=== PATIENT | male | born 1970 | race Caucasian/White ===

== ENCOUNTER → 2018-05-16 | Outpatient (CLI) | payer OTHER ==
[2018-05-16 10:11] LABS: ESTIMATED AVERAGE GLUCOSE 143 MG/DL (60-110); HEMOGLOBIN A1c 6.6 %
== END ==
LOC: M LAB 08:20
DX: E11.9 Type 2 diabetes mellitus without complications (principal)
CPT/HCPCS: 83036

== ENCOUNTER 2018-05-26 12:03 | Emergency (ER) | payer OTHER ==
[2018-05-26] MEDS: ASPIRIN 81 MG CHEW TABLET PO (13:58)
[2018-05-26] MEDS: NITROGLYCERIN 0.4 MG SUBL TABLET SL (13:58)
[2018-05-26 16:00] LABS: BASO % 0.3 % (0.0-1.0); EOS % 0.1 % (0.0-3.0); HEMATOCRIT 43.3 % (42.0-52.0); HEMOGLOBIN 14.5 g/dl (13.5-17.5); IMMATURE GRANULOCYTE % 0.3 % (0-3.0); LYMPH # 0.7 10^3/uL (1.5-4.5); LYMPH % 5.9 % (24.0-44.0); MEAN CORPUSCULAR HEMOGLOBIN 30.3 pg (27.0-33.0); MEAN CORPUSCULAR HGB CONC 33.5 g/dl (32.0-36.5); MEAN CORPUSCULAR VOLUME 90.4 fl (80.0-96.0); MONO # 0.5 10^3/uL (0.0-0.8); MONO % 4.2 % (0.0-5.0); NEUTROPHILS # 10.4 10^3/uL (1.8-7.7); NEUTROPHILS % 89.2 % (36.0-66.0); PLATELET COUNT, AUTOMATED 171 10^3/uL (150-450); RED BLOOD COUNT 4.79 10^6/uL (4.30-6.10); RED CELL DISTRIBUTION WIDTH 15.9 % (11.5-14.5); WHITE BLOOD COUNT 11.6 10^3/uL (4.0-10.0)
[2018-05-26 16:10] LABS: INR 1.09; PROTHROMBIN TIME 14.2 SECONDS (12.1-14.4)
[2018-05-26 16:11] LABS: PARTIAL THROMBOPLASTIN TIME 29.6 SECONDS (25.4-37.6)
[2018-05-26 16:17] LABS: D-DIMER QUANT < 270.0 ng/ml (<500)
[2018-05-26 16:31] LABS: ALBUMIN 3.7 GM/DL (3.2-5.2); ALBUMIN/GLOBULIN RATIO 1.06 (1.00-1.93); ALKALINE PHOSPHATASE 76 U/L (45-117); ALT/SGPT 25 U/L (12-78); ANION GAP 10 MEQ/L (8-16); AST/SGOT 9 U/L (7-37); BILIRUBIN,DIRECT 0.2 MG/DL (0.0-0.2); BILIRUBIN,TOTAL 0.4 MG/DL (0.2-1.0); BLOOD UREA NITROGEN 15 MG/DL (7-18); CALCIUM LEVEL 8.8 MG/DL (8.5-10.1); CARBON DIOXIDE LEVEL 22 MEQ/L (21-32); CHLORIDE LEVEL 107 MEQ/L (98-107); CPK CREATINE PHOSPHOKINASE 36 U/L (39-308); CREATININE FOR GFR 0.96 MG/DL (0.70-1.30); GLOMERULAR FILTRATION RATE > 60.0 (>60); GLUCOSE, FASTING 121 MG/DL (70-100); LIPASE 99 U/L (73-393); POTASSIUM SERUM 4.3 MEQ/L (3.5-5.1); SODIUM LEVEL 139 MEQ/L (136-145); TOTAL PROTEIN 7.2 GM/DL (6.4-8.2); TROPONIN I < 0.02 NG/ML (< 0.10)
[2018-05-26 16:32] LABS: CK-MB VALUE MASS < 1.0 NG/ML (<3.6); MB/CK RELATIVE INDEX 2.77 (< OR =4); NT-PRO BNP 1950 PG/ML (<125)
[2018-05-26 18:49] LABS: CK-MB VALUE MASS < 1.0 NG/ML (<3.6); CPK CREATINE PHOSPHOKINASE 31 U/L (39-308); MB/CK RELATIVE INDEX 3.22 (< OR =4); TROPONIN I < 0.02 NG/ML (< 0.10)
== END 2018-05-26 19:30 | disposition home or self-care (01) ==
LOC: M ED 12:03
DX: R07.9 Chest pain, unspecified (principal); R11.2 Nausea with vomiting, unspecified; R06.02 Shortness of breath; R42 Dizziness and giddiness; R05 Cough; I45.10 Unspecified right bundle-branch block; E11.9 Type 2 diabetes mellitus without complications; I11.0 Hypertensive heart disease with heart failure; I50.9 Heart failure, unspecified; J44.9 Chronic obstructive pulmonary disease, unspecified; I48.91 Unspecified atrial fibrillation; E78.5 Hyperlipidemia, unspecified; Z95.0 Presence of cardiac pacemaker; Z86.73 Personal history of transient ischemic attack (TIA), and cerebral infarction without residual deficits; Z79.899 Other long term (current) drug therapy; Z79.4 Long term (current) use of insulin; Z79.82 Long term (current) use of aspirin; Z88.0 Allergy status to penicillin; Z88.2 Allergy status to sulfonamides; Z91.018 Allergy to other foods; F17.210 Nicotine dependence, cigarettes, uncomplicated
CPT/HCPCS: 71046

== ENCOUNTER 2018-10-29 09:09 | Emergency (ER) | payer OTHER ==
[2018-10-29] MEDS: NORCO, ANEXSIA 5/325MG TABLET (HYDROcodone/ACETAMINOPHEN) PO (10:15)
== END 2018-10-29 10:54 | disposition home or self-care (01) ==
LOC: M ED 09:09
DX: R07.89 Other chest pain (principal); I51.7 Cardiomegaly; Z72.0 Tobacco use; Z95.0 Presence of cardiac pacemaker; Z79.82 Long term (current) use of aspirin; Z79.4 Long term (current) use of insulin; Z79.899 Other long term (current) drug therapy; Z88.0 Allergy status to penicillin; Z88.2 Allergy status to sulfonamides; Z91.018 Allergy to other foods
CPT/HCPCS: 71101

== ENCOUNTER 2019-01-22 09:10 | Emergency (ER) | payer OTHER ==
[~2019-01-22] VITALS: Ht 165.1 cm; Wt 97.3 kg
[~2019-01-22 09:10] MED LIST: /INSUREG IJ; /PHEN9TA OR; ADV250INH INH; ADVAIR; ADVAIR INH; ALBU17IN INH; ALBU83IN INH; ALLE25CA OR; AMIO20TA PO; AMLO10TA PO; AMLO10TA5 PO; AMLO5TAB OR; ASPI1TAB PO; ASPI81TA24 PO; ASPI81TA83 OR; ASPI81TA83 PO; ATEN50TA2; ATOR1TAB19 PO; Acetaminophen/Hydrocodone PO; CLAR10CA3 PO; CLAR5CHW OR; CLARITIN OR; CLOP75TA2 PO; CRES5TAB OR; CYCL10TA PO; DRONEDARONE OR; ERYTOIN8 OS; FURO20TA2 PO; FURO40TA2 PO; GABA600T4 PO; GABA800T4 PO; GLUC500T OR; HUMUINJ SC; HYDR-3713 PO; IBUP1TAB7 PO; IBUP400T OR; IBUP600T; IBUP80TA PO; INSUHUMDS SC; INSULIN ISOPHANE SC; INSUNSD SC; INSURSD SC; IPRAINH INH; KEPP1TAB PO; KEPPRA OR; LASI20TA OR; LASI20TA3 PO; LASI40TA9 PO; LEVE750T5 PO; LIPI20TA; LISI-538 PO; LISI20TA5 OR; LOPR100T OR; LOPR50TA OR; LORA-243 PO; MAALSUS OR; MAGN500T2 OR; MAGN64TASA PO; METF10004 PO; METO100T5 PO; NITR0.2D TD; NITR0.3D TD; NITR0.4S SL; NITR4TASL SL; NOVOINJ3 SC; OMEP20TA7 OR; OXCA150T OR; PHEN32.44 PO; PLAV1TAB2 PO; PLAV75TA2 OR; RANI15TA PO; REFR0.5D8 OU; REFRESH EYE DROPS OU; SERT50TA2 OR; TRAZ-163 PO; TRAZ150T OR; TRILEPTAL OR; VENTAER IN; VENTAER INH; in; multaq PO
[2019-01-22] MEDS: IPRATROPIUM 0.5MG/ALBUTEROL 2.5MG INH SOL UD 3ML (DUONEB)(J7620) NEB SCH ×3 (10:17→11:30)
--- NOTE | 2019-01-22 10:33 | REP ---
Clinical: Productive cough. Technique: PA and lateral. Comparison: 05/26/2018. Findings: Stable diffuse cardiomegaly unchanged. Lung kennedy are clear. No acute consolidation, effusion, or pneumothorax. Skeletal structures are intact. Impression: Stable cardiomegaly. No acute process. Electronically Signed by Jose Alberto Lowe MD 01/22/2019 10:25 A
[2019-01-22] MEDS ORDERED: DOXY100C37 PO (11:59)
[2019-01-22] MEDS ORDERED: PRED20TA PO (11:59)
[2019-01-22 12:09] VITALS: BP 108/68
--- NOTE | 2019-01-25 06:34 | ECGEPIP ---
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
== END 2019-01-22 12:10 | disposition home or self-care (01) ==
LOC: M ED 09:10
DX: J44.1 Chronic obstructive pulmonary disease with (acute) exacerbation (principal); I45.10 Unspecified right bundle-branch block; E11.9 Type 2 diabetes mellitus without complications; I10 Essential (primary) hypertension; I48.91 Unspecified atrial fibrillation; I25.10 Atherosclerotic heart disease of native coronary artery without angina pectoris; Z79.899 Other long term (current) drug therapy; Z79.4 Long term (current) use of insulin; Z79.82 Long term (current) use of aspirin; Z88.0 Allergy status to penicillin; Z88.2 Allergy status to sulfonamides; Z91.018 Allergy to other foods; F17.210 Nicotine dependence, cigarettes, uncomplicated

== ENCOUNTER → 2019-02-04 | Outpatient (CLI) | payer OTHER ==
[~2019-02-04] MED LIST changes: +DOXY100C37 PO; +PRED20TA PO
[2019-02-04 10:47] LABS: ALBUMIN 3.4 GM/DL (3.2-5.2); ALT/SGPT 22 U/L (12-78); BILIRUBIN,DIRECT 0.1 MG/DL (0.0-0.2); BILIRUBIN,TOTAL 0.3 MG/DL (0.2-1.0); BLOOD UREA NITROGEN 18 MG/DL (7-18); CARBON DIOXIDE LEVEL 28 MEQ/L (21-32); CHLORIDE LEVEL 108 MEQ/L (98-107); CREATININE FOR GFR 0.89 MG/DL (0.70-1.30); GLOMERULAR FILTRATION RATE > 60.0 (>56); GLUCOSE, FASTING 103 MG/DL (70-100); POTASSIUM SERUM 4.3 MEQ/L (3.5-5.1); SODIUM LEVEL 140 MEQ/L (136-145); THYROID STIMULATING HORMONE 0.733 uIU/ML (0.358-3.740); TOTAL PROTEIN 6.8 GM/DL (6.4-8.2)
== END ==
LOC: M LAB 09:34
PROVIDERS: ATTEND Nurse Practitioner Family
DX: I47.2 Ventricular tachycardia (principal)

== ENCOUNTER → 2019-02-04 | Outpatient (CLI) | payer OTHER | LOC: M LAB 09:28 | PROVIDERS: ATTEND Nurse Practitioner | DX: I47.2 Ventricular tachycardia (principal) ==

== ENCOUNTER 2019-04-28 01:15 | Emergency (ER) | payer OTHER ==
[~2019-04-28] VITALS: Ht 165.1 cm; Wt 98.2 kg
[~2019-04-28 01:15] MED LIST changes: -/INSUREG IJ; -/PHEN9TA OR; +AMIO200T10 PO; +AMIO200T22 PO; -AMIO20TA PO; -ASPI1TAB PO; +ASPI81TA26 PO; +NOVO1INJ2 IJ; +PHEN1TAB26 OR
[2019-04-28 01:50] LABS: BASO # 0.1 10^3/uL (0.0-0.2); BASO % 0.7 % (0.0-1.0); EOS # 0.5 10^3/uL (0.0-0.50); EOS % 5.6 % (0.0-3.0); HEMATOCRIT 38.7 % (42.0-52.0); HEMOGLOBIN 12.4 g/dl (13.5-17.5); LYMPH # 1.4 10^3/uL (1.5-4.5); MEAN CORPUSCULAR VOLUME 99.7 fl (80.0-96.0); MONO # 0.8 10^3/uL (0.0-0.8); MONO % 9.1 % (0.0-5.0); NEUTROPHILS # 5.8 10^3/uL (1.8-7.7); NEUTROPHILS % 68.2 % (36.0-66.0); PLATELET COUNT, AUTOMATED 147 10^3/uL (150-450); RED BLOOD COUNT 3.88 10^6/uL (4.30-6.10); WHITE BLOOD COUNT 8.5 10^3/uL (4.0-10.0)
[2019-04-28 02:15] LABS: BLOOD UREA NITROGEN 15 MG/DL (7-18); CALCIUM LEVEL 8.2 MG/DL (8.5-10.1); CARBON DIOXIDE LEVEL 21 MEQ/L (21-32); CHLORIDE LEVEL 114 MEQ/L (98-107); CPK CREATINE PHOSPHOKINASE 39 U/L (39-308); CREATININE FOR GFR 0.84 MG/DL (0.70-1.30); GLOMERULAR FILTRATION RATE > 60.0 (>56); GLUCOSE, FASTING 115 MG/DL (70-100); MB/CK RELATIVE INDEX 2.82 (< OR =4); POTASSIUM SERUM 4.4 MEQ/L (3.5-5.1); SODIUM LEVEL 144 MEQ/L (136-145); TROPONIN I < 0.02 NG/ML (< 0.10)
--- NOTE | 2019-04-28 02:29 | REP ---
Clinical: Chest pain. Comparison: 01/22/2019. Findings: Cardiomegaly. No focal consolidation or effusion. No pneumothorax. Skeletal structures intact. Impression: Cardiomegaly. Cannot exclude pulmonary vascular congestion. No focal consolidation or effusion. Electronically Signed by Jose Alberto Lowe MD 04/28/2019 02:19 A
[2019-04-28] MEDS ORDERED: FOLI1TAB11 PO (02:34)
[2019-04-28] MEDS ORDERED: IBUP-1022 PO (02:34)
[2019-04-28] MEDS ORDERED: SERT-141 PO (02:34)
[2019-04-28] MEDS ORDERED: B-1100TA2 PO (02:34)
[2019-04-28] MEDS ORDERED: TRAZ-189 PO (02:34)
[2019-04-28] MEDS ORDERED: K-TA10TA2 PO (02:34)
[2019-04-28] MEDS ORDERED: MAGN400T2 PO (02:34)
[2019-04-28] MEDS ORDERED: XARE20TA PO (02:34)
[2019-04-28] MEDS ORDERED: ISOVUE-370 76% 100ML VIAL (Q9967) As Ordered ONE ×2 (03:07→04:04)
--- NOTE | 2019-04-28 04:38 | REPVR ---
EXAM: CT Cervical Spine Without Contrast EXAM DATE/TIME: 04/28/2019 3:55 AM CLINICAL HISTORY: 48 years old, male; Signs and symptoms; Numbness; Additional info: HX of spinal FX, SOB, parethesia TECHNIQUE: Imaging protocol: Axial computed tomography images of the cervical spine without contrast. Coronal and sagittal reformatted images were created and reviewed. Radiation optimization: All CT scans at this facility use at least one of these dose optimization techniques: automated exposure control; mA and/or kV adjustment per patient size (includes targeted exams where dose is matched to clinical indication); or iterative reconstruction. COMPARISON: CT Spine,cervical w/o contrast 06/26/2015 2:30 AM FINDINGS: Vertebrae: Decreased height of C5 and to a lesser degree C6 with increased AP dimension which may be developmental but certainly chronic and is unchanged from the prior study. Congenital low normal size of the spinal canal on a short pedicle basis. C2-C3: No significant spinal or foraminal stenosis. C3-C4: The disc is adequately well maintained with no significant degenerative change in the spinal or foraminal stenosis. C4-C5: Minimal diffuse bulge with mild anterior spurring and bilateral degenerative changes. There is slight anterior listhesis. There is mild secondary spinal stenosis with moderate right and mild left neural foraminal stenosis. C5-C6: Moderate interspace narrowing with minimal posterior osteophytes and bilateral degenerative changes, there is mild to moderate secondary spinal stenosis, greatest in the left lateral recess and mild right and moderate left neural foraminal stenosis. C6-C7: Moderate interspace narrowing with minimal posterior osteophytes and bilateral degenerative change with mild right and moderate left neural foraminal stenosis. C7-T1: Slight interspace narrowing early degenerative changes of apophyseal joints. There is moderate left neural foraminal stenosis. Soft tissues: Unremarkable. Mastoid air cells: Poor pneumatization of the mastoid air cells with opacification of the few that remain. Lungs: Lung apices are normal. IMPRESSION: 1. There has been essentially no change from 06/26/2015. No acute interval fracture or subluxation. 2. Congenital low normal size of the spinal canal on a short pedicle basis. 3. Multilevel degenerative changes with varying degrees of spinal and neural foraminal stenosis. 4. Poor pneumatization of mastoid air cells with opacification of the few which remain. Electronically signed by: Grover Cardenas On 04/28/2019 04:37:29 AM
--- NOTE | 2019-04-28 04:46 | REPVR ---
EXAM: CT Angiography Chest With Contrast EXAM DATE/TIME: 04/28/2019 3:55 AM CLINICAL HISTORY: 48 years old, male; Signs and symptoms; Shortness of breath; Additional info: HX of spinal FX, SOB, parethesia TECHNIQUE: Imaging protocol: Axial computed tomographic angiography images of the chest with intravenous contrast using CT angiography protocol. Coronal and sagittal reformatted images were created and reviewed. 3D rendering: MIP reconstructed images were created and reviewed. Radiation optimization: All CT scans at this facility use at least one of these dose optimization techniques: automated exposure control; mA and/or kV adjustment per patient size (includes targeted exams where dose is matched to clinical indication); or iterative reconstruction. Contrast material: ISOVUE 370; Contrast volume: 75 ml; Contrast route: IV; COMPARISON: CT Chest without contrast 04/08/2015 8:09 AM FINDINGS: Tubes, catheters and devices: Pacemaker in position from the left. Pulmonary arteries: The main pulmonary artery measures 36 mm. No pulmonary embolism is identified. Aorta: The ascending thoracic aorta measures 36 mm. Lungs: Course interstitial markings with minimal patchy ground glass infiltrates, greatest in the bases. Pleural space: Normal. No pneumothorax. No pleural effusion. Heart: Normal. No cardiomegaly. No pericardial effusion. Mediastinum: Calcified nodule in the anterior mediastinum with a circumferential metallic ring of uncertain etiology but is unchanged from the prior study. Adrenals: Fullness or nodule of the left adrenal measuring 21 mm. Intraperitoneal space: Minimal peritoneal ascites. Lymph nodes: Numerous mediastinal nodes which are borderline overall the number. Bones/joints: Mild degenerative changes of the thoracic spine. Interval fractures of the left 8th and 9th ribs laterally which are old or healing. Soft tissues: Unremarkable. Other findings: Induration in the left axilla. IMPRESSION: 1. Coarse interstitium with patchy groundglass infiltrates which are new since 04/08/2015 and may reflect interstitial or pulmonary edema. 2. Borderline mediastinal nodes which are similar to the prior study. There is nonspecific induration about left axillary nodes as well which is new. 3. Minimal peritoneal ascites which is new. 4. Old or healing fractures of the left 8th and 9th ribs laterally. 5. Otherwise negative CTA chest. No pulmonary embolism is identified. Electronically signed by: Grover Cardenas On 04/28/2019 04:46:34 AM
[2019-04-28 05:36] VITALS: BP 170/85
--- NOTE | 2019-04-28 15:15 | ECGEPIP ---
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
== END 2019-04-28 05:44 | disposition home or self-care (01) ==
LOC: M ED 01:15
DX: I50.9 Heart failure, unspecified (principal); R00.1 Bradycardia, unspecified; I45.10 Unspecified right bundle-branch block; R18.8 Other ascites; R91.8 Other nonspecific abnormal finding of lung field; I51.7 Cardiomegaly; I25.10 Atherosclerotic heart disease of native coronary artery without angina pectoris; I25.2 Old myocardial infarction; G43.909 Migraine, unspecified, not intractable, without status migrainosus; Z95.0 Presence of cardiac pacemaker; Z95.810 Presence of automatic (implantable) cardiac defibrillator; Z72.0 Tobacco use; F12.10 Cannabis abuse, uncomplicated; Z79.82 Long term (current) use of aspirin; Z79.4 Long term (current) use of insulin; Z79.899 Other long term (current) drug therapy; Z88.0 Allergy status to penicillin; Z88.2 Allergy status to sulfonamides; Z91.018 Allergy to other foods
CPT/HCPCS: 36415; 71045; 71275; 72125; 80048; 82550; 82553; 85025; 93005; 93041; 94760; 99285; Q9967

== ENCOUNTER → 2019-05-13 | Outpatient (CLI) | payer OTHER ==
[~2019-05-13] MED LIST changes: +B-1100TA2 PO; +FOLI1TAB11 PO; +IBUP-1022 PO; +K-TA10TA2 PO; +MAGN400T2 PO; +SERT-141 PO; +TRAZ-189 PO; +XARE20TA PO
[2019-05-13 09:44] LABS: BASO # 0.1 10^3/uL (0.0-0.2); BASO % 0.9 % (0.0-1.0); EOS # 0.6 10^3/uL (0.0-0.50); EOS % 7.3 % (0.0-3.0); HEMATOCRIT 42.7 % (42.0-52.0); HEMOGLOBIN 13.6 g/dl (13.5-17.5); LYMPH # 1.6 10^3/uL (1.5-4.5); MEAN CORPUSCULAR HEMOGLOBIN 30.2 pg (27.0-33.0); MEAN CORPUSCULAR HGB CONC 31.9 g/dl (32.0-36.5); MEAN CORPUSCULAR VOLUME 94.7 fl (80.0-96.0); MONO # 0.7 10^3/uL (0.0-0.8); MONO % 8.9 % (0.0-5.0); NEUTROPHILS % 62.3 % (36.0-66.0); PLATELET COUNT, AUTOMATED 167 10^3/uL (150-450); RED BLOOD COUNT 4.51 10^6/uL (4.30-6.10); WHITE BLOOD COUNT 8.1 10^3/uL (4.0-10.0)
[2019-05-13 10:09] LABS: HEMOGLOBIN A1c 6.5 %
[2019-05-13 10:17] LABS: ALBUMIN 3.7 GM/DL (3.2-5.2); ALT/SGPT 20 U/L (12-78); BILIRUBIN,TOTAL 0.2 MG/DL (0.2-1.0); BLOOD UREA NITROGEN 10 MG/DL (7-18); CALCIUM LEVEL 9.2 MG/DL (8.5-10.1); CARBON DIOXIDE LEVEL 29 MEQ/L (21-32); CHLORIDE LEVEL 105 MEQ/L (98-107); CHOLESTEROL LEVEL 128 MG/DL (<200); CHOLESTEROL RISK RATIO 2.666 (<5); CREATININE FOR GFR 1.07 MG/DL (0.70-1.30); GLOMERULAR FILTRATION RATE > 60.0 (>56); GLUCOSE, FASTING 107 MG/DL (70-100); HDL CHOLESTEROL 48 MG/DL (>40); LDL CHOLESTEROL 61 MG/DL (<100); NON-HDL-C 80 MG/DL; POTASSIUM SERUM 3.6 MEQ/L (3.5-5.1); SODIUM LEVEL 141 MEQ/L (136-145); THYROID STIMULATING HORMONE 0.502 uIU/ML (0.358-3.740); TOTAL PROTEIN 7.5 GM/DL (6.4-8.2); TRIGLYCERIDES LEVEL 95 MG/DL (<150)
--- NOTE | 2019-05-13 10:49 | REP ---
CHEST X-RAY: Two views. HISTORY: COPD. COMPARISON STUDY: April 28, 2019. FINDINGS: There is moderate to marked cardiomegaly again observed with pacemaker in place. Cardiothoracic ratio is 64.8% on the frontal view. There are mediastinal clips. Pleural angles are sharp. No infiltrate is seen. Pulmonary vasculature is not increased. IMPRESSION: Moderate to marked cardiomegaly unchanged from comparison study. No evidence of pleural effusion or pulmonary edema. No acute infiltrate. Electronically Signed by Chapito Mack MD 05/13/2019 12:24 P
== END ==
LOC: M LAB 08:46
PROVIDERS: ATTEND Nurse Practitioner Family
DX: J44.1 Chronic obstructive pulmonary disease with (acute) exacerbation (principal); I25.10 Atherosclerotic heart disease of native coronary artery without angina pectoris; E11.9 Type 2 diabetes mellitus without complications; Z13.9 Encounter for screening, unspecified; I11.9 Hypertensive heart disease without heart failure

== ENCOUNTER 2019-07-28 13:49 | Emergency (ER) | payer OTHER ==
[~2019-07-28] VITALS: Ht 165.1 cm; Wt 94.1 kg
[2019-07-28] MEDS ORDERED: LIDOCAINE W/EPINEPHRINE 1% 20ML VIAL SC ONE (14:00)
[2019-07-28] MEDS ORDERED: ANOR1AER INH (14:26)
[2019-07-28] MEDS ORDERED: MULTCAP PO (14:30)
--- NOTE | 2019-07-28 14:50 | REP ---
Clinical: Trauma. Fall. Comparison: 06/26/2015 . Findings: The ventricles, sulci, and cisterns are normal in position and appearance. Lynch-white differentiation is maintained. No acute intracranial hemorrhage, mass/mass effect, pathology or trauma/injury. No evidence for acute infarction. No extra-axial fluid collection. Calvarium is intact. Paranasal sinuses and mastoid air cells are clear. Right periorbital soft tissue swelling noted. Impression: Normal noncontrast head CT. No evidence for acute intracranial pathology or trauma/injury. Electronically Signed by Jose Alberto Lowe MD 07/28/2019 02:41 P
[2019-07-28 14:52] LABS: VENOUS BASE EXCESS 0.5 (-2.0-2.0); VENOUS HCO3 25.6 MEQ/L (23.0-27.0); VENOUS O2 SATURATION 96.9 % (60.0-80.0); VENOUS PARTIAL PRESSURE CO2 42.8 mmHg (38.0-50.0); VENOUS PARTIAL PRESSURE O2 88.4 mmHg (30.0-50.0); VENOUS PH 7.394 UNITS (7.330-7.430); VENOUS STANDARD HCO3 24.9 MEQ/L; VENOUS TOTAL CO2 26.9 MEQ/L (24.0-28.0)
--- NOTE | 2019-07-28 14:54 | REP ---
Clinical: Trauma. Fall. Technique: Axial noncontrast images from the skull base to the thoracic inlet with coronal and sagittal re-formations. Comparison: 04/28/2019. Findings: Early advanced multilevel degenerative disc osteophyte complexes are appreciated primarily involving C4-5 through C7-T1. Findings include endplate sclerosis, osteophytosis, and disc space narrowing along with facet arthropathy. Associated mild chronic canal stenosis at C5-C6 and C6-C7 suggested and stable compared to prior. Alignment is maintained. There is no evidence for acute fracture / compression injury or subluxation. Impression: 1. Stable advanced multilevel degenerative spondylosis as described above. 2. No evidence for acute cervical spine trauma/injury. Electronically Signed by Jose Alberto Lowe MD 07/28/2019 02:46 P
[2019-07-28 14:59] LABS: BASO % 0.3 % (0.0-1.0); EOS # 0.1 10^3/uL (0.0-0.5); EOS % 1.3 % (0.0-3.0); HEMATOCRIT 40.5 % (42.0-52.0); HEMOGLOBIN 13.7 g/dl (13.5-17.5); LYMPH # 1.5 10^3/uL (1.5-5.0); LYMPH % 16.2 % (24.0-44.0); MEAN CORPUSCULAR HGB CONC 33.8 g/dl (32.0-36.5); MEAN CORPUSCULAR VOLUME 91.6 fl (80.0-96.0); MONO # 0.7 10^3/uL (0.0-0.8); MONO % 7.4 % (0.0-5.0); NEUTROPHILS # 7.1 10^3/uL (1.5-8.5); NEUTROPHILS % 74.4 % (36.0-66.0); PLATELET COUNT, AUTOMATED 140 10^3/uL (150-450); RED BLOOD COUNT 4.42 10^6/uL (4.30-6.10); WHITE BLOOD COUNT 9.5 10^3/uL (4.0-10.0)
--- NOTE | 2019-07-28 15:05 | REP ---
Clinical: Trauma. Technique: Axial noncontrast images through the facial bones to include the mandible with coronal and sagittal re-formations. Findings: Mild right periorbital soft tissue swelling is appreciated. The osseous structures are intact and there is no evidence for fracture or dislocation. Specifically, the bilateral zygomatic arches, nasal bones, and mandible including bilateral temporomandibular joints appear normal and symmetric. The sinuses and mastoid air cells are all well aerated and without fluid level to suggest occult trauma. The bilateral orbits including the globes and intraconal contents appear symmetric and normal. Impression: Mild right periorbital soft tissue swelling consistent with trauma. No obvious acute fracture or further trauma/injury appreciated. Electronically Signed by Jose Alberto Lowe MD 07/28/2019 02:57 P
--- NOTE | 2019-07-28 15:09 | REP ---
Clinical: Syncope/near-syncopal episode. Comparison: 05/13/2019. Findings: Stable generalized cardiomegaly is appreciated. Single lead pacemaker in stable position. Lung kennedy are clear. No focal consolidation, effusion, or pneumothorax. Skeletal structures intact. Impression: Stable chronic cardiomegaly. No acute cardiopulmonary process appreciated. Electronically Signed by Jose Alberto Lowe MD 07/28/2019 03:02 P
[2019-07-28 15:12] LABS: INR 1.11; PARTIAL THROMBOPLASTIN TIME 30.9 SECONDS (25.0-38.4)
[2019-07-28 15:32] LABS: BLOOD UREA NITROGEN 13 MG/DL (7-18); CALCIUM LEVEL 9.2 MG/DL (8.5-10.1); CARBON DIOXIDE LEVEL 28 MEQ/L (21-32); CHLORIDE LEVEL 104 MEQ/L (98-107); CPK CREATINE PHOSPHOKINASE 58 U/L (39-308); CREATININE FOR GFR 0.85 MG/DL (0.70-1.30); ETHYL ALCOHOL (ETHANOL) < 0.003 % (0.000-0.010); FREE T4 2.09 NG/DL (0.76-1.46); GLOMERULAR FILTRATION RATE > 60.0 (>56); GLUCOSE, FASTING 125 MG/DL (70-100); MAGNESIUM LEVEL 1.8 MG/DL (1.8-2.4); MB/CK RELATIVE INDEX 1.72 (< OR =4); POTASSIUM SERUM 3.7 MEQ/L (3.5-5.1); SODIUM LEVEL 139 MEQ/L (136-145); THYROID STIMULATING HORMONE 0.005 uIU/ML (0.358-3.740); TROPONIN I < 0.02 NG/ML (< 0.10)
[2019-07-28] MEDS ORDERED: DERMABOND TOPICAL SKIN ADHESIVE TOP STA (15:37)
[2019-07-28 16:37] VITALS: BP 129/69
[2019-07-28] MEDS ORDERED: levETIRAcetam INJection 1,000 MG in D5W 100 ML IV ONE (17:00)
--- NOTE | 2019-07-29 00:45 | ECGEPIP ---
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
== END 2019-07-28 17:57 | disposition home or self-care (01) ==
LOC: M ED 13:49
DX: S01.81XA Laceration without foreign body of other part of head, initial encounter (principal); W18.2XXA Fall in (into) shower or empty bathtub, initial encounter; Y92.012 Bathroom of single-family (private) house as the place of occurrence of the external cause; G40.909 Epilepsy, unspecified, not intractable, without status epilepticus; E05.90 Thyrotoxicosis, unspecified without thyrotoxic crisis or storm; I50.9 Heart failure, unspecified; I25.2 Old myocardial infarction; Z79.899 Other long term (current) drug therapy; Z79.82 Long term (current) use of aspirin; Z79.84 Long term (current) use of oral hypoglycemic drugs; Z79.01 Long term (current) use of anticoagulants; Z88.0 Allergy status to penicillin; Z88.1 Allergy status to other antibiotic agents; Z88.2 Allergy status to sulfonamides; Z91.018 Allergy to other foods; F17.210 Nicotine dependence, cigarettes, uncomplicated
CPT/HCPCS: 36415; 70450; 70486; 71045; 72125; 80048; 82550; 82553; 82803; 83605; 83735; 84439; 84443; 85025; 85610; 85730; 93005; 93041; 99284; G0480

== ENCOUNTER → 2019-08-02 | Outpatient (CLI) | payer OTHER ==
[~2019-08-02] MED LIST changes: +ANOR1AER INH; +MULTCAP PO
== END ==
LOC: M LAB 11:24
PROVIDERS: ATTEND Family Medicine
DX: R56.9 Unspecified convulsions (principal)

== ENCOUNTER → 2019-08-19 | Outpatient (CLI) | payer OTHER ==
[2019-08-19 15:54] LABS: APPEARANCE, URINE CLEAR (CLEAR); BACTERIA, URINE AUTO NEGATIVE (NEGATIVE); BILIRUBIN, URINE AUTO NEGATIVE (NEGATIVE); BLOOD, URINE BLOOD NEGATIVE (NEGATIVE); COLOR, URINE YELLOW (YELLOW); GLUCOSE, URINE (UA) AUTO NEGATIVE (NEGATIVE); KETONE, URINE AUTO TRACE mg/dL (NEGATIVE); LEUKOCYTE ESTERASE, URINE AUTO TRACE (NEGATIVE); NITRITE, URINE AUTO NEGATIVE (NEGATIVE); PROTEIN, URINE AUTO NEGATIVE (NEGATIVE); RBC, URINE AUTO 2 /HPF (0-3); SPECIFIC GRAVITY URINE AUTO 1.018 (1.002-1.035); SQUAMOUS EPITHELIAL CELL UR AU 0 /HPF (0-6); UROBILINOGEN, URINE AUTO 0.2 mg/dL (0.0-2.0); WBC, URINE AUTO 3 /HPF (0-3)
[2019-08-19 15:56] LABS: BASO % 0.5 % (0.0-1.0); EOS # 0.2 10^3/uL (0.0-0.5); EOS % 2.7 % (0.0-3.0); HEMATOCRIT 41.2 % (42.0-52.0); HEMOGLOBIN 13.7 g/dl (13.5-17.5); LYMPH # 1.7 10^3/uL (1.5-5.0); LYMPH % 19.8 % (24.0-44.0); MEAN CORPUSCULAR HEMOGLOBIN 31.9 pg (27.0-33.0); MEAN CORPUSCULAR HGB CONC 33.3 g/dl (32.0-36.5); MEAN CORPUSCULAR VOLUME 95.8 fl (80.0-96.0); MONO # 0.7 10^3/uL (0.0-0.8); MONO % 8.2 % (0.0-5.0); NEUTROPHILS # 5.9 10^3/uL (1.5-8.5); NEUTROPHILS % 68.3 % (36.0-66.0); PLATELET COUNT, AUTOMATED 116 10^3/uL (150-450); WHITE BLOOD COUNT 8.6 10^3/uL (4.0-10.0)
[2019-08-19 16:08] LABS: HEMOGLOBIN A1c 5.6 %
[2019-08-19 16:09] LABS: ALBUMIN 3.9 GM/DL (3.2-5.2); ALT/SGPT 18 U/L (12-78); BILIRUBIN,TOTAL 0.5 MG/DL (0.2-1.0); BLOOD UREA NITROGEN 15 MG/DL (7-18); CALCIUM LEVEL 9.7 MG/DL (8.5-10.1); CARBON DIOXIDE LEVEL 26 MEQ/L (21-32); CHLORIDE LEVEL 106 MEQ/L (98-107); CHOLESTEROL LEVEL 110 MG/DL (<200); CREATININE FOR GFR 0.89 MG/DL (0.70-1.30); FREE T4 2.15 NG/DL (0.76-1.46); GLOMERULAR FILTRATION RATE > 60.0 (>56); GLUCOSE, FASTING 85 MG/DL (70-100); HDL CHOLESTEROL 44 MG/DL (>40); LDL CHOLESTEROL 49 MG/DL (<100); NON-HDL-C 66 MG/DL; POTASSIUM SERUM 3.8 MEQ/L (3.5-5.1); SODIUM LEVEL 141 MEQ/L (136-145); THYROID STIMULATING HORMONE < 0.005 uIU/ML (0.358-3.740); TOTAL PROTEIN 7.4 GM/DL (6.4-8.2); TRIGLYCERIDES LEVEL 84 MG/DL (<150)
[2019-08-19 16:11] LABS: TOTAL 25(OH) VITAMIN D 28.4 NG/ML (30.0-100.0)
[2019-08-22 00:08] LABS: Lyme Disease IgG/IgM Antibodie <0.91 ISR (0.00-0.90); Lyme Disease IgM Ab Quantitati <0.80 index (0.00-0.79)
== END ==
LOC: M LAB 14:50
PROVIDERS: ATTEND Family Medicine
DX: M25.50 Pain in unspecified joint (principal); Z13.228 Encounter for screening for other metabolic disorders

== ENCOUNTER → 2020-01-15 | Outpatient (REF) | payer OTHER, MEDICAID ==
[~2020-01-15] MED LIST changes: -TRAZ-163 PO; +TRAZ-257 PO
[2020-01-15 13:48] LABS: BASO % 0.4 % (0.0-1.0); EOS # 0.3 10^3/uL (0.0-0.5); EOS % 2.9 % (0.0-3.0); HEMATOCRIT 40.4 % (42.0-52.0); HEMOGLOBIN 13.6 g/dl (13.5-17.5); LYMPH # 1.8 10^3/uL (1.5-5.0); LYMPH % 16.7 % (24.0-44.0); MEAN CORPUSCULAR HGB CONC 33.7 g/dl (32.0-36.5); MEAN CORPUSCULAR VOLUME 98.1 fl (80.0-96.0); MONO # 0.8 10^3/uL (0.0-0.8); MONO % 7.3 % (0.0-5.0); NEUTROPHILS # 7.6 10^3/uL (1.5-8.5); PLATELET COUNT, AUTOMATED 144 10^3/uL (150-450); RED BLOOD COUNT 4.12 10^6/uL (4.30-6.10); WHITE BLOOD COUNT 10.6 10^3/uL (4.0-10.0)
[2020-01-15 14:15] LABS: HEMOGLOBIN A1c 5.9 %
[2020-01-15 14:20] LABS: ALBUMIN 3.9 GM/DL (3.2-5.2); ALT/SGPT 26 U/L (12-78); BILIRUBIN,TOTAL 0.2 MG/DL (0.2-1.0); BLOOD UREA NITROGEN 16 MG/DL (7-18); CALCIUM LEVEL 9.5 MG/DL (8.5-10.1); CARBON DIOXIDE LEVEL 27 MEQ/L (21-32); CHLORIDE LEVEL 107 MEQ/L (98-107); CREATININE FOR GFR 1.01 MG/DL (0.70-1.30); GLOMERULAR FILTRATION RATE > 60.0 (>56); GLUCOSE, FASTING 84 MG/DL (70-100); POTASSIUM SERUM 4.5 MEQ/L (3.5-5.1); SODIUM LEVEL 140 MEQ/L (136-145); THYROID STIMULATING HORMONE 0.039 uIU/ML (0.358-3.740); TOTAL PROTEIN 7.4 GM/DL (6.4-8.2)
== END ==
LOC: M LAB REF 12:45
PROVIDERS: ATTEND Family Medicine
DX: Z13.9 Encounter for screening, unspecified (principal); G40.909 Epilepsy, unspecified, not intractable, without status epilepticus

== ENCOUNTER → 2020-05-02 | Outpatient (CLI) | payer OTHER ==
[~2020-05-02] MED LIST changes: +CYCL-707 PO; -CYCL10TA PO
== END ==
LOC: M LABSMTC 10:30
PROVIDERS: ATTEND Family Medicine
DX: Z03.818 Encounter for observation for suspected exposure to other biological agents ruled out (principal); Z11.59 Encounter for screening for other viral diseases
CPT/HCPCS: C9803; U0003

== ENCOUNTER → 2020-05-19 | Outpatient (CLI) | payer OTHER ==
[~2020-05-19] MED LIST changes: -AMLO10TA5 PO; +AMLO1TAB25 PO; -LISI-538 PO; +LISI20TA33 PO
--- NOTE | 2020-05-19 16:23 | REP ---
CT brain: This 05/19/2020. Indication: Neuropathy. Technique: Unenhanced axial CT images of the brain were obtained from skull base to vertex. Coronal reconstructions were additionally provided. Comparison: 07/28/2019. Findings: There is no acute intracranial hemorrhage, acute cortical infarction, mass effect, hydrocephalus or significant fluid within the visualized paranasal sinuses/mastoid air cells. Impression: No acute intracranial process. Electronically Signed by Quentin Jama DO 05/19/2020 04:15 P
== END ==
LOC: M RAD 15:23
PROVIDERS: ATTEND Family Medicine
DX: F60.9 Personality disorder, unspecified (principal)

== ENCOUNTER → 2020-07-24 | Outpatient (CLI) | payer OTHER ==
[~2020-07-24] MED LIST changes: +LISI-538 PO; -LISI20TA33 PO
[2020-07-24 12:29] LABS: THYROID STIMULATING HORMONE 0.006 uIU/ML (0.358-3.740); THYROXINE (T4) 12.9 UG/DL (4.5-12.0)
[2020-07-24 12:43] LABS: MONO SCRN NEGATIVE (NEGATIVE)
[2020-07-26 10:42] LABS: THYROID PEROXIDASE ANTIBODY 48.8 U/ML (<60.0)
[2020-07-26 10:44] LABS: THYROGLOBULIN ANTIBODY 15.3 U/ML (<60.0); TOTAL T3 72.9 NG/DL (60.0-181.0); VITAMIN B12 LEVEL > 2000 PG/ML (247-911)
[2020-07-27 16:08] LABS: EBV VIRAL CAPSID AG IgM <36.0 U/mL (0.0-35.9)
== END ==
LOC: M LAB 11:01
PROVIDERS: ATTEND Family Medicine
DX: R53.81 Other malaise (principal)

== ENCOUNTER → 2020-07-24 | Outpatient (CLI) | payer OTHER ==
[2020-07-24 12:39] LABS: ALBUMIN 3.8 GM/DL (3.2-5.2); ALT/SGPT 24 U/L (12-78); BILIRUBIN,TOTAL 0.3 MG/DL (0.2-1.0); BLOOD UREA NITROGEN 14 MG/DL (7-18); CALCIUM LEVEL 9.3 MG/DL (8.5-10.1); CARBON DIOXIDE LEVEL 25 MEQ/L (21-32); CHLORIDE LEVEL 109 MEQ/L (98-107); CREATININE FOR GFR 1.09 MG/DL (0.70-1.30); GLOMERULAR FILTRATION RATE > 60.0 (>56); GLUCOSE, FASTING 88 MG/DL (70-100); POTASSIUM SERUM 3.5 MEQ/L (3.5-5.1); SODIUM LEVEL 142 MEQ/L (136-145); THYROID STIMULATING HORMONE 0.007 uIU/ML (0.358-3.740); TOTAL PROTEIN 7.6 GM/DL (6.4-8.2)
== END ==
LOC: M LAB 10:56
PROVIDERS: ATTEND Internal Medicine Cardiovascular Disease
DX: I47.2 Ventricular tachycardia (principal)

== ENCOUNTER 2020-12-09 19:14 | Emergency (ER) | payer OTHER ==
[~2020-12-09] VITALS: Ht 165.1 cm; Wt 89.3 kg
[~2020-12-09 19:14] MED LIST changes: -LISI-538 PO; +LISI20TA33 PO
[2020-12-09] MEDS: COMBIVENT RESPIMAT 100-20MCG INHALER 4GM INH SCH ×2 (19:45→21:01)
[2020-12-09] MEDS ORDERED: dexameTHASONE 20MG/5ML VIAL (J1100 PER 1MG) IV ONE (19:45)
--- OUTSIDE RECORDS SUMMARY | 2020-12-09 19:52 | CCD | Continuity of Care Document ---
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 Jayro Mclaughlin DPM Onset: 08/13/2020 Onychomycosis Jayro Mclaughlin DPM Onset: 08/13/2020 Social History Type Date Description Comments Sex Unknown ETOH Use Occasionally consumes alcohol an occasion Tobacco Use Start: Unknown End: Unknown Patient is a former smoker 2 packs daily Allergies, Adverse Reactions, Alerts Active Allergies Reaction Severity Comments Date Mushrooms hives 08/13/2020 Penicillin V 08/13/2020 Medications Active Medications SIG Qnty Indications Ordering Provide r Date Ammonium Lactate 12% Cream apply to feet daily 140gm Jayro Mclaughlin DPM 08/13/2020 Ipratropium [place]/Albuterol Sulfate 0.5-2.5(3)mg/3ML Solution Inhale One Vial Via Nebulizer Every 6 Ho urs as Needed For Shortness Of Breath Unknown 00 Mupirocin 2% Ointment Apply Small Amount To Affected Area Two Times A Day Unknown Neomycin/Polymyxin/Dexamethasone 3.5-58419-3.1 Ointment Apply 1/4 Inch Strip To Outer Right Eyel id Three Times A Day as Directed Unknown Pregabalin 150mg Capsules Take One Capsule By Mouth Twice A Day Hold Gabapentin While On This Maximum Daily Dose 2 Unknown SM Aspirin Adult Low Strength 81mg Tablets DR Take One Tablet By Mouth Every Day Unknow n Fluticasone Propionate 50mcg/Act Suspension [place] 1 [place] In Each Nostril Two Times A Day as Needed For 7 Days Unknown Freestyle Lancets Misc 1 Four Times A Day Unknown Freestyle Lancets Misc MD Bautista Warren Tizanidine HCL 2mg Tablets Take 1 2 Tablets By Mouth Four Times A Day as Needed Unkn own Azithromycin 500mg Tablets MD Bautista Warren Cefdinir 300mg Capsules Take Two Capsules By Mouth Every Day For 15 Days Unknown 0 Guaiatussin ac 100-10mg/5ML Syrup MD Bautista Warren Flovent HFA 220mcg/Act Aerosol Inhale One puff By Mouth Twice A Day Unknown Unifine Pentips 31G X 6 mm Misc Elizabeth Law,Cole Unifindayday Pentips 31G X 6 mm Misc Use as Directed Two Times A Day Unknown 000 Humulin R 100Unit/ML Solution Inject 30Units Per Sliidng Scale Two Times A Day Unknow n Admelog Solostar 100 Unit/ML Solution Pen-Inject Injetc 2 Units For FSBS 10 150 Then Await Instructi ons On Sliding Scale Unknown Ranitidine HCL 150mg Tablets MD Bautista Warren Ketorolac Tromethamine 0.5% Soluti on Instill 1 Drop Three Times A Day In The Right Eye as Directed For 7 Days Unknown Potassium Chloride ER 10Meq Tablets ER Elizabeth Law,Cole Topiramate 100mg Tablets Take One Tablet By Mouth Twice A Day Unknown SM Alcohol Prep 70% Pads Dinesh Davis M.D. Ranitidine HCL 150mg Capsules Take One Capsule By Mouth Twice A Day Unknown Nitroglycerin 0.4mg Tablets Sub Elizabeth Law,Cole Anoro Ellipta 62.5-25mcg/Inh Aerosol Dinesh Davis M.D. Daily-Addie Tablets Dinesh Davis M.D. Admelog 100Unit/ML Solution Inject 5 Units Two Times A Day Unknown Ibuprofen 600mg Tablets Take One Tablet By Mouth Three Times A Day as Needed Unknown Blood Pressure Monitor/Manual Inflati on Device Use as Directed Unknown Blood Pressure Monitor/Manual Inflati on Device Dinesh Davis M.D. 0 Prednisone 10mg Tablets Dinesh Davis M.D. Benzonatate 100mg Capsules MD Hany Renteria Metoprolol Tartrate 100mg Tablets Cole Johnson M.D. Trulicity 1.5mg/0.5ML Solution Pen -Inject MD Bautista Warren Amlodipine Besylate 10mg Tablets MD Hany Renteria Cyanocobalamin 1000mcg/ML Solution MD Hany Renteria Klor-Con M10 10Meq Tablets ER MD Hany Renteria Atorvastatin Calcium 10mg Tablets Take One Tablet By Mouth Every Day Unknown Folic Acid 1mg Tablets Take One Tablet By Mouth Every Day Unknown Lisinopril 20mg Tablets Take One Tablet By Mouth Twice A Day Unknown Furosemide 40mg Tablets Take One Tablet By Mouth Twice A Day Unknown Clopidogrel Bisulfate 75mg Tablets MD Hany Renteria Levetiracetam 750mg Tablets MD Hany Renteria Metformin HCL 1000mg Tablets MD Hany Renteria Atrovent HFA 17mcg/Act Aerosol Inhale Two Puffs By Mouth Four Times A Day as Needed Unknow n Amiodarone HCL 200mg Tablets Take One Tablet By Mouth Once Daily Unknown Albuterol Sulfate HFA 108(90Base) mcg/Act Aerosol Use 2 Puffs By Mouth Every 4 Hours as Needed Unknown Xarelto 20mg Tablets Take One Tablet By Mouth Every Day Unknown Phenobarbital 32.4mg Tablets Take Two Tablets By Mouth Twice A Day Maximum Daily Dose 4 Unknown Loratadine 10mg Tablets Take One Tablet By Mouth Every Day Unknown Latanoprost 0.005% Solution Instill 1 Drop Once Every Night In Both Eyes Unknown Gabapentin 800mg Tablets Take One Tablet By Mouth Four Times A Day Unknown 1ML Tuberculin Syringe Detachable Needle Slip Tip 25GX5/8" 25G X 5/8" 1 ML Misc MD Hany Harding 1ML Tuberculin Syringe Detachable Needle Slip Tip 25GX5/8" 25G X 5/8" 1 ML Misc Uad For B12 Injection Unknown Sertraline HCL 100mg Tablets MD Hany Renteria Dok 100mg Capsules Take One Capsule By Mouth Three Times A Day as Needed Constipation U nknown Trazodone HCL 100mg Tablets Take 1 Tablet By Mouth 1 Hour Prior To Sleep Unknown 0 Sertraline HCL 50mg Tablets Take One Tablet By Mouth Every Day Unknown Cyclobenzaprine HCL 10mg Tablets MD Hany Renteria Lubricating Eye Drops 0.4-0.3% Solution Unknown Freestyle Lite Test Strips MD Bautista Warren Freestyle Lite Test Strips Test Four Times Daily Before Breakfast Lunch Dinner And Bed Unknown Immunizations Description No Information Available Vital Signs Date Vital Result Comment 08/13/2020 1:28pm Height 65 inches 5'5" Weight 199.00 lb BP Systolic 130 mmHg BP Diastolic 88 mmHg Heart Rate 58 /min BMI (Body Mass Index) 33.1 kg/m2 Results Description No Information Available Procedures Description No Information Available Medical Devices Description No Information Available Encounters Type Date Location Provider Dx Diagnosis Office Visit 08/13/2020 1:00p [place] [facility] Jayro Mclaughlin DPM E10.42 Type 1 diabetes mellitus with diabetic polyneuropathy B35.1 Tinea unguium Assessments Date Code Description Provider 09/22/2020 E10.42 Type 1 diabetes mellitus with di abetic polyneuropathy Jayro Mclaughlin DPM 08/13/2020 E10.42 Type 1 diabetes mellitus with di abetic polyneuropathy Jayro Mclaughlin DPM 08/13/2020 B35.1 Tinea unguium Jayro Mclaughlin DPM Plan of Treatment Future Appointment(s):* 10/29/2020 1:00 pm - Jayro Mclaughlin DPM at [facility] Functional Status Description No Information Available Mental Status Description No Information Available Referrals Refer to Reason for Referral Status Appt Date Jayro Mclaughlin DPM Created [address] [address] [phone] Jayro Mclaughlin DPM Created [address] [address] [phone]
--- OUTSIDE RECORDS SUMMARY | 2020-12-09 19:52 | CCD | Continuity of Care Document ---
Author Author Pablo MCLAUGHLIN DPM Organization Unknown Address [address] [facility], [address] [place] [address] Phone [phone] Care Team Providers Care Infrastructure Administrator Name Role Phone MD Hany Renteria [phone] Problems Active Problems Provider Date Peripheral neuropathy [...] daily 140gm Jayro Mclaughlin DPM 08/13/2020 Ipratropium [place]/Albuterol Sulfate 0.5-2.5(3)mg/3ML Solution Inhale One Vial Via Nebulizer Every 6 Ho urs as Needed For Shortness Of Breath Unknown 00 Mupirocin 2% Ointment Apply Small Amount To Affected Area Two Times A Day Unknown Neomycin/Polymyxin/Dexamethasone 3.5-39977-7.1 Ointment Apply 1/4 Inch Strip To Outer Right Eyel id Three Times A Day as Directed Unknown Pregabalin 150mg Capsules Take One Capsule By Mouth Twice A Day Hold Gabapentin While On This Maximum Daily Dose 2 Unknown SM Aspirin Adult Low Strength 81mg Tablets DR Take One Tablet By Mouth Every Day Unknow n Fluticasone Propionate 50mcg/Act Suspension [place] 1 [place] In Each Nostril Two Times A Day [...] Provider Dx Diagnosis Office Visit 08/13/2020 1:00p [place] [facility] Jayro Mclaughlin DPM E10.42 Type 1 diabetes mellitus with diabetic polyneuropathy B35.1 Tinea unguium Assessments Date Code Description Provider 08/13/2020 E10.42 Type 1 diabetes mellitus with di abetic polyneuropathy Jayro Mclaughlin DPM 08/13/2020 B35.1 Tinea unguium Jayro Mclaughlin DPM Plan of Treatment Future Appointment(s):* 10/29/2020 1:00 pm - Jayro Mclaughlin DPM at [place] [facility] Functional Status Description No Information Available Mental Status Description No Information Available Referrals Refer to Dr Reason for Referral Status Appt Date Jayro Mclaughlin DPM Created [address] [address] [phone] Jayro Mclaughlin DPM Created [address] [address] [phone]
--- OUTSIDE RECORDS SUMMARY | 2020-12-09 19:52 | CCD ---
Author Author Eliot Pablo Kathryn Organization Unknown Address [address] [place] [address] Phone Care Team Providers Care Emergency Medicine Physician Name Role Phone Kathryn Mccabe PCP Allergies, Adverse Reactions, Alerts Concept Allergy Name Reaction Severity Onset Date Status Documentation Date Phone Number Npid Taxonomy Code Taxonomy Desc Author Last Name Author Parker rst Name Concept Type 476 Penicillins Hives Active 10/04/2020 [id number] Pipo [id number] Psychiatric/Mental Health Naya Cueva [facility] Problem List Concept Problem Description Status Start Date Created Date Resolv ed Date Snomed Code F32.9 Unspecified depressive Disorder Active 03/10/2020 020 F10.10 Alcohol Use Disorder, Mild Active 03/10/2020 03/10/2020 F43.10 Posttraumatic Stress Disorde r (includes Posttraumatic Stress Disorder for Children 6 Years and Younger) Active 10/04/2020 Medications Rx Norm Medication Route Route Concept Start Date Stop Date Dosage Lucas quency Duration Formula Strength Dosage Form Dosage Form Code Dosage Description Medication Id Account Npid Author First Name Author Last Name Taxonomy Code Taxonomy Desc Phone Number [id number] Vraylar by mouth [id number] 10/04/2020 once a day 1.5 mg caps ule [id number] Anay Person [id number] Psychiatric/Mental Health [id number] Social History Social History Element Description Concept Effective Date Smoking Status Unknown if ever smoked [id number] Immunizations No Data in Section Vital Signs No Data in Section Procedures Date Concept Id Description Targeted Site Concept Targeted Site Concept Type 10/04/2020 [id number]"Psychotherapy CPT Patient has no history of implantable de vices Encounters Encounter Start Date End Date Encounter Type Description Diagnosis Di agnosis Desc Location Author First Name Author Last Name Npid Taxonomy Cod e Taxonomy Desc Phone Number Location Addr1 Location Addr2 Location City Location Sta te Location Zip [id number] 10/04/2020 10/04/2020 [id number]"Psychothera py F32.9 Major depressive disorder, single episode, unspecified [facility] Eliot Kathryn [id number] Massage Coordinator [phone] [address] [place] [phone] Plan of Treatment No Data in Section Lab Results No Data in Section Instructions No Data in Section Insurance Providers Insurance Id Policy Effective Date Policy Thru Date Company N erin [id number] 2020 [employer]-- Alex NAIR
--- OUTSIDE RECORDS SUMMARY | 2020-12-09 19:52 | CCD ---
Author Author Pablo Person Organization Unknown Address [address] [place] [address] Phone Care Team Providers Care Canine Service Teacher Name Role Phone Anay Person PCP Allergies, Adverse Reactions, Alerts Concept Allergy Name Reaction Severity Onset Date Status Documentation Date Phone Number Npid Taxonomy Code Taxonomy Desc Author Last Name Author Fi rst Name Concept Type 476 Penicillins Hives Active 10/04/2020 [id number] Psychiatric/Mental Health Naya Cueva FDDC Problem List Concept Problem Description Status Start [...] Name Taxonomy Code Taxonomy Desc Phone Number [phone] Vraylar by mouth [id number] 10/04/2020 once a day 1.5 mg caps ule [phone] [phone] [id number] Anay Person [id number] Psychiatric/Mental Health [id number] Social History Social History Element Description Concept Effective Date Smoking Status Unknown if ever smoked [id number] Immunizations No Data in Section Vital Signs Encounter Date Height Ins Weight Lbs Bmi Bp Systolic Bp Diastoli c Oxygen Saturation Respiration Rate Pulse Rate Body Temp Head Circumference Heigh t Lying 10/04/2020 0.00 0.00 0.00 0 0 0.00 0 0 0.00 0.0 0.0 0 Procedures Date Concept Id Description Targeted Site Concept Targeted Site Concept Type 10/04/2020 36892 Psychiatric Diagnostic Evaluation with Medical Services CPT Patient has no history of implantable de vices Encounters Encounter Start Date End Date Encounter Type Description Diagnosis Di agnosis Desc Location Author First Name Author Last Name Npid Taxonomy Cod e Taxonomy Desc Phone Number Location Addr1 Location Addr2 Location [facility] Location [facility] Location Zip [id number] 10/04/2020 10/04/2020 67077 Psychiatric Y[place]iko gnostic Evaluation with Medical Services F32.9 Major depressive disorder, single episod e, unspecified [facility] [id number] Psychiatric/Mental Health [id number] [address] [address] Plan of Treatment No Data in Section Lab Results No Data in Section Instructions No Data in Section Functional Cognitive Status No Data in Section Insurance Providers Insurance Id Policy Effective Date Policy Thru Date [employer] Celine khan [id number] 2020 [employer]-- Alex NAIR
--- OUTSIDE RECORDS SUMMARY | 2020-12-09 19:52 | CCD | Continuity of Care Document ---
Author Author Pablo MCLAUGHLIN DPM Organization Unknown Address [address] [facility], [address] [place] [address] Phone [phone] Care Team Providers Care Maintenance Welder Name Role Phone MD Hany Renteria [phone] Problems Active Problems Provider Date Peripheral neuropathy [...] daily 140gm Jayro Mclaughlin DPM 08/13/2020 Ipratropium [place]/Albuterol Sulfate 0.5-2.5(3)mg/3ML Solution Inhale One Vial Via Nebulizer Every 6 Ho urs as Needed For Shortness Of Breath Unknown 00 Mupirocin 2% Ointment Apply Small Amount To Affected Area Two Times A Day Unknown Neomycin/Polymyxin/Dexamethasone 3.5-80734-4.1 Ointment Apply 1/4 Inch Strip To Outer Right Eyel id Three Times A Day as Directed Unknown Pregabalin 150mg Capsules Take One Capsule By Mouth Twice A Day Hold Gabapentin While On This Maximum Daily Dose 2 Unknown SM Aspirin Adult Low Strength 81mg Tablets DR Take One Tablet By Mouth Every Day Unknow n Fluticasone Propionate 50mcg/Act Suspension [place] 1 Clio In Each Nostril Two Times A Day [...] Davis M.D. 0 Prednisone 10mg Tablets Dinesh aDvis M.D. 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 B35.1 Tinea unguium Assessments Date Code Description Provider 09/22/2020 E10.42 Type 1 diabetes mellitus with di abetic polyneuropathy Jayro Mclaughlin DPM 08/13/2020 E10.42 Type 1 diabetes mellitus with di abetic polyneuropathy Jayro Mclaughlin DPM 08/13/2020 B35.1 Tinea unguium Jayro Mclaughlin DPM Plan of Treatment Future Appointment(s):* 11/22/2021 3:15 pm - Jayro Mclaughlin DPM at [facility] Functional Status Description No Information Available Mental Status Description No Information Available Referrals Refer to Reason for Referral Status Appt Date Jayro Mclaughlin DPM Created [address] [address] [phone] Jayro Mclaughlin DPM Created [address] [address] [phone]
--- OUTSIDE RECORDS SUMMARY | 2020-12-09 19:52 | CCD ---
Author Author Pablo Mccabe Organization Unknown Address [address] [address] Phone Care Team Providers Care Carbide Tool Maker Name Role Phone Kathryn Mccabe PCP Allergies, Adverse Reactions, Alerts Concept Allergy Name Reaction Severity Onset Date Status Documentation Date Phone Number Npid Taxonomy Code Taxonomy Desc Author Last Name Author Fi rst Name Concept Type 476 Penicillins Hives Active 10/04/2020 [id number] Psychiatric/Mental Health Naya Cueva DC Problem List Concept Problem Description Status Start Date Created Date Resolv ed Date Snomed Code F43.10 Posttraumatic Stress Disorde r (includes Posttraumatic Stress Disorder for Children 6 Years and Younger) Active 11/12/2020 F32.9 Unspecified depressive Disorder Active 03/10/2020 020 F60.2 Antisocial Personality Disorder Active 11/12/20 20 F10.10 Alcohol Use Disorder, Mild Active 03/10/2020 03/10/2020 Medications No Data in Section Social History Social History Element Description Concept Effective Date Smoking Status Unknown if ever smoked [id number] Immunizations No Data in Section Vital Signs No Data in Section Procedures Date Concept Id Description Targeted Site Concept Targeted Site Concept Type 11/12/2020 57268 Extended Individual Psychotherapy - 45 min CPT Patient has no history of implantable de vices Encounters Encounter Start Date End Date Encounter Type Description Diagnosis Di agnosis Desc Location Author First Name Author Last Name Npid Taxonomy Cod e Taxonomy Desc Phone Number Location Addr1 Location Addr2 Location [facility] Location [facility] Location [facility] 075224 11/12/2020 11/12/2020 94061 Extended Individual Psych otherapy - 45 min F43.10 Post-traumatic stress disorder, unspecified [facility] Eliot Peralta [id number] Baggage And Mail Agent [id number] [address] [address] Plan of Treatment No Data in Section Lab Results No Data in Section Instructions No Data in Section Insurance Providers Insurance Id Policy Effective Date Policy Thru Date Company N erin [id number] 2020 [employer]-- Alex NAIR
--- OUTSIDE RECORDS SUMMARY | 2020-12-09 19:52 | CCD ---
Author Author Pablo Mccabe Organization Unknown Address [address] [address] Phone Care Team Providers Care Semiconductor Lab Technician Name Role Phone Kathryn Mccabe PCP Allergies, Adverse Reactions, Alerts Concept Allergy Name Reaction Severity Onset Date Status Documentation Date Phone Number Npid Taxonomy Code Taxonomy Desc Author Last Name Author Fi rst Name Concept Type 476 Penicillins Hives Active 10/04/2020 [id number] Psychiatric/Mental Health Naya Cueva DC Problem List Concept Problem Description Status Start Date Created Date Resolv ed Date Snomed Code F32.9 Unspecified depressive Disorder Active 03/10/2020 020 F10.10 Alcohol Use Disorder, Mild Active 03/10/2020 03/10/2020 F43.10 Posttraumatic Stress Disorde r (includes Posttraumatic Stress Disorder for Children 6 Years and Younger) Active 11/01/2020 Medications No Data in Section Social History Social History Element Description Concept Effective Date Smoking Status Unknown if ever smoked [id number] Immunizations No Data in Section Vital Signs No Data in Section Procedures Date Concept Id Description Targeted Site Concept Targeted Site Concept Type 10/28/2020 22161-38 [id number]"Psychotherapy CPT Patient has no history of implantable de vices Encounters Encounter Start Date End Date Encounter Type Description Diagnosis Di agnosis Desc Location Author First Name Author Last Name Npid Taxonomy Cod e Taxonomy Desc Phone Number Location Addr1 Location Addr2 Location City Location [place] Location Zip [address] 10/28/2020 10/28/2020 64566-03 [id number]"Psychothera py F32.9 Major depressive disorder, single episode, unspecified [facility] Eliot Peralta [id number] Health Education Aide [id number] [address] [address] Plan of Treatment No Data in Section Lab Results No Data in Section Instructions No Data in Section Insurance Providers Insurance Id Policy Effective Date Policy Thru Date Company N erin [id number] 2020 [employer]-- Alex NAIR
--- OUTSIDE RECORDS SUMMARY | 2020-12-09 19:52 | CCD ---
Author Author Pablo Mccabe Organization Unknown Address [address] [place] [address] Phone Care Team Providers Care Lead Ruby On Rails Developer Name Role Phone EliotKathryn jordan PCP Allergies, Adverse Reactions, Alerts No Data in Section Problem List Concept Problem Description Status Start Date Created Date Resolv ed Date Snomed Code F32.9 Unspecified depressive Disorder Active 03/10/2020 020 F10.10 Alcohol Use Disorder, Mild Active 03/10/2020 03/10/2020 F43.10 Posttraumatic Stress Disorde r (includes Posttraumatic Stress Disorder for Children 6 Years and Younger) Active 09/27/2020 Medications No Data in Section Social History Social History Element Description Concept Effective Date Smoking Status Unknown if ever smoked [id number] Immunizations No Data in Section Vital Signs No Data in Section Procedures Date Concept Id Description Targeted Site Concept Targeted Site Concept Type 09/24/2020 22231-02 [id number]"Psychotherapy CPT Patient has no history of implantable de vices Encounters Encounter Start Date End Date Encounter Type Description Diagnosis Di agnosis Desc Location Author First Name Author Last Name Npid Taxonomy Cod e Taxonomy Desc Phone Number Location Addr1 Location Addr2 Location [facility] Location [facility] Location [facility] [id number] 09/24/2020 09/24/2020 62632-87 [id number]"Psychothera py F32.9 Major depressive disorder, single episode, unspecified [facility] Eliot Peralta [phone] [id number] Tissue Inserter [id number] [address] [facility] [address] [facility] [address] Plan of Treatment No Data in Section Lab Results No Data in Section Instructions No Data in Section Insurance Providers Insurance Id Policy Effective Date Policy Thru Date Company N erin [id number] 2020 MARIA E - MEDICA ID MANAGED
--- OUTSIDE RECORDS SUMMARY | 2020-12-09 19:52 | CCD | Continuity of Care Document ---
Author Author Pablo MCLAUGHLIN DPM Organization Unknown Address [address] [facility], [address] [place] [address] Phone [phone] Care Team Providers Care Website Designer Name Role Phone MD Hany Renteria [phone] DR. Dionna EDWARDS [phone] Problems Active Problems Provider Date Peripheral neuropathy [...] daily 140gm Jayro Mclaughlin DPM 08/13/2020 Ipratropium [place]/Albuterol Sulfate 0.5-2.5(3)mg/3ML Solution Inhale One Vial Via Nebulizer Every 6 Ho urs as Needed For Shortness Of Breath Unknown 00 Mupirocin 2% Ointment Apply Small Amount To Affected Area Two Times A Day Unknown Neomycin/Polymyxin/Dexamethasone 3.5-40716-6.1 Ointment Apply 1/4 Inch Strip To Outer Right Eyel id Three Times A Day as Directed Unknown Pregabalin 150mg Capsules Take One Capsule By Mouth Twice A Day Hold Gabapentin While On This Maximum Daily Dose 2 Unknown SM Aspirin Adult Low Strength 81mg Tablets DR Take One Tablet By Mouth Every Day Unknow n Fluticasone Propionate 50mcg/Act Suspension [place] 1 [place] In Each Nostril Two Times A Day [...] 31G X 6 mm Misc Elizabeth Law,Cole Unifine Pentips 31G X 6 mm Misc Use [...] Tip 25GX5/8" 25G X 5/8" [address] 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 B35.1 Tinea unguium Assessments Date Code Description Provider 11/23/2020 E10.42 Type 1 diabetes mellitus with di abetic polyneuropathy Jayro Mclaughlin DPM 11/23/2020 B35.1 Tinea unguium Jayro Mclaughlin, DEEPAK 09/22/2020 E10.42 Type 1 diabetes mellitus with di abetic polyneuropathy Jayro Mclaughlin DPM 08/13/2020 E10.42 Type 1 diabetes mellitus with di abetic polyneuropathy Jayro Mclaughlin DPM 08/13/2020 B35.1 Tinea unguium Jayro Mclaughlin DPM Plan of Treatment Future Appointment(s):* 11/22/2021 3:15 pm - Jayro Mclaughlin DPM at [place] [facility] Functional Status Description No Information Available Mental Status Description No Information Available Referrals Refer to Dr Reason for Referral Status Appt Date Jayro Mclaughlin DPM Created [address] [address] [phone] Jayro Mclaughlin DPM Created [address] [address] [phone]
--- OUTSIDE RECORDS SUMMARY | 2020-12-09 19:52 | CCD ---
Author Author Pablo Mccabe Organization Unknown Address [address] [place] [address] Phone Care Team Providers Care Dosimetrist Name Role Phone EliotKathryn jordan PCP Allergies, [...] Date Smoking Status Unknown if ever smoked [id number] Immunizations No Data in Section Vital Signs No Data in Section Procedures Date Concept Id Description Targeted Site Concept Targeted Site Concept Type 09/24/2020 40652-18 [id number]"Psychotherapy CPT Patient has no history of implantable de vices Encounters Encounter Start Date End Date Encounter Type Description Diagnosis Di agnosis Desc Location Author First Name Author Last Name Npid Taxonomy Cod e Taxonomy Desc Phone Number Location Addr1 Location Addr2 Location [facility] Location [facility] Location [facility] 800158 09/24/2020 09/24/2020 79979-55 [id number]"Psychothera py F32.9 Major depressive disorder, single episode, unspecified [facility] Eliot Peralta [phone] [id number] Cloth Bleaching Supervisor [phone] [address] [facility] [address] [facility] [address] Plan of Treatment No Data in Section Lab Results No Data in Section Instructions No Data in Section Insurance Providers Insurance Id Policy Effective Date Policy Thru Date Company N erin [id number] 2020 MARIA E - MEDICA ID MANAGED
--- OUTSIDE RECORDS SUMMARY | 2020-12-09 19:54 | CCD ---
Author Author [facility] Address Unknown Phone Unavailable Support Name Relationship Address Phone Hany Renteria MD Next Of Kin [address] [place] [address] Wendy Katz Next Of Kin Unknown Unavailable Stefanie Vazquez Next Of Kin [address] [place] [address] Chago Bautista DO Next Of Kin [address] [place] [address] Berenice Yeung Next Of Kin [address] [place], [place] [id number] Liset Davis MD Next Of Kin [address] [place] [phone] Oneida Koehler DO Next Of Kin [address] [place] [id number] Rebekah Moscoso Next Of Kin [address] [phone] WENDY KATZ Next Of Kin [address] [facility] [address] [place] [address] UE Next Of Kin Unknown Unavailable DOMENICO [place] [address] ESTHER BILL Next Of Kin [address] [place] [address] CHARLES RAMOS Next Of Kin [address] [place] [address] NA, NA Next Of Kin Unknown Unavailable RIN BANDA Next Of Kin [address] [place] [address] ESTHER TRAN Next Of Kin [address] [place] [address] AMINATA BOSS Next Of Kin [address] [place] [address] DISABLED Next Of Kin Unknown Unavailable ROHINI, (HCP) DOMENICO Next Of Kin [facility] [address] [place] [address] ALANNAH, (HCP) ESTHER Next Of Kin [address] [place] [address] Care Team Providers Care Business Architect Name Role Phone TEST, PROVIDER Unavailable Unavailable Brendan Pratt MD Unavailable Unavailable Brendan Pratt MD Unavailable Unavailable Brendan Pratt MD Unavailable Unavailable Brendan Pratt MD Unavailable Unavailable Brendan Pratt MD Unavailable Unavailable Brendan Pratt MD Unavailable Unavailable Brendan Pratt MD Unavailable Unavailable Brendan Pratt MD Unavailable Unavailable Brendan Pratt MD Unavailable Unavailable Brendan Pratt MD Unavailable Unavailable Brendan Pratt MD Unavailable Unavailable Brendan Pratt MD Unavailable Unavailable Brendan Pratt MD Unavailable Unavailable Brendan Pratt MD Unavailable Unavailable Brendan Pratt MD Unavailable Unavailable Brendan Pratt MD Unavailable Unavailable Brendan Pratt MD Unavailable Unavailable Brendan Pratt MD Unavailable Unavailable Brendan Pratt MD Unavailable Unavailable Brendan Pratt MD Unavailable Unavailable Brendan Pratt MD Unavailable Unavailable Brendan Pratt MD Unavailable Unavailable Brendan Pratt MD Unavailable Unavailable Brendan Pratt MD Unavailable Unavailable Brendan Pratt MD Unavailable Unavailable Brendan Pratt MD Unavailable Unavailable Brendan Pratt MD Unavailable Unavailable Brendan Pratt MD Unavailable Unavailable Brendan Pratt MD Unavailable Unavailable Brendan Pratt MD Unavailable Unavailable Brendan Pratt MD Unavailable Unavailable Brendan Pratt MD Unavailable Unavailable Brendan Pratt MD Unavailable Unavailable Brendan Pratt MD Unavailable Unavailable MCELHERAN, FATUMA PA Unavailable Unavailable MCELHERAN, FATUMA PA Unavailable Unavailable MCELHERAN, FATUMA PA Unavailable Unavailable MCELHERAN, FATUMA PA Unavailable Unavailable MCELHERAN, FATUMA PA Unavailable Unavailable MCELHERAN, FATUMA PA Unavailable Unavailable MCELHERAN, FATUMA PA Unavailable Unavailable MCELHERAN, FATUMA PA Unavailable Unavailable MCELHERAN, FATUMA PA Unavailable Unavailable MCELHERAN, FATUMA PA Unavailable Unavailable MCELHERAN, FATUMA PA Unavailable Unavailable MCELHERAN, FATUMA PA Unavailable Unavailable MCELHERAN, FATUMA PA Unavailable Unavailable MCELHERAN, FATUMA PA Unavailable Unavailable MCELHERAN, FATUMA PA Unavailable Unavailable MCELHERAN, FATUMA PA Unavailable Unavailable MCELHERAN, FATUMA PA Unavailable Unavailable MCELHERAN, FATUMA PA Unavailable Unavailable MCELHERAN, FATUMA PA Unavailable Unavailable MCELHERAN, FATUMA PA Unavailable Unavailable MCELHERAN, FATUMA PA Unavailable Unavailable MCELHERAN, FATUMA PA Unavailable Unavailable MCELHERAN, FATUMA PA Unavailable Unavailable MCELHERAN, FATUMA PA Unavailable Unavailable MCELHERAN, FATUMA PA Unavailable Unavailable MCELHERAN, FATUMA PA Unavailable Unavailable MCELHERAN, FATUMA PA Unavailable Unavailable MCELHERAN, FATUMA PA Unavailable Unavailable Moisés DAVIS MD Unavailable Unavailable Moisés DAVIS MD Unavailable Unavailable Moisés DAVIS MD Unavailable Unavailable Moisés DAVIS MD Unavailable Unavailable Moisés DAVIS MD Unavailable Unavailable Moisés DAVIS MD Unavailable Unavailable Moisés DAVIS MD Unavailable Unavailable Moisés DAVIS MD Unavailable Unavailable Moisés DAVIS MD Unavailable Unavailable Moisés DAVIS MD Unavailable Unavailable Moisés DAVIS MD Unavailable Unavailable Moisés DAVIS MD Unavailable Unavailable Moisés DAVIS MD Unavailable Unavailable Moisés DAVIS MD Unavailable Unavailable Moisés DAVIS MD Unavailable Unavailable Moisés DAVIS MD Unavailable Unavailable Moisés DAVIS MD Unavailable Unavailable Moisés DAVIS MD Unavailable Unavailable Moisés DAVIS MD Unavailable Unavailable Moisés DAVIS MD Unavailable Unavailable Moisés DAVIS MD Unavailable Unavailable Moisés DAVIS MD Unavailable Unavailable Moisés DAVIS MD Unavailable Unavailable Moisés DAVIS MD Unavailable Unavailable Moisés DAVIS MD Unavailable Unavailable Moisés DAVIS MD Unavailable Unavailable Moisés DAVIS MD Unavailable Unavailable Moisés DAVIS MD Unavailable Unavailable Moisés DAVIS MD Unavailable Unavailable Moisés DAVIS MD Unavailable Unavailable Moisés DAVIS MD Unavailable Unavailable Moisés DAVIS MD Unavailable Unavailable Moisés DAVIS MD Unavailable Unavailable Moisés DAVIS MD Unavailable Unavailable Moisés DAVIS MD Unavailable Unavailable Moisés DAVIS MD Unavailable Unavailable Moisés DAVIS MD Unavailable Unavailable Moisés DAVIS MD Unavailable Unavailable Moisés DAVIS MD Unavailable Unavailable Moisés DAVIS MD Unavailable Unavailable Moisés DAVIS MD Unavailable Unavailable Moisés DAVIS MD Unavailable Unavailable Moisés DAVIS MD Unavailable Unavailable Moisés DAVIS MD Unavailable Unavailable Moisés DAVIS MD Unavailable Unavailable Moisés DAVIS MD Unavailable Unavailable Moisés DAVIS MD Unavailable Unavailable Moisés DAVIS MD Unavailable Unavailable Moisés DAVIS MD Unavailable Unavailable Moisés DAVIS MD Unavailable Unavailable Moisés DAVIS MD Unavailable Unavailable Moisés DAVIS MD Unavailable Unavailable Moisés DAVIS MD Unavailable Unavailable Moisés DAVIS MD Unavailable Unavailable Moisés DAVIS MD Unavailable Unavailable Moisés DAVIS MD Unavailable Unavailable Moisés DAVIS MD Unavailable Unavailable Moisés DAVIS MD Unavailable Unavailable Moisés DAVIS MD Unavailable Unavailable Moisés DAVIS MD Unavailable Unavailable Moisés DAVIS MD Unavailable Unavailable Moisés DAVIS MD Unavailable Unavailable Moisés DAVIS MD Unavailable Unavailable Moisés DAVIS MD Unavailable Unavailable Moisés DAVIS MD Unavailable Unavailable Moisés DAVIS MD Unavailable Unavailable Moisés DAVIS MD Unavailable Unavailable Moisés DAVIS MD Unavailable Unavailable Moisés DAVIS MD Unavailable Unavailable Moisés DAVIS MD Unavailable Unavailable Moisés DAVIS MD Unavailable Unavailable Moisés DAVIS MD Unavailable Unavailable Moisés DAVIS MD Unavailable Unavailable Moisés DAVIS MD Unavailable Unavailable Moisés DAVIS MD Unavailable Unavailable Moisés DAVIS MD Unavailable Unavailable Moisés DAVIS MD Unavailable Unavailable Moisés DAVIS MD Unavailable Unavailable Moisés DAVIS MD Unavailable Unavailable Moisés DAVIS MD Unavailable Unavailable Moisés DAVIS MD Unavailable Unavailable Moisés DAVIS MD Unavailable Unavailable Moisés DAVIS MD Unavailable Unavailable Stefanie Burger SHAKE BACKBOARD NOTCHER SHAKE BACKBOARD NOTCHER Unavailable Unavailable Marilyn Purvis MD Unavailable Unavailable Marilyn Purvis MD Unavailable Unavailable Marilyn Purvis MD Unavailable Unavailable Marilyn Purvis MD Unavailable Unavailable Marilyn Purvis MD Unavailable Unavailable Marilyn Purvis MD Unavailable Unavailable Marilyn Purvis MD Unavailable Unavailable Bolla, Marilyn FerrellRico MD Unavailable Unavailable Bolla, Marilyn Gómez MD Unavailable Unavailable Bolla, Marilyn FerrellRico MD Unavailable Unavailable Bolla, Marilyn FerrellRico MD Unavailable Unavailable Bolla, Marilyn FerrellRico MD Unavailable Unavailable Bolla, Marilyn FerrellRico MD Unavailable Unavailable Bolla, Marilyn FerrellRico MD Unavailable Unavailable Bolla, Marilyn FerrellRico MD Unavailable Unavailable Bolla, S Rico MD Unavailable Unavailable Bolla, Marilyn Gómez MD Unavailable Unavailable Bolla, Marilyn Gómez MD Unavailable Unavailable Bolla, Marilyn FerrellRico MD Unavailable Unavailable Bolla, S Rico MD Unavailable Unavailable Bolla, S Rico MD Unavailable Unavailable Bolla, S Rico MD Unavailable Unavailable Bolla, S Rico MUÑOZ Unavailable Unavailable Bolla, S Rico MUÑOZ Unavailable Unavailable Bolla, Marilyn Gómez MD Unavailable Unavailable Bolla, Marilyn Gómez MD Unavailable Unavailable Bolla, Marilyn Gómez MD Unavailable Unavailable Bolla, Marilyn Gómez MD Unavailable Unavailable Bolvasquez, Marilyn Gómez MD Unavailable Unavailable Bolla, Marilyn Gómez MD Unavailable Unavailable Bolla, Marilyn Gómez MD Unavailable Unavailable Bolla, Marilyn Gómez MD Unavailable Unavailable Bolla, Marilyn Gómez MD Unavailable Unavailable Bolla, Marilyn Gómez MD Unavailable Unavailable Bolla, Marilyn Gómez MD Unavailable Unavailable Bolla, Marilyn Gómez MD Unavailable Unavailable Bolla, Marilyn Gómez MD Unavailable Unavailable Bolvasquez, Marilyn Gómez MD Unavailable Unavailable Bolla, Marilyn Gómez MD Unavailable Unavailable Bolla, Marilyn Gómez MD Unavailable Unavailable Bolla, Marilyn Gómez MD Unavailable Unavailable Bolvasquez, Marilyn Gómez MD Unavailable Unavailable Bolla, Marilyn Gómez MD Unavailable Unavailable Bolla, Marilyn Gómez MD Unavailable Unavailable Bolla, Marilyn FerrellRico MD Unavailable Unavailable Bolla, Marilyn FerrellRico MD Unavailable Unavailable Bolla, S Rico MD Unavailable Unavailable Bolla, S Rico MD Unavailable Unavailable MCELHERAN, FATUMA PA Unavailable Unavailable MCELHERAN, FATUMA PA Unavailable Unavailable MCELHERAN, FATUMA PA Unavailable Unavailable MCELHERAN, FATUMA PA Unavailable Unavailable MCELHERAN, FATUMA PA Unavailable Unavailable MCELHERAN, FATUMA PA Unavailable Unavailable MCELHERAN, FATUMA PA Unavailable Unavailable MCELHERAN, FATUMA PA Unavailable Unavailable MCELHERAN, FATUMA PA Unavailable Unavailable MCELHERAN, FATUMA PA Unavailable Unavailable MCELHERAN, FATUMA PA Unavailable Unavailable MCELHERAN, FATUMA PA Unavailable Unavailable MCELHERAN, FATUMA PA Unavailable Unavailable MCELHERAN, FATUMA PA Unavailable Unavailable MCELHERAN, FATUMA PA Unavailable Unavailable MCELHERAN, FATUMA PA Unavailable Unavailable MCELHERAN, FATUMA PA Unavailable Unavailable MCELHERAN, FATUMA PA Unavailable Unavailable MCELHERAN, FATUMA PA Unavailable Unavailable MCELHERAN, FATUMA PA Unavailable Unavailable MCELHERAN, FATUMA PA Unavailable Unavailable MCELHERAN, FATUMA PA Unavailable Unavailable MCELHERAN, FATUMA PA Unavailable Unavailable MCELHERAN, FATUMA PA Unavailable Unavailable MCELHERAN, FATUMA PA Unavailable Unavailable MCELHERAN, FATUMA PA Unavailable Unavailable MCELHERAN, FATUMA PA Unavailable Unavailable MCELHERAN, FATUMA PA Unavailable Unavailable Burger, F Stefanie SHAKE BACKBOARD NOTCHER-BC Unavailable Unavailable Burger, F Stefanie SHAKE BACKBOARD NOTCHER-BC Unavailable Unavailable Burger, F Stefanie SHAKE BACKBOARD NOTCHER-BC Unavailable Unavailable Burger, F Stefanie SHAKE BACKBOARD NOTCHER-BC Unavailable Unavailable Burger, F Stefanie SHAKE BACKBOARD NOTCHER-BC Unavailable Unavailable Burger, F Stefanie SHAKE BACKBOARD NOTCHER-BC Unavailable Unavailable Burger, F Stefanie SHAKE BACKBOARD NOTCHER-BC Unavailable Unavailable Burger, F Stefanie SHAKE BACKBOARD NOTCHER-BC Unavailable Unavailable Burger, F Stefanie SHAKE BACKBOARD NOTCHER-BC Unavailable Unavailable Burger, F Stefanie SHAKE BACKBOARD NOTCHER-BC Unavailable Unavailable Burger, F Stefanie SHAKE BACKBOARD NOTCHER-BC Unavailable Unavailable Burger, F Stefanie SHAKE BACKBOARD NOTCHER-BC Unavailable Unavailable Burger, F Stefanie SHAKE BACKBOARD NOTCHER-BC Unavailable Unavailable Burger, F Stefanie SHAKE BACKBOARD NOTCHER-BC Unavailable Unavailable Burger, F Stefanie SHAKE BACKBOARD NOTCHER-BC Unavailable Unavailable Burger, F Stefanie SHAKE BACKBOARD NOTCHER-BC Unavailable Unavailable Burger, F Stefanie SHAKE BACKBOARD NOTCHER-BC Unavailable Unavailable Burger, F Tsefanie SHAKE BACKBOARD NOTCHER-BC Unavailable Unavailable Burger, F Stefanie SHAKE BACKBOARD NOTCHER-BC Unavailable Unavailable Burger, F Stefanie SHAKE BACKBOARD NOTCHER-BC Unavailable Unavailable Burger, F Stefanie SHAKE BACKBOARD NOTCHER-BC Unavailable Unavailable Michele Chago DO Unavailable Unavailable Kathryn Forman Unavailable Lucy MCLAUGHLIN DPM Unavailable Unavailable Lucy MCLAUGHLIN DPM Unavailable Unavailable Lucy MCLAUGHLIN DPM Unavailable Unavailable Lucy MCLAUGHLIN DPM Unavailable Unavailable Lucy MCLAUGHLIN DPM Unavailable Unavailable Lucy MCLAUGHLIN DPM Unavailable Unavailable Lucy MCLAUGHLIN DPM Unavailable Unavailable Lucy MCLAUGHLIN DPM Unavailable Unavailable MAJAK, R KOBY DPM Unavailable Unavailable MAJAK, R KOBY DPM Unavailable Unavailable MAJAK, R KOBY DPM Unavailable Unavailable MAJAK, R KOBY DPM Unavailable Unavailable MAJAK, R KOBY DPM Unavailable Unavailable MAJAK, R KOBY DPM Unavailable Unavailable MAJAK, R KOBY DPM Unavailable Unavailable MAJAK, R KOBY DPM Unavailable Unavailable MAJAK, R KOBY DPM Unavailable Unavailable MAJAK, R KOBY DPM Unavailable Unavailable MAJAK, R KOBY DPM Unavailable Unavailable MAJAK, R KOBY DPM Unavailable Unavailable MAJAK, R KOBY DPM Unavailable Unavailable MAJAK, R KOBY DPM Unavailable Unavailable MAJAK, R KOBY DPM Unavailable Unavailable MAJAK, R KOBY DPM Unavailable Unavailable MAJAK, R KOBY DPM Unavailable Unavailable MAJAK, R KOBY DPM Unavailable Unavailable MAJAK, R KOBY DPM Unavailable Unavailable MAJAK, R KOBY DPM Unavailable Unavailable MAJAK, R KOBY DPM Unavailable Unavailable MAJAK, R KOBY DPM Unavailable Unavailable Yamileth Renteria MD Unavailable Unavailable Yamileth Renteria MD Unavailable Unavailable Yamileth Renteria MD Unavailable Unavailable Yamileth Renteria MD Unavailable Unavailable Yamileth Renteria MD Unavailable Unavailable Yamileth Renteria MD Unavailable Unavailable Yamileth Renteria MD Unavailable Unavailable Yamileth Renteria MD Unavailable Unavailable Yamileth Renteria MD Unavailable Unavailable Yamileth Renteria MD Unavailable Unavailable Yamileth Renteria MD Unavailable Unavailable Yamileth Renteria MD Unavailable Unavailable Yamileth Renteria MD Unavailable Unavailable Yamileth Renteria MD Unavailable Unavailable Yamileth Renteria MD Unavailable Unavailable Yamileth Renteria MD Unavailable Unavailable Yamileth Renteria MD Unavailable Unavailable Yamileth Renteria MD Unavailable Unavailable Yamileth Renteria MD Unavailable Unavailable Yamileth Renteria MD Unavailable Unavailable Yamileth Renteria MD Unavailable Unavailable Yamileth Renteria MD Unavailable Unavailable Yamileth Renteria MD Unavailable Unavailable Yamileth Renteria MD Unavailable Unavailable Yamileth Renteria MD Unavailable Unavailable Yamileth Renteria MD Unavailable Unavailable Yamileth Renteria MD Unavailable Unavailable Yamileth Renteria MD Unavailable Unavailable Yamileth Renteria MD Unavailable Unavailable Yamileth Renteria MD Unavailable Unavailable Yamileth Renteria MD Unavailable Unavailable Yamileth Renteria MD Unavailable Unavailable Yamileth Renteria MD Unavailable Unavailable Yamileth Renteria MD Unavailable Unavailable Yamileth Renteria MD Unavailable Unavailable Yamileth Renteria MD Unavailable Unavailable Yamileth Renteria MD Unavailable Unavailable Yamileth Renteria MD Unavailable Unavailable Yamileth Renteria MD Unavailable Unavailable Yamileth Renteria MD Unavailable Unavailable Yamileth Renteria MD Unavailable Unavailable Yamileth Renteria MD Unavailable Unavailable Yamileth Renteria MD Unavailable Unavailable Yamileth Renteria MD Unavailable Unavailable Yamileth Renteria MD Unavailable Unavailable Yamileth Renteria MD Unavailable Unavailable Yamileth Renteria MD Unavailable Unavailable Yamileth Renteria MD Unavailable Unavailable Yamileth Renteria MD Unavailable Unavailable Yamileth Renteria MD Unavailable Unavailable Yamileth Renteria MD Unavailable Unavailable Yamileth Renteria MD Unavailable Unavailable Yamileth Renteria MD Unavailable Unavailable Yamileth Renteria MD Unavailable Unavailable Yamileth Renteria MD Unavailable Unavailable Yamileth Renteria MD Unavailable Unavailable Yamileth Renteria MD Unavailable Unavailable Yamileth Renteria MD Unavailable Unavailable Yamileth Renteria MD Unavailable Unavailable Yamileth Renteria MD Unavailable Unavailable Yamileth Renteria MD Unavailable Unavailable Yamileth Renteria MD Unavailable Unavailable Yamileth Renteria MD Unavailable Unavailable Yamileth Renteria MD Unavailable Unavailable Yamileth Renteria MD Unavailable Unavailable Yamileth Renteria MD Unavailable Unavailable Yamileth Renteria MD Unavailable Unavailable Yamileth Renteria MD Unavailable Unavailable Yamileth Renteria MD Unavailable Unavailable Yamileth Renteria MD Unavailable Unavailable Yamileth Renteria MD Unavailable Unavailable Yamileth Renteria MD Unavailable Unavailable Yamileth Renteria MD Unavailable Unavailable Yamileth Renteria MD Unavailable Unavailable Yamileth Renteria MD Unavailable Unavailable Yamileth Renteria MD Unavailable Unavailable Yamileth Renteria MD Unavailable Unavailable Yamileth Renteria MD Unavailable Unavailable Yamileth Renteria MD Unavailable Unavailable Yamileth Renteria MD Unavailable Unavailable Yamileth Renteria MD Unavailable Unavailable Yamileth Renteria MD Unavailable Unavailable Yamileth Renteria MD Unavailable Unavailable Yamileth Renteria MD Unavailable Unavailable Yamileth Renteria MD Unavailable Unavailable Yamileth Renteria MD Unavailable Unavailable Yamileth Renteria MD Unavailable Unavailable Yamileth Renteria MD Unavailable Unavailable Yamileth Renteria MD Unavailable Unavailable Mayra Person PMH-NEWS LIBRARIAN Unavailable Unavailable Mayra Person PMH-NEWS LIBRARIAN Unavailable Unavailable Mayra Person PMH-NEWS LIBRARIAN Unavailable Unavailable Mayra Person PMH-NEWS LIBRARIAN Unavailable Unavailable Naya, Mayra Anay PMH-NEWS LIBRARIAN Unavailable Unavailable Mayra Person PMH-NEWS LIBRARIAN Unavailable Unavailable Moisés DAVIS MD Unavailable Unavailable Moisés DAVIS MD Unavailable Unavailable Moisés DAVIS MD Unavailable Unavailable Moisés DAVIS MD Unavailable Unavailable Moisés DAVIS MD Unavailable Unavailable Moisés DAVIS MD Unavailable Unavailable Moisés DAVIS MD Unavailable Unavailable Moisés DAVIS MD Unavailable Unavailable Moisés DAVIS MD Unavailable Unavailable Moisés DAVIS MD Unavailable Unavailable Moisés DAVIS MD Unavailable Unavailable Moisés DAVIS MD Unavailable Unavailable Moisés DAVIS MD Unavailable Unavailable Moisés DAVIS MD Unavailable Unavailable Moisés DAVIS MD Unavailable Unavailable Moisés DAVIS MD Unavailable Unavailable Moisés DAVIS MD Unavailable Unavailable Moisés DAVIS MD Unavailable Unavailable Moisés DAVIS MD Unavailable Unavailable Moisés DAVIS MD Unavailable Unavailable Moisés DAVIS MD Unavailable Unavailable Moisés DAVIS MD Unavailable Unavailable MARCELINOMoisés GRIMALDO MD Unavailable Unavailable MARCELINOMoisés Renteria MD Unavailable Unavailable Moisés DAVIS MD Unavailable Unavailable Moisés DAVIS MD Unavailable Unavailable Moisés DAVIS MD Unavailable Unavailable Moisés DAVIS MD Unavailable Unavailable Moisés DAVIS MD Unavailable Unavailable Moisés DAVIS MD Unavailable Unavailable Moisés DAVIS MD Unavailable Unavailable Moisés DAVIS MD Unavailable Unavailable Moisés DAVIS MD Unavailable Unavailable Moisés DAVIS MD Unavailable Unavailable Moisés DAVIS MD Unavailable Unavailable Moisés DAVIS MD Unavailable Unavailable Moisés DAVIS MD Unavailable Unavailable Moisés DAVIS MD Unavailable Unavailable Moisés DAVIS MD Unavailable Unavailable Moisés DAVIS MD Unavailable Unavailable Moisés DAVIS MD Unavailable Unavailable Moisés DAVIS MD Unavailable Unavailable Moisés DAVIS MD Unavailable Unavailable Moisés DAVIS MD Unavailable Unavailable Moisés DAVIS MD Unavailable Unavailable Moisés DAVIS MD Unavailable Unavailable Moisés DAVIS MD Unavailable Unavailable Moisés DAVIS MD Unavailable Unavailable Moisés DAVIS MD Unavailable Unavailable Moisés DAVIS MD Unavailable Unavailable Moisés ADVIS MD Unavailable Unavailable Moisés DAVIS MD Unavailable Unavailable Moisés DAVIS MD Unavailable Unavailable Moisés DAVIS MD Unavailable Unavailable Moisés DAVIS MD Unavailable Unavailable Moisés DAVIS MD Unavailable Unavailable Moisés DAVIS MD Unavailable Unavailable Moisés DAVIS MD Unavailable Unavailable Moisés DAVIS MD Unavailable Unavailable Moisés DAVIS MD Unavailable Unavailable Moisés DAVIS MD Unavailable Unavailable Moisés DAVIS MD Unavailable Unavailable Moisés DAVIS MD Unavailable Unavailable Moisés DAVIS MD Unavailable Unavailable Moisés DAVIS MD Unavailable Unavailable MARCELINO, T LISET MUÑOZ Unavailable Unavailable MARCELINO, T LISET MUÑOZ Unavailable Unavailable MARCELINO, T LISET MUÑOZ Unavailable Unavailable MARCELINO, T LISET MD Unavailable Unavailable MARCELINO, T LISET MD Unavailable Unavailable MARCELINO, T LISET MD Unavailable Unavailable MARCELINO, T LISET MD Unavailable Unavailable MARCELINO, T LISET MD Unavailable Unavailable MARCELINO, T LISET MD Unavailable Unavailable MARCELINO, T LISET MD Unavailable Unavailable MARCELINO, T LISET MD Unavailable Unavailable MARCELINO, T LISET MD Unavailable Unavailable MARCELINO, T LISET MD Unavailable Unavailable MARCELINO, T LISET MD Unavailable Unavailable MARCELINO, T LISET MD Unavailable Unavailable MARCELINO, T LISET MD Unavailable Unavailable MARCELINO, T LISET MD Unavailable Unavailable MARCELINO, T LISET MD Unavailable Unavailable [facility] Unavailable [phone] [facility] Unavailable [phone] Re-disclosure Warning The records that you are about to access may contain information from federally-assisted alcohol or drug abuse programs. If such information is present, then the following federally mandated warning applies: This information has been disclosed to you from records protected by federal confidentiality rules (42 CFR part 2). The federal rules prohibit you from making any further disclosure of this information unless further disclosure is expressly permitted by the written consent of the person to whom it pertains or as otherwise permitted by 42 CFR part 2. A general authorization for the release of medical or other information is NOT sufficient for this purpose. The Federal rules restrict any use of the information to criminally investigate or prosecute any alcohol or drug abuse patient.The records that you are about to access may contain highly sensitive health information, the redisclosure of which is protected by Article 27-F of the [facility] Public Health law. If you continue you may have access to information: Regarding HIV / AIDS; Provided by facilities licensed or operated by the [facility] Office of Mental Health; or Provided by the [facility] Office for People With Developmental Disabilities. If such information is present, then the following [facility] mandated warning applies: This information has been disclosed to you from confidential records which are protected by state law. State law prohibits you from making any further disclosure of this information without the specific written consent of the person to whom it pertains, or as otherwise permitted by law. Any unauthorized further disclosure in violation of state law may result in a fine or long-term sentence or both. A general authorization for the release of medical or other information is NOT sufficient authorization for further disc losure. Allergies and Adverse Reactions Type Description Substance Reaction Status Data Source(s ) Propensity to adverse reactions to substance Penicillins Penicilli ns Hives Active [facility]) Drug allergy penicillin Penicillin Weal (disorder) Active [facility] [employer] ADHESIVE TAPE ADHESIVE TAPE [facility] Family History Family Member Name Family Member Gender Family Member Status Date o f Status Description Data Source(s) Unknown Female Problem [facility] ([facility]) Unknown Female Problem [facility] ([facility]) Encounters Encounter Providers Location Date Indications Data Source(s ) Outpatient Attender: KOBY MCLAUGHLIN [facility] Office 10/27 02:15:00 PM EST [facility] ([facility] Extended Individual Psychotherapy - 45 min Attender: Anastasia ling [facility] 11/12/2020 10:00:00 AM EST - 11/12/2020 10:00:00 AM EST [facility] ([facility]) Attender: Kathryn Forman 11/12/2020 12:00:00 A M EST [facility] ([facility]) Attender: Kathryn Forman 11/01/2020 12:00:00 A M EST [facility] ([facility]) [id number]"Psychotherapy Attender: Kathryn Forman [facility] 10/28/2020 12:00:00 PM EST - 10/28/2020 12:00:00 PM EST [facility] ([facility]) Outpatient Attender: LISET DAVIS MDAdmitter: LISET LEWIS-I 10/16/2020 05:18:00 PM EST - 10/16/2020 06:18:00 PM EST Daniels Gladys - [facility] Patient discharged. P Attender: LISET Romanoitter: LISET LEWIS-[facility] 10/16/2020 04:18:00 PM EST Daniels Gladys - [facility], [facility] [id number]"Psychotherapy Attender: Kathryn Díaz [facility] 10/04/2020 08:00:00 AM EST - 10/04/2020 08:00:00 AM EST [facility] ([facility]) Psychiatric Diagnostic Evaluation with Medical Service s Attender: Anay Person [facility] 10/04/2020 02:00:00 AM EST - 10/04/2020 02:00:00 AM EST [facility] ([facility]) Attender: Anay Person [facility] 10/04/2020 12: 00:00 AM EST [facility] ([facility]) Attender: Kathryn Forman 10/04/2020 12:00:00 A M EST [facility] ([facility]) [id number]"Psychotherapy Attender: Kathryn Díaz [facility] 09/24/2020 02:15:00 AM EDT - 09/24/2020 02:15:00 AM EDT [facility] ([facility]) Attender: Kathryn Forman 09/24/2020 12:00:00 A M EDT [facility] ([facility]) Outpatient Attender: LISET DAVIS MDAdmitter: [facility] 09/19/2020 03:00:00 PM EDT - 09/19/2020 04:00:00 PM EDT Daniels Gladys - [facility] Patient discharged. P Attender: LISET DAVIS MDAttender: PROVI LIBIA TESTAdmitter: L[facility]ET [facility] 09/19/2020 02:00:00 PM EDT Daniels Folwer sanchez - [facility] Outpatient Attender: Hany SCHMIDT 09/02/2020 05:04:01 PM EDT [facility] Outpatient Attender: Hany SCHMIDT 09/02/2020 09:52:00 AM EDT [facility] Outpatient Attender: Hany Renteria MD FP 09/02/2020 08:58:01 AM EDT [facility] Outpatient Attender: Hany Renteria MD FP 08/30/2020 10:08:00 AM EDT [facility] Outpatient Attender: Hany Renteria MD FP 08/27/2020 04:55:01 PM EDT [facility] Outpatient Attender: Hany Renteria MD FP 08/27/2020 11:39:00 AM EDT [facility] [id number]"Psychotherapy [facility]: [facility] 01:00:00 AM EDT - 08/27/2020 01:00:00 AM EDT [facility] ([facility]) Attender: Kathryn Forman 08/27/2020 12:00:00 A M EDT [facility] ([facility]) Outpatient Attender: Hany Renteria MD 08/26/2020 11:26:01 AM EDT [facility] Outpatient Attender: Hany Renteria MD 08/26/2020 11:23:01 AM EDT [facility] Outpatient Attender: Hany Renteria MD 08/20/2020 03:12:01 PM EDT [facility] Outpatient Attender: Hany Renteria MD 08/18/2020 10:31:00 AM EDT [facility] Outpatient Attender: KOBY MCLAUGHLIN [facility] 07/27 01:00:00 PM EDT [facility] ([facility] Outpatient Attender: Hany Renteria MD FP 08/12/2020 05:28:00 PM EDT [facility] Outpatient Attender: Hany Renteria MD 08/05/2020 08:34:00 AM EDT [facility] TEMPMHCTelemed 30" Psychotherapy Attender: Kathryn Forman [facility] 07/30/2020 01:00:00 AM EDT - 07/30/2020 01:00:00 AM EDT [facility] ([facility]) Attender: Kathryn Forman 07/30/2020 12:00:00 A M EDT [facility] ([facility]) Outpatient Attender: Hany Renteria MD FP 07/29/2020 09:41:05 AM EDT [facility] Outpatient Attender: Hany Renteria MD FP 07/28/2020 01:08:02 PM EDT [facility] Outpatient Attender: Hany Renteria MD FP 07/27/2020 10:17:01 AM EDT [facility] Outpatient Attender: Hany Renteria MD FP 07/27/2020 10:17:00 AM EDT [facility] Outpatient Attender: Hany Renteria MD FP 07/26/2020 01:10:01 PM EDT [facility] Outpatient Attender: Hany Renteria MD FP 07/26/2020 08:30:01 AM EDT [facility] Outpatient Attender: Hany Renteria MD FP 07/22/2020 08:31:03 AM EDT [facility] Outpatient Attender: Hany Renteria MD FP 07/20/2020 01:35:02 PM EDT [facility] Outpatient Attender: Hany Renteria MD FP 07/06/2020 01:00:01 PM EDT [facility] Outpatient Attender: Hany Renteria MD FP 07/02/2020 04:03:01 PM EDT [facility] Outpatient Attender: Sherman Pratt MDReferrer: FATUMA PINO [id number] 07/02/2020 12:00:00 AM EDT - 07/02/2020 04:01:08 PM EDT Spinal stenosis, lumbar region without neurogenic claudication [facility] Spinal stenosis, lumbar region without n eurogenic claudication Outpatient Attender: Hany Renteria MD FP 07/01/2020 08:35:02 AM EDT [facility] Outpatient Attender: Hany Renteria MD FP 06/25/2020 11:44:02 AM EDT [facility] Outpatient Attender: Hany Renteria MD FP 06/24/2020 04:52:01 PM EDT [facility] Outpatient Attender: Hany Renteria MD FP 06/24/2020 04:50:59 PM EDT [facility] Outpatient Attender: Hany Renteria MD FP 06/24/2020 10:22:00 AM EDT [facility] Outpatient Attender: Hany Renteria MD FP 06/19/2020 03:43:01 PM EDT [facility] Outpatient Attender: Hany Renteria MD FP 06/18/2020 01:05:01 PM EDT [facility] Outpatient Attender: Sherman Pratt MD 06/15/2020 12:00:00 A M [facility] Outpatient Attender: Hany SCHMIDT 06/14/2020 10:43:03 AM EDT [facility] Outpatient Attender: Hany SCHMIDT 06/14/2020 10:39:01 AM EDT [facility] Outpatient Attender: Hany SCHMIDT 06/11/2020 02:20:00 PM EDT [facility] Outpatient Attender: Hany SCHMIDT 06/04/2020 09:44:02 AM EDT [facility] Outpatient Attender: Hany Renteria MD FP 05/25/2020 09:38:00 AM EDT [facility] Outpatient Attender: Hany SCHMIDT 05/25/2020 08:46:03 AM EDT [facility] Outpatient Attender: Hany SCHMIDT 05/25/2020 08:33:00 AM EDT [facility] TEMPMHCTelemed 30" Psychotherapy Attender: Kathryn Gilliam [facility] 05/25/2020 02:30:00 AM EDT - 05/25/2020 02:30:00 AM EDT [facility] ([facility]) Attender: Kathryn Forman 05/25/2020 12:00:00 A M EDT [facility] ([facility]) Outpatient Attender: Hany Renteria MD 05/24/2020 09:47:00 AM EDT [facility] Outpatient Attender: Hany Renteria MD 05/21/2020 05:43:00 PM EDT [facility] [id number]"Psychotherapy Attender: Kathryn Díaz [facility] 05/19/2020 01:00:00 AM EDT - 05/19/2020 01:00:00 AM EDT [facility] ([facility]) Attender: Kathryn Forman 05/19/2020 12:00:00 A M EDT [facility] ([facility]) [id number]"Psychotherapy Attender: Kathryn Díaz [facility] 05/14/2020 08:00:00 AM EDT - 05/14/2020 08:00:00 AM EDT [facility] ([facility]) Outpatient Attender: Hany SCHMIDT 05/14/2020 07:34:00 AM EDT [facility] Attender: Kathryn Dickson 05/14/2020 12:00:00 A M EDT [facility] ([facility]) [id number]"Psychotherapy [facility]: [facility] 05/[facility] 02:15:00 AM EDT - 05/05/2020 02:15:00 AM EDT [facility] ([facility]) Attender: Kathryn Forman 05/05/2020 12:00:00 A M EDT [facility] ([facility]) Outpatient Attender: Hany SCHMIDT 04/30/2020 08:57:02 AM EDT [facility] Outpatient Attender: Hany SCHMIDT 04/29/2020 05:55:00 PM EDT [facility] Outpatient Attender: Hany SCHMIDT 04/29/2020 05:34:02 PM EDT [facility] Outpatient Attender: Hany SCHMIDT 04/29/2020 05:34:01 PM EDT [facility] Outpatient Attender: Hany SCHMIDT 04/29/2020 05:25:00 PM EDT [facility] Outpatient Attender: Hany SCHMIDT 04/29/2020 04:41:01 PM EDT [facility] Outpatient Attender: Hany SCHMIDT 04/27/2020 01:52:00 PM EDT [facility] Outpatient Attender: BIPIN SCHMIDT 04/27/2020 09:26:01 AM EDT [facility] Outpatient Attender: BIPIN SCHMIDT 04/21/2020 03:12:00 PM EDT [facility] Outpatient Attender: BIPIN SCHMIDT 04/21/2020 03:09:01 PM EDT [facility] Outpatient Attender: BIPIN SCHMIDT 04/21/2020 11:20:00 AM EDT [facility] Outpatient Attender: BIPIN SCHMIDT 04/21/2020 11:19:00 AM EDT [facility] Outpatient Attender: BIPIN SCHMIDT 04/21/2020 11:05:00 AM EDT [facility] Outpatient Attender: BIPIN VOSS 04/16/2020 11:12:04 AM EDT [facility] Outpatient Attender: Stefanie Burger SHAKE BACKBOARD NOTCHER-BC 04/16/2020 11: 12:01 AM EDT [facility] Outpatient Attender: [facility] 04/15/2020 11:38:00 AM EDT [facility] Outpatient Attender: SHAKE BACKBOARD NOTCHER Burger [facility] 04/14/2020 10:09:00 AM EDT [facility] Telemed Diag Eval no med [facility] 02:15:00 AM EDT - 04/14/2020 02:15:00 AM EDT [facility] ([facility]) Attender: Kathryn Fregosocesario 04/14/2020 12:00:00 A M EDT [facility] ([facility]) Outpatient Attender: DO Bautista 04/09/2020 01:45:01 PM EDT [facility] Outpatient Attender: LISET DAVIS MD 04/09/2020 01:40:03 P M EDT [facility] Outpatient Attender: LISET DAVIS MD 04/09/2020 12:42:02 P M EDT [facility] Outpatient Attender: LISET DAVIS MD 04/09/2020 12:42:00 P M EDT [facility] Outpatient Attender: LISET DAVIS MD 04/09/2020 11:32:00 A M EDT [facility] Outpatient Attender: LISET DAVIS MD 04/09/2020 11:31:01 A M EDT [facility] Outpatient Attender: LISET DAVIS MD 04/06/2020 04:40:01 P M EDT [facility] Outpatient Attender: FATUMA PINO Physical Therapy 04/05/2020 02:00:00 PM EDT [facility] ([facility]) Outpatient Attender: LISET DAVIS MD 04/01/2020 12:14:03 P M EDT [facility] Outpatient Attender: LISET DAVIS MD 04/01/2020 12:14:02 P M EDT [facility] Outpatient Attender: LISET DAVIS MD 04/01/2020 11:14:01 A M EDT [facility] TEMPMHCTelemed--Crisis Brief Attender: Kathryn Forman [facility] 03/29/2020 02:00:00 AM EDT - 03/29/2020 02:00:00 AM EDT [facility] Attender: Kathryn Forman 03/29/2020 12:00:00 A M EDT [facility] ([facility]) Outpatient Attender: LISET DAVIS MD 03/25/2020 02:58:00 P M EDT [facility] Outpatient Attender: LISET DAVIS MD 03/25/2020 12:43:01 P M EDT [facility] Outpatient Attender: LISET DAVIS MD 03/23/2020 04:27:00 P M EDT [facility] Outpatient Attender: LISET DAVIS MD 03/18/2020 11:28:02 A M EDT [facility] Outpatient Attender: LISET DAVIS MD 03/18/2020 11:28:00 A M EDT [facility] Outpatient Attender: LISET DAVIS MD 03/12/2020 01:38:01 P M EDT [facility] TEMP Forensic Telemed DC [place] 45" Est Pt Attender: [facility] 03/10/2020 09:00:00 AM EDT - 03/10/2020 09:00:00 AM EDT [facility] ([facility]: [facility] 12:00:00 AM EDT [facility] ([facility]) Outpatient Attender: LISET DAVIS MD 03/04/2020 12:17:01 P M EDT [facility] Outpatient Attender: LISET DAVIS MD 02/09/2020 12:16:00 P M EDT [facility] Outpatient Attender: LISET DAVIS MD 01/30/2020 04:32:02 P M EST [facility] Outpatient Attender: LISET DAVIS MD 01/30/2020 04:31:02 P [facility] Outpatient Attender: LISET DAVIS MD 01/30/2020 03:23:01 P [facility] Outpatient Attender: LISET DAVIS MD 01/22/2020 10:53:00 A [facility] Outpatient Attender: LISET DAVIS MD 01/22/2020 10:53:00 A [facility] Outpatient Attender: LISET DAVIS MD 01/22/2020 10:52:02 A [facility] Outpatient Attender: LISET DAVIS MD 01/22/2020 10:52:01 A [facility] Outpatient Referrer: FATUMA PINO 01/19/2020 03:14 :00 PM [facility] Outpatient Attender: LISET DAVIS MD 01/15/2020 10:27:03 A [facility] Outpatient Attender: LISET DAVIS MD 01/15/2020 09:41:18 A [facility] Outpatient Attender: LISET DAVIS MD 01/15/2020 09:41:01 A [facility] Outpatient Attender: LISET DAVIS MD 01/15/2020 09:40:34 A [facility] Outpatient Referrer: FATUMA PINO 01/15/2020 09:19 :00 AM EST [facility] Outpatient Referrer: FATUMA PINO 01/13/2020 02:47 :00 PM EST [facility] Outpatient Referrer: Rico Purvis MD 01/13/2020 02:45:0 0 PM EST [facility] Outpatient Referrer: Rico Purvis MD 01/13/2020 02:28:0 0 PM EST [facility] Outpatient Referrer: Rico Purvis MD 01/08/2020 11:24:0 0 AM EST [facility] Outpatient Attender: LISET DAVIS MD 01/07/2020 08:43:02 A [facility] Outpatient Attender: LISET DAVIS MD 01/06/2020 04:15:00 P [facility] OFFICE OUTPATIENT NEW 30 MINUTES Attender: FATUMA PINO Physical Therapy 01/05/2020 01:00:00 PM EST [facility] ([facility]) Outpatient Attender: LISET DAVIS MD 12/22/2019 04:08:02 P [facility] Outpatient Attender: LISET DAVIS MD 12/22/2019 04:06:00 P [facility] Outpatient Attender: LISET DAVIS MD 12/22/2019 04:00:01 P [facility] Outpatient Attender: LISET DAVIS MD 12/22/2019 03:59:00 P [facility] Outpatient Attender: LISET DAVIS MD 12/22/2019 02:28:00 P [facility] Outpatient Attender: LISET DAVIS MD 12/12/2019 01:26:01 P [facility] Outpatient Attender: LISET DAVIS MD 12/12/2019 01:24:00 P [facility] Outpatient Attender: LISET DAVIS MD 11/28/2019 09:32:00 A [facility] Outpatient Attender: LISET DAVIS MD 11/25/2019 09:38:00 A [facility] Outpatient Attender: LISET DAVIS MD 11/03/2019 11:38:00 A [facility] Outpatient Attender: LISET DAVIS MD 10/21/2019 04:56:01 P [facility] Functional Status Medications Medication Brand Name Start Date Product Form Dose Route Admi nistrative Instructions Pharmacy Instructions Status Indications Reaction Description Data Source(s) Metformin hydrochloride 1000 MG Oral Tablet 1,000 mg METFORM IN HCL 11/17/2020 12:00:00 AM EST tablet 60 TAKE ONE TABLET BY MOUTH TWICE A DAY TAKE ONE TABLET BY MOUTH TWICE A DAY SOLD: 11/17/2020 [facility] 40 mg 11/17/2020 12:00:00 AM EST tablet 30 TAKE ONE TABLET BY MOUTH EVERY DAY TAKE ONE TABLET BY MOUTH EVERY DAY SOLD: 11/17/2020 [facility] 10 mg 11/17/2020 12:00:00 AM EST tablet 30 TAKE ONE TABLET BY MOUTH EVERY DAY TAKE ONE TABLET BY MOUTH EVERY DAY SOLD: 11/17/2020 [facility] 100 mg 11/17/2020 12:00:00 AM EST tablet 30 TAKE ONE TABLET BY MOUTH EVERY DAY TAKE ONE TABLET BY MOUTH EVERY DAY SOLD: 11/17/2020 [facility] atorvastatin 10 MG Oral Tablet ATORVASTATIN CALCIUM 11/17/2020 1 2:00:00 AM EST tablet 30 TAKE ONE TABLET BY MOUTH EVERY D AY TAKE ONE TABLET BY MOUTH EVERY DAY SOLD: 11/17/2020 [facility] 32.4 mg 11/17/2020 12:00:00 AM EST tablet 120 TAKE TWO TABLETS BY MOUTH TWICE A DAY, MAXIMUM DAILY DOSE = 4 TAKE TWO TABLETS BY MOUTH TWICE A DAY, MAXIMUM DAILY DOSE = 4 SOLD: 11/17/2020 [facility] 20 mg 11/17/2020 12:00:00 AM EST tablet 30 TAKE ONE TABLET BY MOUTH EVERY EVENING TAKE ONE TABLET BY MOUTH EVERY EVENING SOLD: 11/17/2020 [facility] 100 mg 11/08/2020 12:00:00 AM EST tablet 60 TAKE ONE TABLET BY MOUTH TWICE A DAY TAKE ONE TABLET BY MOUTH TWICE A DAY SOLD: 11/08/2020 [facility] Potassium Chloride 10 MEQ Extended Release Oral Tablet POTAS SIUM CHLORIDE 11/08/2020 12:00:00 AM EST tablet extended release 60 TAKE ONE TABLET BY MOUTH TWICE A DAY TAKE ONE TABLET BY MOUTH TWICE A DAY SOLD: 11/08/2020 [facility] 20 mg 11/08/2020 12:00:00 AM EST tablet 60 TAKE ONE TABLET BY MOUTH TWICE A DAY TAKE ONE TABLET BY MOUTH TWICE A DAY SOLD: 12/06/2020 [facility] Trazodone Hydrochloride 100 MG Oral Tablet TRAZODONE HCL 11/08/2020 12:00:00 AM EST tablet 30 TAKE ONE TABLET BY MOUTH AT BEDTIME TAKE ONE TABLET BY MOUTH AT BEDTIME SOLD: 12/06/2020 [facility] Potassium Chloride 10 MEQ Extended Release Oral Tablet POTAS SIUM CHLORIDE 11/08/2020 12:00:00 AM EST tablet extended release 60 TAKE ONE TABLET BY MOUTH TWICE A DAY TAKE ONE TABLET BY MOUTH TWICE A DAY SOLD: 12/06/2020 [facility] 100 mg 11/08/2020 12:00:00 AM EST tablet 120 TAKE TWO TABLETS BY MOUTH TWICE A DAY TAKE TWO TABLETS BY MOUTH TWICE A DAY SOLD: 12/06/2020 [facility] 20 mg 11/08/2020 12:00:00 AM EST tablet 60 TAKE ONE TABLET BY MOUTH TWICE A DAY TAKE ONE TABLET BY MOUTH TWICE A DAY SOLD: 11/08/2020 [facility] 50 mcg/actuation 11/08/2020 12:00:00 AM EST spray,suspension 16 SPRAY 1 SPRAY IN EACH NOSTRIL DAILY SPRAY 1 SPRAY IN EACH NOSTRIL DAILY SOLD: 11/08/2020 [facility] 100 unit/mL 11/08/2020 12:00:00 AM EST solution 10 INJECT 2UNITS UNDER THE SKIN WITH BREAKFAST, LUNCH, AND THEN PER SLIDING SCALE, MAXIMUM DAILY DOSE = 20UNITS INJECT 2UNITS UNDER THE SKIN WITH BREAKF AST, LUNCH, AND THEN PER SLIDING SCALE, MAXIMUM DAILY DOSE = 20UNITS SOLD: 11/08/2020 [facility] Trazodone Hydrochloride 100 MG Oral Tablet TRAZODONE HCL 11/08/2020 12:00:00 AM EST tablet 30 TAKE ONE TABLET BY MOUTH AT BEDTIME TAKE ONE TABLET BY MOUTH AT BEDTIME SOLD: 11/08/2020 [facility] 100 mcg/actuation 11/08/2020 12:00:00 AM EST blister with de vice 30 INHALE ONE PUFF BY MOUTH EVERY DAY INHALE ONE PUFF BY MOUTH EVERY DAY SOLD: 11/08/2020 [facility] 100 mg 11/08/2020 12:00:00 AM EST tablet 60 TAKE ONE TABLET BY MOUTH TWICE A DAY TAKE ONE TABLET BY MOUTH TWICE A DAY SOLD: 12/06/2020 [facility] 100 unit/mL 11/08/2020 12:00:00 AM EST insulin pen 15 CHECK BG EVERY DAY BEFORE MEALS THEN GIVE 2 UNITS FOR BG 150-200, 4 DBJZT=[id number], 6 KGLFG=[phone], 8 LMRYO=[phone], 10 OFCMM=[phone]. IF BG GREATER THAN 401/10 UNITS CALL PCP. MAXIMUM DAILY DOSE = 30 UNITS CHECK BG EVERY DAY BEFORE MEALS THEN GIV E 2 UNITS FOR BG 150-200, 4 VXHFK=[id number], 6 COXLQ=[phone], 8 MBRLR=[phone], 10 LCQQC=[phone]. IF BG GREATER THAN 401/10 UNITS CALL PCP. MAXIMUM DAILY DOSE = 30 UNITS SOLD: 11/08/2020 [facility] 50 mcg/actuation 11/08/2020 12:00:00 AM EST spray,suspension 16 SPRAY 1 SPRAY IN EACH NOSTRIL DAILY SPRAY 1 SPRAY IN EACH NOSTRIL DAILY SOLD: 12/06/2020 [facility] 100 unit/mL 11/08/2020 12:00:00 AM EST solution 10 INJECT 2UNITS UNDER THE SKIN WITH BREAKFAST, LUNCH, AND THEN PER SLIDING SCALE, MAXIMUM DAILY DOSE = 20UNITS INJECT 2UNITS UNDER THE SKIN WITH BREAKF AST, LUNCH, AND THEN PER SLIDING SCALE, MAXIMUM DAILY DOSE = 20UNITS SOLD: 12/06/2020 [facility] 100 mcg/actuation 11/08/2020 12:00:00 AM EST blister with de vice 30 INHALE ONE PUFF BY MOUTH EVERY DAY INHALE ONE PUFF BY MOUTH EVERY DAY SOLD: 12/06/2020 [facility] tizanidine 2 MG Oral Tablet TIZANIDINE HCL 11/08/2020 12:00:[address] tablet 120 TAKE ONE TABLET BY MOUTH EVERY 6 HOURS A S NEEDED FOR SPASMS TAKE ONE TABLET BY MOUTH EVERY 6 HOURS NEEDED FOR SPASMS SOLD: 12/06/2020 [facility] 100 mg 11/08/2020 12:00:00 AM EST tablet 120 TAKE TWO TABLETS BY MOUTH TWICE A DAY TAKE TWO TABLETS BY MOUTH TWICE A DAY SOLD: 11/08/2020 [facility] tizanidine 2 MG Oral Tablet TIZANIDINE HCL 11/08/2020 12:00:[address] tablet 120 TAKE ONE TABLET BY MOUTH EVERY 6 HOURS A S NEEDED FOR SPASMS TAKE ONE TABLET BY MOUTH EVERY 6 HOURS NEEDED FOR SPASMS SOLD: 11/08/2020 [facility] 500 mcg 11/07/2020 12:00:00 AM EST tablet 30 TAKE ONE TABLET BY MOUTH EVERY DAY TAKE ONE TABLET BY MOUTH EVERY DAY SOLD: 11/08/2020 [facility] 17 mcg/actuation 11/06/2020 12:00:00 AM EST HFA aerosol inha ler 12 INHALE TWO PUFFS BY MOUTH FOUR TIMES A DAY INHALE TWO PUFFS BY MOUTH FOUR TIMES A DAY SOLD: 12/06/2020 [facility] 90 mcg/actuation 11/06/2020 12:00:00 AM EST HFA aerosol inha ler 8 INHALE 1 PUFF BY MOUTH EVERY 4 HOURS NEEDED FOR WHEEZING INHALE 1 PUFF BY MOUTH EVERY 4 HOURS NEEDED FOR WHEEZING SOLD: 11/08/2020 [facility] 250-50 mcg/dose 11/06/2020 12:00:00 AM EST blister with linwood ce 60 INHALE 1 PUFF BY MOUTH TWO TIMES A DAY INHALE 1 PUFF BY MOUTH TWO TIMES A DAY SOLD: 11/08/2020 [facility] 250-50 mcg/dose 11/06/2020 12:00:00 AM EST blister with linwood ce 60 INHALE 1 PUFF BY MOUTH TWO TIMES A DAY INHALE 1 PUFF BY MOUTH TWO TIMES A DAY SOLD: 12/06/2020 [facility] 2.5 mg /3 mL (0.083 %) 11/06/2020 12:00:00 AM EST solu tion for nebulization 300 USE 1 VIAL VIA NEBULIZER EVERY 6 HOURS A S NEEDED FOR WHEEEZING USE 1 VIAL VIA NEBULIZER EVERY 6 HOURS NEEDED FOR WHEEEZING SOLD: 11/08/2020 [facility] 2.5 mg /3 mL (0.083 %) 11/06/2020 12:00:00 AM EST solu tion for nebulization 300 USE 1 VIAL VIA NEBULIZER EVERY 6 HOURS A S NEEDED FOR WHEEEZING USE 1 VIAL VIA NEBULIZER EVERY 6 HOURS NEEDED FOR WHEEEZING SOLD: 12/06/2020 [facility] 0.4 mg 11/06/2020 12:00:00 AM EST tablet, sublingual 100 PLACE ONE TABLET UNDER THE TONGUE EVERY 5 MINUTES FOR UP TO 3 DOSES NEEDED FOR CHEST PAIN. IF CHEST PAIN STILL PERSISTS CONTACT [address] ONE TABLET UNDER THE TONGUE EVERY 5 MINUTES FOR UP TO 3 DOSES NEEDED FOR CHEST PAIN. IF CHEST PAIN STILL PERSISTS CONTACT 911 SOLD: 11/08/2020 [facility] 90 mcg/actuation 11/06/2020 12:00:00 AM EST HFA aerosol inha ler 8 INHALE 1 PUFF BY MOUTH EVERY 4 HOURS NEEDED FOR WHEEZING INHALE 1 PUFF BY MOUTH EVERY 4 HOURS NEEDED FOR WHEEZING SOLD: 12/06/2020 [facility] 17 mcg/actuation 11/06/2020 12:00:00 AM EST HFA aerosol inha ler 12 INHALE TWO PUFFS BY MOUTH FOUR TIMES A DAY INHALE TWO PUFFS BY MOUTH FOUR TIMES A DAY SOLD: 11/08/2020 [facility] 0.4 mg 11/06/2020 12:00:00 AM EST tablet, sublingual 100 PLACE ONE TABLET UNDER THE TONGUE EVERY 5 MINUTES FOR UP TO 3 DOSES NEEDED FOR CHEST PAIN. IF CHEST PAIN STILL PERSISTS CONTACT [address] ONE TABLET UNDER THE TONGUE EVERY 5 MINUTES FOR UP TO 3 DOSES NEEDED FOR CHEST PAIN. IF CHEST PAIN STILL PERSISTS CONTACT 911 SOLD: 12/06/2020 [facility] 20 mg 10/27/2020 12:00:00 AM EST tablet 30 TAKE ONE TABLET BY MOUTH TWICE A DAY TAKE ONE TABLET BY MOUTH TWICE A DAY SOLD: 10/27/2020 [facility] 1 mg 10/27/2020 12:00:00 AM EST tablet 30 TAKE ONE TABLET BY MOUTH EVERY DAY TAKE ONE TABLET BY MOUTH EVERY DAY SOLD: 10/27/2020 [facility] 100 mg 10/25/2020 12:00:00 AM EST capsule 90 TAKE ONE CAPSULE BY MOUTH THREE TIMES A DAY NEEDED FOR CONSTIPATION TAKE ONE CAPSULE BY MOUTH THREE TIMES A DAY NEEDED FOR CONSTIPATION SOLD: 10/25/2020 [facility] DIAPER,BRIEF,ADULT, DISPOSABLE 10/25/2020 12:00:00 AM EST mi sc 90 USE DIRECTED UP TO THREE TIMES A DAY USE DIRECTED UP TO THREE TIMES A DAY SOLD: 11/28/2020 [facility] DIAPER,BRIEF,ADULT, DISPOSABLE 10/25/2020 12:00:00 AM EST mi sc 90 USE DIRECTED UP TO THREE TIMES A DAY USE DIRECTED UP TO THREE TIMES A DAY SOLD: 10/25/2020 [facility] 200 mg 10/17/2020 12:00:00 AM EST tablet 30 TAKE ONE TABLET BY MOUTH EVERY DAY TAKE ONE TABLET BY MOUTH EVERY DAY SOLD: 11/15/2020 [facility] 200 mg 10/17/2020 12:00:00 AM EST tablet 30 TAKE ONE TABLET BY MOUTH EVERY DAY TAKE ONE TABLET BY MOUTH EVERY DAY SOLD: 10/17/2020 [facility] Ceftin 250 mg oral tablet [id number] 10/16/2020 05:59:00 PM EST 250.0 mg By Mouth active 250 mg = 1 tab(s), PO (oral), bid, X 10 day(s), # 20 tab(s), Acute, Pharmacy: [id number], 1 tab(s) PO (oral) bid,x10 day(s) [facility] predniSONE 10 mg oral tablet [id number] 10/16/2020 05:59:00 PM EST 30.0 mg By Mouth active 30 mg = 3 tab(s), PO (oral), qDay, # 15 tab(s), 0 Refill(s), Maintenance, Pharmacy: [id number], 3 tab(s) PO (oral) qDay,x5 day(s) [facility], [facility] Cefuroxime 250 MG Oral Tablet CEFUROXIME AXETIL 10/16/2020 12:00 :00 AM EST tablet 20 TAKE ONE TABLET BY MOUTH TWICE A DAY FOR 10 DAYS TAKE ONE TABLET BY MOUTH TWICE A DAY FOR 10 DAYS SOLD: 10/17/2020 [facility] 10 mg 10/16/2020 12:00:00 AM EST tablet 15 TAKE THREE TABLETS BY MOUTH EVERY DAY FOR 5 DAYS TAKE THREE TABLETS BY MOUTH EVERY DAY FOR 5 DAYS SOLD: 10/17/2020 [facility] 1 mL 25 gauge x 5/8" 10/12/2020 12:00:00 AM EST syringe 4 USE DIRECTED FOR B-12 INJECTION USE DIRECTED FOR B-12 INJECTION SOLD: 10/12/2020 [facility] 1.5 mg/0.5 mL 10/05/2020 12:00:00 AM EST pen injector 2 INJECT 1 SYRINGE UNDER THE SKIN ONCE WEEKLY INJECT 1 SYRINGE UNDER THE SKIN ONCE WEEKLY SOLD: 12/06/2020 [facility] 1.5 mg/0.5 mL 10/05/2020 12:00:00 AM EST pen injector 2 INJECT 1 SYRINGE UNDER THE SKIN ONCE WEEKLY INJECT 1 SYRINGE UNDER THE SKIN ONCE WEEKLY SOLD: 11/03/2020 [facility] 1.5 mg/0.5 mL 10/05/2020 12:00:00 AM EST pen injector 2 INJECT 1 SYRINGE UNDER THE SKIN ONCE WEEKLY INJECT 1 SYRINGE UNDER THE SKIN ONCE WEEKLY SOLD: 10/06/2020 [facility] 0.5 ML dulaglutide 3 MG/ML Auto-Injector Trulicity Pen 1.5 mg/0.5 mL subcutaneous solution Trulicity Pen 1.5 mg/0.5 mL subcutaneous solution 10/04/2020 08:27:00 PM EST 1.5 mg SubCUTANEOUS active 1.5 mg =, SubCUTANEOUS, qWeek, # 4 each, 11 Refill(s), Maintenance, Pharmacy: [id number], 1.5 mg SubCUTANEOUS qWeek,x30 day(s) [facility], [facility] Vraylar Vraylar 10/04/2020 12:00:00 AM EST 1.5 mg by mouth completed [id number] Vraylar by mouth [id number] 10/04/2020 once a day 1.5 mg capsule [id number] Anay Person [id number] [facility] 17 mcg/actuation 09/25/2020 12:00:00 AM EDT HFA aerosol inha ler 12 INHALE TWO PUFFS BY MOUTH FOUR TIMES A DAY NEEDED INHALE TWO PUFFS BY MOUTH FOUR TIMES A DAY NEEDED SOLD: 10/17/2020 [facility] 17 mcg/actuation 09/25/2020 12:00:00 AM EDT HFA aerosol inha ler 12 INHALE TWO PUFFS BY MOUTH FOUR TIMES A DAY NEEDED INHALE TWO PUFFS BY MOUTH FOUR TIMES A DAY NEEDED SOLD: 09/26/2020 [facility] 20 mg 09/20/2020 12:00:00 AM EDT tablet 30 TAKE ONE TABLET BY MOUTH EVERY DAY TAKE ONE TABLET BY MOUTH EVERY DAY SOLD: 10/17/2020 [facility] 20 mg 09/20/2020 12:00:00 AM EDT tablet 30 TAKE ONE TABLET BY MOUTH EVERY DAY TAKE ONE TABLET BY MOUTH EVERY DAY SOLD: 09/20/2020 [facility] TopAMAX 09/19/2020 01:41:00 PM EDT By Mouth completed PO (oral), bid, 0 Refill(s), Maintenance [facility], [facility] TopAMAX [id number] 09/19/2020 01:41:00 PM EDT By Mouth active PO (oral), bid, 0 Refill(s), Maintenance [facility], [facility] Xarelto [id number] 09/19/2020 01:41:00 PM EDT By Mouth active PO (oral), 0 Refill(s), Maintenance [facility], [facility] Xarelto 09/19/2020 01:41:00 PM EDT By Mouth completed PO (oral), 0 Refill(s), Maintenance [facility], [facility] traZODone 09/19/2020 01:31:00 PM EDT By Mouth completed PO (oral), bid, 0 Refill(s), Maintenance [facility] tizanidine 2 MG Oral Capsule tiZANidine 2 mg oral caps ule tiZANidine 2 mg oral capsule 09/19/2020 01:31:00 PM EDT By Mouth acti ve mg = cap(s), PO (oral), q8h, 0 Refill(s), Maintenance [facility] tiZANidine 2 mg oral capsule 09/19/2020 01:31:00 PM EDT By Mouth completed mg = cap(s), PO (oral), q8h, 0 R efill(s), Maintenance [facility] Trulicity Pen 09/19/2020 01:31:00 PM EDT SubCUTANEOUS completed SubCUTANEOUS, 0 Refill(s), Maintenance [facility] traZODone [id number] 09/19/2020 01:31:00 PM EDT By Mouth active PO (oral), bid, 0 Refill(s), Maintenance [facility], [facility] Trulicity Pen [id number] 09/19/2020 01:31:00 PM EDT SubCUTANEOUS active SubCUTANEOUS, 0 Refill(s), Maintenance [facility] Zoloft 100 mg oral tablet 09/19/2020 01:30:00 PM EDT By Mouth completed mg = tab(s), PO (oral), qDay, 0 Refill(s), Maintenance [facility] Sertraline 100 MG Oral Tablet Zoloft 100 mg oral table t Zoloft 100 mg oral tablet 09/19/2020 01:30:00 PM EDT By Mouth acti ve mg = tab(s), PO (oral), qDay, 0 Refill(s), Maintenance [facility] metFORMIN 1000 mg oral tablet [id number] 09/19/2020 01:29:00 PM EDT 1000.0 mg By Mouth active 1,000 mg = 1 tab(s), PO (oral), bid, # 60 tab(s), 0 Re fill(s), Maintenance [facility] metFORMIN 1000 mg oral tablet 09/19/2020 01:29:00 PM EDT 1000.0 By Mouth completed 1,000 mg = 1 tab (s), PO (oral), bid, # 60 tab(s), 0 Refill(s), Maintenance [facility] PHENobarbital 32.4 mg oral tablet 09/19/2020 01:29:00 PM EDT By Mouth completed mg = tab(s), PO (oral), bid, 0 R efill(s), Maintenance [facility] Phenobarbital 32.4 MG Oral Tablet PHENobarbital 32.4 m g oral tablet PHENobarbital 32.4 mg oral tablet 09/19/2020 01:29:00 PM EDT By Mouth active mg = tab(s), PO (oral), bid, 0 Refill(s), Maintenance [facility] Metoprolol Tartrate 100 mg oral tablet 09/19/2020 01:29:00 PM EDT By Mouth completed mg = tab(s), PO (ora l), bid, 0 Refill(s), Maintenance [facility] Metoprolol Tartrate 100 mg oral tablet [id number] 09/19/2020 01:29:00 PM EDT By Mouth active mg = tab(s), PO (oral), bid, 0 Refill(s), Maintenance [facility] HumaLOG [id number] 09/19/2020 01:28:00 PM EDT SubCUTANEOUS active unit(s) =, SubCUTANEOUS, 0 Refill(s), Maintenance [facility] Lisinopril 20 MG Oral Tablet lisinopril 20 mg oral tab let lisinopril 20 mg oral tablet 09/19/2020 01:28:00 PM EDT By Mouth acti ve mg = tab(s), PO (oral), qDay, 0 Refill(s), Maintenance [facility] HumaLOG 09/19/2020 01:28:00 PM EDT SubCUTANEOUS completed unit(s) =, SubCUTANEOUS, 0 Refill(s), Maintenance [facility] Levetiracetam 500 MG Oral Tablet Keppra 500 mg oral ta blet Keppra 500 mg oral tablet 09/19/2020 01:28:00 PM EDT 1000.0 mg By Mouth ac tive 1,000 mg = 2 tab(s), PO (oral), bid, # 360 tab(s), 0 R efill(s), Maintenance [facility] lisinopril 20 mg oral tablet 09/19/2020 01:28:00 PM EDT By Mouth completed mg = tab(s), PO (oral), qDay, 0 Refill(s), Maintenance [facility] Keppra 500 mg oral tablet 09/19/2020 01:28:00 PM EDT 100 0.0 By Mouth completed 1,000 mg = 2 tab(s), PO (oral), bid, # 360 tab(s), 0 Refill(s), Maintenance [facility] Lasix 20 mg oral tablet 09/19/2020 01:27:00 PM EDT B y Mouth completed mg = tab(s), PO (oral), qDay, 0 Refill(s ), Maintenance [facility] gabapentin 800 mg oral tablet 09/19/2020 01:27:00 PM EDT By Mouth completed mg = tab(s), PO (oral), tid, 0 R efill(s), Maintenance [facility] cyanocobalamin [id number] 09/19/2020 01:27:00 PM EDT active 0 Refill(s), Maintenance [facility] Furosemide 20 MG Oral Tablet Lasix 20 mg oral tablet Lasix 2 0 mg oral tablet 09/19/2020 01:27:00 PM EDT By Mouth active mg = tab(s), PO (oral), qDay, 0 Refill(s), Maintenance [facility] fluticasone [id number] 09/19/2020 01:27:00 PM EDT Inhaled active Inhalation, 0 Refill(s), Maintenance [facility], [facility] fluticasone 09/19/2020 01:27:00 PM EDT Inhaled completed Inhalation, 0 Refill(s), Maintenance [facility], [facility] gabapentin 800 mg oral tablet [id number] 09/19/2020 01:27:00 PM EDT By Mouth active mg = tab(s), PO (oral), tid, 0 Refill(s), Maintenance [facility] cyanocobalamin 09/19/2020 01:27:00 PM EDT completed 0 Refill(s), Maintenance [facility] Atrovent HFA 09/19/2020 01:26:00 PM EDT Inhaled completed Inhalation, qid, 0 Refill(s), Maintenance [facility] atorvastatin 10 mg oral tablet 09/19/2020 01:26:00 PM EDT By Mouth completed mg = tab(s), PO (oral), qDay, 0 Refill(s), Maintenance [facility] Atrovent HFA [id number] 09/19/2020 01:26:00 PM EDT Inhaled active Inhalation, qid, 0 Refill(s), Maintenance [facility] atorvastatin 10 MG Oral Tablet atorvastatin 10 mg oral tablet atorvastatin 10 mg oral tablet 09/19/2020 01:26:00 PM EDT By Mouth active mg = tab(s), PO (oral), qDay, 0 Refill(s), Maintenance [facility] amiodarone [id number] 09/19/2020 01:25:00 PM EDT active 0 Refill(s), Maintenance [facility] amLODIPine 10 mg oral tablet 09/19/2020 01:25:00 PM EDT By Mouth completed mg = tab(s), PO (oral), qDay, 0 Refill(s), Maintenance [facility] Amiodarone hydrochloride 200 MG Oral Tablet amiodarone 200 mg oral tablet amiodarone 200 mg oral tablet 09/19/2020 01:25:00 PM EDT By Mouth active mg = tab(s), PO (oral), qDay, 0 Refill(s), Maintenance [facility] Amlodipine 10 MG Oral Tablet amLODIPine 10 mg oral tab let amLODIPine 10 mg oral tablet 09/19/2020 01:25:00 PM EDT By Mouth acti ve mg = tab(s), PO (oral), qDay, 0 Refill(s), Maintenance [facility] amiodarone 200 mg oral tablet 09/19/2020 01:25:00 PM EDT By Mouth completed mg = tab(s), PO (oral), qDay, 0 Refill(s), Maintenance [facility] amiodarone 09/19/2020 01:25:00 PM EDT completed 0 Refill(s), Maintenance [facility] albuterol 2.5 mg/3 mL neb soln [id number] 09/19/2020 01:24:00 PM EDT 3.0 mL Nebulized inhalation active 3 mL, Nebulized, q6hr, PRN for wheezing, # 25 each, 0 Refill(s), Maintenance [facility] albuterol 2.5 mg/3 mL neb soln 09/19/2020 01:24:00 PM EDT 3.0 mL Nebulized inhalation completed 3 mL, Nebulize d, q6hr, PRN for wheezing, # 25 each, 0 Refill(s), Maintenance [facility] 10 mEq 09/18/2020 12:00:00 AM EDT tablet,ER particles/cry stals 60 TAKE ONE TABLET BY MOUTH TWICE A DAY TAKE ONE TABLET BY MOUTH TWICE A DAY SOLD: 09/19/2020 [facility] atorvastatin 10 MG Oral Tablet ATORVASTATIN CALCIUM 09/16/2020 1 2:00:00 AM EDT tablet 30 TAKE ONE TABLET BY MOUTH EVERY D AY TAKE ONE TABLET BY MOUTH EVERY DAY SOLD: 09/16/2020 [facility] BLOOD SUGAR DIAGNOSTIC 09/14/2020 12:00:00 AM EDT strip 100 TEST FOUR TIMES A DAY: 1 BEFORE BREAKFAST, LUNCH, DINNER AND BED TEST FOUR TIMES A DAY: 1 BEFORE BREAKFAST, LUNCH, DINNER AND BED SOLD: 10/17/2020 [facility] BLOOD SUGAR DIAGNOSTIC 09/14/2020 12:00:00 AM EDT strip 100 TEST FOUR TIMES A DAY: 1 BEFORE BREAKFAST, LUNCH, DINNER AND BED TEST FOUR TIMES A DAY: 1 BEFORE BREAKFAST, LUNCH, DINNER AND BED SOLD: 09/14/2020 [facility] gabapentin 800 MG Oral Tablet GABAPENTIN 09/14/2020 12:00:00 AM EDT t ablet 120 TAKE ONE TABLET BY MOUTH FOUR TIMES A DAY TAKE ONE TAB LET BY MOUTH FOUR TIMES A DAY SOLD: 11/15/2020 [facility] gabapentin 800 MG Oral Tablet GABAPENTIN 09/14/2020 12:00:00 AM EDT t ablet 120 TAKE ONE TABLET BY MOUTH FOUR TIMES A DAY TAKE ONE TAB LET BY MOUTH FOUR TIMES A DAY SOLD: 10/17/2020 [facility] gabapentin 800 MG Oral Tablet GABAPENTIN 09/14/2020 12:00:00 AM EDT t ablet 120 TAKE ONE TABLET BY MOUTH FOUR TIMES A DAY TAKE ONE TAB LET BY MOUTH FOUR TIMES A DAY SOLD: 09/14/2020 [facility] Trazodone Hydrochloride 100 MG Oral Tablet TRAZODONE HCL 09/03/2020 12:00:00 AM EDT tablet 30 TAKE ONE TABLET BY MOUTH 1 HOUR PRIOR TO SLEEP TAKE ONE TABLET BY MOUTH EVERY DAY 1 HOUR PRIOR TO SLEEP SOLD: 09/03/2020 [facility] 100 unit/mL 09/03/2020 12:00:00 AM EDT insulin pen 9 INJECT 2 UNITS FOR FSBS 100-150 THEN AWAIT MD INSTRUCTIONS ON SLIDING SCALE MAXIMUM DAILY DOSE = 30 UNITS INJECT 2 UNITS FOR FSBS 100-150 THEN BNEJI ASHKAN MUÑOZ INSTRUCTIONS ON SLIDING SCALE MAXIMUM DAILY DOSE = 30 UNITS SOLD: 09/03/2020 [facility] 1.5 mg/0.5 mL 09/03/2020 12:00:00 AM EDT pen injector 2 INJECT 1.5MG UNDER THE SKIN WEEKLY INJECT 1.5MG UNDER THE SKIN WEEKLY SOLD: 09/03/2020 [facility] 250 mg 09/01/2020 12:00:00 AM EDT tablet 40 TAKE ONE TABLET BY MOUTH TWICE A DAY FOR 20 DAYS TAKE ONE TABLET BY MOUTH TWICE A DAY FOR 20 DAYS SOLD: 09/03/2020 [facility] 10 mg 08/28/2020 12:00:00 AM EDT tablet 30 TAKE 1 TABLET BY MOUTH ONCE DAILY TAKE 1 TABLET BY MOUTH ONCE DAILY SOLD: 08/28/2020 [facility] 10 mg 08/28/2020 12:00:00 AM EDT tablet 30 TAKE 1 TABLET BY MOUTH ONCE DAILY TAKE 1 TABLET BY MOUTH ONCE DAILY SOLD: 09/24/2020 [facility] 0.5 mg-3 mg(2.5 mg base)/3 mL 08/27/2020 12:00:0 0 AM EDT solution for nebulization 90 INHALE 1 VIAL VIA NE BULIZER EVERY 6 HOURS NEEDED FOR SHORTNESS OF BREATH INHALE 1 VIAL VIA NEBULIZER EVERY 6 HOUR S NEEDED FOR SHORTNESS OF BREATH SOLD: 08/27/2020 [facility] Cyclobenzaprine hydrochloride 10 MG Oral Tablet CYCLOBENZAPR INE HCL 08/27/2020 12:00:00 AM EDT tablet 30 TAKE ONE TABLET BY MOUTH THREE TIMES A DAY NEEDED FOR MUSCLE SPASM TAKE ONE TABLET BY MOUTH THREE TIMES A D AY NEEDED FOR MUSCLE SPASM SOLD: 09/24/2020 [facility] Cyclobenzaprine hydrochloride 10 MG Oral Tablet CYCLOBENZAPR INE HCL 08/27/2020 12:00:00 AM EDT tablet 30 TAKE ONE TABLET BY MOUTH THREE TIMES A DAY NEEDED FOR MUSCLE SPASM TAKE ONE TABLET BY MOUTH THREE TIMES A D AY NEEDED FOR MUSCLE SPASM SOLD: 08/27/2020 [facility] 0.5 mg-3 mg(2.5 mg base)/3 mL 08/27/2020 12:00:0 0 AM EDT solution for nebulization 90 INHALE 1 VIAL VIA NE BULIZER EVERY 6 HOURS NEEDED FOR SHORTNESS OF BREATH INHALE 1 VIAL VIA NEBULIZER EVERY 6 HOUR S NEEDED FOR SHORTNESS OF BREATH SOLD: 09/24/2020 [facility] 2 mg 08/25/2020 12:00:00 AM EDT tablet 90 TAKE ONE TO TWO TABLETS BY MOUTH FOUR TIMES A DAY NEEDED TAKE ONE TO TWO TABLETS BY MOUTH FOUR TI MES A DAY NEEDED SOLD: 08/25/2020 [facility] 2 mg 08/25/2020 12:00:00 AM EDT tablet 90 TAKE ONE TO TWO TABLETS BY MOUTH FOUR TIMES A DAY NEEDED TAKE ONE TO TWO TABLETS BY MOUTH FOUR TI MES A DAY NEEDED SOLD: 10/25/2020 [facility] 2 mg 08/25/2020 12:00:00 AM EDT tablet 90 TAKE ONE TO TWO TABLETS BY MOUTH FOUR TIMES A DAY NEEDED TAKE ONE TO TWO TABLETS BY MOUTH FOUR TI MES A DAY NEEDED SOLD: 09/03/2020 [facility] 1 mL 25 gauge x 5/8" 08/23/2020 12:00:00 AM EDT syringe 4 USE DIRECTED FOR B-12 INJECTION USE DIRECTED FOR B-12 INJECTION SOLD: 08/23/2020 [facility] 1,000 mcg/mL 08/20/2020 12:00:00 AM EDT solution 4 INJECT 1ML INTRAMUSCULARLY EVERY 1-2 WEEKS INJECT 1ML INTRAMUSCULARLY EVERY 1-2 WEEKS SOLD: 09/14/2020 [facility] 1,000 mcg/mL 08/20/2020 12:00:00 AM EDT solution 4 INJECT 1ML INTRAMUSCULARLY EVERY 1-2 WEEKS INJECT 1ML INTRAMUSCULARLY EVERY 1-2 WEEKS SOLD: 10/10/2020 [facility] 1,000 mcg/mL 08/20/2020 12:00:00 AM EDT solution 4 INJECT 1ML INTRAMUSCULARLY EVERY 1-2 WEEKS INJECT 1ML INTRAMUSCULARLY EVERY 1-2 WEEKS SOLD: 11/03/2020 [facility] 1,000 mcg/mL 08/20/2020 12:00:00 AM EDT solution 4 INJECT 1ML INTRAMUSCULARLY EVERY 1-2 WEEKS INJECT 1ML INTRAMUSCULARLY EVERY 1-2 WEEKS SOLD: 08/20/2020 [facility] 12 % 08/14/2020 12:00:00 AM EDT cream 140 APPLY TO FEET ONCE DAILY APPLY TO FEET ONCE DAILY SOLD: 08/15/2020 [facility] ammonium lactate 120 MG/ML Topical Cream Ammonium Lactate 08/13/2020 12:00:00 AM EDT active [facility] ([facility] 10 mg 08/05/2020 12:00:00 AM EDT tablet 30 TAKE ONE TABLET BY MOUTH EVERY DAY TAKE ONE TABLET BY MOUTH EVERY DAY SOLD: 08/09/2020 [facility] 500 mcg 07/29/2020 12:00:00 AM EDT tablet 30 TAKE ONE TABLET BY MOUTH EVERY DAY DAILY FOR ENERGY TAKE ONE TABLET BY MOUTH EVERY DAY DAILY FOR ENERGY SO LD: 09/17/2020 [facility] 500 mcg 07/29/2020 12:00:00 AM EDT tablet 30 TAKE ONE TABLET BY MOUTH EVERY DAY DAILY FOR ENERGY TAKE ONE TABLET BY MOUTH EVERY DAY DAILY FOR ENERGY SO LD: 10/17/2020 [facility] 40 mg 07/29/2020 12:00:00 AM EDT tablet 60 TAKE ONE TABLET BY MOUTH TWICE A DAY TAKE ONE TABLET BY MOUTH TWICE A DAY SOLD: 08/25/2020 [facility] 40 mg 07/29/2020 12:00:00 AM EDT tablet 60 TAKE ONE TABLET BY MOUTH TWICE A DAY TAKE ONE TABLET BY MOUTH TWICE A DAY SOLD: 07/29/2020 [facility] 40 mg 07/29/2020 12:00:00 AM EDT tablet 60 TAKE ONE TABLET BY MOUTH TWICE A DAY TAKE ONE TABLET BY MOUTH TWICE A DAY SOLD: 09/24/2020 [facility] 40 mg 07/29/2020 12:00:00 AM EDT tablet 60 TAKE ONE TABLET BY MOUTH TWICE A DAY TAKE ONE TABLET BY MOUTH TWICE A DAY SOLD: 10/19/2020 [facility] 500 mcg 07/29/2020 12:00:00 AM EDT tablet 30 TAKE ONE TABLET BY MOUTH EVERY DAY DAILY FOR ENERGY TAKE ONE TABLET BY MOUTH EVERY DAY DAILY FOR ENERGY SO LD: 08/23/2020 [facility] 500 mcg 07/29/2020 12:00:00 AM EDT tablet 30 TAKE ONE TABLET BY MOUTH EVERY DAY DAILY FOR ENERGY TAKE ONE TABLET BY MOUTH EVERY DAY DAILY FOR ENERGY SO LD: 07/29/2020 [facility] Amiodarone hydrochloride 200 MG Oral Tablet AMIODARONE HCL 07/27/2020 12:00:00 AM EDT tablet 30 TAKE ONE TABLET BY MOUTH ONC E DAILY TAKE ONE TABLET BY MOUTH ONCE DAILY SOLD: 07/27/2020 [facility] Amiodarone hydrochloride 200 MG Oral Tablet AMIODARONE HCL 07/27/2020 12:00:00 AM EDT tablet 30 TAKE ONE TABLET BY MOUTH ONC E DAILY TAKE ONE TABLET BY MOUTH ONCE DAILY SOLD: 09/24/2020 [facility] 200 mg 07/27/2020 12:00:00 AM EDT tablet 30 TAKE ONE TABLET BY MOUTH ONCE DAILY TAKE ONE TABLET BY MOUTH ONCE DAILY SOLD: 08/25/2020 [facility] 1 mL 31 gauge x 5/16 07/23/2020 12:00:00 AM EDT syringe 12 0 USE FOUR TIMES A DAY NEEDED WITH INSULINS USE FOUR TIMES A DAY NEEDED WITH INSULINS SOLD: 07/23/2020 [facility] 1,000 mcg/mL 07/23/2020 12:00:00 AM EDT solution 1 INJECT 1ML INTRAMUSCULARLY EVERY 1-2 WEEKS INJECT 1ML INTRAMUSCULARLY EVERY 1-2 WEEKS SOLD: 07/23/2020 [facility] 100 mg 07/18/2020 12:00:00 AM EDT capsule 90 TAKE ONE CAPSULE BY MOUTH THREE TIMES A DAY NEEDED CONSTIPATION TAKE ONE CAPSULE BY MOUTH THREE TIMES A DAY NEEDED CONSTIPATION SOLD: 09/24/2020 [facility] 100 mg 07/18/2020 12:00:00 AM EDT capsule 90 TAKE ONE CAPSULE BY MOUTH THREE TIMES A DAY NEEDED CONSTIPATION TAKE ONE CAPSULE BY MOUTH THREE TIMES A DAY NEEDED CONSTIPATION SOLD: 07/18/2020 [facility] 100 mg 07/18/2020 12:00:00 AM EDT capsule 90 TAKE ONE CAPSULE BY MOUTH THREE TIMES A DAY NEEDED CONSTIPATION TAKE ONE CAPSULE BY MOUTH THREE TIMES A DAY NEEDED CONSTIPATION SOLD: 08/20/2020 [facility] 100 mg 07/12/2020 12:00:00 AM EDT tablet 120 TAKE TWO TABLETS BY MOUTH TWICE A DAY WITH FOOD TAKE TWO TABLETS BY MOUTH TWICE A DAY WITH FOOD SOLD: 07/12/2020 [facility] 100 mg 07/12/2020 12:00:00 AM EDT tablet 120 TAKE TWO TABLETS BY MOUTH TWICE A DAY WITH FOOD TAKE TWO TABLETS BY MOUTH TWICE A DAY WITH FOOD SOLD: 08/09/2020 [facility] 100 mg 07/12/2020 12:00:00 AM EDT tablet 120 TAKE TWO TABLETS BY MOUTH TWICE A DAY WITH FOOD TAKE TWO TABLETS BY MOUTH TWICE A DAY WITH FOOD SOLD: 09/13/2020 [facility] 100 mg 07/12/2020 12:00:00 AM EDT tablet 120 TAKE TWO TABLETS BY MOUTH TWICE A DAY WITH FOOD TAKE TWO TABLETS BY MOUTH TWICE A DAY WITH FOOD SOLD: 10/11/2020 [facility] 10 mg 06/30/2020 12:00:00 AM EDT tablet 30 TAKE ONE TABLET BY MOUTH EVERY DAY TAKE ONE TABLET BY MOUTH EVERY DAY SOLD: 07/27/2020 [facility] 10 mg 06/30/2020 12:00:00 AM EDT tablet 30 TAKE ONE TABLET BY MOUTH EVERY DAY TAKE ONE TABLET BY MOUTH EVERY DAY SOLD: 06/30/2020 [facility] 100 mg 06/26/2020 12:00:00 AM EDT tablet 30 TAKE ONE TABLET BY MOUTH EVERY DAY TAKE ONE TABLET BY MOUTH EVERY DAY SOLD: 06/26/2020 [facility] 100 mg 06/26/2020 12:00:00 AM EDT tablet 30 TAKE ONE TABLET BY MOUTH EVERY DAY TAKE ONE TABLET BY MOUTH EVERY DAY SOLD: 08/20/2020 [facility] 100 mg 06/26/2020 12:00:00 AM EDT tablet 30 TAKE ONE TABLET BY MOUTH EVERY DAY TAKE ONE TABLET BY MOUTH EVERY DAY SOLD: 10/19/2020 [facility] 100 mg 06/26/2020 12:00:00 AM EDT tablet 30 TAKE ONE TABLET BY MOUTH EVERY DAY TAKE ONE TABLET BY MOUTH EVERY DAY SOLD: 09/24/2020 [facility] 100 mg 06/26/2020 12:00:00 AM EDT tablet 30 TAKE ONE TABLET BY MOUTH EVERY DAY TAKE ONE TABLET BY MOUTH EVERY DAY SOLD: 07/20/2020 [facility] 0.005 % 06/19/2020 12:00:00 AM EDT drops 2 INSTILL 1 DROP ONCE EVERY NIGHT IN BOTH EYES INSTILL 1 DROP ONCE EVERY NIGHT IN BOTH EYES SOLD: 09/24/2020 [facility] 0.005 % 06/19/2020 12:00:00 AM EDT drops 2 INSTILL 1 DROP ONCE EVERY NIGHT IN BOTH EYES INSTILL 1 DROP ONCE EVERY NIGHT IN BOTH EYES SOLD: 08/27/2020 [facility] 0.005 % 06/19/2020 12:00:00 AM EDT drops 2 INSTILL 1 DROP ONCE EVERY NIGHT IN BOTH EYES INSTILL 1 DROP ONCE EVERY NIGHT IN BOTH EYES SOLD: 10/17/2020 [facility] 0.005 % 06/19/2020 12:00:00 AM EDT drops 2 INSTILL 1 DROP ONCE EVERY NIGHT IN BOTH EYES INSTILL 1 DROP ONCE EVERY NIGHT IN BOTH EYES SOLD: 07/27/2020 [facility] 0.005 % 06/19/2020 12:00:00 AM EDT drops 2 INSTILL 1 DROP ONCE EVERY NIGHT IN BOTH EYES INSTILL 1 DROP ONCE EVERY NIGHT IN BOTH EYES SOLD: 06/20/2020 [facility] gabapentin 800 MG Oral Tablet GABAPENTIN 06/18/2020 12:00:00 AM EDT t ablet 120 TAKE ONE TABLET BY MOUTH FOUR TIMES A DAY TAKE ONE TAB LET BY MOUTH FOUR TIMES A DAY SOLD: 06/18/2020 [facility] 32.4 mg 06/18/2020 12:00:00 AM EDT tablet 120 TAKE TWO TABLETS BY MOUTH TWICE A DAY MAXIMUM DAILY DOSE = 4 TAKE TWO TABLETS BY MOUTH TWICE A DAY MA XIMUM DAILY DOSE = 4 SOLD: 10/23/2020 [facility] gabap[facility] 800 MG Oral Tablet GABAPENTIN 06/18/2020 12:00:00 AM EDT t ablet 120 TAKE ONE TABLET BY MOUTH FOUR TIMES A DAY TAKE ONE TAB LET BY MOUTH FOUR TIMES A DAY SOLD: 07/27/2020 [facility] 1,000 mcg/mL 06/18/2020 12:00:00 AM EDT solution 1 INJECT 1ML INTRAMUSCULARLY EVERY 1-2 WEEKS INJECT 1ML INTRAMUSCULARLY EVERY 1-2 WEEKS SOLD: 07/12/2020 [facility] [facility] 32[facility]4 mg 06/18/2020 12:00:00 AM EDT tablet 120 TAKE TWO TABLETS BY MOUTH TWICE A DAY MAXIMUM DAILY DOSE = 4 TAKE TWO TABLETS BY MOUTH TWICE A DAY MA XIMUM DAILY DOSE = 4 SOLD: 09/03/2020 [facility] 1,000 mcg/mL 06/18/2020 12:00:00 AM EDT solution 1 INJECT 1ML INTRAMUSCULARLY EVERY 1-2 WEEKS INJECT 1ML INTRAMUSCULARLY EVERY 1-2 WEEKS SOLD: 07/18/2020 [facility] 1 mL 25 gauge x 5/8" 06/18/2020 12:00:00 AM EDT syringe 4 UAD FOR B12 INJECTION UAD FOR B12 INJECTION SOLD: 06/18/2020 [facility] 1,000 mcg/mL 06/18/2020 12:00:00 AM EDT solution 1 INJECT 1ML INTRAMUSCULARLY EVERY 1-2 WEEKS INJECT 1ML INTRAMUSCULARLY EVERY 1-2 WEEKS SOLD: 07/02/2020 [facility] 1 mL 25 gauge x 5/8" 06/18/2020 12:00:00 AM EDT syringe 4 UAD FOR B12 INJECTION UAD FOR B12 INJECTION SOLD: 07/25/2020 [facility] 1 mL 25 gauge x 5/8" 06/18/2020 12:00:00 AM EDT syringe 4 UAD FOR B12 INJECTION UAD FOR B12 INJECTION SOLD: 08/16/2020 [facility] 32.4 mg 06/18/2020 12:00:00 AM EDT tablet 120 TAKE TWO TABLETS BY MOUTH TWICE A DAY MAXIMUM DAILY DOSE = 4 TAKE TWO TABLETS BY MOUTH TWICE A DAY MA XIMUM DAILY DOSE = 4 SOLD: 06/18/2020 [facility] 32.4 mg 06/18/2020 12:00:00 AM EDT tablet 120 TAKE TWO TABLETS BY MOUTH TWICE A DAY MAXIMUM DAILY DOSE = 4 TAKE TWO TABLETS BY MOUTH TWICE A DAY MA XIMUM DAILY DOSE = 4 SOLD: 07/27/2020 [facility] 1,000 mcg/mL 06/18/2020 12:00:00 AM EDT solution 1 INJECT 1ML INTRAMUSCULARLY EVERY 1-2 WEEKS INJECT 1ML INTRAMUSCULARLY EVERY 1-2 WEEKS SOLD: 06/23/2020 [facility] 1,000 mcg/mL 06/18/2020 12:00:00 AM EDT solution 1 INJECT 1ML INTRAMUSCULARLY EVERY 1-2 WEEKS INJECT 1ML INTRAMUSCULARLY EVERY 1-2 WEEKS SOLD: 06/19/2020 [facility] 1,000 mcg/mL 06/18/2020 12:00:00 AM EDT solution 1 INJECT 1ML INTRAMUSCULARLY EVERY 1-2 WEEKS INJECT 1ML INTRAMUSCULARLY EVERY 1-2 WEEKS SOLD: 08/05/2020 [facility] 32.4 mg 06/18/2020 12:00:00 AM EDT tablet 120 TAKE TWO TABLETS BY MOUTH TWICE A DAY MAXIMUM DAILY DOSE = 4 TAKE TWO TABLETS BY MOUTH TWICE A DAY MA XIMUM DAILY DOSE = 4 SOLD: 09/24/2020 [facility] 0.4-0.3 % 06/17/2020 12:00:00 AM EDT drops 15 INSTILL 1 DROP NEEDED IN BOTH EYES INSTILL 1 DROP NEEDED IN BOTH EYES SOLD: 06/17/2020 [facility] 10 mEq 06/16/2020 12:00:00 AM EDT tablet,ER particles/cry stals 60 TAKE ONE TABLET BY MOUTH TWICE A DAY TAKE ONE TABLET BY MOUTH TWICE A DAY SOLD: 09/03/2020 [facility] 10 mEq 06/16/2020 12:00:00 AM EDT tablet,ER particles/cry stals 60 TAKE ONE TABLET BY MOUTH TWICE A DAY TAKE ONE TABLET BY MOUTH TWICE A DAY SOLD: 08/05/2020 [facility] Metformin hydrochloride 1000 MG Oral Tablet 1,000 mg METFORM IN HCL 06/16/2020 12:00:00 AM EDT tablet 60 TAKE ONE TABLET BY MOUTH TWICE A DAY TAKE ONE TABLET BY MOUTH TWICE A DAY SOLD: 10/19/2020 [facility] Metformin hydrochloride 1000 MG Oral Tablet 1,000 mg METFORM IN HCL 06/16/2020 12:00:00 AM EDT tablet 60 TAKE ONE TABLET BY MOUTH TWICE A DAY TAKE ONE TABLET BY MOUTH TWICE A DAY SOLD: 09/24/2020 [facility] 10 mEq 06/16/2020 12:00:00 AM EDT tablet,ER particles/cry stals 60 TAKE ONE TABLET BY MOUTH TWICE A DAY TAKE ONE TABLET BY MOUTH TWICE A DAY SOLD: 06/16/2020 [facility] 750 mg 06/16/2020 12:00:00 AM EDT tablet 120 TAKE TWO TABLETS BY MOUTH TWICE A DAY TAKE TWO TABLETS BY MOUTH TWICE A DAY SOLD: 10/19/2020 [facility] 75 mg 06/16/2020 12:00:00 AM EDT tablet 30 TAKE ONE TABLET BY MOUTH EVERY DAY TAKE ONE TABLET BY MOUTH EVERY DAY SOLD: 10/19/2020 [facility] 75 mg 06/16/2020 12:00:00 AM EDT tablet 30 TAKE ONE TABLET BY MOUTH EVERY DAY TAKE ONE TABLET BY MOUTH EVERY DAY SOLD: 09/24/2020 [facility] 1,000 mg 06/16/2020 12:00:00 AM EDT tablet 60 TAKE ONE TABLET BY MOUTH TWICE A DAY TAKE ONE TABLET BY MOUTH TWICE A DAY SOLD: 06/16/2020 [facility] 750 mg 06/16/2020 12:00:00 AM EDT tablet 120 TAKE TWO TABLETS BY MOUTH TWICE A DAY TAKE TWO TABLETS BY MOUTH TWICE A DAY SOLD: 06/16/2020 [facility] 750 mg 06/16/2020 12:00:00 AM EDT tablet 120 TAKE TWO TABLETS BY MOUTH TWICE A DAY TAKE TWO TABLETS BY MOUTH TWICE A DAY SOLD: 07/28/2020 [facility] 200 mg 06/16/2020 12:00:00 AM EDT tablet 60 TAKE ONE TABLET BY MOUTH TWICE A DAY TAKE ONE TABLET BY MOUTH TWICE A DAY SOLD: 06/16/2020 [facility] Metformin hydrochloride 1000 MG Oral Tablet 1,000 mg METFORM IN HCL 06/16/2020 12:00:00 AM EDT tablet 60 TAKE ONE TABLET BY MOUTH TWICE A DAY TAKE ONE TABLET BY MOUTH TWICE A DAY SOLD: 08/24/2020 [facility] 750 mg 06/16/2020 12:00:00 AM EDT tablet 120 TAKE TWO TABLETS BY MOUTH TWICE A DAY TAKE TWO TABLETS BY MOUTH TWICE A DAY SOLD: 09/03/2020 [facility] Metformin hydrochloride 1000 MG Oral Tablet 1,000 mg METFORM IN HCL 06/16/2020 12:00:00 AM EDT tablet 60 TAKE ONE TABLET BY MOUTH TWICE A DAY TAKE ONE TABLET BY MOUTH TWICE A DAY SOLD: 07/28/2020 [facility] 75 mg 06/16/2020 12:00:00 AM EDT tablet 30 TAKE ONE TABLET BY MOUTH EVERY DAY TAKE ONE TABLET BY MOUTH EVERY DAY SOLD: 07/28/2020 [facility] 750 mg 06/16/2020 12:00:00 AM EDT tablet 120 TAKE TWO TABLETS BY MOUTH TWICE A DAY TAKE TWO TABLETS BY MOUTH TWICE A DAY SOLD: 09/24/2020 [facility] 75 mg 06/16/2020 12:00:00 AM EDT tablet 30 TAKE ONE TABLET BY MOUTH EVERY DAY TAKE ONE TABLET BY MOUTH EVERY DAY SOLD: 08/25/2020 [facility] 75 mg 06/16/2020 12:00:00 AM EDT tablet 30 TAKE ONE TABLET BY MOUTH EVERY DAY TAKE ONE TABLET BY MOUTH EVERY DAY SOLD: 06/16/2020 [facility] benzonatate 100 MG Oral Capsule BENZONATATE 06/04/2020 12:00:00 AM EDT capsule 30 TAKE ONE CAPSULE BY MOUTH THREE TIMES A DAY NEEDED TAKE ONE CAPSULE BY MOUTH THREE TIMES A DAY NEEDED SOLD: 08/09/2020 [facility] benzonatate 100 MG Oral Capsule BENZONATATE 06/04/2020 12:00:00 AM EDT capsule 30 TAKE ONE CAPSULE BY MOUTH THREE TIMES A DAY NEEDED TAKE ONE CAPSULE BY MOUTH THREE TIMES A DAY NEEDED SOLD: 06/06/2020 [facility] Cyclobenzaprine hydrochloride 10 MG Oral Tablet CYCLOBENZAPR INE HCL 05/26/2020 12:00:00 AM EDT tablet 30 TAKE ONE TABLET BY MOUTH THREE TIMES A DAY NEEDED FOR MUSCLE SPASM TAKE ONE TABLET BY MOUTH THREE TIMES A D AY NEEDED FOR MUSCLE SPASM SOLD: 05/26/2020 [facility] 20 mg 05/26/2020 12:00:00 AM EDT tablet 30 TAKE ONE TABLET BY MOUTH EVERY DAY TAKE ONE TABLET BY MOUTH EVERY DAY SOLD: 07/27/2020 [facility] 20 mg 05/26/2020 12:00:00 AM EDT tablet 30 TAKE ONE TABLET BY MOUTH EVERY DAY TAKE ONE TABLET BY MOUTH EVERY DAY SOLD: 05/26/2020 [facility] 20 mg 05/26/2020 12:00:00 AM EDT tablet 30 TAKE ONE TABLET BY MOUTH EVERY DAY TAKE ONE TABLET BY MOUTH EVERY DAY SOLD: 06/29/2020 [facility] Cyclobenzaprine hydrochloride 10 MG Oral Tablet CYCLOBENZAPR INE HCL 05/26/2020 12:00:00 AM EDT tablet 30 TAKE ONE TABLET BY MOUTH THREE TIMES A DAY NEEDED FOR MUSCLE SPASM TAKE ONE TABLET BY MOUTH THREE TIMES A D AY NEEDED FOR MUSCLE SPASM SOLD: 07/04/2020 [facility] 20 mg 05/26/2020 12:00:00 AM EDT tablet 30 TAKE ONE TABLET BY MOUTH EVERY DAY TAKE ONE TABLET BY MOUTH EVERY DAY SOLD: 08/27/2020 [facility] 150 mg 05/25/2020 12:00:00 AM EDT capsule 60 TAKE ONE CAPSULE BY MOUTH TWICE A DAY, HOLD GABAPENTIN WHILE ON THIS, MAXIMUM DAILY DOSE = 2 TAKE ONE CAPSULE BY MOUTH TWICE A DAY, HOLD GABAPENTIN WHILE ON THIS, MAXIMUM DAILY DOSE = 2 SOLD: 05/26/2020 [facility] 10 mg 05/11/2020 12:00:00 AM EDT tablet 30 TAKE ONE TABLET BY MOUTH EVERY DAY TAKE ONE TABLET BY MOUTH EVERY DAY SOLD: 11/15/2020 [facility] 10 mg 05/11/2020 12:00:00 AM EDT tablet 30 TAKE ONE TABLET BY MOUTH EVERY DAY TAKE ONE TABLET BY MOUTH EVERY DAY SOLD: 05/11/2020 [facility] 10 mg 05/11/2020 12:00:00 AM EDT tablet 30 TAKE ONE TABLET BY MOUTH EVERY DAY TAKE ONE TABLET BY MOUTH EVERY DAY SOLD: 08/18/2020 [facility] 10 mg 05/11/2020 12:00:00 AM EDT tablet 30 TAKE ONE TABLET BY MOUTH EVERY DAY TAKE ONE TABLET BY MOUTH EVERY DAY SOLD: 10/19/2020 [facility] 10 mg 05/11/2020 12:00:00 AM EDT tablet 30 TAKE ONE TABLET BY MOUTH EVERY DAY TAKE ONE TABLET BY MOUTH EVERY DAY SOLD: 09/24/2020 [facility] 10 mg 05/11/2020 12:00:00 AM EDT tablet 30 TAKE ONE TABLET BY MOUTH EVERY DAY TAKE ONE TABLET BY MOUTH EVERY DAY SOLD: 06/08/2020 [facility] 10 mg 04/30/2020 12:00:00 AM EDT tablet 30 TAKE ONE TABLET BY MOUTH THREE TIMES A DAY NEEDED FOR MUSCLE SPASMS TAKE ONE TABLET BY MOUTH THREE TIMES A DAY NEEDED FOR MUSCLE SPASMS SOLD: 04/30/2020 [facility] Cyclobenzaprine hydrochloride 10 MG Oral Tablet CYCLOBENZAPR INE HCL 04/30/2020 12:00:00 AM EDT tablet 30 TAKE ONE TABLET BY MOUTH THREE TIMES A DAY NEEDED FOR MUSCLE SPASMS TAKE ONE TABLET BY MOUTH THREE TIMES A D AY NEEDED FOR MUSCLE SPASMS SOLD: 05/18/2020 [facility] 1 mg 04/29/2020 12:00:00 AM EDT tablet 30 TAKE ONE TABLET BY MOUTH EVERY DAY TAKE ONE TABLET BY MOUTH EVERY DAY SOLD: 2020 [facility] 20 mg 04/29/2020 12:00:00 AM EDT tablet 60 TAKE ONE TABLET BY MOUTH TWICE A DAY TAKE ONE TABLET BY MOUTH TWICE A DAY SOLD: 2020 [facility] 20 mg 04/29/2020 12:00:00 AM EDT tablet 60 TAKE ONE TABLET BY MOUTH TWICE A DAY TAKE ONE TABLET BY MOUTH TWICE A DAY SOLD: 08/25/2020 [facility] tizanidine 2 MG Oral Capsule Tizanidine HCL 04/29/2020 12:00:00 AM EDT ORAL active [facility] ([facility]) 20 mg 04/29/2020 12:00:00 AM EDT tablet 60 TAKE ONE TABLET BY MOUTH TWICE A DAY TAKE ONE TABLET BY MOUTH TWICE A DAY SOLD: 07/31/2020 [facility] 20 mg 04/29/2020 12:00:00 AM EDT tablet 60 TAKE ONE TABLET BY MOUTH TWICE A DAY TAKE ONE TABLET BY MOUTH TWICE A DAY SOLD: 09/24/2020 [facility] 1 mg 04/29/2020 12:00:00 AM EDT tablet 30 TAKE ONE TABLET BY MOUTH EVERY DAY TAKE ONE TABLET BY MOUTH EVERY DAY SOLD: 07/31/2020 [facility] 1,000 mcg/mL 04/29/2020 12:00:00 AM EDT solution 1 INJECT 1ML ONCE EVERY 1-2 WEEKS INJECT 1ML ONCE EVERY 1-2 WEEKS SOLD: 05/30/2020 [facility] 1,000 mcg/mL 04/29/2020 12:00:00 AM EDT solution 1 INJECT 1ML ONCE EVERY 1-2 WEEKS INJECT 1ML ONCE EVERY 1-2 WEEKS SOLD: 06/06/2020 [facility] 2 mg 04/29/2020 12:00:00 AM EDT tablet 90 TAKE 1-2 TABLETS BY MOUTH FOUR TIMES A DAY NEEDED TAKE 1-2 TABLETS BY MOUTH FOUR TIMES A DAY NEEDED S OLD: 05/18/2020 [facility] 2 mg 04/29/2020 12:00:00 AM EDT tablet 90 TAKE 1-2 TABLETS BY MOUTH FOUR TIMES A DAY NEEDED TAKE 1-2 TABLETS BY MOUTH FOUR TIMES A DAY NEEDED S OLD: 04/29/2020 [facility] 1,000 mcg/mL 04/29/2020 12:00:00 AM EDT solution 1 INJECT 1ML ONCE EVERY 1-2 WEEKS INJECT 1ML ONCE EVERY 1-2 WEEKS SOLD: 05/09/2020 [facility] 1 mg 04/29/2020 12:00:00 AM EDT tablet 30 TAKE ONE TABLET BY MOUTH EVERY DAY TAKE ONE TABLET BY MOUTH EVERY DAY SOLD: 08/25/2020 [facility] 1,000 mcg/mL 04/29/2020 12:00:00 AM EDT solution 1 INJECT 1ML ONCE EVERY 1-2 WEEKS INJECT 1ML ONCE EVERY 1-2 WEEKS SOLD: 05/16/2020 [facility] 1,000 mcg/mL 04/29/2020 12:00:00 AM EDT solution 1 INJECT 1ML ONCE EVERY 1-2 WEEKS INJECT 1ML ONCE EVERY 1-2 WEEKS SOLD: 05/23/2020 [facility] 500 mg 04/29/2020 12:00:00 AM EDT tablet 3 TAKE ONE TABLET BY MOUTH EVERY DAY FOR 3 DAYS TAKE ONE TABLET BY MOUTH EVERY DAY FOR 3 DAYS SOLD: 04/29/2020 [facility] 20 mg 04/29/2020 12:00:00 AM EDT tablet 60 TAKE ONE TABLET BY MOUTH TWICE A DAY TAKE ONE TABLET BY MOUTH TWICE A DAY SOLD: 05/24/2020 [facility] 1,000 mcg/mL 04/29/2020 12:00:00 AM EDT solution 1 INJECT 1ML ONCE EVERY 1-2 WEEKS INJECT 1ML ONCE EVERY 1-2 WEEKS SOLD: 04/29/2020 [facility] 20 mg 04/29/2020 12:00:00 AM EDT tablet 60 TAKE ONE TABLET BY MOUTH TWICE A DAY TAKE ONE TABLET BY MOUTH TWICE A DAY SOLD: 04/29/2020 [facility] 1 mg 04/29/2020 12:00:00 AM EDT tablet 30 TAKE ONE TABLET BY MOUTH EVERY DAY TAKE ONE TABLET BY MOUTH EVERY DAY SOLD: 05/26/2020 [facility] 1 mg 04/29/2020 12:00:00 AM EDT tablet 30 TAKE ONE TABLET BY MOUTH EVERY DAY TAKE ONE TABLET BY MOUTH EVERY DAY SOLD: 04/29/2020 [facility] 1 mg 04/29/2020 12:00:00 AM EDT tablet 30 TAKE ONE TABLET BY MOUTH EVERY DAY TAKE ONE TABLET BY MOUTH EVERY DAY SOLD: 09/24/2020 [facility] 5,000-100 mcg 04/16/2020 12:00:00 AM EDT tablet, sublingual 30 DISSOLVE ONE UNDER THE TONGUE EVERY DAY FOR ENERGY DISSOLVE ONE UNDER THE TONGUE EVERY DAY FOR ENERGY SOLD: 09/14/2020 [facility] 5,000-100 mcg 04/16/2020 12:00:00 AM EDT tablet, sublingual 30 DISSOLVE ONE UNDER THE TONGUE EVERY DAY FOR ENERGY DISSOLVE ONE UNDER THE TONGUE EVERY DAY FOR ENERGY SOLD: 04/16/2020 [facility] 300 mg 04/09/2020 12:00:00 AM EDT capsule 30 TAKE TWO CAPSULES BY MOUTH EVERY DAY FOR 15 DAYS TAKE TWO CAPSULES BY MOUTH EVERY DAY FOR 15 DAYS SOLD: 04/09/2020 [facility] 1.5 mg/0.5 mL 04/07/2020 12:00:00 AM EDT pen injector 2 INJECT 1.5MG UNDER THE SKIN WEEKLY INJECT 1.5MG UNDER THE SKIN WEEKLY SOLD: 04/09/2020 [facility] 1.5 mg/0.5 mL 04/07/2020 12:00:00 AM EDT pen injector 2 INJECT 1.5MG UNDER THE SKIN WEEKLY INJECT 1.5MG UNDER THE SKIN WEEKLY SOLD: 05/16/2020 [facility] 1.5 mg/0.5 mL 04/07/2020 12:00:00 AM EDT pen injector 2 INJECT 1.5MG UNDER THE SKIN WEEKLY INJECT 1.5MG UNDER THE SKIN WEEKLY SOLD: 07/13/2020 [facility] 1.5 mg/0.5 mL 04/07/2020 12:00:00 AM EDT pen injector 2 INJECT 1.5MG UNDER THE SKIN WEEKLY INJECT 1.5MG UNDER THE SKIN WEEKLY SOLD: 06/10/2020 [facility] 1.5 mg/0.5 mL 04/07/2020 12:00:00 AM EDT pen injector 2 INJECT 1.5MG UNDER THE SKIN WEEKLY INJECT 1.5MG UNDER THE SKIN WEEKLY SOLD: 08/09/2020 [facility] 50 mcg/actuation 04/01/2020 12:00:00 AM EDT spray,suspension 16 SPRAY 1 SPRAY IN EACH NOSTRIL TWO TIMES A DAY NEEDED FOR 7 DAYS SPRAY 1 SPRAY IN EACH NOSTRIL TWO TIMES A DAY NEEDED FOR 7 DAYS SOLD: 04/01/2020 [facility] 50 mcg/actuation 04/01/2020 12:00:00 AM EDT spray,suspension 16 SPRAY 1 SPRAY IN EACH NOSTRIL TWO TIMES A DAY NEEDED FOR 7 DAYS SPRAY 1 SPRAY IN EACH NOSTRIL TWO TIMES A DAY NEEDED FOR 7 DAYS SOLD: 04/27/2020 [facility] 50 mcg/actuation 04/01/2020 12:00:00 AM EDT spray,suspension 16 SPRAY 1 SPRAY IN EACH NOSTRIL TWO TIMES A DAY NEEDED FOR 7 DAYS SPRAY 1 SPRAY IN EACH NOSTRIL TWO TIMES A DAY NEEDED FOR 7 DAYS SOLD: 05/26/2020 [facility] 150 mg 04/01/2020 12:00:00 AM EDT capsule 60 TAKE ONE CAPSULE BY MOUTH TWICE A DAY, HOLD GABAPENTIN WHILE ON THIS, MAXIMUM DAILY DOSE = 2 TAKE ONE CAPSULE BY MOUTH TWICE A DAY, HOLD GABAPENTIN WHILE ON THIS, MAXIMUM DAILY DOSE = 2 SOLD: 04/01/2020 [facility] 10-100 mg/5 mL 03/25/2020 12:00:00 AM EDT liquid 240 TAKE 5-10ML BY MOUTH FOUR TIMES A DAY NEEDED SEVERE COUGH MAXIMUM DAILY DOSE = 40ML TAKE 5-10ML BY MOUTH FOUR TIMES A DAY NEEDED SEVERE COUGH MAXIMUM DAILY DOSE = 40ML SOLD: 03/28/2020 [facility] 2 % 03/23/2020 12:00:00 AM EDT ointment 22 APPLY SMALL AMOUNT TO AFFECTED AREA TWO TIMES A DAY APPLY SMALL AMOUNT TO AFFECTED AREA TWO TIMES A DAY SO LD: 03/31/2020 [facility] 2 % 03/23/2020 12:00:00 AM EDT ointment 22 APPLY SMALL AMOUNT TO AFFECTED AREA TWO TIMES A DAY APPLY SMALL AMOUNT TO AFFECTED AREA TWO TIMES A DAY SO LD: 03/23/2020 [facility] 2 % 03/23/2020 12:00:00 AM EDT ointment 22 APPLY SMALL AMOUNT TO AFFECTED AREA TWO TIMES A DAY APPLY SMALL AMOUNT TO AFFECTED AREA TWO TIMES A DAY SO LD: 04/27/2020 [facility] 2 % 03/23/2020 12:00:00 AM EDT ointment 22 APPLY SMALL AMOUNT TO AFFECTED AREA TWO TIMES A DAY APPLY SMALL AMOUNT TO AFFECTED AREA TWO TIMES A DAY SO LD: 05/26/2020 [facility] benzonatate 100 MG Oral Capsule BENZONATATE 03/18/2020 12:00:00 AM EDT capsule 30 TAKE 1 CAPSULE BY MOUTH THREE TIMES A DA Y NEEDED TAKE 1 CAPSULE BY MOUTH THREE TIMES A DAY NEEDED SOLD: 03/19/2020 [facility] 10-100 mg/5 mL 03/18/2020 12:00:00 AM EDT liquid 240 TAKE 5-10ML BY MOUTH AT BEDTIME NEEDED FOR SEVERE NIGHT COUGH MAXIMUM DAILY DOSE = 10ML TAKE 5-10ML BY MOUTH AT BEDTIME NEEDED FOR SEVERE NIGHT COUGH MAXIMUM DAILY DOSE = 10ML SOLD: 03/19/2020 [facility] 500 mg 03/13/2020 12:00:00 AM EDT tablet 3 TAKE ONE TABLET BY MOUTH EVERY DAY FOR 3 DAYS TAKE ONE TABLET BY MOUTH EVERY DAY FOR 3 DAYS SOLD: 03/15/2020 [facility] 0.5 mg-3 mg(2.5 mg base)/3 mL 03/04/2020 12:00:0 0 AM EDT solution for nebulization 90 INHALE ONE VIAL VIA NEBULIZER EVERY 6 HOURS NEEDED FOR SHORTNESS OF BREATH INHALE ONE VIAL VIA NEBULIZER EVERY 6 HO URS NEEDED FOR SHORTNESS OF BREATH SOLD: 03/04/2020 [facility] 0.5 mg-3 mg(2.5 mg base)/3 mL 03/04/2020 12:00:0 0 AM EDT solution for nebulization 90 INHALE ONE VIAL VIA NEBULIZER EVERY 6 HOURS NEEDED FOR SHORTNESS OF BREATH INHALE ONE VIAL VIA NEBULIZER EVERY 6 HO URS NEEDED FOR SHORTNESS OF BREATH SOLD: 04/05/2020 [facility] 0.5 mg-3 mg(2.5 mg base)/3 mL 03/04/2020 12:00:0 0 AM EDT solution for nebulization 90 INHALE ONE VIAL VIA NEBULIZER EVERY 6 HOURS NEEDED FOR SHORTNESS OF BREATH INHALE ONE VIAL VIA NEBULIZER EVERY 6 HO URS NEEDED FOR SHORTNESS OF BREATH SOLD: 04/27/2020 [facility] 0.5 mg-3 mg(2.5 mg base)/3 mL 03/04/2020 12:00:0 0 AM EDT solution for nebulization 90 INHALE ONE VIAL VIA NEBULIZER EVERY 6 HOURS NEEDED FOR SHORTNESS OF BREATH INHALE ONE VIAL VIA NEBULIZER EVERY 6 HO URS NEEDED FOR SHORTNESS OF BREATH SOLD: 05/26/2020 [facility] 17 mcg/actuation 03/02/2020 12:00:00 AM EDT HFA aerosol inha ler 12 INHALE TWO PUFFS BY MOUTH FOUR TIMES A DAY NEEDED INHALE TWO PUFFS BY MOUTH FOUR TIMES A DAY NEEDED SOLD: 07/27/2020 [facility] 17 mcg/actuation 03/02/2020 12:00:00 AM EDT HFA aerosol inha ler 12 INHALE TWO PUFFS BY MOUTH FOUR TIMES A DAY NEEDED INHALE TWO PUFFS BY MOUTH FOUR TIMES A DAY NEEDED SOLD: 03/02/2020 [facility] 17 mcg/actuation 03/02/2020 12:00:00 AM EDT HFA aerosol inha ler 12 INHALE TWO PUFFS BY MOUTH FOUR TIMES A DAY NEEDED INHALE TWO PUFFS BY MOUTH FOUR TIMES A DAY NEEDED SOLD: 2020 [facility] 90 mcg/actuation 03/02/2020 12:00:00 AM EDT HFA aerosol inha ler 6 USE 2 PUFFS BY MOUTH EVERY 4 HOURS NEEDED USE 2 PUFFS BY MOUTH EVERY 4 HOURS NEEDED SOLD: 03/02/2020 [facility] 17 mcg/actuation 03/02/2020 12:00:00 AM EDT HFA aerosol inha ler 12 INHALE TWO PUFFS BY MOUTH FOUR TIMES A DAY NEEDED INHALE TWO PUFFS BY MOUTH FOUR TIMES A DAY NEEDED SOLD: 03/29/2020 [facility] 90 mcg/actuation 03/02/2020 12:00:00 AM EDT HFA aerosol inha ler 8 USE 2 PUFFS BY MOUTH EVERY 4 HOURS NEEDED USE 2 PUFFS BY MOUTH EVERY 4 HOURS NEEDED SOLD: 07/27/2020 [facility] 17 mcg/actuation 03/02/2020 12:00:00 AM EDT HFA aerosol inha ler 12 INHALE TWO PUFFS BY MOUTH FOUR TIMES A DAY NEEDED INHALE TWO PUFFS BY MOUTH FOUR TIMES A DAY NEEDED SOLD: 05/26/2020 [facility] 17 mcg/actuation 03/02/2020 12:00:00 AM EDT HFA aerosol inha ler 12 INHALE TWO PUFFS BY MOUTH FOUR TIMES A DAY NEEDED INHALE TWO PUFFS BY MOUTH FOUR TIMES A DAY NEEDED SOLD: 04/27/2020 [facility] 90 mcg/actuation 03/02/2020 12:00:00 AM EDT HFA aerosol inha ler 8 USE 2 PUFFS BY MOUTH EVERY 4 HOURS NEEDED USE 2 PUFFS BY MOUTH EVERY 4 HOURS NEEDED SOLD: 04/27/2020 [facility] 90 mcg/actuation 03/02/2020 12:00:00 AM EDT HFA aerosol inha ler 8 USE 2 PUFFS BY MOUTH EVERY 4 HOURS NEEDED USE 2 PUFFS BY MOUTH EVERY 4 HOURS NEEDED SOLD: 2020 [facility] 90 mcg/actuation 03/02/2020 12:00:00 AM EDT HFA aerosol inha ler 8 USE 2 PUFFS BY MOUTH EVERY 4 HOURS NEEDED USE 2 PUFFS BY MOUTH EVERY 4 HOURS NEEDED SOLD: 03/28/2020 [facility] 90 mcg/actuation 03/02/2020 12:00:00 AM EDT HFA aerosol inha ler 8 USE 2 PUFFS BY MOUTH EVERY 4 HOURS NEEDED USE 2 PUFFS BY MOUTH EVERY 4 HOURS NEEDED SOLD: 05/26/2020 [facility] 220 mcg/actuation 03/02/2020 12:00:00 AM EDT HFA aerosol inh aler 12 INHALE ONE PUFF BY MOUTH TWICE A DAY INHALE ONE PUFF BY MOUTH TWICE A DAY SOLD: 03/02/2020 [facility] 1 mL 31 gauge x 5/16 02/26/2020 12:00:00 AM EDT syringe 15 0 DIRECTED UNDER THE SKIN FOUR TIMES A DAY AND NEEDED WITH INSULINS DIRECTED UNDER THE SKIN FOUR TIMES A DAY AND NEEDED WITH INSULINS SOLD: 02/26/2020 [facility] 31 gauge x 1/4" 02/23/2020 12:00:00 AM EDT needle 60 USE DIRECTED TWO TIMES A DAY USE DIRECTED TWO TIMES A DAY SOLD: 02/23/2020 [facility] 100 unit/mL 02/17/2020 12:00:00 AM EDT solution 20 INJECT 30UNITS PER SLIIDNG SCALE TWO TIMES A DAY INJECT 30UNITS PER SLIIDNG SCALE TWO TIMES A DAY SOLD: 02/17/2020 [facility] 20 mg 02/02/2020 12:00:00 AM EDT tablet 30 TAKE ONE TABLET BY MOUTH TWICE A DAY TAKE ONE TABLET BY MOUTH TWICE A DAY SOLD: 02/02/2020 [facility] 20 mg 02/02/2020 12:00:00 AM EDT tablet 30 TAKE ONE TABLET BY MOUTH TWICE A DAY TAKE ONE TABLET BY MOUTH TWICE A DAY SOLD: 03/28/2020 [facility] 20 mg 02/02/2020 12:00:00 AM EDT tablet 30 TAKE ONE TABLET BY MOUTH TWICE A DAY TAKE ONE TABLET BY MOUTH TWICE A DAY SOLD: 04/09/2020 [facility] 10 mg 02/02/2020 12:00:00 AM EDT tablet 30 TAKE ONE TABLET BY MOUTH EVERY DAY TAKE ONE TABLET BY MOUTH EVERY DAY SOLD: 04/27/2020 [facility] 75 mg 02/02/2020 12:00:00 AM EDT tablet 30 TAKE ONE TABLET BY MOUTH EVERY DAY TAKE ONE TABLET BY MOUTH EVERY DAY SOLD: 03/28/2020 [facility] 1,000 mg 02/02/2020 12:00:00 AM EDT tablet 60 TAKE ONE TABLET BY MOUTH TWICE A DAY TAKE ONE TABLET BY MOUTH TWICE A DAY SOLD: 03/28/2020 [facility] 10 mg 02/02/2020 12:00:00 AM EDT tablet 30 TAKE ONE TABLET BY MOUTH EVERY DAY TAKE ONE TABLET BY MOUTH EVERY DAY SOLD: 05/26/2020 [facility] 750 mg 02/02/2020 12:00:00 AM EDT tablet 120 TAKE TWO TABLETS BY MOUTH TWICE A DAY TAKE TWO TABLETS BY MOUTH TWICE A DAY SOLD: 04/27/2020 [facility] 28 gauge 02/02/2020 12:00:00 AM EDT misc 120 1 FO UR TIMES A DAY 1 FOUR TIMES A DAY SOLD: 05/26/2020 [facility] 750 mg 02/02/2020 12:00:00 AM EDT tablet 120 TAKE TWO TABLETS BY MOUTH TWICE A DAY TAKE TWO TABLETS BY MOUTH TWICE A DAY SOLD: 11/15/2020 [facility] 28 gauge 02/02/2020 12:00:00 AM EDT misc 120 1 FO UR TIMES A DAY 1 FOUR TIMES A DAY SOLD: 03/28/2020 [facility] 75 mg 02/02/2020 12:00:00 AM EDT tablet 30 TAKE ONE TABLET BY MOUTH EVERY DAY TAKE ONE TABLET BY MOUTH EVERY DAY SOLD: 03/02/2020 [facility] 28 gauge 02/02/2020 12:00:00 AM EDT misc 120 1 FO UR TIMES A DAY 1 FOUR TIMES A DAY SOLD: 04/27/2020 [facility] 200 mg 02/02/2020 12:00:00 AM EDT tablet 60 TAKE ONE TABLET BY MOUTH TWICE A DAY TAKE ONE TABLET BY MOUTH TWICE A DAY SOLD: 04/27/2020 [facility] Trazodone Hydrochloride 100 MG Oral Tablet TRAZODONE HCL 02/02/2020 12:00:00 AM EDT tablet 30 TAKE 1 TABLET BY MOUTH 1 YUE R PRIOR TO SLEEP TAKE 1 TABLET BY MOUTH 1 HOUR PRIOR TO SLEEP SOLD: 03/28/2020 [facility] 50 mcg/actuation 02/02/2020 12:00:00 AM EDT spray,suspension 16 SPRAY 1 SPRAY IN EACH NOSTRIL TWO TIMES A DAY NEEDED FOR 7 DAYS SPRAY 1 SPRAY IN EACH NOSTRIL TWO TIMES A DAY NEEDED FOR 7 DAYS SOLD: 03/02/2020 [facility] 40 mg 02/02/2020 12:00:00 AM EDT tablet 60 TAKE ONE TABLET BY MOUTH TWICE A DAY TAKE ONE TABLET BY MOUTH TWICE A DAY SOLD: 06/29/2020 [facility] Trazodone Hydrochloride 100 MG Oral Tablet TRAZODONE HCL 02/02/2020 12:00:00 AM EDT tablet 30 TAKE 1 TABLET BY MOUTH 1 YUE R PRIOR TO SLEEP TAKE 1 TABLET BY MOUTH 1 HOUR PRIOR TO SLEEP SOLD: 04/27/2020 [facility] BLOOD SUGAR DIAGNOSTIC 02/02/2020 12:00:00 AM EDT strip 100 TEST FOUR TIMES DAILY BEFORE BREAKFAST,LUNCH, DINNER AND BED TEST FOUR TIMES DAILY BEFORE BREAKFAST,LUNCH, DINNER AND BED SOLD: 02/02/2020 [facility] 1,000 mg 02/02/2020 12:00:00 AM EDT tablet 60 TAKE ONE TABLET BY MOUTH TWICE A DAY TAKE ONE TABLET BY MOUTH TWICE A DAY SOLD: 04/27/2020 [facility] 10 mg 02/02/2020 12:00:00 AM EDT tablet 30 TAKE ONE TABLET BY MOUTH EVERY DAY TAKE ONE TABLET BY MOUTH EVERY DAY SOLD: 06/29/2020 [facility] Trazodone Hydrochloride 100 MG Oral Tablet TRAZODONE HCL 02/02/2020 12:00:00 AM EDT tablet 30 TAKE 1 TABLET BY MOUTH 1 YUE R PRIOR TO SLEEP TAKE 1 TABLET BY MOUTH 1 HOUR PRIOR TO SLEEP SOLD: 05/26/2020 [facility] 100 unit/mL 02/02/2020 12:00:00 AM EDT insulin pen 3 INJETC 2 UNITS FOR FSBS 10-150 THEN AWAIT MD INSTRUCTIONS ON SLIDING SCALE INJETC 2 UNITS FOR FSBS 10- 150 THEN AWAIT MD INSTRUCTIONS ON SLIDING SCALE SOLD: 02/02/2020 [facility] 10 mg 02/02/2020 12:00:00 AM EDT tablet 30 TAKE ONE TABLET BY MOUTH EVERY DAY TAKE ONE TABLET BY MOUTH EVERY DAY SOLD: 03/28/2020 [facility] 10 mg 02/02/2020 12:00:00 AM EDT tablet 30 TAKE ONE TABLET BY MOUTH EVERY DAY TAKE ONE TABLET BY MOUTH EVERY DAY SOLD: 03/02/2020 [facility] 1,000 mg 02/02/2020 12:00:00 AM EDT tablet 60 TAKE ONE TABLET BY MOUTH TWICE A DAY TAKE ONE TABLET BY MOUTH TWICE A DAY SOLD: 05/26/2020 [facility] 75 mg 02/02/2020 12:00:00 AM EDT tablet 30 TAKE ONE TABLET BY MOUTH EVERY DAY TAKE ONE TABLET BY MOUTH EVERY DAY SOLD: 02/02/2020 [facility] 50 mcg/actuation 02/02/2020 12:00:00 AM EDT spray,suspension 16 SPRAY 1 SPRAY IN EACH NOSTRIL TWO TIMES A DAY NEEDED FOR 7 DAYS SPRAY 1 SPRAY IN EACH NOSTRIL TWO TIMES A DAY NEEDED FOR 7 DAYS SOLD: 02/02/2020 [facility] 10 mEq 02/02/2020 12:00:00 AM EDT tablet,ER particles/cry stals 60 TAKE ONE TABLET BY MOUTH TWICE A DAY TAKE ONE TABLET BY MOUTH TWICE A DAY SOLD: 07/09/2020 [facility] Trazodone Hydrochloride 100 MG Oral Tablet TRAZODONE HCL 02/02/2020 12:00:00 AM EDT tablet 30 TAKE 1 TABLET BY MOUTH 1 YUE R PRIOR TO SLEEP TAKE 1 TABLET BY MOUTH 1 HOUR PRIOR TO SLEEP SOLD: 2020 [facility] 40 mg 02/02/2020 12:00:00 AM EDT tablet 60 TAKE ONE TABLET BY MOUTH TWICE A DAY TAKE ONE TABLET BY MOUTH TWICE A DAY SOLD: 03/28/2020 [facility] 40 mg 02/02/2020 12:00:00 AM EDT tablet 60 TAKE ONE TABLET BY MOUTH TWICE A DAY TAKE ONE TABLET BY MOUTH TWICE A DAY SOLD: 04/27/2020 [facility] BLOOD SUGAR DIAGNOSTIC 02/02/2020 12:00:00 AM EDT strip 100 TEST FOUR TIMES DAILY BEFORE BREAKFAST,LUNCH, DINNER AND BED TEST FOUR TIMES DAILY BEFORE BREAKFAST,LUNCH, DINNER AND BED SOLD: 05/26/2020 [facility] 50 mg 02/02/2020 12:00:00 AM EDT tablet 30 TAKE ONE TABLET BY MOUTH EVERY DAY TAKE ONE TABLET BY MOUTH EVERY DAY SOLD: 04/27/2020 [facility] 1 mg 02/02/2020 12:00:00 AM EDT tablet 30 TAKE ONE TABLET BY MOUTH EVERY DAY TAKE ONE TABLET BY MOUTH EVERY DAY SOLD: 02/02/2020 [facility] 1 mg 02/02/2020 12:00:00 AM EDT tablet 30 TAKE ONE TABLET BY MOUTH EVERY DAY TAKE ONE TABLET BY MOUTH EVERY DAY SOLD: 03/02/2020 [facility] Trazodone Hydrochloride 100 MG Oral Tablet TRAZODONE HCL 02/02/2020 12:00:00 AM EDT tablet 30 TAKE 1 TABLET BY MOUTH 1 YUE R PRIOR TO SLEEP TAKE 1 TABLET BY MOUTH 1 HOUR PRIOR TO SLEEP SOLD: 03/02/2020 [facility] 50 mg 02/02/2020 12:00:00 AM EDT tablet 30 TAKE ONE TABLET BY MOUTH EVERY DAY TAKE ONE TABLET BY MOUTH EVERY DAY SOLD: 03/02/2020 [facility] 1 mg 02/02/2020 12:00:00 AM EDT tablet 30 TAKE ONE TABLET BY MOUTH EVERY DAY TAKE ONE TABLET BY MOUTH EVERY DAY SOLD: 03/28/2020 [facility] 50 mg 02/02/2020 12:00:00 AM EDT tablet 30 TAKE ONE TABLET BY MOUTH EVERY DAY TAKE ONE TABLET BY MOUTH EVERY DAY SOLD: 02/02/2020 [facility] Trazodone Hydrochloride 100 MG Oral Tablet TRAZODONE HCL 02/02/2020 12:00:00 AM EDT tablet 30 TAKE 1 TABLET BY MOUTH 1 YUE R PRIOR TO SLEEP TAKE 1 TABLET BY MOUTH 1 HOUR PRIOR TO SLEEP SOLD: 02/02/2020 [facility] 200 mg 02/02/2020 12:00:00 AM EDT tablet 60 TAKE ONE TABLET BY MOUTH TWICE A DAY TAKE ONE TABLET BY MOUTH TWICE A DAY SOLD: 02/02/2020 [facility] 10 mg 02/02/2020 12:00:00 AM EDT tablet 30 TAKE ONE TABLET BY MOUTH EVERY DAY TAKE ONE TABLET BY MOUTH EVERY DAY SOLD: 02/02/2020 [facility] 75 mg 02/02/2020 12:00:00 AM EDT tablet 30 TAKE ONE TABLET BY MOUTH EVERY DAY TAKE ONE TABLET BY MOUTH EVERY DAY SOLD: 05/26/2020 [facility] 50 mg 02/02/2020 12:00:00 AM EDT tablet 30 TAKE ONE TABLET BY MOUTH EVERY DAY TAKE ONE TABLET BY MOUTH EVERY DAY SOLD: 2020 [facility] 40 mg 02/02/2020 12:00:00 AM EDT tablet 60 TAKE ONE TABLET BY MOUTH TWICE A DAY TAKE ONE TABLET BY MOUTH TWICE A DAY SOLD: 05/26/2020 [facility] 10 mg 02/02/2020 12:00:00 AM EDT tablet 30 TAKE ONE TABLET BY MOUTH EVERY DAY TAKE ONE TABLET BY MOUTH EVERY DAY SOLD: 03/02/2020 [facility] benzonatate 100 MG Oral Capsule BENZONATATE 02/02/2020 12:00:00 AM EDT capsule 30 TAKE ONE CAPSULE BY MOUTH THREE TIMES A DAY NEEDED TAKE ONE CAPSULE BY MOUTH THREE TIMES A DAY NEEDED SOLD: 04/27/2020 [facility] benzonatate 100 MG Oral Capsule BENZONATATE 02/02/2020 12:00:00 AM EDT capsule 30 TAKE ONE CAPSULE BY MOUTH THREE TIMES A DAY NEEDED TAKE ONE CAPSULE BY MOUTH THREE TIMES A DAY NEEDED SOLD: 02/02/2020 [facility] benzonatate 100 MG Oral Capsule BENZONATATE 02/02/2020 12:00:00 AM EDT capsule 30 TAKE ONE CAPSULE BY MOUTH THREE TIMES A DAY NEEDED TAKE ONE CAPSULE BY MOUTH THREE TIMES A DAY NEEDED SOLD: 03/02/2020 [facility] benzonatate 100 MG Oral Capsule BENZONATATE 02/02/2020 12:00:00 AM EDT capsule 30 TAKE ONE CAPSULE BY MOUTH THREE TIMES A DAY NEEDED TAKE ONE CAPSULE BY MOUTH THREE TIMES A DAY NEEDED SOLD: 03/28/2020 [facility] BLOOD SUGAR DIAGNOSTIC 02/02/2020 12:00:00 AM EDT strip 100 TEST FOUR TIMES DAILY BEFORE BREAKFAST,LUNCH, DINNER AND BED TEST FOUR TIMES DAILY BEFORE BREAKFAST,LUNCH, DINNER AND BED SOLD: 03/02/2020 [facility] BLOOD SUGAR DIAGNOSTIC 02/02/2020 12:00:00 AM EDT strip 100 TEST FOUR TIMES DAILY BEFORE BREAKFAST,LUNCH, DINNER AND BED TEST FOUR TIMES DAILY BEFORE BREAKFAST,LUNCH, DINNER AND BED SOLD: 03/28/2020 [facility] 10 mEq 02/02/2020 12:00:00 AM EDT tablet,ER particles/cry stals 60 TAKE ONE TABLET BY MOUTH TWICE A DAY TAKE ONE TABLET BY MOUTH TWICE A DAY SOLD: 02/02/2020 [facility] 200 mg 02/02/2020 12:00:00 AM EDT tablet 60 TAKE ONE TABLET BY MOUTH TWICE A DAY TAKE ONE TABLET BY MOUTH TWICE A DAY SOLD: 03/02/2020 [facility] 40 mg 02/02/2020 12:00:00 AM EDT tablet 60 TAKE ONE TABLET BY MOUTH TWICE A DAY TAKE ONE TABLET BY MOUTH TWICE A DAY SOLD: 02/02/2020 [facility] 10 mg 02/02/2020 12:00:00 AM EDT tablet 30 TAKE ONE TABLET BY MOUTH EVERY DAY TAKE ONE TABLET BY MOUTH EVERY DAY SOLD: 02/02/2020 [facility] 40 mg 02/02/2020 12:00:00 AM EDT tablet 60 TAKE ONE TABLET BY MOUTH TWICE A DAY TAKE ONE TABLET BY MOUTH TWICE A DAY SOLD: 03/02/2020 [facility] 10 mg 02/02/2020 12:00:00 AM EDT tablet 30 TAKE ONE TABLET BY MOUTH EVERY DAY TAKE ONE TABLET BY MOUTH EVERY DAY SOLD: 03/28/2020 [facility] 10 mEq 02/02/2020 12:00:00 AM EDT tablet,ER particles/cry stals 60 TAKE ONE TABLET BY MOUTH TWICE A DAY TAKE ONE TABLET BY MOUTH TWICE A DAY SOLD: 04/27/2020 [facility] 50 mg 02/02/2020 12:00:00 AM EDT tablet 30 TAKE ONE TABLET BY MOUTH EVERY DAY TAKE ONE TABLET BY MOUTH EVERY DAY SOLD: 03/28/2020 [facility] 10 mg 02/02/2020 12:00:00 AM EDT tablet 30 TAKE ONE TABLET BY MOUTH EVERY DAY TAKE ONE TABLET BY MOUTH EVERY DAY SOLD: 05/26/2020 [facility] 28 gauge 02/02/2020 12:00:00 AM EDT misc 120 1 FO UR TIMES A DAY 1 FOUR TIMES A DAY SOLD: 03/02/2020 [facility] 10 mEq 02/02/2020 12:00:00 AM EDT tablet,ER particles/cry stals 60 TAKE ONE TABLET BY MOUTH TWICE A DAY TAKE ONE TABLET BY MOUTH TWICE A DAY SOLD: 05/26/2020 [facility] 200 mg 02/02/2020 12:00:00 AM EDT tablet 60 TAKE ONE TABLET BY MOUTH TWICE A DAY TAKE ONE TABLET BY MOUTH TWICE A DAY SOLD: 05/26/2020 [facility] 10 mg 02/02/2020 12:00:00 AM EDT tablet 30 TAKE ONE TABLET BY MOUTH EVERY DAY TAKE ONE TABLET BY MOUTH EVERY DAY SOLD: 04/27/2020 [facility] 200 mg 02/02/2020 12:00:00 AM EDT tablet 60 TAKE ONE TABLET BY MOUTH TWICE A DAY TAKE ONE TABLET BY MOUTH TWICE A DAY SOLD: 03/28/2020 [facility] 750 mg 02/02/2020 12:00:00 AM EDT tablet 120 TAKE TWO TABLETS BY MOUTH TWICE A DAY TAKE TWO TABLETS BY MOUTH TWICE A DAY SOLD: 05/26/2020 [facility] 1,000 mg 02/02/2020 12:00:00 AM EDT tablet 60 TAKE ONE TABLET BY MOUTH TWICE A DAY TAKE ONE TABLET BY MOUTH TWICE A DAY SOLD: 02/02/2020 [facility] 1,000 mg 02/02/2020 12:00:00 AM EDT tablet 60 TAKE ONE TABLET BY MOUTH TWICE A DAY TAKE ONE TABLET BY MOUTH TWICE A DAY SOLD: 03/02/2020 [facility] 28 gauge 02/02/2020 12:00:00 AM EDT misc 120 1 FO UR TIMES A DAY 1 FOUR TIMES A DAY SOLD: 02/02/2020 [facility] BLOOD SUGAR DIAGNOSTIC 02/02/2020 12:00:00 AM EDT strip 100 TEST FOUR TIMES DAILY BEFORE BREAKFAST,LUNCH, DINNER AND BED TEST FOUR TIMES DAILY BEFORE BREAKFAST,LUNCH, DINNER AND BED SOLD: 06/14/2020 [facility] 50 mg 02/02/2020 12:00:00 AM EDT tablet 30 TAKE ONE TABLET BY MOUTH EVERY DAY TAKE ONE TABLET BY MOUTH EVERY DAY SOLD: 05/26/2020 [facility] 75 mg 02/02/2020 12:00:00 AM EDT tablet 30 TAKE ONE TABLET BY MOUTH EVERY DAY TAKE ONE TABLET BY MOUTH EVERY DAY SOLD: 04/27/2020 [facility] BLOOD SUGAR DIAGNOSTIC 02/02/2020 12:00:00 AM EDT strip 100 TEST FOUR TIMES DAILY BEFORE BREAKFAST,LUNCH, DINNER AND BED TEST FOUR TIMES DAILY BEFORE BREAKFAST,LUNCH, DINNER AND BED SOLD: 04/27/2020 [facility] 750 mg 02/02/2020 12:00:00 AM EDT tablet 120 TAKE TWO TABLETS BY MOUTH TWICE A DAY TAKE TWO TABLETS BY MOUTH TWICE A DAY SOLD: 03/02/2020 [facility] 750 mg 02/02/2020 12:00:00 AM EDT tablet 120 TAKE TWO TABLETS BY MOUTH TWICE A DAY TAKE TWO TABLETS BY MOUTH TWICE A DAY SOLD: 02/02/2020 [facility] 750 mg 02/02/2020 12:00:00 AM EDT tablet 120 TAKE TWO TABLETS BY MOUTH TWICE A DAY TAKE TWO TABLETS BY MOUTH TWICE A DAY SOLD: 03/28/2020 [facility] 10 mEq 02/02/2020 12:00:00 AM EDT tablet,ER particles/cry stals 60 TAKE ONE TABLET BY MOUTH TWICE A DAY TAKE ONE TABLET BY MOUTH TWICE A DAY SOLD: 03/28/2020 [facility] 10 mEq 02/02/2020 12:00:00 AM EDT tablet,ER particles/cry stals 60 TAKE ONE TABLET BY MOUTH TWICE A DAY TAKE ONE TABLET BY MOUTH TWICE A DAY SOLD: 03/02/2020 [facility] 81 mg 01/31/2020 12:00:00 AM EST tablet,delayed release (DR/EC) 30 TAKE ONE TABLET BY MOUTH EVERY DAY TAKE ONE TABLET BY MOUTH EVERY DAY SOLD: 04/27/2020 [facility] 81 mg 01/31/2020 12:00:00 AM EST tablet,delayed release (DR/EC) 30 TAKE ONE TABLET BY MOUTH EVERY DAY TAKE ONE TABLET BY MOUTH EVERY DAY SOLD: 03/02/2020 [facility] 81 mg 01/31/2020 12:00:00 AM EST tablet,delayed release (DR/EC) 30 TAKE ONE TABLET BY MOUTH EVERY DAY TAKE ONE TABLET BY MOUTH EVERY DAY SOLD: 05/26/2020 [facility] 81 mg 01/31/2020 12:00:00 AM EST tablet,delayed release (DR/EC) 30 TAKE ONE TABLET BY MOUTH EVERY DAY TAKE ONE TABLET BY MOUTH EVERY DAY SOLD: 02/02/2020 [facility] 81 mg 01/31/2020 12:00:00 AM EST tablet,delayed release (DR/EC) 30 TAKE ONE TABLET BY MOUTH EVERY DAY TAKE ONE TABLET BY MOUTH EVERY DAY SOLD: 03/28/2020 [facility] 150 mg 01/31/2020 12:00:00 AM EST tablet 60 TAKE ONE TABLET BY MOUTH TWICE A DAY TAKE ONE TABLET BY MOUTH TWICE A DAY SOLD: 02/02/2020 [facility] gabapentin 800 MG Oral Tablet GABAPENTIN 01/24/2020 12:00:00 AM EST t ablet 120 TAKE ONE TABLET BY MOUTH FOUR TIMES A DAY TAKE ONE TAB LET BY MOUTH FOUR TIMES A DAY SOLD: 01/25/2020 [facility] gabapentin 800 MG Oral Tablet GABAPENTIN 01/24/2020 12:00:00 AM EST t ablet 120 TAKE ONE TABLET BY MOUTH FOUR TIMES A DAY TAKE ONE TAB LET BY MOUTH FOUR TIMES A DAY SOLD: 02/23/2020 [facility] gabapentin 800 MG Oral Tablet GABAPENTIN 01/24/2020 12:00:00 AM EST t ablet 120 TAKE ONE TABLET BY MOUTH FOUR TIMES A DAY TAKE ONE TAB LET BY MOUTH FOUR TIMES A DAY SOLD: 03/23/2020 [facility] gabapentin 800 MG Oral Tablet GABAPENTIN 01/24/2020 12:00:00 AM EST t ablet 120 TAKE ONE TABLET BY MOUTH FOUR TIMES A DAY TAKE ONE TAB LET BY MOUTH FOUR TIMES A DAY SOLD: 08/20/2020 [facility] gabapentin 800 MG Oral Tablet GABAPENTIN 01/24/2020 12:00:00 AM EST t ablet 120 TAKE ONE TABLET BY MOUTH FOUR TIMES A DAY TAKE ONE TAB LET BY MOUTH FOUR TIMES A DAY SOLD: 04/27/2020 [facility] gabapentin 800 MG Oral Tablet GABAPENTIN 01/24/2020 12:00:00 AM EST t ablet 120 TAKE ONE TABLET BY MOUTH FOUR TIMES A DAY TAKE ONE TAB LET BY MOUTH FOUR TIMES A DAY SOLD: 05/26/2020 [facility] 20 mg 01/22/2020 12:00:00 AM EST tablet 30 TAKE ONE TABLET BY MOUTH EVERY DAY TAKE ONE TABLET BY MOUTH EVERY DAY SOLD: 03/28/2020 [facility] 20 mg 01/22/2020 12:00:00 AM EST tablet 30 TAKE ONE TABLET BY MOUTH EVERY DAY TAKE ONE TABLET BY MOUTH EVERY DAY SOLD: 01/22/2020 [facility] 20 mg 01/22/2020 12:00:00 AM EST tablet 30 TAKE ONE TABLET BY MOUTH EVERY DAY TAKE ONE TABLET BY MOUTH EVERY DAY SOLD: 04/27/2020 [facility] 20 mg 01/22/2020 12:00:00 AM EST tablet 30 TAKE ONE TABLET BY MOUTH EVERY DAY TAKE ONE TABLET BY MOUTH EVERY DAY SOLD: 03/02/2020 [facility] 10 mg 01/14/2020 12:00:00 AM EST tablet 30 TAKE ONE TABLET BY MOUTH EVERY DAY TAKE ONE TABLET BY MOUTH EVERY DAY SOLD: 03/15/2020 [facility] 10 mg 01/14/2020 12:00:00 AM EST tablet 30 TAKE ONE TABLET BY MOUTH EVERY DAY TAKE ONE TABLET BY MOUTH EVERY DAY SOLD: 01/14/2020 [facility] 10 mg 01/14/2020 12:00:00 AM EST tablet 30 TAKE ONE TABLET BY MOUTH EVERY DAY TAKE ONE TABLET BY MOUTH EVERY DAY SOLD: 02/17/2020 [facility] 10 mg 01/14/2020 12:00:00 AM EST tablet 30 TAKE ONE TABLET BY MOUTH EVERY DAY TAKE ONE TABLET BY MOUTH EVERY DAY SOLD: 04/09/2020 [facility] 32.4 mg 01/13/2020 12:00:00 AM EST tablet 150 TAKE THREE TABLETS BY MOUTH EVERY DAY IN THE MORNING ON SUNDAY, SUNDAY AND SUNDAY AND 2 IN THE EVENING ; REST OF DAYS TAKE TWO TABLETS BY MOUTH TWICE A DAY MAXIMUM DAILY DOSE = 5 TAKE THREE TABLETS BY MOUTH EVERY DAY IN THE MORNING ON SUNDAY, SUNDAY AND SUNDAY AND 2 IN THE EVENING ; REST OF DAYS TAKE TWO TABLETS BY MOUTH TWICE A DAY MAXIMUM DAILY DOSE = 5 SOLD: 04/27/2020 [facility] 32.4 mg 01/13/2020 12:00:00 AM EST tablet 150 TAKE THREE TABLETS BY MOUTH EVERY DAY IN THE MORNING ON SUNDAY, SUNDAY AND SUNDAY AND 2 IN THE EVENING ; REST OF DAYS TAKE TWO TABLETS BY MOUTH TWICE A DAY MAXIMUM DAILY DOSE = 5 TAKE THREE TABLETS BY MOUTH EVERY DAY IN THE MORNING ON SUNDAY, SUNDAY AND SUNDAY AND 2 IN THE EVENING ; REST OF DAYS TAKE TWO TABLETS BY MOUTH TWICE A DAY MAXIMUM DAILY DOSE = 5 SOLD: 03/15/2020 [facility] 32.4 mg 01/13/2020 12:00:00 AM EST tablet 150 TAKE THREE TABLETS BY MOUTH EVERY DAY IN THE MORNING ON SUNDAY, SUNDAY AND SUNDAY AND 2 IN THE EVENING ; REST OF DAYS TAKE TWO TABLETS BY MOUTH TWICE A DAY MAXIMUM DAILY DOSE = 5 TAKE THREE TABLETS BY MOUTH EVERY DAY IN THE MORNING ON SUNDAY, SUNDAY AND SUNDAY AND 2 IN THE EVENING ; REST OF DAYS TAKE TWO TABLETS BY MOUTH TWICE A DAY MAXIMUM DAILY DOSE = 5 SOLD: 05/26/2020 [facility] 32.4 mg 01/13/2020 12:00:00 AM EST tablet 150 TAKE THREE TABLETS BY MOUTH EVERY DAY IN THE MORNING ON SUNDAY, SUNDAY AND SUNDAY AND 2 IN THE EVENING ; REST OF DAYS TAKE TWO TABLETS BY MOUTH TWICE A DAY MAXIMUM DAILY DOSE = 5 TAKE THREE TABLETS BY MOUTH EVERY DAY IN THE MORNING ON SUNDAY, SUNDAY AND SUNDAY AND 2 IN THE EVENING ; REST OF DAYS TAKE TWO TABLETS BY MOUTH TWICE A DAY MAXIMUM DAILY DOSE = 5 SOLD: 01/13/2020 [facility] 32.4 mg 01/13/2020 12:00:00 AM EST tablet 150 TAKE THREE TABLETS BY MOUTH EVERY DAY IN THE MORNING ON SUNDAY, SUNDAY AND SUNDAY AND 2 IN THE EVENING ; REST OF DAYS TAKE TWO TABLETS BY MOUTH TWICE A DAY MAXIMUM DAILY DOSE = 5 TAKE THREE TABLETS BY MOUTH EVERY DAY IN THE MORNING ON SUNDAY, SUNDAY AND SUNDAY AND 2 IN THE EVENING ; REST OF DAYS TAKE TWO TABLETS BY MOUTH TWICE A DAY MAXIMUM DAILY DOSE = 5 SOLD: 02/08/2020 [facility] 10 mEq 01/09/2020 12:00:00 AM EST tablet,ER particles/cry stals 60 TAKE ONE TABLET BY MOUTH TWICE A DAY TAKE ONE TABLET BY MOUTH TWICE A DAY SOLD: 01/12/2020 [facility] 200 mg 01/09/2020 12:00:00 AM EST tablet 60 TAKE ONE TABLET BY MOUTH TWICE A DAY TAKE ONE TABLET BY MOUTH TWICE A DAY SOLD: 01/12/2020 [facility] 40 mg 01/09/2020 12:00:00 AM EST tablet 60 TAKE ONE TABLET BY MOUTH TWICE A DAY TAKE ONE TABLET BY MOUTH TWICE A DAY SOLD: 01/12/2020 [facility] 1,000 mg 01/09/2020 12:00:00 AM EST tablet 60 TAKE ONE TABLET BY MOUTH TWICE A DAY TAKE ONE TABLET BY MOUTH TWICE A DAY SOLD: 01/12/2020 [facility] 750 mg 01/09/2020 12:00:00 AM EST tablet 73 TAKE 2 TABLETS BY MOUTH EVERY MORNING AND 1 IN THE EVENING MON., WED, AND FRI. THEN 1 TWO TIMES A DAY THE REST OF THE WEEK TAKE 2 TABLETS BY MOUTH EVERY MORNING AN D 1 IN THE EVENING MON., WED, AND FRI. THEN 1 TWO TIMES A DAY THE REST OF THE WEEK SOLD: 01/12/2020 [facility] 75 mg 01/09/2020 12:00:00 AM EST tablet 30 TAKE ONE TABLET BY MOUTH EVERY DAY TAKE ONE TABLET BY MOUTH EVERY DAY SOLD: 01/12/2020 [facility] 20 mg 01/09/2020 12:00:00 AM EST tablet 30 TAKE ONE TABLET BY MOUTH TWICE A DAY TAKE ONE TABLET BY MOUTH TWICE A DAY SOLD: 03/02/2020 [facility] 20 mg 01/09/2020 12:00:00 AM EST tablet 30 TAKE ONE TABLET BY MOUTH TWICE A DAY TAKE ONE TABLET BY MOUTH TWICE A DAY SOLD: 02/17/2020 [facility] 1 mg 01/09/2020 12:00:00 AM EST tablet 30 TAKE ONE TABLET BY MOUTH EVERY DAY TAKE ONE TABLET BY MOUTH EVERY DAY SOLD: 01/12/2020 [facility] 20 mg 01/09/2020 12:00:00 AM EST tablet 30 TAKE ONE TABLET BY MOUTH TWICE A DAY TAKE ONE TABLET BY MOUTH TWICE A DAY SOLD: 01/12/2020 [facility] atorvastatin 10 MG Oral Tablet ATORVASTATIN CALCIUM 01/07/2020 1 2:00:00 AM EST tablet 30 TAKE ONE TABLET BY MOUTH EVERY D AY TAKE ONE TABLET BY MOUTH EVERY DAY SOLD: 2020 [facility] atorvastatin 10 MG Oral Tablet ATORVASTATIN CALCIUM 01/07/2020 1 2:00:00 AM EST tablet 30 TAKE ONE TABLET BY MOUTH EVERY D AY TAKE ONE TABLET BY MOUTH EVERY DAY SOLD: 08/25/2020 [facility] atorvastatin 10 MG Oral Tablet ATORVASTATIN CALCIUM 01/07/2020 1 2:00:00 AM EST tablet 30 TAKE ONE TABLET BY MOUTH EVERY D AY TAKE ONE TABLET BY MOUTH EVERY DAY SOLD: 07/31/2020 [facility] 150 mg 01/07/2020 12:00:00 AM EST tablet 60 TAKE ONE TABLET BY MOUTH TWICE A DAY TAKE ONE TABLET BY MOUTH TWICE A DAY SOLD: 01/07/2020 [facility] 10 mg 01/07/2020 12:00:00 AM EST tablet 30 TAKE ONE TABLET BY MOUTH EVERY DAY TAKE ONE TABLET BY MOUTH EVERY DAY SOLD: 10/25/2020 [facility] 81 mg 01/07/2020 12:00:00 AM EST tablet,delayed release (DR/EC) 30 TAKE ONE TABLET BY MOUTH EVERY DAY TAKE ONE TABLET BY MOUTH EVERY DAY SOLD: 01/07/2020 [facility] atorvastatin 10 MG Oral Tablet ATORVASTATIN CALCIUM 01/07/2020 1 2:00:00 AM EST tablet 30 TAKE ONE TABLET BY MOUTH EVERY D AY TAKE ONE TABLET BY MOUTH EVERY DAY SOLD: 10/25/2020 [facility] 10 mg 01/07/2020 12:00:00 AM EST tablet 30 TAKE ONE TABLET BY MOUTH EVERY DAY TAKE ONE TABLET BY MOUTH EVERY DAY SOLD: 01/07/2020 [facility] 50 mg 01/07/2020 12:00:00 AM EST tablet 30 TAKE ONE TABLET BY MOUTH EVERY DAY TAKE ONE TABLET BY MOUTH EVERY DAY SOLD: 01/07/2020 [facility] 10 mg 01/07/2020 12:00:00 AM EST tablet 30 TAKE ONE TABLET BY MOUTH EVERY DAY TAKE ONE TABLET BY MOUTH EVERY DAY SOLD: 01/07/2020 [facility] benzonatate 100 MG Oral Capsule BENZONATATE 12/22/2019 12:00:00 AM EST capsule 30 TAKE 1 CAPSULE BY MOUTH THREE TIMES A DA Y NEEDED TAKE 1 CAPSULE BY MOUTH THREE TIMES A DAY NEEDED SOLD: 12/22/2019 [facility] 50 mcg/actuation 12/22/2019 12:00:00 AM EST spray,suspension 16 SPRAY 1 SPRAY IN EACH NOSTRIL TWO TIMES A DAY NEEDED FOR 7 DAYS SPRAY 1 SPRAY IN EACH NOSTRIL TWO TIMES A DAY NEEDED FOR 7 DAYS SOLD: 12/22/2019 [facility] 100 mg 12/18/2019 12:00:00 AM EST tablet 60 TAKE ONE TABLET BY MOUTH TWICE A DAY TAKE ONE TABLET BY MOUTH TWICE A DAY SOLD: 12/22/2019 [facility] 10 mg 12/15/2019 12:00:00 AM EST tablet 30 TAKE ONE TABLET BY MOUTH EVERY DAY TAKE ONE TABLET BY MOUTH EVERY DAY SOLD: 12/15/2019 [facility] 81 mg 12/05/2019 12:00:00 AM EST tablet,delayed release (DR/EC) 30 TAKE ONE TABLET BY MOUTH EVERY DAY TAKE ONE TABLET BY MOUTH EVERY DAY SOLD: 12/05/2019 [facility] 100 mg 11/13/2019 12:00:00 AM EST tablet 60 TAKE ONE TABLET BY MOUTH TWICE A DAY TAKE ONE TABLET BY MOUTH TWICE A DAY SOLD: 11/13/2019 [facility] 0.005 % 10/31/2019 12:00:00 AM EST drops 2 INSTILL 1 DROP IN EACH EYE AT BEDTIME DIRECTED INSTILL 1 DROP IN EACH EYE AT BEDTIME DIRECTED SOLD : 12/03/2019 [facility] 0.005 % 10/31/2019 12:00:00 AM EST drops 2 INSTILL 1 DROP IN EACH EYE AT BEDTIME DIRECTED INSTILL 1 DROP IN EACH EYE AT BEDTIME DIRECTED SOLD : 01/18/2020 [facility] 0.005 % 10/31/2019 12:00:00 AM EST drops 2 INSTILL 1 DROP IN EACH EYE AT BEDTIME DIRECTED INSTILL 1 DROP IN EACH EYE AT BEDTIME DIRECTED SOLD : 11/04/2019 [facility] 0.005 % 10/31/2019 12:00:00 AM EST drops 2 INSTILL 1 DROP IN EACH EYE AT BEDTIME DIRECTED INSTILL 1 DROP IN EACH EYE AT BEDTIME DIRECTED SOLD : 04/30/2020 [facility] 0.005 % 10/31/2019 12:00:00 AM EST drops 2 INSTILL 1 DROP IN EACH EYE AT BEDTIME DIRECTED INSTILL 1 DROP IN EACH EYE AT BEDTIME DIRECTED SOLD : 05/26/2020 [facility] 300 mg 10/27/2019 12:00:00 AM EST capsule 20 TAKE ONE CAPSULE BY MOUTH TWICE A DAY TAKE ONE CAPSULE BY MOUTH TWICE A DAY SOLD: 10/27/2019 [facility] 100 mg 10/26/2019 12:00:00 AM EST tablet 120 TAKE TWO TABLETS BY MOUTH TWICE A DAY WITH FOOD TAKE TWO TABLETS BY MOUTH TWICE A DAY WITH FOOD SOLD: 04/09/2020 [facility] 100 mg 10/26/2019 12:00:00 AM EST tablet 120 TAKE TWO TABLETS BY MOUTH TWICE A DAY WITH FOOD TAKE TWO TABLETS BY MOUTH TWICE A DAY WITH FOOD SOLD: 03/15/2020 [facility] 100 mg 10/26/2019 12:00:00 AM EST tablet 120 TAKE TWO TABLETS BY MOUTH TWICE A DAY WITH FOOD TAKE TWO TABLETS BY MOUTH TWICE A DAY WITH FOOD SOLD: 02/17/2020 [facility] 100 mg 10/26/2019 12:00:00 AM EST tablet 120 TAKE TWO TABLETS BY MOUTH TWICE A DAY WITH FOOD TAKE TWO TABLETS BY MOUTH TWICE A DAY WITH FOOD SOLD: 05/11/2020 [facility] 100 mg 10/26/2019 12:00:00 AM EST tablet 120 TAKE TWO TABLETS BY MOUTH TWICE A DAY WITH FOOD TAKE TWO TABLETS BY MOUTH TWICE A DAY WITH FOOD SOLD: 06/08/2020 [facility] 100 mg 10/26/2019 12:00:00 AM EST tablet 120 TAKE TWO TABLETS BY MOUTH TWICE A DAY WITH FOOD TAKE TWO TABLETS BY MOUTH TWICE A DAY WITH FOOD SOLD: 10/26/2019 [facility] 20 mg 10/25/2019 12:00:00 AM EST tablet 30 TAKE ONE TABLET BY MOUTH EVERY DAY TAKE ONE TABLET BY MOUTH EVERY DAY SOLD: 11/25/2019 [facility] 20 mg 10/25/2019 12:00:00 AM EST tablet 30 TAKE ONE TABLET BY MOUTH EVERY DAY TAKE ONE TABLET BY MOUTH EVERY DAY SOLD: 10/25/2019 [facility] 20 mg 10/25/2019 12:00:00 AM EST tablet 30 TAKE ONE TABLET BY MOUTH EVERY DAY TAKE ONE TABLET BY MOUTH EVERY DAY SOLD: 12/31/2019 [facility] 1.5 mg/0.5 mL 10/14/2019 12:00:00 AM EST pen injector 2 INJECT 1 SYRINCE UNDER THE SKIN WEEKLY INJECT 1 SYRINCE UNDER THE SKIN WEEKLY SOLD: 10/15/2019 [facility] 1.5 mg/0.5 mL 10/14/2019 12:00:00 AM EST pen injector 2 INJECT 1 SYRINCE UNDER THE SKIN WEEKLY INJECT 1 SYRINCE UNDER THE SKIN WEEKLY SOLD: 11/12/2019 [facility] 1.5 mg/0.5 mL 10/14/2019 12:00:00 AM EST pen injector 2 INJECT 1 SYRINCE UNDER THE SKIN WEEKLY INJECT 1 SYRINCE UNDER THE SKIN WEEKLY SOLD: 02/17/2020 [facility] 1.5 mg/0.5 mL 10/14/2019 12:00:00 AM EST pen injector 2 INJECT 1 SYRINCE UNDER THE SKIN WEEKLY INJECT 1 SYRINCE UNDER THE SKIN WEEKLY SOLD: 01/14/2020 [facility] 1.5 mg/0.5 mL 10/14/2019 12:00:00 AM EST pen injector 2 INJECT 1 SYRINCE UNDER THE SKIN WEEKLY INJECT 1 SYRINCE UNDER THE SKIN WEEKLY SOLD: 12/15/2019 [facility] 1.5 mg/0.5 mL 10/14/2019 12:00:00 AM EST pen injector 2 INJECT 1 SYRINCE UNDER THE SKIN WEEKLY INJECT 1 SYRINCE UNDER THE SKIN WEEKLY SOLD: 03/15/2020 [facility] 50 mg 09/09/2019 12:00:00 AM EDT tablet 30 TAKE ONE TABLET BY MOUTH EVERY DAY TAKE ONE TABLET BY MOUTH EVERY DAY SOLD: 11/12/2019 [facility] 50 mg 09/09/2019 12:00:00 AM EDT tablet 30 TAKE ONE TABLET BY MOUTH EVERY DAY TAKE ONE TABLET BY MOUTH EVERY DAY SOLD: 12/07/2019 [facility] 0.4 mg 09/04/2019 12:00:00 AM EDT tablet, sublingual 25 PLACE ONE TABLET UNDER THE TONGUE EVERY 5 MINUTES FOR UP TO 3 DOSES NEEDED FOR CHEST PAIN. IF CHEST PAIN STILL PERSISTS CONTACT [address] ONE TABLET UNDER THE TONGUE EVERY 5 MINUTES FOR UP TO 3 DOSES NEEDED FOR CHEST PAIN. IF CHEST PAIN STILL PERSISTS CONTACT 911 SOLD: 11/12/2019 [facility] 0.4 mg 09/04/2019 12:00:00 AM EDT tablet, sublingual 25 PLACE ONE TABLET UNDER THE TONGUE EVERY 5 MINUTES FOR UP TO 3 DOSES NEEDED FOR CHEST PAIN. IF CHEST PAIN STILL PERSISTS CONTACT [address] ONE TABLET UNDER THE TONGUE EVERY 5 MINUTES FOR UP TO 3 DOSES NEEDED FOR CHEST PAIN. IF CHEST PAIN STILL PERSISTS CONTACT 911 SOLD: 12/03/2019 [facility] 90 mcg/actuation 09/01/2019 12:00:00 AM EDT HFA aerosol inha ler 17 INHALE 2 PUFFS BY MOUTH EVERY 4 HOURS NEEDED INHALE 2 PUFFS BY MOUTH EVERY 4 HOURS NEEDED SOLD: 11/12/2019 [facility] 17 mcg/actuation 09/01/2019 12:00:00 AM EDT HFA aerosol inha ler 12 INHALE TWO PUFFS BY MOUTH FOUR TIMES A DAY NEEDED INHALE TWO PUFFS BY MOUTH FOUR TIMES A DAY NEEDED SOLD: 11/12/2019 [facility] 32.4 mg 08/26/2019 12:00:00 AM EDT tablet 150 TAKE 3 TABLETS BY MOUTH EVERY MORNING ON MON, WED, FRI , AND 2 TABLETS EVERY EVENING, REST OF DAYS 2 TABS. TWO TIMES A DAY MAXIMUM DAILY DOSE = 5 TAKE 3 TABLETS BY MOUTH EVERY MORNING ON MON, WED, FRI , AND 2 TABLETS EVERY EVENING, REST OF DAYS 2 TABS. TWO TIMES A DAY MAXIMUM DAILY DOSE = 5 SOLD: 11/13/2019 [facility] 32.4 mg 08/26/2019 12:00:00 AM EDT tablet 150 TAKE 3 TABLETS BY MOUTH EVERY MORNING ON MON, WED, FRI , AND 2 TABLETS EVERY EVENING, REST OF DAYS 2 TABS. TWO TIMES A DAY MAXIMUM DAILY DOSE = 5 TAKE 3 TABLETS BY MOUTH EVERY MORNING ON MON, WED, FRI , AND 2 TABLETS EVERY EVENING, REST OF DAYS 2 TABS. TWO TIMES A DAY MAXIMUM DAILY DOSE = 5 SOLD: 12/15/2019 [facility] 800 mg 08/07/2019 12:00:00 AM EDT tablet 120 TAKE ONE TABLET BY MOUTH FOUR TIMES A DAY TAKE ONE TABLET BY MOUTH FOUR TIMES A DAY SOLD: 12/07/2019 [facility] gabapentin 800 MG Oral Tablet GABAPENTIN 08/07/2019 12:00:00 AM EDT t ablet 120 TAKE ONE TABLET BY MOUTH FOUR TIMES A DAY TAKE ONE TAB LET BY MOUTH FOUR TIMES A DAY SOLD: 12/31/2019 [facility] 800 mg 08/07/2019 12:00:00 AM EDT tablet 120 TAKE ONE TABLET BY MOUTH FOUR TIMES A DAY TAKE ONE TABLET BY MOUTH FOUR TIMES A DAY SOLD: 11/04/2019 [facility] 0.5 % 07/31/2019 12:00:00 AM EDT drops 5 INSTILL 1 DROP THREE TIMES A DAY IN THE RIGHT EYE DIRECTED FOR 7 DAYS INSTILL 1 DROP THREE TIMES A DAY IN THE RIGHT EYE DIRECTED FOR 7 DAYS SOLD: 01/18/2020 [facility] 3.5 mg/g-10,000 unit/g-0.1 % 07/31/2019 12:00:00 AM EDT oint ment 3 APPLY 1/4 INCH STRIP TO OUTER RIGHT EYELID THREE TIMES A DAY DIRECTED APPLY 1/4 INCH STRIP TO OUTER RIGHT EYELID THREE TIMES A DAY DIRECTED SOLD: 04/30/2020 [facility] 3.5 mg/g-10,000 unit/g-0.1 % 07/31/2019 12:00:00 AM EDT oint ment 3 APPLY 1/4 INCH STRIP TO OUTER RIGHT EYELID THREE TIMES A DAY DIRECTED APPLY 1/4 INCH STRIP TO OUTER RIGHT EYELID THREE TIMES A DAY DIRECTED SOLD: 05/26/2020 [facility] 1,000 mg 07/30/2019 12:00:00 AM EDT tablet 60 TAKE ONE TABLET BY MOUTH TWICE A DAY WITH MEALS TAKE ONE TABLET BY MOUTH TWICE A DAY WITH MEALS SOLD: 11/12/2019 [facility] 1,000 mg 07/30/2019 12:00:00 AM EDT tablet 60 TAKE ONE TABLET BY MOUTH TWICE A DAY WITH MEALS TAKE ONE TABLET BY MOUTH TWICE A DAY WITH MEALS SOLD: 12/15/2019 [facility] 750 mg 07/30/2019 12:00:00 AM EDT tablet 120 TAKE TWO TABLETS BY MOUTH EVERY 12 HOURS TAKE TWO TABLETS BY MOUTH EVERY 12 HOURS SOLD: 11/04/2019 [facility] 20 mg 07/30/2019 12:00:00 AM EDT tablet 60 TAKE ONE TABLET BY MOUTH TWICE A DAY TAKE ONE TABLET BY MOUTH TWICE A DAY SOLD: 11/12/2019 [facility] 750 mg 07/30/2019 12:00:00 AM EDT tablet 120 TAKE TWO TABLETS BY MOUTH EVERY 12 HOURS TAKE TWO TABLETS BY MOUTH EVERY 12 HOURS SOLD: 12/03/2019 [facility] 20 mg 07/30/2019 12:00:00 AM EDT tablet 60 TAKE ONE TABLET BY MOUTH TWICE A DAY TAKE ONE TABLET BY MOUTH TWICE A DAY SOLD: 12/07/2019 [facility] 32.4 mg 07/29/2019 12:00:00 AM EDT tablet 120 TAKE TWO TABLETS BY MOUTH TWICE A DAY MAXIMUM DAILY DOSE = 4 TAKE TWO TABLETS BY MOUTH TWICE A DAY LONG PRICE DAILY DOSE = 4 SOLD: 10/26/[address] [facility] 100 mg 07/15/2019 12:00:00 AM EDT tablet 120 TAKE 2 TABLETS BY MOUTH WITH FOOD TWICE A DAY TAKE 2 TABLETS BY MOUTH WITH FOOD TWICE A DAY SOLD: 11/18/20 19 [facility] 100 mg 07/15/2019 12:00:00 AM EDT tablet 120 TAKE 2 TABLETS BY MOUTH WITH FOOD TWICE A DAY TAKE 2 TABLETS BY MOUTH WITH FOOD TWICE A DAY SOLD: 12/15/19 20 [facility] 100 mg 07/15/2019 12:00:00 AM EDT tablet 120 TAKE 2 TABLETS BY MOUTH WITH FOOD TWICE A DAY TAKE 2 TABLETS BY MOUTH WITH FOOD TWICE A DAY SOLD: 01/16/20 20 [facility] 10 mg 06/18/2019 12:00:00 AM EDT tablet 30 TAKE ONE TABLET BY MOUTH EVERY DAY TAKE ONE TABLET BY MOUTH EVERY DAY SOLD: 12/03/2019 [facility] 10 mg 06/18/2019 12:00:00 AM EDT tablet 30 TAKE ONE TABLET BY MOUTH EVERY DAY TAKE ONE TABLET BY MOUTH EVERY DAY SOLD: 11/04/2019 [facility] 10 mEq 06/16/2019 12:00:00 AM EDT tablet extended release 60 TAKE ONE TABLET BY MOUTH TWICE A DAY TAKE ONE TABLET BY MOUTH TWICE A DAY SOLD: 12/22/2019 [facility] Amiodarone hydrochloride 200 MG Oral Tablet AMIODARONE HCL 06/14/2019 12:00:00 AM EDT tablet 60 TAKE ONE TABLET BY MOUTH TWI CE A DAY TAKE ONE TABLET BY MOUTH TWICE A DAY SOLD: 11/13/2019 [facility] Amiodarone hydrochloride 200 MG Oral Tablet AMIODARONE HCL 06/14/2019 12:00:00 AM EDT tablet 60 TAKE ONE TABLET BY MOUTH TWI CE A DAY TAKE ONE TABLET BY MOUTH TWICE A DAY SOLD: 12/15/2019 [facility] 150 mg 06/14/2019 12:00:00 AM EDT capsule 60 TAKE ONE CAPSULE BY MOUTH TWICE A DAY TAKE ONE CAPSULE BY MOUTH TWICE A DAY SOLD: 10/26/2019 [facility] 150 mg 06/14/2019 12:00:00 AM EDT capsule 60 TAKE ONE CAPSULE BY MOUTH TWICE A DAY TAKE ONE CAPSULE BY MOUTH TWICE A DAY SOLD: 12/03/2019 [facility] ALCOHOL ANTISEPTIC PADS 06/09/2019 12:00:00 AM EDT pads, med icated 100 USE 1 PAD PRIOR TO FINGER STICK FOUR TIMES A DAY USE 1 PAD PRIOR TO FINGER STICK FOUR TIMES A DAY SOLD: 12/09/2019 [facility] 10 mg 06/07/2019 12:00:00 AM EDT tablet 30 TAKE ONE TABLET BY MOUTH EVERY DAY TAKE ONE TABLET BY MOUTH EVERY DAY SOLD: 10/25/2019 [facility] 10 mEq 06/06/2019 12:00:00 AM EDT tablet,ER particles/cry stals 60 TAKE ONE TABLET BY MOUTH TWICE A DAY TAKE ONE TABLET BY MOUTH TWICE A DAY SOLD: 11/12/2019 [facility] 150 mg 06/05/2019 12:00:00 AM EDT tablet 60 TAKE ONE TABLET BY MOUTH TWICE A DAY TAKE ONE TABLET BY MOUTH TWICE A DAY SOLD: 11/12/2019 [facility] 75 mg 06/05/2019 12:00:00 AM EDT tablet 30 TAKE ONE TABLET BY MOUTH EVERY DAY TAKE ONE TABLET BY MOUTH EVERY DAY SOLD: 11/12/2019 [facility] 10 mg 06/05/2019 12:00:00 AM EDT tablet 30 TAKE ONE TABLET BY MOUTH EVERY DAY TAKE ONE TABLET BY MOUTH EVERY DAY SOLD: 11/13/2019 [facility] 150 mg 06/05/2019 12:00:00 AM EDT tablet 60 TAKE ONE TABLET BY MOUTH TWICE A DAY TAKE ONE TABLET BY MOUTH TWICE A DAY SOLD: 12/07/2019 [facility] MULTIVITAMIN 06/05/2019 12:00:00 AM EDT tablet 30 TAKE ONE TABLET BY MOUTH EVERY DAY TAKE ONE TABLET BY MOUTH EVERY DAY SOLD: 11/04/2019 [facility] BLOOD SUGAR DIAGNOSTIC 06/04/2019 12:00:00 AM EDT strip 100 USE 1 STRIP TO TEST FOUR TIMES A DAY, BEFORE BREAKFAST, LUNCH, DINNER AND BEDTIME USE 1 STRIP TO TEST FOUR TIMES A DAY, BEFORE BREAKFAST, LUNCH, DINNER AND BEDTIME SOLD: 12/03/2019 [facility] 28 gauge 06/04/2019 12:00:00 AM EDT misc 120 USE 1 LANCET TO TEST BLOOD SUGAR FOUR TIMES A DAY USE 1 LANCET TO TEST BLOOD SUGAR FOUR TIMES A DAY SOLD : 12/07/2019 [facility] 28 gauge 06/04/2019 12:00:00 AM EDT misc 120 USE 1 LANCET TO TEST BLOOD SUGAR FOUR TIMES A DAY USE 1 LANCET TO TEST BLOOD SUGAR FOUR TIMES A DAY SOLD : 11/12/2019 [facility] BLOOD SUGAR DIAGNOSTIC 06/04/2019 12:00:00 AM EDT strip 100 USE 1 STRIP TO TEST FOUR TIMES A DAY, BEFORE BREAKFAST, LUNCH, DINNER AND BEDTIME USE 1 STRIP TO TEST FOUR TIMES A DAY, BEFORE BREAKFAST, LUNCH, DINNER AND BEDTIME SOLD: 11/12/2019 [facility] 62.5-25 mcg/actuation 06/02/2019 12:00:00 AM EDT blister wit h device 60 INHALE ONE PUFF BY MOUTH EVERY DAY INHALE ONE PUFF BY MOUTH EVERY DAY SOLD: 11/12/2019 [facility] 40 mg 06/02/2019 12:00:00 AM EDT tablet 60 TAKE ONE TABLET BY MOUTH TWICE A DAY TAKE ONE TABLET BY MOUTH TWICE A DAY SOLD: 12/15/2019 [facility] 40 mg 06/02/2019 12:00:00 AM EDT tablet 60 TAKE ONE TABLET BY MOUTH TWICE A DAY TAKE ONE TABLET BY MOUTH TWICE A DAY SOLD: 11/12/2019 [facility] 100 mg 06/02/2019 12:00:00 AM EDT tablet 30 TAKE ONE TABLET BY MOUTH 1 HOUR PRIOR TO SLEEP TAKE ONE TABLET BY MOUTH 1 HOUR PRIOR TO SLEEP SOLD: 019 [facility] 81 mg 05/16/2019 12:00:00 AM EDT tablet,delayed release (DR/EC) 30 TAKE ONE TABLET BY MOUTH EVERY DAY TAKE ONE TABLET BY MOUTH EVERY DAY SOLD: 11/12/2019 [facility] Folic Acid 1 MG Oral Tablet folic acid (FOLVITE) 1 MG tablet folic acid (FOLVITE) 1 MG tablet 04/18/2019 12:00:00 AM EDT 1 mg Oral active Take 1 tablet by mouth daily [facility] 10 mg 01/08/2019 12:00:00 AM EST tablet 30 TAKE ONE TABLET BY MOUTH EVERY DAY TAKE ONE TABLET BY MOUTH EVERY DAY SOLD: 12/22/2019 [facility] 220 mcg/actuation 11/21/2018 12:00:00 AM EST HFA aerosol inh aler 12 INHALE ONE PUFF BY MOUTH TWICE A DAY INHALE ONE PUFF BY MOUTH TWICE A DAY SOLD: 11/12/2019 [facility] Insurance Providers Payer name Policy type / Coverage type Policy ID Covered republican ID Covered republican's relationship to [place] Policy [place] Plan Information ALEX [id number] SP [id number] ALEX I [id number] Self [id number] ALEX CARE [facility] [id number] A 74 [id number] Medicaid S [id number] S [id number] Managed Care Alex P [id number] S [id number] ALEX CARE [facility] [id number] S [id number] ALEX I [id number] Self [id number] [place] [id number] SP [id number] MEDICAID [id number] SP [id number] Medicaid S [id number] S [id number] ALEX I [id number] Self [id number] ALEX I [id number] Medicaid S [id number] S [id number] ALEX CARE MEDICAID [id number] S [id number] ALEX CARE MEDICAID MCD HMO [id number] S [id number] ALEX I [id number] Self [id number] [place] Medigap Part B Self Alex Medicaid/CHP/FHP Commercial Self Alex Care Commercial Self A[place] CARE [place] O [id number] S [id number] MEDICAID M [id number] S [id number] ALEX [id number] SP [id number] [facility]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 0000 Problems, Conditions, and Diagnoses Code Display Name Description Problem Type Effective Dates Data Source(s) F10.10 Alcohol abuse, uncomplicated Alcohol Use Disorder, Mil d Condition 11/12/2020 12:00:00 AM EST [facility] ([facility]) F60.2 Antisocial personality disorder Antisocial Personality Disorder Condition 11/12/2020 12:00:00 AM EST [facility] ([facility]) F32.9 Major depressive disorder, single episod e, unspecified Unspecified depressive Disorder Condition 11/12/2020 12:00:00 AM EST [facility] ([facility]) F43.10 Post-traumatic stress disorder, unspecif ied Posttraumatic Stress Disorder (includes Posttraumatic Stress Disorder for Children 6 Years and Younger) Condition 11/12/2020 12:00:00 AM EST [facility] ([facility]) F43.10 Post-traumatic stress disorder, unspecif ied Posttraumatic Stress Disorder (includes Posttraumatic Stress Disorder for Children 6 Years and Younger) Condition 11/01/2020 12:00:00 AM EST [facility] ([facility]) F10.10 Alcohol abuse, uncomplicated Alcohol Use Disorder, Mil d Condition 11/01/2020 12:00:00 AM EST [facility] ([facility]) F32.9 Major depressive disorder, single episod e, unspecified Unspecified depressive Disorder Condition 11/01/2020 12:00:00 AM EST [facility] ([facility]) [id number] Onychomycosis Onychomycosis Problem 08/13/2020 12:00:00 AM EDT [facility] ([facility] [id number] 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 Peripheral neuropathy due to type 1 diabetes mellitus Problem 08/13/2020 12:00: 00 AM EDT [facility] ([facility] 491.21 Acute exacerbation of chronic obstructiv e airways disease Acute exacerbation of chronic obstructive airways disease 05:33:45 PM EDT [facility] 780.79 Malaise and fatigue Malaise and fatigue 020 11:11:12 AM EDT [facility] 034.0 Streptococcal sore throat Streptococcal sore throat 04/09/2020 12:41:29 PM EDT [facility] M48.02 Spinal stenosis, cervical region Spinal stenosis in ce rvical region 04/01/2020 12:13:23 PM EDT [facility] 356.9 Peripheral neuropathy Peripheral neuropathy 05/2020 12:13:23 PM EDT [facility] A63.0 Anogenital (venereal) warts Condyloma acuminatum of the anogenital region 03/18/2020 11:27:56 AM EDT [facility] 724.5 Chronic back pain Chronic back pain 01/30/2020 04:30:51 PM EST [facility] [id number] Epilepsy, unspecified, not intractable, without status epilepticus Epilepsy, unspecified, not intractable, without status epilepticus 01/15/2020 08:16:45 AM EST [facility] [id number] Pure hypercholesterolemia Pure hypercholesterolemia Pr oblem 01/07/2020 12:00:00 AM EST [facility] ([facility]) [id number] Essential hypertension Essential hypertension Problem 01/07/2020 12:00:00 AM EST [facility] ([facility]) 786.2 Cough Cough 12/22/2019 04:06:53 PM ES T [facility] 478.19 Congestion of nasal sinus Congestion of nasal sinus 12/22/2019 04:06:53 PM EST [facility] E119 Type 2 diabetes mellitus without complic ations Type 2 diabetes mellitus without complications Diagnosis 10/16/2020 05:18:00 PM EST [facility] [place] [facility] DR. MARCELINO TEE BE DOING THIS VIRTUAL CARL DR. MARCELINO TEE BE DOING THIS VIRTUAL CARL Diagnosis 10/16/2020 05:18:00 PM EST [facility] [place] [facility], [facility] [id number] Epilepsy, unsp, not intractable, without status epilepticus Epilepsy, unsp, not intractable, without status epilepticus Diagnosis 09/27 05:18:00 PM EST [facility] [place] - [facility], [facility] [id number] Cerebral infarction, unspecified Cerebral infarc tion, unspecified Diagnosis 10/16/2020 05:18:00 PM EST [facility] [id number] Spinal stenosis, lumbar region without n eurogenic robert Spinal stenosis, lumbar region without neurogenic robert Diagnosis 10/16/2020 05:18:00 P M EST [facility] [place] appt w/dr cuenca diabetes appt w/dr cuenca diabetes Diagnosis 09/19/2020 03:00:00 PM EDT [facility] [place] Z72.0 Tobacco use Tobacco use Diagnosis 07/02/2020 01:14:31 PM [facility] M50.30 Other cervical disc degeneration, unspec ified cervical region Other cervical disc degeneration, unspecified cervical region Diagnosis 07/02/2020 01:14:31 PM [facility] M54.2 Cervicalgia Cervicalgia Diagnosis 07/02/2020 01:14:31 PM [facility] M54.16 Radiculopathy, lumbar region Radiculopathy, lumbar reg ion Diagnosis 07/02/2020 01:14:31 PM [facility] G89.29 Other chronic pain Other chronic pain Diagnosis 05/2020 01:14:31 PM [facility] M54.41 Lumbago with sciatica, right side Lumbago with s ciatica, right side Diagnosis 07/02/2020 01:14:31 PM [facility] M54.42 Lumbago with sciatica, left side Lumbago with sc iatica, left side Diagnosis 07/02/2020 01:14:31 PM [facility] M51.36 Other intervertebral disc degeneration, lumbar region Other intervertebral disc degeneration, lumbar region Diagnosis 2019 01:14:31 PM [facility] M48.061 Spinal stenosis, lumbar region without n eurogenic claudication Spinal stenosis, lumbar region without neurogenic claudication Diagnosis 07/02/2020 01:14:31 PM [facility] Surgeries/Procedures Procedure Description Date Indications Data Source(s) Extended Individual Psychotherapy - 45 min 11/12/2020 12:00:00 AM EST - 11/12/2020 12:00:00 AM EST [facility] ([facility]) Extended Individual Psychotherapy - 45 min 0 12:00:00 AM EST [facility] ([facility]) [id number]"Psychotherapy 0 12:00:00 AM EST - 11/01/2020 12:00:00 AM EST [facility] ([facility]) [id number]"Psychotherapy 10/28/2020 12:00:00 AM EST [facility] ([facility]) Psychiatric Diagnostic Evaluation with Medical Services 10/04/2020 12:00:00 AM EST - 10/04/2020 12:00:00 AM EST [facility] ([facility]) Psychiatric Diagnostic Evaluation with Medical Services 10/04/2020 12:00:00 AM EST [facility] ([facility]) [id number]"Psychotherapy 0 12:00:00 AM EST - 10/04/2020 12:00:00 AM EST [facility] ([facility]) [id number]"Psychotherapy 10/04/2020 12:00:00 AM EST [facility] ([facility]) [id number]"Psychotherapy 0 12:00:00 AM EDT - 09/24/2020 12:00:00 AM EDT [facility] ([facility]) [id number]"Psychotherapy 09/24/2020 12:00:00 AM EDT [facility] ([facility]) [id number]"Psychotherapy 0 12:00:00 AM EDT - 08/27/2020 12:00:00 AM EDT [facility] ([facility]) [id number]"Psychotherapy 08/27/2020 12:00:00 AM EDT [facility] ([facility]) TEMPMHCTelemed 30" Psychotherapy 020 12:00:00 AM EDT - 07/30/2020 12:00:00 AM EDT [facility] ([facility]) TEMPMHCTelemed 30" Psychotherapy 07/30/2020 12:00:00 A M EDT [facility] ([facility]) TEMPMHCTelemed 30" Psychotherapy 020 12:00:00 AM EDT - 05/25/2020 12:00:00 AM EDT [facility] ([facility]) TEMPMHCTelemed 30" Psychotherapy 05/25/2020 12:00:00 A M EDT [facility] ([facility]) [id number]"Psychotherapy 0 12:00:00 AM EDT - 05/19/2020 12:00:00 AM EDT [facility] ([facility]) [id number]"Psychotherapy 05/19/2020 12:00:00 AM EDT [facility] ([facility]) [id number]"Psychotherapy 0 12:00:00 AM EDT - 05/14/2020 12:00:00 AM EDT [facility] ([facility]) [id number]"Psychotherapy 05/14/2020 12:00:00 AM EDT [facility] ([facility]) [id number]"Psychotherapy 0 12:00:00 AM EDT - 05/05/2020 12:00:00 AM EDT [facility] ([facility]) [id number]"Psychotherapy 05/05/2020 12:00:00 AM EDT [facility] ([facility]) MHC Telemed Diag Eval no med 04/14/2020 12:00:00 AM EDT - 04/14/2020 12:00:00 AM EDT [facility] ([facility]) MHC Telemed Diag Eval no med 04/14/2020 12:00:00 AM ED T [facility] ([facility]) TEMPMHCTelemed--Crisis Brief 03/29/2020 12:00:00 AM EDT - 03/29/2020 12:00:00 AM EDT [facility] ([facility]) TEMPMHCTelemed--Crisis Brief 03/29/2020 12:00:00 AM ED T [facility] ([facility]) Nerve Conduction 1-2 Studies 03/25/2020 12:00:00 AM ED T [facility] ([facility]) TEMP Forensic Telemed DC VT 45" Est Pt 0 03/10/2020 12:00:00 AM EDT - 03/10/2020 12:00:00 AM EDT [facility] ([facility]) TEMP Forensic Telemed DC [place] 45" Est Pt 03/10/2020 12:0 0:00 AM EDT [facility] ([facility]) Results ID Date Data Source [id number] 10/17/2020 06:27:36 PM EST [facility] [place] [facility] MERRICK KATZPATIENT IDENTIFICATION:[facility] Site: [facility] Name: MERRICK KATZPam Record Number: [id number] Of : 1970CHIEF COMPLAINT:DR Bang pt----- Pt c/o cough, congestion, and SOB. Sxs started 2 weeks ago.Cannot open right hand- thinks he had a "mini stroke"HISTORY OF PRESENT ILLNESS:Patient is a 50-year-old male with history of diabetes, CVA, lumbar stenosis,seizuredisorder, heart disease, CHF, been wheelchair-bound and needs anelectric wheelchair orscooter but needs to have evaluation by physical therapy first, 8 out of 10severity, worsewith spasms, better with rest, nonradiating, not associated with cardiacsymptoms at this time.He has lost approximately 20+ pounds on GLP-1 medication but still hasdifficulty with ambulationand fatigue and is a fall risk.also has slight productive cough, 3 outof 10 severity, worsewith cold weather exposure, better with rest, occasionally wheezing, notassociated with fevers,chills, loss of taste, loss of smell, shortness of breath, fevers,headaches, rash, GI symptoms.. Patient has been advised to get another COVID test in [place] andvoices completeunderstanding. This is a Telemedicine visit REVIEW OF SYSTEMS:Constitutional: No fevers, chills, sweats; positive fatigue Eye: No recent visual problems ENMT: No ear pain, nasal congestion, sore throat Respiratory: No shortness of breath, productive coughCardiovascular: No Chest pain, palpitations, syncopeGastrointestinal: No nausea, vomiting, diarrheaGenitourinary: No hematuriaHema/Lymph: Negative for bruising tendency, swollen lymph glandsEndocrine: Negative for excessive thirst, excessive hungerMusculoskeletal: Chronic back pain, No neck pain, + joint pain, muscle pain,decreased range ofmotionIntegumentary: No rash, pruritus, abrasionsNeurologic: No seizures.Psychiatric: No anxiety, depression PROBLEM LIST/PAST MEDICAL HISTORY:OngoingNo qualifying dataHistoricalNo qualifying dataSOCIAL HISTORY:AlcoholAlcohol Use Current. 1-2 times per month, 09/19/2020Substance UseDrug Use Current. Marijuana, 10/16/2020Drug Use Denies., 09/19/2020Tobacco/Hxhbsrof83 or more cigarettes (1/2 pack or more)/day in last 30 days Use:.,09/19/2020ALLERGIES:penicillin (Hives)Home Medications:Home Medications (25) ActivePHENobarbital (PHENobarbital 32.4 mg oral tablet) , PO (oral), bidalbuterol (albuterol 2.5 mg/3 mL neb soln) 3 mL, P RN, Nebulized, [id number] (amLODIPine 10 mg oral tablet) , PO (oral), qDayamiodarone (amiodarone) amiodarone (amiodarone 200 mg oral tablet) , PO (oral), qDayatorvastatin (atorvastatin 10 mg oral tablet) , PO (oral), qDaycefuroxime (Ceftin 250 mg oral tablet) 250 mg = 1 tab(s), PO (oral), bidcyanocobalamin (cyanocobalamin) dulaglutide (Trulicity Pen) , SubCUTANEOUSdulaglutide (Trulicity Pen 1.5 mg/0.5 mL subcutaneous solution) 1.5 mg,SubCUTANEOUS, qWeekfluticasone (fluticasone) , Inhalationfurosemide (Lasix 20 mg oral tablet) , PO (oral), qDaygabapentin (gabapentin 800 mg oral tablet) , PO (oral), tidinsulin lispro (HumaLOG) , SubCUTANEOUSipratropium (Atrovent HFA) , Inhalation, qidlevETIRAcetam (Keppra 500 mg oral tablet) 1,000 mg = 2 tab(s), PO (oral), bidlisinopril (lisinopril 20 mg oral tablet) , PO (oral), qDaymetFORMIN (metFORMIN 1000 mg oral tablet) 1,000 mg = 1 tab(s), PO (oral), bidmetoprolol (Metoprolol Tartrate 100 mg oral tablet) , PO (oral), bidpredniSONE (predniSONE 10 mg oral tablet) 30 mg = 3 tab(s), PO (oral), qDayrivaroxaban (Xarelto) , PO (oral)sertraline (Zoloft 100 mg oral tablet) , PO (oral), qDaytiZANidine (tiZANidine 2 mg oral capsule) , PO (oral), g6ckohmltckzu (TopAMAX) , PO (oral), bidtraZODone (traZODone) , PO (oral), bidPHYSICAL EXAM:VITALS:HT: 166 cm BMI: 30.8 PHYSICAL EXAMINATION: VITAL SIGNS: Reviewed respirations 12. GENERAL: In no apparent distress. HEAD: No signs of head trauma.EYES: Extraocular motions intact. EARS: Hearing grossly intact.MOUTH: Lips without lesions. NECK no JVD. CHEST: Chest with even unlabored respirations VASCU LAR: No Edema. ABDOMEN: No sign of distention. MUSCULOSKELETAL: Patient wheelchair-bound. Extremities without clubbing,cyanosis or edema. NEUROLOGIC EXAM: Alert and oriented x 3. No focal deficits. Speechnormal. Followscommands.PSYCHIATRIC: Mood normal.SKIN: No rash or lesions. LAB RESULTS:No qualifying data available.PATHOLOGY RESULTS:Pathology Results No qualifying data available.DIAGNOSTIC RESULTS:No qualifying data available.ASSESSMENT AND PLAN:1. Lumbar stenosis Counseled on all diagnoses and treatment. Physical therapy consult toevaluate forpossible electric scooter versus wheelchair.Ordered:cefuroxime, 250 mg = 1 tab(s), PO (oral), bid, X 10 day(s), # 20 tab(s),Acute, Pharmacy: [facility], 1 tab(s) PO (oral) bid,x10 day(s)predniSONE, 30 mg = 3 tab(s), PO (oral), qDay, # 15 tab(s), 0 Refill(s),Maintenance, Pharmacy:[facility], 3 tab(s) PO (oral) qDay,x5 day(s)Ambulatory Ancillary Referral 2. CVA (cerebrovascular accident)Counseled on all diagnoses and treatment. Physical therapy consult toevaluate forpossible electric scooter versus wheelchairCounseled on all diagnoses andtreatment. Physicaltherapy consult to evaluate for possible electric scooter versus wheelchairOrdered:cefuroxime, 250 mg = 1 tab(s), PO (oral), bid, X 10 day(s), # 20 tab(s),Acute, Pharmacy: [facility], 1 tab(s) PO (oral) bid,x10 day(s)predniSONE, 30 mg = 3 tab(s), PO (oral), qDay, # 15 tab(s), 0 Refill(s),Maintenance, Pharmacy:[facility], 3 tab(s) PO (oral) qDay,x5 day(s)Ambulatory Ancillary Referral 3. Seizure disorderOrdered:cefuroxime, 250 mg = 1 tab(s), PO (oral), bid, X 10 day(s), # 20 tab(s),Acute, Pharmacy: [facility], 1 tab(s) PO (oral) bid,x10 day(s)predniSONE, 30 mg = 3 tab(s), PO (oral), qDay, # 15 tab(s), 0 Refill(s),Maintenance, Pharmacy:[facility], 3 tab(s) PO (oral) qDay,x5 day(s)Ambulatory Ancillary Referral 4. Diabetes Continue low sugar diet, medication and close monitoring.Ordered:cefuroxime, 250 mg = 1 tab(s), PO (oral), bid, X 10 day(s), # 20 tab(s),Acute, Pharmacy: [facility], 1 tab(s) PO (oral) bid,x10 day(s)predniSONE, 30 mg = 3 tab(s), PO (oral), qDay, # 15 tab(s), 0 Refill(s),Maintenance, Pharmacy:[facility], 3 tab(s) PO (oral) qDay,x5 day(s)Ambulatory Ancillary Referral 5. CHF NYHA class IIICounseled on all diagnoses and treatment. Physical therapy consult toevaluate forpossible electric scooter versus wheelchairOrdered:cefuroxime, 250 mg = 1 tab(s), PO (oral), bid, X 10 day(s), # 20 tab(s),Acute, Pharmacy: [facility], 1 tab(s) PO (oral) bid,x10 day(s)predniSONE, 30 mg = 3 tab(s), PO (oral), qDay, # 15 tab(s), 0 Refill(s),Maintenance, Pharmacy:[facility], 3 tab(s) PO (oral) qDay,x5 day(s)Ambulatory Ancillary Referral 6. Bronchitis Counseled on all diagnoses and treatment. Medication issued. Follow-upwith PCP this week asneeded, sooner if worse.Ordered:cefuroxime, 250 mg = 1 tab(s), PO (oral), bid, X 10 day(s), # 20 tab(s),Acute, Pharmacy: [facility], 1 tab(s) PO (oral) bid,x10 day(s)predniSONE, 30 mg = 3 tab(s), PO (oral), qDay, # 15 tab(s), 0 Refill(s),Maintenance, Pharmacy:[facility], 3 tab(s) PO (oral) qDay,x5 day(s)Ambulatory Ancillary Referral No qualifying data available.Medications Affected this Encounter: Medication Changes/Renewals This Visit Status predniSONE 30 mg, 3 tab(s), PO (oral), qDay, for 5 Ordered day(s), 15 tab(s), 0 Refill(s) cefuroxime 250 mg, 1 tab(s), PO (oral), bid, for 10 Ordered day(s), 20 tab(s) Added Patient Education Fatigue (CUSTOM) Patient InstructionsUp with PCP this week as needed, sooner if worse.Follow-Up Appointments With: Follow up with primary care provider This document was authenticated by Liset Davis MD MD on 10/17/2020 06:27 PM Name Value Range Interpretation Code Description Data Maren rce(s) Supporting Document(s) ID Date Data Source [id number] 09/26/2020 07:49:31 AM EST Daniels Flower sanchez - [facility], [facility] KURT KATZ IDENTIFICATION:Tuan castanon Site: [facility] Name: James KATZ Record Number: [id number] Of : 1970CHIEF COMPLAINT:V- Pt looking to reestablish with Dr Cuenca.HISTORY OF PRESENT ILLNESS:Patient is a 50-year-old male with history of lumbar stenosis patientwheelchair-boundalong with prior CVA, diabetes, coronary disease, profound hyperthyroidismfrom his heartmedication- followed closely by cardiology with follow-up with endocrinologybeing planned,neuropathy, urinary incontinence, 8 out of 10 severity, worsewith stress and poor diet,better with compliance, nonradiating, not associated with cardiac. Pulmonary,new neurologiccomplaints at this time, with patient doing very well on GLP-1 agonistmedication. Patientneeds large depends due to urinary incontinence. This is aTelemedicinevisit REVIEW OF SYSTEMS:Constitutional: No fevers, chills, sweats Eye: No recent visual problems ENMT: No ear pain, nasal congestion, sore throat Respiratory: No shortness of breath, coughCardiovascular: No Chest pain, palpitations, syncopeGastrointestinal: No nausea, vomiting, diarrheaGenitourinary: No hematuriaHema/Lymph: Negative for bruising tendency, swollen lymph glandsEndocrine: Negative for excessive thirst, excessive hungerMusculoskeletal: No back pain, neck pain, joint pain, muscle pain, decreasedrange of motionIntegumentary: No rash, pruritus, abrasionsNeurologic: No seizures.Psychiatric: No anxiety, depression PROBLEM LIST/PAST MEDICAL HISTORY:OngoingNo qualifying dataHistoricalNo qualifying dataSOCIAL HISTORY:AlcoholAlcohol Use Current. 1-2 times per month, 09/19/2020Substance UseDrug Use Denies., 09/19/2020Tobacco/Zsdqpyht21 or more cigarettes (1/2 pack or more)/day in last 30 days Use:.,09/19/2020ALLERGIES:penicillin (Hives)Home Medications:Home Medications (22) ActivePHENobarbital (PHENobarbital 32.4 mg oral tablet) , PO (oral), bidalbuterol (albuterol 2.5 mg/3 mL neb soln) 3 mL, PRN, Nebulized, x3cgowISZDBbug (amLODIPine 10 mg oral tablet) , PO (oral), qDayamiodarone (amiodarone) amiodarone (amiodarone 200 mg oral tablet) , PO (oral), qDayatorvastatin (atorvastatin 10 mg oral tablet) , PO (oral), qDaycyanoco balamin (cyanocobalamin) dulaglutide (Trulicity Pen) , SubCUTANEOUSfluticasone (fluticasone) , Inhalationfurosemide (Lasix 20 mg oral tablet) , PO (oral), qDaygabapentin (gabapentin 800 mg oral tablet) , PO (oral), tidinsulin lispro (HumaLOG) , SubCUTANEOUSipratropium (Atrovent HFA) , Inhalation, qidlevETIRAcetam (Keppra 500 mg oral tablet) 1,000 mg = 2 tab(s), PO (oral), bidlisinopril (lisinopril 20 mg oral tablet) , PO (oral), qDaymetFORMIN (metFORMIN 1000 mg oral tablet) 1,000 mg = 1 tab(s), PO (oral), bidmetoprolol (Metoprolol Tartrate 100 mg oral tablet) , PO (oral), bidrivaroxaban (Xarelto) , PO (oral)sertraline (Zoloft 100 mg oral tablet) , PO (oral), qDaytiZANidine (tiZANidine 2 mg oral capsule) , PO (oral), r1mptqbdmbcne (TopAMAX) , PO (oral), bidtraZODone (traZODone) , PO (oral), bidPHYSICAL EXAM:VITALS:HT: 166 cm BMI: 32 PHYSICAL EXAMINATION: VITAL SIGNS: Reviewed respirations 12. GENERAL: In no apparent distress. Patient wheelchair-bound.HEAD: No signs of head trauma.EYES: Extraocular motions intact. EARS: Hearing grossly intact.MOUTH: Lips without lesions. NECK no JVD. CHEST: Chest with even unlabored respirations VASCULAR: No Edema. ABDOMEN: No sign of distention. MUSCULOSKELETAL: Good range of motion of all major joints. Extremitieswithout clubbing,cyanosis or edema. NEUROLOGIC EXAM: Alert and oriented x 3. No focal deficits. Speechnormal. Followscommands.PSYCHIATRIC: Mood normal.SKIN: No rash or lesions. LAB RESULTS:No qualifying data available.PATHOLOGY RESULTS:Pathology Results No qualifying data available.DIAGNOSTIC RESULTS:No qualifying data available.ASSESSMENT AND PLAN:1. Diabetes Counseled on all diagnoses and treatment. Continue GLP-1agonist medication at this time.Will coordinate labs once Primary Care aspect of telemedicine established.2. Urinary incontinence Prescription issued for large adult men diapers- copy of prescriptionhandwritten scanned inchart.3. Hyperthyroidism Patient will follow up with cardiology and endocrinology-this was due to hiscardiac meds whichhave been regulated. Continue to monitor closely.4. Coronary artery disease Counseled on all diagnoses and treatment. Continue close follow-up withcardiology.5. Lumbar stenosis Patient has referral [facility] but is consideringtransferring specialistopinion to neurosurgery in [place] with Dr. Liset Cash-will help coordinatethis once PrimaryCare aspect of patella medicine established No qualifying data available.Medications Affected this Encounter:No Prescription Activity This EncounterAdded Patient Education Coping with Bedwetting Patient InstructionsFollow-up with PCP this week as needed, sooner if worse.Follow-Up Appointments With: Follow up with primary care provider This document was authenticated by Liset Davis MD MD on 09/26/2020 07:49 AM Name Value Range Interpretation Code Description Data Maren rce(s) Supporting Document(s) ID Date Data Source [id number] 09/01/2020 04:30:01 PM EDT [facility] Measurements & CalculationsHeight: 65 inches (5 ft. 5 in.) 165.10 cm Weight: 191 pounds 6 oz. 86.99 kg Body Mass Index (BMI): 31.96BMI Interpretation: ObeseBody Surface Area (BSA): 1.94Weight Management Education Done (Nutrition/Physical Activity)Vital SignsTemperature: 98.3F tympanic Pulse Rate: 57 beats/minuteRespi ratory Rate: 19 respirations/minuteBlood Pressure: 110/71 left arm sitting automaticO2 Saturation: 95% sittingVital Signs performed by: Magaly Leavitt MA, September 01, 2020 4:59 PMInitial Intake Information From: patientRoom #: 15Infectious Disease / Travel ScreeningRecent travel for you or any close contacts? NoHave you had any close contact with anyone diagnosed with or under investigation for COVID-19 (coronavirus)? NoFever? NoRespiratory symptoms: cough, cold, congestion, shortness of breath, difficulty breathing? NoLoss of smell? NoLoss of taste? NoSmoking, Tobacco, Vaping or Smoke Exposure StatusSmoke Status: current every day smokerTobacco Use: YesAdv to Quit: YesDo you vape? NoHealthcare HistorySince your last office visit...Have you been admitted to the hospital? NoHave you been to an emergency room (ER) or urgent care clinic? No - [facility] seizure and fell and hit eyeEmergency room (ER) or urgent care date reported today: 07/28/2019Have y ou seen another healthcare provider? No - strong memoral pulmonary, neuroHave you seen a dentist? No - NOCODental exam date reported today: 2009Intake performed by: Magaly Leavitt MA, September 01, 2020 4:38 PMRate Your HealthIn general, would you say your health is? PoorPain AssessmentAre you currently having any pain which... You would like your provider to address? Yes Affects your activity level? YesPain AssessmentPain ScaleNumeric Rating Scale: 10 / 10Location: back & neckDuration: chronicFrequency: DailyCharacter/Quality: sharp and stabbingIs the pain radiating? NoPatient History Medical History:COPD Emphysemaheart problemsseizuresdiabeteslow Kchronic pain high cholesterol asthma TOF9 tetrology of fallot cardiac arrythmia sudden / sp pacer defrillatior placed HypertensionPinched nerve in neckPinched nerve in lower spineStrokesSurgical History:Left testicle removed due to CAPace Maker defib 10/03/07Back Surgery (right lower lumbar disc emoved) 2002Aortic valve replaced 1974Triple and quadraple heart bipassFamily History:Sister-Irregular heart beatHeart disease (Father)Diabetes - Type II (Mother)Strokes (Mother)Social/Personal History:Passive smoke exposure - yesAlcohol Use - yesDrug Use - noHIV/High Risk - noRegular Exercise - noSmoking History:Patient currently smokes every day. Advised to Quit/Tobacco Education: YesChief Complaintfollow-up visit/Lung IssuesHPI performed by: Hany Renteria MD, September 02, 2020 8:44 AMMedication Reconciliation & ReviewMedication List was reviewed and/or updated during this visit, including review of any iqtz-mtu-cjvgvoa medications, herbal therapies, and/or supplements.Allergy ReviewAllergy List was reviewed and/or updated during this visit.Adult Preventive CareProvider Calculated and Reviewed all Clinical Protocols for patient today. Screening Tobacco Screening: Smoking Status: current every day smoker (09/01/2020) Tobacco Use: Currently (09/01/2020) Advised to Quit: Yes (09/01/2020)Labs/Meds/Other Counseling-Nutrition and Physical Activity:BMI Interpretation: Obese (09/01/2020) Counseling: Done (09/01/2020) Physical Activity: Done (09/01/2020)Cancer Screening ColonoscopyReviewed:Previous Comments: Pt refused (06/25/2020)Today's Comments: pt refused (09/01/2020)Rate Your HealthIn general, would you say your health is? PoorAssessment & Plan Problems:Assessed:Acute exacerbation of chronic obstructive airways disease (ICD-491.21) (QNK47-U46.1) Assessment: Instructions: He seems to be doing well from this standpoint. Sees a pumonologist in [place] regardding this. Has been off O2 for the past 2-3 weeks and his oximetry and lung exam are reassuring today. i will leave further decisions about treatment including O2 to his medical detailist.Spinal stenosis in cervical region (ICD-723.0) (PAM15-Y89.02) Assessment: Instructions: Recheck as scheduled with neurology.Diabetes, Type 2 (ICD-250.00) (HNG32-Y04.9) Assessment: Instructions: Continue current plan.Patient Instructions/Care Plan: Acute exacerbation of chronic obstructive airways disease: He seems to be doing well from this standpoint. Sees a pumonologist in [place] regardding this. Has been off O2 for the past 2-3 weeks and his oximetry and lung exam are reassuring today. i will leave further decisions about treatment including O2 to his medical detailist.Spinal stenosis in cervical region: Recheck as scheduled with neurology.Diabetes- Type 2: Continue current plan.He has made it clear again today that he is unhappy with his care today and that he will be calling his insurance company tomorrow to tell them to refuse to pay for today's visit. I have pointed out again that if he is unsatisfied with the care we are providing that he is not obligated to conitnue his care here an he can seek care elsewhere and he has indicated he will do so. I am sending in a month's worth of everyhitng that is needed and I expect he will find a new PCP soon, possibly within the month. Plan developed in collaboration with patient and/or familyMedications:BD DISP NEEDLES 25G X 5/8"P7GZJOMAOTZUFYRLP HCL 10 MG ORAL TABLETCYANOCOBALAMIN 1000 MCG/ML INJECTION SOLUTIONB-12 5000 MCG SUBLINGUAL TABLET SUBLINGUALCEPACOL INSTAMAX 15-20 MG MOUTH/THROAT LOZENGEBLOOD PRESSURE MONITOR/ARM DEVICECHERATUSSIN AC 100-10 MG/5ML ORAL SYRUPIPRATROPIUM-ALBUTEROL 0.5-2.5 (3) MG/3ML INHALATION SOLUTIONFLONASE ALLERGY RELIEF 50 MCG/ACT NASAL SUSPENSIONKEPPRA 750 MG ORAL TABLETTRAZODONE HCL 100 MG ORAL TABLETTRULICITY 1.5 MG/0.5ML SUBCUTANEOUS SOLUTION PEN-INJECTORADMELOG SOLOSTAR 100 UNIT/ML SUBCUTANEOUS SOLUTION PEN- INJECTORATORVASTATIN CALCIUM 10 MG ORAL TABLETXARELTO 20 MG ORAL TABLETPOTASSIUM CHLORIDE ADELE ER 10 MEQ ORAL TABLET EXTENDED RELEASELORADAMED 10 MG ORAL TABLETGABAPENTIN 800 MG ORAL TABLETSERTRALINE HCL 100 MG ORAL TABLETNUBULIZER MACHINEHARD SHELL BACK BRACEFREESTYLE LANCETSFREESTYLE LITE TEST IN VITRO STRIPFREESTYLE LITE DEVICESTANDARD TENS DEVICEALCOHOL PREP 70 % PADADJUSTABLE ALUMINUM CANE 7/8"BD INSULIN SYRINGE ULTRAFINE 31G X 15/64" 0.5 MLASPIRIN EC 81 MG ORAL TABLET DELAYED RELEASEAMIODARONE HCL 200 MG ORAL TABLETRANITIDINE HCL 150 MG ORAL TABLETAMLODIPINE BESYLATE 10 MG ORAL TABLETLISINOPRIL 20 MG ORAL TABLETMETFORMIN HCL 1000 MG ORAL TABLETCLOPIDOGREL BISULFATE 75 MG ORAL TABLETIBUPROFEN 600 MG ORAL TABLET (IBUPROFEN)FUROSEMIDE 40 MG ORAL TABLETPHENOBARBITAL 32.4 MG ORAL TABLETMedication Changes:Refilled:TRAZODONE HCL 100 MG ORAL TABLET-1 tab po 1 hour prior to sleep Qty: 30[Tablet] Refills: 0 Method: ElectronicTRULICITY 1.5 MG/0.5ML SUBCUTANEOUS SOLUTION [id number]-QAGFNBWV-aqlrla 1.5 mg weekdly SQ Qty: 4[Prefilled Pen Syrnge] Refills: 0 Method: ElectronicADMELOG SOLOSTAR 100 UNIT/ML SUBCUTANEOUS SOLUTION MKJ-PFODGVQT-5 units for FSBS 100-150- then await MD instructions on sliding scale Qty: 4[Prefilled Pen Syrnge] Refills: 0 Method: ElectronicATORVASTATIN CALCIUM 10 MG ORAL TABLET-qd Qty: 30[Tablet] Refills: 0 Method: ElectronicXARELTO 20 MG ORAL TABLET-take one tablet by mouth daily Qty: 30[Tablet] Refills: 3 Method: ElectronicPOTASSIUM CHLORIDE ADELE ER 10 MEQ ORAL TABLET EXTENDED RELEASE-bid Qty: 60[Tablet] Refills: 0 Method: ElectronicRemoved:CEFDINIR 300 MG ORAL CAPSULE-2 tabs po QD X 15 days, LYRICA 150 MG ORAL CAPSULE-one tab po BID, hold gabapentin while on this Qty: 60[Capsule] Refills: 0, AZITHROMYCIN 500 MG ORAL TABLET-one tab po QD X 3d, TESSALON PERLES 100 MG ORAL CAPSULE-take one tablet by mouth three time daily as needed Qty: 30[Capsule] Refills: 3, FOLIC ACID 1 MG ORAL TABLET-take one tablet by mouth dailyChanged: To: AMIODARONE HCL 200 MG ORAL TABLET-take 1 tab PO once a dayAllergies:PENICILLIN (Moderate)MUSHROOMS (Mild)* SEASONAL (Mild)Orders:Adult - Ofc Vst, EST, Level III [CPT-02685] Medications:POTASSIUM CHLORIDE ADELE ER 10 MEQ ORAL TABLET EXTENDED RELEASE (POTASSIUM CHLORIDE ADELE ER) bid #60[Tablet] x 0 Route:ORAL Entered and Authorized by: aHny Renteria MD Method used: Electronically to [facility] (retail) [address] [place] [address] Note to Pharmacy: Route: ORAL; RxID: [id number] 20 MG ORAL TABLET (RIVAROXABAN) take one tablet by mouth daily #30[Tablet] x 3 Route:ORAL Entered and Authorized by: Hany Renteria MD Method used: Electronically to [facility] (retail) [address] [place] [address] Note to Pharmacy: Route: ORAL; Indications: MYOCARDIAL INFARCTION:;CORONARY HEART DISEASE RxID: [id number] CALCIUM 10 MG ORAL TABLET (ATORVASTATIN CALCIUM) qd #30[Tablet] x 0 Route:ORAL Entered and Authorized by: Hany Renteria MD Method used: Electronically to [facility] (retail) [address] [place] [address] Note to Pharmacy: Route: ORAL; RxID: [id number] SOLOSTAR 100 UNIT/ML SUBCUTANEOUS SOLUTION PEN-INJECTOR (INSULIN LISPRO) 2 units for FSBS 100-150- then await instructions on sliding scale #4[Prefilled Pen Syrnge] x 0 Route:SUBCUTANEOUS Entered and Authorized by: Hany Renteria MD Method used: Electronically to [facility] (retail) [address] [place] [address] Note to Pharmacy: Route: SC; RxID: [id number] 1.5 MG/0.5ML SUBCUTANEOUS SOLUTION PEN-INJECTOR (DULAGLUTIDE) inject 1.5 mg weekdly SQ #4[Prefilled Pen Syrnge] x 0 Route:SUBCUTANEOUS Entered and Authorized by: Hany Renteria MD Method used: Electronically to [facility] (retail) [address] [place] [address] Note to Pharmacy: Route: SC; RxID: [id number] HCL 100 MG ORAL TABLET (TRAZODONE HCL) 1 tab po 1 hour prior to sleep #30[Tablet] x 0 Route:ORAL Entered and Authorized by: Hany Renteria MD Method used: Electronically to [facility] (retail) [address] [place] [address] Note to Pharmacy: Route: ORAL; RxID: [id number] TESSALON PERLES 100 MG ORAL CAPSULE (BENZONATATE) take one tablet by mouth three time daily as needed #30[Capsule] x 3 Route:ORAL Entered by: Magaly Leavitt MA Authorized by: Hany Renteria MD Method used: Electronically to [facility] (retail) [address] [place] [address] RxID: [id number] LYRICA 150 MG ORAL CAPSULE (PREGABALIN) one tab po BID, hold gabapentin while on this #60[Capsule] x 0 Route:ORAL Entered by: Magaly Leavitt MA Authorized by: Hany Renteria MD Method used: Electronically to [facility] (retail) [address] [place] [address] RxID: [id number] signed by Hany Renteria MD on 09/02/2020 at 8:57 AM Name Value Range Interpretation Code Description Data Maren rce(s) Supporting Document(s) ID Date Data Source [id number] 07/24/2020 11:27:00 AM EDT [facility] Name Value Range Interpretation Code Description Data Maren rce(s) Supporting Document(s) T3, TOTAL 72.9 ng/dL 60.0-181.0 N [facility] T4, TOTAL 12.9 mcg/dL 4.5-12.0 H [facility] 0.006 ID Date Data Source [id number] 07/24/2020 11:12:00 AM EDT [facility] Name Value Range Interpretation Code Description Data Maren rce(s) Supporting Document(s) BG FASTING 88 mg/dL 70-100 N [facility] 0.007 ID Date Data Source [id number] 2020 10:34:59 PM EDT [facility] Name Value Range Interpretation Code Description Data Maren rce(s) Supporting Document(s) Progress Note [facility] VICMFp9aKsYIOkBm44/KHTkpJOUga2NyVZqlVTq0LAosZYCwR6NtMKG2cY0wZSE8LRsJHxBjUyPfCRUw lbm [file] Hmy+MzbBP+cllM2T6BDFgrtEW/vp training/yJuCCxf0Nuoy5NHNqYSxLYoc6aYkvGUVznEOZt2NqjlcprAXJa2 [file] ICAgICAgICAgICAgICAgICAgICAgICAgICAgICAgIC AgICAgICAgICAgICAgICAgICAgICAgICAgICAgICAgICAgICAgICAgICANCiAgICAgICAgICAgICAgIC AgICAgICAgICAgICAgICAgICAgICAgICAgICAgICAgICAgICAgICAgICAgICAgICAgICAgICAgICAgIC AgICAgICAgICAgICAgICAgICAgICAgICANCiAgICAg ICAgICAgICAgICAgICAgICAgICAgICAgICAgICAgICAgICAgICAgICAgICAgICAgICAgICAgICAgICAg ICAgICAgICAgICAgICAgICAgICAgICAgICAgICAgICAgICANCiAgICAgICAgICAgICAgICAgICAgICAg ICAgICAgICAgICAgICAgICAgICAgICAgICAgICAgIC AgICAgICAgICAgICAgICAgICAgICAgICAgICAgICAgICAgICAgICAgICAgICANCiAgICAgICAgICAgIC AgICAgICAgICAgICAgICAgICAgICAgICAgICAgICAgICAgICAgICAgICAgICAgICAgICAgICAgICAgIC AgICAgICAgICAgICAgICAgICAgICAgICAgICANCiAg ICAgICAgICAgICAgICAgICAgICAgICAgICAgICAgICAgICAgICAgICAgICAgICAgICAgICAgICAgICAg ICAgICAgICAgICAgICAgICAgICAgICAgICAgICAgICAgICAgICANCiAgICAgICAgICAgICAgICAgICAg ICAgICAgICAgICAgICAgICAgICAgICAgICAgICAgIC AgICAgICAgICAgICAgICAgICAgICAgICAgICAgICAgICAgICAgICAgICAgICAgICANCiAgICAgICAgIC AgICAgICAgICAgICAgICAgICAgICAgICAgICAgICAgICAgICAgICAgICAgICAgICAgICAgICAgICAgIC AgICAgICAgICAgICAgICAgICAgICAgICAgICAgICAN CiAgICAgICAgICAgICAgICAgICAgICAgICAgICAgICAgICAgICAgICAgICAgICAgICAgICAgICAgICAg ICAgICAgICAgICAgICAgICAgICAgICAgICAgICAgICAgICAgICAgICANCiAgICAgICAgICAgICAgICAg ICAgICAgICAgICAgICAgICAgICAgICAgICAgICAgIC AgICAgICAgICAgICAgICAgICAgICAgICAgICAgICAgICAgICAgICAgICAgICAgICAgICANCjw/eHBhY2 fksLCfmnM2N5baLf9XOl0JPY2pa0LwCSLpLJlfrsTkAkuHXjRqPHZiWikENmb7FPlcKI0UhLJyV2QdY0 OeWZnlHM8RXOKwZVJjsQSqYLUoHMOqCiP8YKQhPAzn PU4HiNVqURqtATFtOZGoKwDeAIShRJKwVJAkSKZeSSBMTNEcBTIkTfPtIXVjJUFxCAkyJQRRAF1GKpBe Q8WmmM53UXjMVf0+NQuxjhOvZubVOoYySVNuq9NfXZj9BB4ZUPFiSaddz6KoXKKfUULGKKyvUQ6VRPN6 HNAjPMIiAl7NMBFwB831fhOtMM5BRb2KXxVrYP8hgj 0CQBNcSGZpBitSDhh4MOyuBR2BlKHjSAeBqq0vprAvpfXYi9SlsqLnxJVLVWK7vXE6RZ4eOIpueDhuYo SyWLZhIK73YtVoSgHhXRH2PPEaHT5zWEmdRW3KZYG3DHdeCAOsHYGjR0bHWvQbANUkDyRhtJsuUP3ASu ToV8AouqZzkQQ9NrVbWOUAMp7+DQplbmRvYmoNCjQ0 DFIqk8XaWYd3TN5WIWVgGKjuDG1QHDRekQ4qFDaoZV8IFoJ2VHXuHQQWRmAxO96mxYSiDSs8E2KkHlLj ZGVkRmlsZXMgPDwvTmFtZXMgWyBdDQogID4+ID4+IDtmTW1RKKgbvpLfVRFcMe1KKVHsYLNvFG6sZBJs TGNwX6A0rMlvLHGUQmCsQ0skpiurDK6wFRFgA562wF fjesAvZHZyHVAuTt4NVHKkUDR7HAAcnENcZTPpMUBOSMbfMT5TlHIhCQP8wN1hCKiaQAJiAAVdJ7pVUj VjkFfeCO22hCqjtzXuhVCtWCe+Qv1WLS7pl4WkMLs6epPsZTiqYWR4XCsrMDEtMEJeSPGtHSI8EUA7MJ XAQcFhOURbNAFoFOjpNBOfRNWpuw5OHQEhICK1ZRk7 QeDoAFJrRKChFAekOYObQXzlNrG9DHWjYZMzBC4RRmSiAWZtIEEgQYbrUONfCMMoun0SMAZfLAFaJnx3 XWMaIXRhLYCiLUfiOYIvPKP7EWw9BRSdRBWsJK4UBdPtTONnFPF2VtOgRBIfAKIwsw1JDUKhIIXxXlza WAHoBWIuPGGeULetXDOzFDAiNCu1VQXhOIWeHB4RTa ImUOPzCFPuPFadNEUnNKOlqk8SKDDvZPDgQLGgFmLyEMZdNBMcBBblKYEkNSJ5KaBnDDYxPKYwOF9TLu NzPLWmKKv1YxRhQZKwPXXvsu4DNDCgJZTzJju5AyQkXBZlVVTbWRupQCUnRGFyJKn8GOLbJSJhHV9XNw WsFIFiFvRxCMEdJVSgDTVsrc9NOLVqGLXiZLA6UvUb MJTvJESdQCnlMRCnJWK8SIP1NVNqEBTgXS7IErOwEYEtPuM4RZbfEMBjJIKscx2YZLFyXTJwUgCvEJLn KFEaAXGqHLprRUCeBJG6LUr1SHMhEOXxZV3DCgUtYMOwMgzkIFfuGRHwFWVapw6GSMCaEADwChR8HZIg ZVKgXPRyBTnyHPFrWPL0STL6RUIfFZHxKP9GFtFjPV BxZiOzAyAdZCFiTNJqka3KCWVeCYI1AJeqCaYoDLOgXYVsNDqhWIZhZGGmTUDbYDJgTJNxLR8XNhLpNQ QlWkHeHcctXRQfLWSqwv2YNGKkUUM1PnP2FKHsLXDlDMRmXCteHRItFFS7JEG4OIBrQDJmBS0RHmApBG QpNfUtGMhoMUGyATQrms9PJDPqYVZ7YDC9QVLuHNWc SVDwNHcdLNQvXYX6JsHkKBKoSCKmOX1QAoHjCOCpYzw7JyHcURItCCGext2NYTAdEXA7IOr7ORHpQNHq GEQjHUqdOKBpYTilXME3XOBtDEHiQH2QRvBuPICkAwEoUnBaKOFeJRMhvf7BFVWdZXO9HPO4HKQaUUCa WJZqLIheQYXgIGrdMpH2FPFvGRZxJR2NTbUpAXBdUl I8SaCyMOKwFQCogb7BAVUsDIN4NXPbCTFcFFFeCVYwYQssEDIxJYucBXXnEHLoSMRuKD9JXgUwLCCuIn D3SwOkDFVfXUFenv6OIVPsMLQ3GjAvGNRpZNWzUSUqZLf5jmCxrTTuNIu6DN1JX7JwrbYxTTRUXp6By2 95TPS9SKWcPr0LM2kfSe1rSSBtEFJZVz9KOSi8ZPj8 LVXyTRwjRSLyTHHiXGKxJ7ZmIFWgIER1IOKhPeU+RPsuUab6JlFnNWE4XYKkVQQ1QYIhTcJ3VSDvYjhc DuLhHy2xUTEASa8+WNtpmCBfyCdlKTXAIpsnUwM1RFjyMJPGJl2E ID Date Data Source [id number] 06/25/2020 08:21:41 AM EDT [facility] Initial Intake Information From: patient (Home) Visit Type: phone/audio onlyTechnology Used: PhoneStart Time: 8:22 AMConsent Provided by PtMedical Necessity ReviewedInfectious Disease / Travel ScreeningRecent travel for you or any close contacts? NoHave you had any close contact with anyone diagnosed with or under investigation for COVID-19 (coronavirus)? NoFever? NoRespiratory symptoms: cough, cold, congestion, shortness of breath, difficulty breathing? NoLoss of smell? NoLoss of taste? NoSmoking, Tobacco, Vaping or Smoke Exposure StatusSmoke Status: current every day smokerTobacco Use: YesAdv to Quit: YesDo you vape? NoHealthcare HistorySince your last office visit...Have you been admitted to the hospital? NoHave you been to an emergency room (ER) or urgent care clinic? NoHave you seen another healthcare provider? NoHave you seen a dentist? NoIntake performed by: Zenia Infante , June 25, 2020 8:22 AMRate Your HealthIn general, would you say your health is? PoorPain AssessmentAre you currently having any pain which... You would like your provider to address? No Affects your activity level? NoDepression Screening - PHQ-2Over the last two weeks, have you... Had little interest or pleasure in doing things? Not at all Been feeling down, depressed, or hopeless? Not at all PHQ-2 Score: 0Anxiety Screening - BAO-2Over the last two weeks, have you been... Feeling nervous, anxious, or on edge? Not at all Unable to stop or control worrying? Not at all BAO-2 Score: 0Screening, Brief Intervention, & Referral to Treatment (SBIRT)Pre-Screening Questions How many times have you have 5 or more drinks in a day? 0How many times have you used an illegal drug or used a prescription medication for a non- medical reason? 0Performed by: Zenia Infante , June 25, 2020 8:23 AMPatient History Medical History:COPD Emphysemaheart problemsseizuresdiabeteslow Kchronic pain high cholesterol asthma TOF9 tetrology of fallot cardiac arrythmia sudden / sp pacer defrillatior placed HypertensionSurgical History:Left testicle removed due to CAPace Maker defib 10/03/07Back Surgery (right lower lumbar disc emoved) 2002Aortic valve replaced 1974Triple and quadraple heart bipassFamily History:Sister-Irregular heart beatHeart disease (Father)Diabetes - Type II (Mother)Social/Personal History:Passive smoke exposure - yesAlcohol Use - yesDrug Use - noHIV/High Risk - noRegular Exercise - noSmoking History:Patient currently smokes every day. Advised to Quit/Tobacco Education: YesChief Complaintfollow-up visitHistory of Present Illness (HPI)Hany Renteria MD has received verbal consent from the patient/guardian to conduct this visit via telehealth. The patient has been made aware that they have the right to refuse telehealth; of my location and the security of the telehealth software; any other parties present in the session; and that they have a right to select another provider if chosen for a face to face visit.This visit was conducted via telephone. Blood sugars are doing OK. Run 150-200.Having increasing issues with anxiety and depression. Has been on Zoloft for a while at 50 mg per day. Feels that this is not working as well as it used to or as well as he would like it to. Denies thoughts of self harm.HPI performed by: Hany Renteria MD, June 25, 2020 11:17 AMProblem ReviewProblem List was reviewed and/or updated during this visit.Medication Reconciliation & ReviewMedication List was reviewed and/or updated during this visit, including review of any fkqp-ytu-adnwpgq medications, herbal therapies, and/or supplements.Allergy ReviewAllergy List was reviewed and/or updated during this visit.Adult Preventive CareProvider Calculated and Reviewed all Clinical Protocols for patient today. Cancer Screening Screening Tobacco Screening: Smoking Status: current every day smoker (06/25/2020) Tobacco Use: Currently (06/25/2020) Advised to Quit: Yes (06/25/2020)Cancer Screening ColonoscopyReviewed:Previous Comments: PT refused (01/30/2020)Today's Comments: Pt refusedReview of Systems General: Denies dizziness, fatigue. Cardiovascular: Denies chest pain. Respiratory: Denies difficulty breathing, shortness of breath. Rate Your HealthIn general, would you say your health is? PoorAssessment & Plan Problems:Assessed:Anxiety Disorder (ICD-300.00) (ICD10- F41.9) Assessment: Instructions: Suboptimal control.Increase Zoloft from 50 mg to 100 mg daily.Recheck 1-2 months.Total of 5 minutes spent on phone.Patient Instructions/Care Plan: Anxiety Disorder: Suboptimal control.Increase Zoloft from 50 mg to 100 mg daily.Recheck 1-2 months.Total of 5 minutes spent on phone. Plan developed in collaboration with patient and/or familyMedications:BD DISP NEEDLES 25G X 5/8"[id number] HCL 10 MG ORAL TABLETCYANOCOBALAMIN 1000 MCG/ML INJECTION SOLUTIONB-12 5000 MCG SUBLINGUAL TABLET SUBLINGUALCEPACOL INSTAMAX 15-20 MG MOUTH/THROAT LOZENGECEFDINIR 300 MG ORAL CAPSULELYRICA 150 MG ORAL CAPSULEBLOOD PRESSURE MONITOR/ARM DEVICECHERATUSS IN AC 100-10 MG/5ML ORAL SYRUPAZITHROMYCIN 500 MG ORAL TABLETIPRATROPIUM- ALBUTEROL 0.5-2.5 (3) MG/3ML INHALATION SOLUTIONTESSALON PERLES 100 MG ORAL CAPSULEFLONASE ALLERGY RELIEF 50 MCG/ACT NASAL SUSPENSIONKEPPRA 750 MG ORAL TABLETTRAZODONE HCL 100 MG ORAL TABLETTRULICITY 1.5 MG/0.5ML SUBCUTANEOUS SOLUTION PEN-INJECTORADMELOG SOLOSTAR 100 UNIT/ML SUBCUTANEOUS SOLUTION PEN- INJECTORATORVASTATIN CALCIUM 10 MG ORAL TABLETXARELTO 20 MG ORAL TABLETPOTASSIUM CHLORIDE ADELE ER 10 MEQ ORAL TABLET EXTENDED RELEASELORADAMED 10 MG ORAL TABLETGABAPENTIN 800 MG ORAL TABLETSERTRALINE HCL 100 MG ORAL TABLETFOLIC ACID 1 MG ORAL TABLETNUBULIZER MACHINEHARD SHELL BACK BRACEFREESTYLE LANCETSFREESTYLE LITE TEST IN VITRO STRIPFREESTYLE LITE DEVICESTANDARD TENS DEVICEALCOHOL PREP 70 % PADADJUSTABLE ALUMINUM CANE 7/8"BD INSULIN SYRINGE ULTRAFINE 31G X 15/64" 0.5 MLASPIRIN EC 81 MG ORAL TABLET DELAYED RELEASEAMIODARONE HCL 200 MG ORAL TABLETRANITIDINE HCL 150 MG ORAL TABLETAMLODIPINE BESYLATE 10 MG ORAL TABLETLISINOPRIL 20 MG ORAL TABLETMETFORMIN HCL 1000 MG ORAL TABLETCLOPIDOGREL BISULFATE 75 MG ORAL TABLETIBUPROFEN 600 MG ORAL TABLET (IBUPROFEN)FUROSEMIDE 40 MG ORAL TABLETPHENOBARBITAL 32.4 MG ORAL TABLETMedication Changes:Refilled:SERTRALINE HCL 100 MG ORAL TABLET-One tablet by mouth every day Qty: 30[Tablet] Refills: 5 Method: ElectronicChanged:From: ORAL SERTRALINE HCL 50 MG ORAL TABLET Qty: [id number] Refills: 30[Tablet] To: SERTRALINE HCL 100 MG ORAL TABLET-One tablet by mouth every day Qty: 30[Tablet] Refills: 5Allergies:PENICILLIN (Moderate)MUSHROOMS (Mild)* SEASONAL (Mild)Orders:Telephon e E&M 5-10 min Medical Discussion [CPT-38086] Name Value Range Interpretation Code Description Data Maren rce(s) Supporting Document(s) ID Date Data Source [id number] 06/14/2020 09:45:03 AM EDT [facility] Measurements & CalculationsHeight: 65 inches (5 ft. 5 in.) 165.10 cm Weight: 193 pounds 87.73 kg Body Mass Index (BMI): 32.23BMI Interpretation: ObeseBody Surface Area (BSA): 1.95Weight Management Education Done (Nutrition/Physical Activity)Vital SignsTemperature: 96.4FPulse Rate: 50 beats/minuteRespiratory Rate: 16 respirations/minuteBlood Pressure: 85/55 O2 Saturation: 100% Vital Signs performed by: Uzma Herrera MA, June 14, 2020 9:49 AMInitial Intake Information From: patientRoom #: 13Infectious Disease / Travel ScreeningRecent travel for you or any close contacts? NoHave you had any close contact with anyone diagnosed with or under investigation for COVID-19 (coronavirus)? NoFever? NoRespiratory symptoms: cough, cold, congestion, shortness of breath, difficulty breathing? NoLoss of smell? NoLoss of taste? NoSmoking, Tobacco, Vaping or Smoke Exposure StatusSmoke Status: current every day smokerTobacco Use: YesAdv to Quit: YesDo you vape? NoHealthcare HistorySince your last office visit...Have you been admitted to the hospital? NoHave you been to an emergency room (ER) or urgent care clinic? No - [facility] and [facility] and hit eyeEmergency room (ER) or urgent care date reported today: 07/28/2019Have you seen another healthcare provider? Yes - [facility], neuroHave you seen a dentist? Yes - NOCODental exam date reported today: 2009Intake performed by: Uzma Herrera MA, June 14, 2020 9:46 AMRate Your HealthIn general, would you say your health is? PoorPain AssessmentAre you currently having any pain which... You would like your provider to address? No Affects your activity level? NoDepression Screening - PHQ-2Over the last two weeks, have you... Had little interest or pleasure in doing things? Not at all Been feeling down, depressed, or hopeless? Not at all PHQ-2 Score: 0Anxiety Screening - BAO-2Over the last two weeks, have you been... Feeling nervous, anxious, or on edge? Not at all Unable to stop or control worrying? Not at all BAO-2 Score: 0Screening, Brief Intervention, & Referral to Treatment (SBIRT)Pre-Screening Questions How many times have you have 5 or more drinks in a day? 0How many times have you used an illegal drug or used a prescription medication for a non-medical reason? 0Performed by: Uzma Herrera MA, June 14, 2020 9:47 AMPatient History Medical History:COPD Emphysemaheart problemsseizuresdiabeteslow Kchronic pain high cholesterol asthma TOF9 tetrology of fallot cardiac arrythmia sudden / sp pacer defrillatior placed Hyperte nsionSurgical History:Left testicle removed due to CAPace Maker defib 10/03/07Back Surgery (right lower lumbar disc emoved) 2002Aortic valve replaced 1974Triple and quadraple heart bipassFamily History:Sister-Irregular heart beatHeart disease (Father)Diabetes - Type II (Mother)Social/Personal History:Passive smoke exposure - yesAlcohol Use - yesDrug Use - noHIV/High Risk - noRegular Exercise - noSmoking History:Patient currently smokes every day. Advised to Quit/Tobacco Education: YesChief Complaintpt request a letter to not wear a mask History of Present Illness (HPI)We discuss the letter. I think that the risk of not wearing a mask while in public is greeater than the risk of wearing one, specifically that his risk of becoming critically ill from COVID and dying from it is much greater than the risk of wearing a mask (which is minimal.)He has seen a medical detailist in the past in [place] but has not seen them for the past few years.Took himself off the Anoro because he was worried about how it might make his lung disease worse. 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 Screening Tobacco Screening: Smoking Status: current every day smoker (06/14/2020) Tobacco Use: Currently (06/14/2020) Advised to Quit: Yes (06/14/2020)Labs/Meds/Other Counseling- Nutrition and Physical Activity:BMI Interpretation: Obese (06/14/2020) Counseling: Done (06/14/2020) Physical Activity: Done (06/14/2020)Cancer Screening Colorectal Screening: Patient refused colorectal screeningNurses Note pt refuses diabetic eye exam Physical ExamGeneral Appearance: well nourished, well hydrated, no acute distressRespiratory, Auscultation: clear to auscultation bilaterally; no rales, rhonchi, or wheezesRespiratory, Effort: no intercostal retractions or use of accessory musclesCardiovascular, Auscultation: S1, S2 audible; no murmur, rub, or gallop; RRRPeripheral Circulation: no clubbing, cyanosis, edema, or varicositiesGait & Station: normalSkin, Inspection: no rashes, lesions, or ulcerationsOrientation: oriented to time, place, and personMood & Affect: no depression, anxiety, or agitationJudgment & Insight: intactCare Management Plan Transitions of CareInboundRate Your HealthIn general, would you say your health is? PoorAssessment & Plan Problems:Assessed:Brendan Carson (ICD-496) (CPP73-V69.9) Assessment: Instructions: I am not willing to right a letter exempting him from wearing a mask (See HPI) and have recommended that he wear one fr his own health and safety.Patient Instructions/Care Plan: C O P D: I am not willing to right a letter exempting him from wearing a mask (See HPI) and have recommended that he wear one fr his own health and safety.I also recpmmended that he restart the Anoro. He declines.Recheck as scheduled and as needed. Plan developed in collaboration with patient and/or familyMedications:CYCLOBENZAPRINE HCL 10 MG ORAL TABLETCYANOCOBALAMIN 1000 MCG/ML INJECTION SOLUTIONB-12 5000 MCG SUBLINGUAL TABLET SUBLINGUALCEPACOL INSTAMAX 15-20 MG MOUTH/THROAT LOZENGECEFDINIR 300 MG ORAL CAPSULELYRICA 150 MG ORAL CAPSULEBLOOD PRESSURE MONITOR/ARM DEVICECHERATUSSIN AC 100-10 MG/5ML ORAL SYRUPAZITHROMYCIN 500 MG ORAL TABLETIPRATROPIUM-ALBUTEROL 0.5-2.5 (3) MG/3ML INHALATION SOLUTIONTESSALON PERLES 100 MG ORAL CAPSULEFLONASE ALLERGY RELIEF 50 MCG/ACT NASAL SUSPENSIONKEPPRA 750 MG ORAL TABLETTRAZODONE HCL 100 MG ORAL TABLETTRULICITY 1.5 MG/0.5ML SUBCUTANEOUS SOLUTION PEN-INJECTORADMELOG SOLOSTAR 100 UNIT/ML SUBCUTANEOUS SOLUTION PEN-INJECTORATORVASTATIN CALCIUM 10 MG ORAL TABLETXARELTO 20 MG ORAL TABLETPOTASSIUM CHLORIDE ADELE ER 10 MEQ ORAL TABLET EXTENDED RELEASELORADAMED 10 MG ORAL TABLETGABAPENTIN 800 MG ORAL TABLETSERTRALINE HCL 50 MG ORAL TABLETFOLIC ACID 1 MG ORAL TABLETNUBULIZER MACHINEHARD SHELL BACK BRACEFREESTYLE LANCETSFREESTYLE LITE TEST IN VITRO STRIPFREESTYLE LITE DEVICESTANDARD TENS DEVICEALCOHOL PREP 70 % PADADJUSTABLE ALUMINUM CANE 7/8"BD INSULIN SYRINGE ULTRAFINE 31G X 15/64" 0.5 MLASPIRIN EC 81 MG ORAL TABLET DELAYED RELEASEAMIODARONE HCL 200 MG ORAL TABLETRANITIDINE HCL 150 MG ORAL TABLETAMLODIPINE BESYLATE 10 MG ORAL TABLETLISINOPRIL 20 MG ORAL TABLETMETFORMIN HCL 1000 MG ORAL TABLETCLOPIDOGREL BISULFATE 75 MG ORAL TABLETIBUPROFEN 600 MG ORAL TABLET (IBUPROFEN)FUROSEMIDE 40 MG ORAL TABLETPHENOBARBITAL 32.4 MG ORAL TABLETMedication Changes:Refilled:POTASSIUM CHLORIDE ADELE ER 10 MEQ ORAL TABLET EXTENDED RELEASE-bid Qty: 60[Tablet] Refills: 5 Method: ElectronicCLOPIDOGREL BISULFATE 75 MG ORAL TABLET-1 tab PO every day Qty: 30[Tablet] Refills: 5 Method: ElectronicPHENOBARBITAL 32.4 MG ORAL TABLET-2 tabs po BID Qty: 120[Tablet] Refills: 5 Method: ElectronicKEPPRA 750 MG ORAL TABLET-2 tabs po BID Qty: 120[Tablet] Refills: 5 Method: ElectronicGABAPENTIN 800 MG ORAL TABLET-qid Qty: 120[Tablet] Refills: 5 Method: ElectronicAMIODARONE HCL 200 MG ORAL TABLET-take 1 tab PO twice a day Qty: 60[Tablet] Refills: 5 Method: ElectronicMETFORMIN HCL 1000 MG ORAL TABLET-1 tab PO twice a day Qty: 60[Tablet] Refills: 5 Method: ElectronicLORADAMED 10 MG ORAL TABLET-qd Qty: 30[Tablet] Refills: 5 Method: ElectronicRemoved:AZITHROMYCIN 500 MG ORAL TABLET-one tab po QD X 3dAllergies:PENICILLIN (Moderate)MUSHROOMS (Mild)* SEASONAL (Mild)Orders:Adult - Ofc Vst, EST, Level III [CPT-22569] Medications:LORADAMED 10 MG ORAL TABLET (LORATADINE) qd #30[Tablet] x 5 Route:ORAL Entered and Authorized by: Hany Renteria MD Method used: Electronically to [facility] (retail) [address] [place] [address] Note to Pharmacy: Route: ORAL; RxID: [id number] HCL 1000 MG ORAL TABLET (METFORMIN HCL) 1 tab PO twice a day #60[Tablet] x 5 Entered and Authorized by: Hany Renteria MD Method used: Electronically to [facility] (retail) [address] [place] [address] RxID: [id number] HCL 200 MG ORAL TABLET (AMIODARONE HCL) take 1 tab PO twice a day #60[Tablet] x 5 Entered and Authorized by: Hany Renteria MD Method used: Electronically to [facility] (retail) [address] [place] [address] RxID: [id number] 800 MG ORAL TABLET (GABAPENTIN) qid #120[Tablet] x 5 Route:ORAL Entered and Authorized by: Hany Renteria MD Method used: Electronically to [facility] (retail) [address] [place] [address] Note to Pharmacy: Route: ORAL; RxID: [id number] 75 0 MG ORAL TABLET (LEVETIRACETAM) 2 tabs po BID #120[Tablet] x 5 Entered and Authorized by: Hany Renteria MD Method used: Electronically to [facility] (retail) [address] [place] [address] RxID: [id number] 32.4 MG ORAL TABLET (PHENOBARBITAL) 2 tabs po BID #120[Tablet] x 5 Entered and Authorized by: Hany Renteria MD Method used: Electronically to [facility] (retail) [address] [place] [address] RxID: [id number] [id number] 75 MG ORAL TABLET (CLOPIDOGREL BISULFATE) 1 tab PO every day #30[Tablet] x 5 Entered and Authorized by: Hany Renteria MD Method used: Electronically to [facility] (retail) [address] [place] [address] RxID: [id number] CHLORIDE ADELE ER 10 MEQ ORAL TABLET EXTENDED RELEASE (POTASSIUM CHLORIDE ADELE ER) bid #60[Tablet] x 5 Route:ORAL Entered and Authorized by: Hany Renteria MD Method used: Electronically to [facility] (retail) [address] [place] [address] Note to Pharmacy: Route: ORAL; RxID: [id number] signed by Hany Renteria MD on 06/14/2020 at 10:38 AM Review of Systems General: Denies chills, fever. Cardiovascular: Denies chest pain. Respiratory: Complains of see HPI, cough, shortness of breath. Denies excessive sputum. Assessment & Plan Name Value Range Interpretation Code Description Data Maren rce(s) Supporting Document(s) ID Date Data Source [id number] 05/02/2020 12:00:00 AM EDT [facility] Name Value Range Interpretation Code Description Data Maren rce(s) Supporting Document(s) SARS CORONAVIRUS 2 RNA [facility] This lab was ordered by [facility] and reported by [facility]. ID Date Data Source [id number] 04/29/2020 04:57:25 PM EDT [facility] Measurements & CalculationsHeight: 65 inches (5 ft. 5 in.) 165.10 cm Weight: 193 pounds 87.73 kg Body Mass Index (BMI): 32.23BMI Interpretation: ObeseBody Surface Area (BSA): 1.95Weight Management Education Done (Nutrition/Physical Activity)Vital SignsTemperature: 97.3FPulse Rate: 65 beats/minuteRespiratory Rate: 18 respirations/minuteBlood Pressure: 101/70 O2 Saturation: 97% Vital Signs performed by: Uzma Herrera MA, April 29, 2020 4:58 PMInitial Intake Information From: patientRoom #: 13Infectious Disease / Travel ScreeningRecent travel for you or any close contacts? NoHave you had any close contact with anyone diagnosed with or under investigation for COVID-19 (coronavirus)? NoFever? NoRespiratory symptoms: cough, cold, congestion, shortness of breath, difficulty breathing? NoLoss of smell? NoLoss of taste? NoSmoking, Tobacco, Vaping or Smoke Exposure StatusSmoke Status: current every day smokerTobacco Use: YesAdv to Quit: YesDo you vape? NoHealthcare HistorySince your last office visit...Have you been admitted to the hospital? NoHave you been to an emergency room (ER) or urgent care clinic? No - [facility] and [facility] and hit eyeEmergency room (ER) or urgent care date reported today: 07/28/2019Have you seen another healthcare provider? Yes - [facility] pulmonary, neuroHave you seen a dentist? Yes - NOCODental exam date reported today: 2009Intake performed by: Uzma Herrera MA, April 29, 2020 4:59 PMRate Your HealthIn general, would you say your health is? PoorPain AssessmentAre you currently having any pain which... You would like your provider to address? No Affects your activity level? NoDepression Screening - PHQ-2Over the last two weeks, have you... Had little interest or pleasure in doing things? Not at all Been feeling down, depressed, or hopeless? Not at all PHQ-2 Score: 0Anxiety Screening - BAO-2Over the last two weeks, have you been... Feeling nervous, anxious, or on edge? Not at all Unable to stop or control worrying? Not at all BAO-2 Score: 0Screening, Brief Intervention, & Referral to Treatment (SBIRT)Pre-Screening Questions How many times have you have 5 or more drinks in a day? 0How many times have you used an illegal drug or used a prescription medication for a non-medical reason? 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 Advised to Quit/Tobacco Education: YesChief ComplaintmedsHistory of Present Illness (HPI)IIvett MA, am scribing for, and in the presence of, Fanny Bautista DO.49 y/o male pt comes into office for medication refills. Pt reports fatigue even while taking B-12 5000mcg. Reports wet mucus cough. Bringing up green to black mucus. Transitions of Care InboundProblem ReviewProblem List was reviewed and/or updated during this visit.Medication Reconciliation & ReviewMedication List was reviewed and/or updated during this visit, including review of any ougc-fdy-viawzvn medications, herbal therapies, and/or supplements.Allergy ReviewAllergy List was reviewed and/or updated during this visit.Adult Preventive CareProvider Calculated and Reviewed all Clinical Protocols for patient today. Screening Tobacco Screening: Smoking Status: current every day smoker (04/29/2020) Tobacco Use: Currently (04/29/2020) Advised to Quit: Yes (04/29/2020)Labs/Meds/Other Counseling-Nutrition and Physical Activity:BMI Interpretation: Obese (04/29/2020) Counseling: Done (04/29/2020) Physical Activity: Done (04/29/2020)Cancer Screening Colorectal Screening: Patient refused colorectal screeningReview of Systems General: Complains of fatigue. Physical ExamGeneral Appearance: well nourished, well hydrated, no acute distressRespiratory, Auscultation: scattered rhon chiRespiratory, Effort: no intercostal retractions or use of accessory musclesCardiovascular, Auscultation: S1, S2 audible; no murmur, rub, or gallop; RRRGait & Station: normalOrientation: oriented to time, place, and personMood & Affect: no depression, anxiety, or agitationJudgment & Insight: intactCare Management Plan Transitions of CareInboundRate Your HealthIn general, would you say your health is? PoorAssessment & Plan Problems:Added: Acute exacerbation of chronic obstructive airways disease (ICD-491.21) (KTQ20-M84.1)Assessed:Malaise and fatigue (ICD-780.79) (TIT24-G68.81) Assessment: B12 shotscheck labsAssessment not SavedAcute exacerbation of chronic obstructive airways disease (BPC47-V65.1): zithromAxMedications:AZITHROMYCIN 500 MG ORAL TABLETCYCLOBENZAPRINE HCL 10 MG ORAL TABLETCYANOCOBALAMIN 1000 MCG/ML INJECTION SOLUTIONB-12 5000 MCG SUBLINGUAL TABLET SUBLINGUALCEPACOL INSTAMAX 15-20 MG MOUTH/THROAT LOZENGECEFDINIR 300 MG ORAL CAPSULELYRICA 150 MG ORAL CAPSULEBLOOD PRESSURE MONITOR/ARM DEVICECHERATUSSIN AC 100-10 MG/5ML ORAL SYRUPAZITHROMYCIN 500 MG ORAL TABLETIPRATROPIUM-ALBUTEROL 0.5-2.5 (3) MG/3ML INHALATION SOLUTIONTESSALON PERLES 100 MG ORAL CAPSULEFLONASE ALLERGY RELIEF 50 MCG/ACT NASAL SUSPENSIONKEPPRA 750 MG ORAL TABLETTRAZODONE HCL 100 MG ORAL TABLETTRULICITY 1.5 MG/0.5ML SUBCUTANEOUS SOLUTION PEN-INJECTORADMELOG SOLOSTAR 100 UNIT/ML SUBCUTANEOUS SOLUTION PEN-INJECTORATORVASTATIN CALCIUM 10 MG ORAL TABLETXARELTO 20 MG ORAL TABLETPOTASSIUM CHLORIDE ADELE ER 10 MEQ ORAL TABLET EXTENDED RELEASELORADAMED 10 MG ORAL TABLETGABAPENTIN 800 MG ORAL TABLETSERTRAL INE HCL 50 MG ORAL TABLETFOLIC ACID 1 MG ORAL TABLETNUBULIZER MACHINEHARD SHELL BACK BRACEFREESTYLE LANCETSFREESTYLE LITE TEST IN VITRO STRIPFREESTYLE LITE DEVICESTANDARD TENS DEVICEALCOHOL PREP 70 % PADADJUSTABLE ALUMINUM CANE 7/8"BD INSULIN SYRINGE ULTRAFINE 31G X 15/64" 0.5 MLASPIRIN EC 81 MG ORAL TABLET DELAYED RELEASEAMIODARONE HCL 200 MG ORAL TABLETRANITIDINE HCL 150 MG ORAL TABLETAMLODIPINE BESYLATE 10 MG ORAL TABLETLISINOPRIL 20 MG ORAL TABLETMETFORMIN HCL 1000 MG ORAL TABLETCLOPIDOGREL BISULFATE 75 MG ORAL TABLETIBUPROFEN 600 MG ORAL TABLET (IBUPROFEN)FUROSEMIDE 40 MG ORAL TABLETPHENOBARBITAL 32.4 MG ORAL TABLETMedication Changes:New Prescription:CYANOCOBALAMIN 1000 MCG/ML INJECTION SOLUTION-one ml IM q1-2 weeks Qty: 1[Milliliter] Refills: 12 Method: ElectronicCYCLOBENZAPRINE HCL 10 MG ORAL TABLET-one tab po TID prn muscle spasm Qty: 30[Tablet] Refills: 1 Method: ElectronicAZITHROMYCIN 500 MG ORAL TABLET-one tab po QD X 3d Qty: 3[Tablet] Refills: 0 Method: Electron icAllergies:PENICILLIN (Moderate)MUSHROOMS (Mild)* SEASONAL (Mild)Orders:Adult - Ofc Vst, EST, Level III [CPT-00008] VITAMIN B-12 [CPT-23350] TSH [CPT-62108] T3 Total [CPT-71336] T4 [CPT-23106] Thyroid Peroxidase Antibody [CPT_86376] Thyroglobulin antibody [CPT-51215] O'Brien [CPT-82932] Caleb-Pantoja (EB) virus, nuclear antigen (EBNA) Antibody [CPT-12825] Name Value Range Interpretation Code Description Data Maren rce(s) Supporting Document(s) ID Date Data Source [id number] 04/16/2020 10:43:15 AM EDT [facility] Measurements & CalculationsHeight: 65 inches (5 ft. 5 in.) 165.10 cm Weight: 193 pounds 2 oz. 87.79 kg Body Mass Index (BMI): 32.25BMI Interpretation: ObeseBody Surface Area (BSA): 1.95Vital SignsTemperature: 97.6F oral Pulse Rate: 51 beats/minuteRespiratory Rate: 18 respirations/minuteBlood Pressure: 95/56 right arm laying automaticO2 Saturation: 100% room airVital Signs performed by: Fidel Davis MA, April 16, 2020 10:52 AMInitial Intake Information From: patientRoom #: 11Infectious Disease / Travel ScreeningRecent travel for you or any close contacts? NoHave you had any close contact with anyone diagnosed with or under investigation for COVID-19 (coronavirus)? NoFever? NoRespiratory symptoms: cough, cold, congestion, shortness of breath, difficulty breathing? NoLoss of smell? NoLoss of taste? NoSmoking, Tobacco, Vaping or Smoke Exposure StatusSmoke Status: current every day smokerTobacco Use: YesAdv to Quit: YesDo you vape? NoPassive Smoke Exposure: YesHealthcare HistorySince your last office visit...Have you been admitted to the hospital? NoHave you been to an emergency room (ER) or urgent care clinic? NoHave you seen another healthcare provider? Yes - [facility], neuroHave you seen a dentist? Yes - NOCOIntake performed by: Fidel Davis MA, April 16, 2020 10:45 AMRate Your HealthIn general, would you say your health is? PoorPain AssessmentAre you currently having any pain which... You would like your provider to address? Yes Affects your activity level? YesDepression Screening - PHQ-2Over the last two weeks, have you... Had little interest or pleasure in doing things? Not at all Been feeling down, depressed, or hopeless? Not at all PHQ-2 Score: 0Anxiety Screening - BAO-2Over the last two weeks, have you been... Feeling nervous, anxious, or on edge? Not at all Unable to stop or control worrying? Not at all BAO-2 Score: 0Food InsecurityWithin the past year...Did you worry whether your food would run out before you got money to buy more? NoWas there a time when the food you bought didn't last and you didn't have money to get more? NoPain AssessmentPain ScaleNumeric Rating Scale: 8 / 10Location: lower backDuration: chronicFrequency: DailyCharacter/Quality: sharp and stabbingIs the pain radiating? NoScreening, Brief Intervention, & Referral to Treatment (SBIRT)Pre-Screening Questions How many times have you have 5 or more drinks in a day? 0How many times have you used an illegal drug or used a prescription medication for a non-medical reason? 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 Advised to Quit/Tobacco Education: YesChief Complaintmed f/u RM 11 History of Present Illness (HPI)49 yr old male Pt here today for medication F/U for strep throat. Pt states he has chronic back pain. Pt states he is taking all medications with no side effects. Throat still a little sore, very low in energy. BP noted to be low, may need med adjustment if B12 does't helpTransitions of Care InboundAdult Preventive CareProvider Calculated and Reviewed all Clinical Protocols for patient today. Screening Tobacco Screening: Smoking Status: current every day smoker (04/16/2020) Tobacco Use: Currently (04/16/2020) Advised to Quit: Yes (04/16/2020)Review of Systems General: Complains of chills. Ears/Nose/Throat: Complains of sore throat. Cardiovascular: Denies chest pain, palpitations, feeling faint, trouble breathing w/exertion, SOB upon lying down, SOB at night, peripheral edema, el evated blood pressure, decreased heart rate. Respiratory: Denies cough, difficulty breathing, shortness of breath, excessive sputum, coughing up blood, wheezing, chest pain. Physical ExamGeneral Appearance: well nourished, well hydrated, no acute distressPharynx: throat sl. redRespiratory, Auscultation: clear to auscultation bilaterally; no rales, rhonchi, or wheezesRespiratory, Effort: no intercostal retractions or use of accessory musclesGait & Station: uses walkerOrientation: oriented to time, place, and personMood & Affect: no depression, anxiety, or agitationJudgment & Insight: intactCare Management Plan Transitions of CareInboundRate Your HealthIn general, would you say your health is? PoorAssessment & Plan Problems:Added: Malaise and fatigue (ICD-780.79) (JXT52-A30.81)Assessment not SavedMalaise and fatigue (ENO00-M16.81): B12 orderedmay need adjustment of BP meds in near futureMedication Changes:New Prescription:B-12 5000 MCG SUBLINGUAL TABLET SUBLINGUAL-one tab SL QD for energy Qty: 1[Bottle] Refills: 5 Method: ElectronicOrders:Adult - Ofc Vst, EST, Level III [CPT-32437] Medications:B-12 5000 MCG SUBLINGUAL TABLET SUBLINGUAL (CYANOCOBALAMIN) one tab SL QD for energy #1[Bottle] x 5 Route:SUBLINGUAL Entered and Authorized by: Chago Bautista DO Method used: Electronically to [facility] (retail) [address] [place] [address] Fax: Note to Pharmacy: Route: SUBLINGUAL; RxID: [id number] signed by Chago Bautista DO on 04/16/2020 at 11:11 AM Name Value Range Interpretation Code Description Data Maren rce(s) Supporting Document(s) ID Date Data Source [id number] 04/09/2020 11:32:28 AM EDT [facility] Measurements & CalculationsHeight: 65 inches (5 ft. 5 in.) 165.10 cm Weight: 191 pounds 2 oz. 86.88 kg Body Mass Index (BMI): 31.92BMI Interpretation: ObeseBody Surface Area (BSA): 1.94Weight Management Education Done (Nutrition/Physical Activity)Vital SignsTemperature: 97.9F oral Pulse Rate: 58 beats/minuteRespiratory Rate: 18 respirations/minuteBlood Pressure: 102/65 right arm sitting automaticO2 Saturation: 96% room airVital Signs performed by: Fidel Davis MA, April 09, 2020 11:47 AMInitial Intake Information From: patientRoom #: 14Infectious Disease / Travel ScreeningRecent travel for you or any close contacts? NoHave you had any close contact with anyone diagnosed with or under investigation for COVID-19 (coronavirus)? NoFever? NoRespiratory symptoms: cough, cold, congestion, shortness of breath, difficulty breathing? YesLoss of smell? NoLoss of taste? NoSmoking, Tobacco, Vaping or Smoke Exposure StatusSmoke Status: current every day smokerTobacco Use: YesAdv to Quit: YesDo you vape? NoPassive Smoke Exposure: YesHealthcare HistorySince your last office visit...Have you been admitted to the hospital? NoHave you been to an emergency room (ER) or urgent care clinic? NoHave you seen another healthcare provider? Yes - [facility].Have you seen a dentist? Yes - NCFHCIntake performed by: Fidel Davis MA, April 09, 2020 11:35 AMRate Your HealthIn general, would you say your health is? PoorPain AssessmentAre you currently having any pain which... You would like your provider to address? Yes Affects your activity level? YesDepression Screening - PHQ-2Over the last two weeks, have you... Had little interest or pleasure in doing things? Not at all Been feeling down, depressed, or hopeless? Not at all PHQ-2 Score: 0Anxiety Screening - BAO-2Over the last two weeks, have you been... Feeling nervous, anxious, or on edge? Not at all Unable to stop or control worrying? Not at all BAO-2 Score: 0Food InsecurityWithin the past year...Did you worry whether your food would run out before you got money to buy more? NoWas there a time when the food you bought didn't last and you didn't have money to get more? NoPain AssessmentPain ScaleNumeric Rating Scale: 10 / 10Location: lower backDuration: chronicFrequency: DailyCharacter/Quality: sharp and stabbingIs the pain radiating? NoScreening, Brief Intervention, & Referral to Treatment (SBIRT)Pre- Screening Questions How many times have you have 5 or more drinks in a day? 0How many times have you used an illegal drug or used a prescription medication for a non-medical reason? 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 Advised to Quit/Tobacco Education: YesChief Complaintsore throat/ cough/ cold symptoms RM 14 History of Present Illness (HPI)49 yr old male Pt here today with complaints of back pain, cough sore throat and cold symptoms. Pt states he is taking all medications with no side effects. c/o sore throat and cough with yellow phlegm. Some fever.Transitions of Care InboundProblem ReviewProblem List was reviewed and/or updated during this visit.Medication Reconciliation & ReviewMedication List was reviewed and/or updated during this visit, including review of any fjac-nmu-wwmeadk medications, herbal therapies, and/or supplements.Allergy ReviewAllergy List was reviewed and/or updated during this visit.Adult Preventive CareProvider Calculated and Reviewed all Clinical Protocols for patient today. Screening Tobacco Screening: Smoking Status: current every day smoker (04/09/2020) Tobacco Use: Currently (04/09/2020) Advised to Quit: Yes (04/09/2020)Labs/Meds/Other Counseling-Nutrition and Physical Activity:BMI Inter pretation: Obese (04/09/2020) Counseling: Done (04/09/2020) Physical Activity: Done (04/09/2020)Review of Systems General: Complains of chills, fever. Denies loss of appetite, dizziness, fatigue, continued fever, headache, feeling ill, sweats, night sweats, sleep disturbances, weight loss. Cardiovascular: Denies chest pain, palpitations, feeling faint, trouble breathing w/exertion, SOB upon lying down, SOB at night, peripheral edema, elevated blood pressure, decreased heart rate. Respiratory: Complains of cough. Physical ExamGeneral Appearance: well nourished, well hydrated, no acute distressPharynx: beefy redRespiratory, Auscultation: moderate rhonchiRespiratory, Effort: no intercostal retractions or use of accessory musclesCardiovascular, Auscultation: S1, S2 audible; no murmur, rub, or gallop; RRRGait & Station: normalOrientation: oriented to time, place, and personMood & Affect: no depression, anxiety, or agitationJudgment & Insight: intactCare Management Plan Transitions of CareInboundRate Your HealthIn general, would you say your health is? PoorAssessment & Plan Problems:Added: Streptococcal sore throat (ICD-034.0) (KTJ86-N49.0)Assessment not SavedStreptococcal sore throat (XYO42-I38.0): cefdinir and cepacolMedications:CEPACOL INSTAMAX 15-20 MG MOUTH/THROAT LOZENGECEFDINIR 300 MG ORAL CAPSULELYRICA 150 MG ORAL CAPSULEBLOOD PRESSURE MONITOR/ARM DEVICECHERATUSSIN AC 100-10 MG/5ML ORAL SYRUPAZITHROMYCIN 500 MG ORAL TABLETIPRATROPIUM-ALBUTEROL 0.5-2.5 (3) MG/3ML INHALATION SOLUTIONTESSALON PERLES 100 MG ORAL CAPSULEFLONASE ALLERGY RELIEF 50 MCG/ACT NASAL SUSPENSIONKEP PRA 750 MG ORAL TABLETTRAZODONE HCL 100 MG ORAL TABLETTRULICITY 1.5 MG/0.5ML SUBCUTANEOUS SOLUTION PEN-INJECTORADMELOG SOLOSTAR 100 UNIT/ML SUBCUTANEOUS SOLUTION PEN-INJECTORATORVASTATIN CALCIUM 10 MG ORAL TABLETXARELTO 20 MG ORAL TABLETPOTASSIUM CHLORIDE ADELE ER 10 MEQ ORAL TABLET EXTENDED RELEASELORADAMED 10 MG ORAL TABLETGABAPENTIN 800 MG ORAL TABLETSERTRALINE HCL 50 MG ORAL TABLETFOLIC ACID 1 MG ORAL TABLETNUBULIZER MACHINEHARD SHELL BACK BRACEFREESTYLE LANCETSFREESTYLE LITE TEST IN VITRO STRIPFREESTYLE LITE DEVICESTANDARD TENS DEVICEALCOHOL PREP 70 % PADADJUSTABLE ALUMINUM CANE 7/8"BD INSULIN SYRINGE ULTRAFINE 31G X 15/64" 0.5 MLASPIRIN EC 81 MG ORAL TABLET DELAYED RELEASEAMIODARONE HCL 200 MG ORAL TABLETRANITIDINE HCL 150 MG ORAL TABLETAMLODIPINE BESYLATE 10 MG ORAL TABLETLISINOPRIL 20 MG ORAL TABLETMETFORMIN HCL 1000 MG ORAL TABLETCLOPIDOGREL BISULFATE 75 MG ORAL TABLETIBUPROFEN 600 MG ORAL TABLET (IBUPROFEN)FUROSEMIDE 40 MG ORAL TABLETPHENOBARBITAL 32.4 MG ORAL TABLETMedication Changes:Refilled:RANITIDINE HCL 150 MG ORAL TABLET-1 tab PO BID daily Qty: 60 Refills: 5 Method: Print then Give to PatientRANITIDINE HCL 150 MG ORAL TABLET-1 tab PO BID daily Qty: 60 Refills: 5 Method: Print then Give to PatientNew Prescription:CEFDINIR 300 MG ORAL CAPSULE-2 tabs po QD X 15 days Qty: 30[Capsule] Refills: 0 Method: ElectronicCEPACOL INSTAMAX 15-20 MG MOUTH/THROAT LOZENGE-dissolve lozenge slowly as needed Qty: 18[Lozenge] Refills: 5 Method: ElectronicAllergies:PENICILLIN (Moderate)MUSHROOMS (Mild)* SEASONAL (Mild)Orders:Adult - Ofc Vst, EST, Level III [CPT-93622] E lectronically signed by Chago Bautista DO on 04/09/2020 at 12:41 PM Name Value Range Interpretation Code Description Data Maren rce(s) Supporting Document(s) ID Date Data Source [id number] 04/01/2020 11:11:35 AM EDT [facility] Measurements & CalculationsHeight: 65 inches 165.10 cm Weight: 193.6 pounds 88 kg Body Mass Index (BMI): 32.33BMI Interpretation: ObeseBody Surface Area (BSA): 1.95Vital SignsTemperature: 98.7F oral Pulse Rate: 61 beats/minuteRespiratory Rate: 20 respirations/minuteBlood Pressure: 109/57 right arm sitting automaticO2 Saturation: 97% room airInitial Intake Information From: ptRoom #: 14Infectious Disease / Travel ScreeningRecent travel for you or any close contacts? NoHave you had any close contact with anyone diagnosed with or under investigation for COVID-19 (coronavirus)? NoFever? NoRespiratory symptoms: cough, cold, congestion, shortness of breath, difficulty breathing? NoLoss of smell? NoLoss of taste? NoSmoking, Tobacco, Vaping or Smoke Exposure StatusSmoke Status: current every day smokerTobacco Use: YesDo you vape? NoPassive Smoke Exposure: YesHealthcare HistorySince your last office visit...Have you been admitted to the hospital? NoHave you been to an emergency room (ER) or urgent care clinic? NoHave you seen another healthcare provider? NoHave you seen a dentist? NoIntake performed by: Abdulaziz Burciaga MA, April 01, 2020 11:13 AMRate Your HealthIn general, would you say your health is? PoorPain AssessmentAre you currently having any pain which... You would like your provider to address? Yes Affects your activity level? YesDepression Screening - PHQ-2Over the last two weeks, have you... Had little interest or pleasure in doing things? Not at all Been feeling down, depressed, or hopeless? Not at all PHQ-2 Score: 0Anxiety Screening - BAO-2Over the last two weeks, have you been... Feeling nervous, anxious, or on edge? Not at all Unable to stop or control worrying? Not at all BAO-2 Score: 0Screening, Brief Intervention, & Referral to Treatment (SBIRT)Pre- Screening Questions How many times have you have 5 or more drinks in a day? 0How many times have you used an illegal drug or used a prescription medication for a non-medical reason? 0Performed by: Abdulaziz Burciaga MA, April 01, 2020 11:14 AMPatient History Medical History:COPD Emphysemaheart problemsseizuresdiabeteslow Kchronic pain high cholesterol asthma TOF9 tetrology of fallot cardiac arrythmia sudden / sp pacer defrillatior placed HypertensionSurgical History:Left testicle removed due to CAPace Maker defib 10/03/07Back Surgery (right lower lumbar disc emoved) 2002Aortic valve replaced 1974Triple and quadraple heart bipassFamily History:Sister-Irregular heart beatH eart disease (Father)Diabetes - Type II (Mother)Social/Personal History:Passive smoke exposure - yesAlcohol Use - yesDrug Use - noHIV/High Risk - noRegular Exercise - noSmoking History:Patient currently smokes every day. Chief Complaintpain on left side only. History of Present Illness (HPI)I, Abdulaziz Burciaga MA, am scribing for, and in the presence of, Chago Bautista DO pt is here today because yesterday he felt as though he was having electric shocks up and down his left side. pt tates he has been having problem ever since he has had the nerve conduction test. pt states he drops coffee and cigarettes often. pt states that his hand will go numb on his right side. pt states he had the nerve study on the R side. pt states the pain lasted about 10-30 seconds. pt states the pain he had yesterday felt the same as when he had the nerve test. DO states that pt may have had an "aftershock" from the nerve test. DO states thatDO states that the pt will get a CT done of the brain. Pt states he wants A FULL COMPLETE MEDICAL EXAM DONE TO MAKE SURE HE IS OK. Problem ReviewProblem List was reviewed and/or updated during this visit.Medication Reconciliation & ReviewMedication List was reviewed and/or updated during this visit, including review of any drvp-rmx-waeuhll medications, herbal therapies, and/or supplements.Allergy ReviewAllergy List was reviewed and/or updated during this visit.Review of Systems General: Denies loss of appetite, chills, dizziness, fatigue, fever, continued fever, headache, feeling ill, sweats, night sweats, sleep disturbances, weight loss. Cardiovascular: Denies chest pain, palpitations, feeling faint, trouble breathing w/exertion, SOB upon lying down, SOB at night, peripheral edema, elevated blood pressure, decreased heart rate. Respiratory: Denies cough, difficulty breathing, shortness of breath, excessive sputum, coughing up blood, wheezing, chest pain. Skin: Complains of suspicious lesions. Physical ExamGeneral Appearance: well nourished, well hydrated, no acute distressRespiratory, Auscultation: clear to auscultation bilaterally; no rales, rhonchi, or wheezesRespiratory, Effort: no intercostal retractions or use of accessory musclesCardiovascular, Auscultation: S1, S2 audible; no murmur, rub, or gallop; RRRGait & Station: normalSkin, Inspection: large venereal wart left groinCranial Nerves: II - XII grossly intactSensation: normal and symmetric perception of pinprick, light touch, proprioception, and vibrationDeep Tendon Reflexes: 2+, symmetric, no pathological reflexesMotor, Tone, & Strength: normal tone and muscle bulk with no pronator drift; no atrophy or fasciculations present; strength 5/5 throughoutOrientation: oriented to time, place, and personMood & Affect: no depression, anxiety, or agitationJudgment & Insight: intactRate Your HealthIn general, would you say your health is? PoorAssessment & Plan Problems:Added: Spinal stenosis in cervical region (ICD-723.0) (ICD10- M48.02)Peripheral neuropathy (ICD-356.9) (HGZ55-H49.9) Assessment: CT head orderedAssessment not SavedSpinal stenosis in cervical region (KFG88-U24.02): try lyrica again, hold gabapentinMedications:LYRICA 150 MG ORAL CAPSULEBLOOD PRESSURE MONITOR/ARM DEVICECHERATUSSIN AC 100-10 MG/5ML ORAL SYRUPAZITHROMYCIN 500 MG ORAL TABLETIPRATROPIUM-ALBUTEROL 0.5-2.5 (3) MG/3ML INHALATION SOLUTIONTESSALON PERLES 100 MG ORAL CAPSULEFLONASE ALLERGY RELIEF 50 MCG/ACT NASAL SUSPENSIONKEPPRA 750 MG ORAL TABLETTRAZODONE HCL 100 MG ORAL TABLETTRULICITY 1.5 MG/0.5ML SUBCUTANEOUS SOLUTION PEN-INJECTORADMELOG SOLOSTAR 100 UNIT/ML SUBCUTANEOUS SOLUTION PEN-INJECTORATORVASTATIN CALCIUM 10 MG ORAL TABLETXARELTO 20 MG ORAL TABLETPOTASSIUM CHLORIDE ADELE ER 10 MEQ ORAL TABLET EXTENDED RELEASELORADAMED 10 MG ORAL TABLETGABAPENTIN 800 MG ORAL TABLETSERTRALINE HCL 50 MG ORAL TABLETFOLIC ACID 1 MG ORAL TABLETNUBULIZER MACHINEHARD SHELL BACK BRACEFREESTYLE LANCETSFREESTYLE LITE TEST IN VITRO STRIPFREESTYLE LITE DEVICESTANDARD TENS DEVICEALCOHOL PREP 70 % PADADJUSTABLE ALUMINUM CANE 7/8"BD INSULIN SYRINGE ULTRAFINE 31G X 15/64" 0.5 MLASPIRIN EC 81 MG ORAL TABLET DELAYED RELEASEAMIODARONE HCL 200 MG ORAL TABLETRANITIDINE HCL 150 MG ORAL TABLETAMLODIPINE BESYLATE 10 MG ORAL TABLETLISINOPRIL 20 MG ORAL TABLETMETFORMIN HCL 1000 MG ORAL TABLETCLOPIDOGREL BISULFATE 75 MG ORAL TABLETIBUPROFEN 600 MG ORAL TABLET (IBUPROFEN)FUROSEMIDE 40 MG ORAL TABLETPHENOBARBITAL 32.4 MG ORAL TABLETMedication Changes:Refilled:LISINOPRIL 20 MG ORAL TABLET-1 tab PO twice a day Qty: 60[Tablet] Refills: 5 Method: ElectronicNew Prescription:LYRICA 150 MG ORAL CAPSULE-one tab po BID, hold gabapentin while on this Qty: 60[Capsule] Refills: 0 Method: ElectronicAllergies:PENICILLIN (Moderate)MUSHROOMS (Mild)* SEASONAL (Mild)Orders:Neurology Consult [CPT-24431] Adult - Ofc Vst, EST, Level III [CPT- 74510] CT HEAD/BRAIN W/O CONTRAST MATERIAL [CPT-52240] Name Value Range Interpretation Code Description Data Maren rce(s) Supporting Document(s) ID Date Data Source [id number] 03/18/2020 11:07:20 AM EDT [facility] Vital SignsTemperature: 98.5F oral Pulse Rate: 56 beats/minuteRespiratory Rate: 18 respirations/minuteBlood Pressure: 86/47 left arm sitting automaticO2 Saturation: 99% room airVital Signs performed by: Fidel Davis MA, March 18, 2020 11:23 AMInitial Intake Information from: [facility] #: 14Smoking, Tobacco, Vaping or Smoke Exposure StatusSmoke Status: current every day smokerTobacco Use: YesDo you vape? NoPassive Smoke Exposure: YesHealthcare HistorySince your last office visit...Have you been admitted to the hospital? NoHave you been to an emergency room (ER) or urgent care clinic? NoHave you seen another healthcare provider? NoHave you seen a dentist? NoIntake performed by: Chago Bautista DO, March 18, 2020 11:08 AMRate Your HealthIn general, would you say your health is? PoorPain AssessmentAre you currently having any pain which... You would like your provider to address? Yes Affects your activity level? YesDepression Screening - PHQ-2Over the last two weeks, have you... Had little interest or pleasure in doing things? Not at all Been feeling down, depressed, or hopeless? Not at all PHQ-2 Score: 0Anxiety Screening - BAO-2Over the last two weeks, have you been... Feeling nervous, anxious, or on edge? Not at all Unable to stop or control worrying? Not at all BAO-2 Score: 0Infectious Disease / Travel Scre eningRecent travel for you or any close contacts? NoHave you had any close contact with anyone diagnosed with or under investigation for COVID-19 (coronavirus)? NoHave you had any of the following symptoms recently? Fever? NoRespiratory symptoms: cough, cold, congestion, shortness of breath, difficulty breathing? NoScreening, Brief Intervention, & Referral to Treatment (SBIRT)Pre- Screening Questions How many times have you have 5 or more drinks in a day? 0How many times have you used an illegal drug or used a prescription medication for a non-medical reason? 0Performed by: Chago Bautista DO, March 18, 2020 11:08 AMPatient History Medical History:COPD Emphysemaheart problemsseizuresdiabeteslow Kchronic pain high cholesterol asthma TOF9 tetrology of fallot cardiac arrythmia sudden / sp pacer defrillatior placed HypertensionSurgical History:Left testicle removed due to CAPace Maker defib 10/03/07Back Surgery (right lower lumbar disc emoved) 2002Aortic valve replaced 1974Triple and quadraple heart bipassFamily History:Sister-Irregular heart beatHeart disease (Father)Diabetes - Type II (Mother)Social/Personal History:Passive smoke exposure - yesAlcohol Use - yesDrug Use - noHIV/High Risk - noRegular Exercise - noSmoking History:Patient currently smokes every day. Chief Complaintpt is here today for a growth on the left legHistory of Present Illness (HPI)IAbdulaziz MA, am scribing for, and in the presence of, Chago Bautista, pt states that he has a cough still it keeps him up at night. DO states that pt still has heavy bronchitis. DO will renew pt's tessalon pearles. Problem ReviewProblem List was reviewed and/or updated during this visit.Medication Reconciliation & ReviewMedication List was reviewed and/or updated during this visit, including review of any mfko-ifu-wcofqqv medications, herbal therapies, and/or supplements.Allergy ReviewAllergy List was reviewed and/or updated during this visit.Review of Systems General: Denies loss of appetite, chills, dizziness, fatigue, fever, continued fever, headache, feeling ill, sweats, night sweats, sleep disturbances, weight loss. Respiratory: Complains of cough. Genitourinary: Complains of genital warts. Musculoskeletal: Complains of back pain. Physical ExamGeneral Appearance: well nourished, well hydrated, no acute distressRespiratory, Auscultation: bilat rhonchiRespiratory, Effort: no intercostal retractions or use of accessory musclesCardiovascular, Auscultation: S1, S2 audible; no murmur, rub, or gallop; RRRGait & Station: uses wheelchairSkin, Inspection: large venereal wart left groinOrientation: oriented to time, place, and personMood & Affect: no depression, anxiety, or agitationJudgment & Insight: intactRate Your HealthIn general, would you say your health is? PoorAssessment & Plan Problems:Added: Condyloma acuminatum of the anogenital region (ICD-078.11) (SFZ11-U43.0) Assessment: refer to gynAssessed:Cough (ICD-786.2) (OYF93-E44) Assessment: add codeine cough syrupAssessment not Saved Condyloma acuminatum of the anogenital region (KDE90-Q21.0): Comment Onlyrefer to gynMedications:BLOOD PRESSURE MONITOR/ARM DEVICECHERATUSSIN AC 100-10 MG/5ML ORAL SYRUPAZITHROMYCIN 500 MG ORAL TABLETIPRATROPIUM-ALBUTEROL 0.5-2.5 (3) MG/3ML INHALATION SOLUTIONTESSALON PERLES 100 MG ORAL CAPSULEFLONASE ALLERGY RELIEF 50 MCG/ACT NASAL SUSPENSIONKEPPRA 750 MG ORAL TABLETTRAZODONE HCL 100 MG ORAL TABLET TRULICITY 1.5 MG/0.5ML SUBCUTANEOUS SOLUTION PEN-INJECTORADMELOG SOLOSTAR 100 UNIT/ML SUBCUTANEOUS SOLUTION PEN-INJECTORATORVASTATIN CALCIUM 10 MG ORAL TABLETXARELTO 20 MG ORAL TABLETPOTASSIUM CHLORIDE ADELE ER 10 MEQ ORAL TABLET EXTENDED RELEASELORADAMED 10 MG ORAL TABLETGABAPENTIN 800 MG ORAL TABLETSERTRALINE HCL 50 MG ORAL TABLETFOLIC ACID 1 MG ORAL TABLETNUBULIZER MACHINEHARD SHELL BACK BRACEFREESTYLE LANCETSFREESTYLE LITE TEST IN VITRO STRIPFREESTYLE LITE DEVICESTANDARD TENS DEVICEALCOHOL PREP 70 % PADADJUSTABLE ALUMINUM CANE 7/8"BD INSULIN SYRINGE ULTRAFINE 31G X 15/64" 0.5 MLASPIRIN EC 81 MG ORAL TABLET DELAYED RELEASEAMIODARONE HCL 200 MG ORAL TABLETRANITIDINE HCL 150 MG ORAL TABLETAMLODIPINE BESYLATE 10 MG ORAL TABLETLISINOPRIL 20 MG ORAL TABLETMETFORMIN HCL 1000 MG ORAL TABLETCLOPIDOGREL BISULFATE 75 MG ORAL TABLETIBUPROFEN 600 MG ORAL TABLET (IBUPROFEN)FUROSEMIDE 40 MG ORAL TABLETPHENOBARBITAL 32.4 MG ORAL TABLETMedication Changes:Refilled:TESSALON PERLES 100 MG ORAL CAPSULE-take one tablet by mouth three time daily as needed Qty: 30[Capsule] Refills: 3 Method: ElectronicNew Prescription:CHERATUSSIN AC 100-10 MG/5ML ORAL SYRUP-1-2 tsp po qhs prn severe night cough Qty: 8[Ounce] Refills: 0 Method: ElectronicBLOOD PRESSURE MONITOR/ARM DEVICE-use as dir Qty: 1[Device] Refills: 1 Method: ElectronicAllergies:PENICILLIN (Moderate)MUSHROOMS (Mild)* SEASONAL (Mild)Orders:Adult - Ofc Vst, EST, Level III [CPT-64822] Car Customizer [CPT-80505] Name Value Range Interpretation Code Description Data Maren rce(s) Supporting Document(s) ID Date Data Source [id number] 03/12/2020 01:08:45 PM EDT [facility] Measurements & CalculationsHeight: 65 inches 165.10 cm Weight: 199 pounds 90.45 kg Body Mass Index (BMI): 33.24BMI Interpretation: ObeseBody Surface Area (BSA): 1.98Weight Management Education Done (Nutrition/Physical Activity)Vital SignsTemperature: 98.6F oral Pulse Rate: 56 beats/minuteRespiratory Rate: 20 respirations/minuteBlood Pressure: 87/59 right arm sitting automaticO2 Saturation: 94% room airInitial Intake Information from: ptRoo #: [id number], Tobacco, Vaping or Smoke Exposure StatusSmoke Status: current every day smokerTobacco Use: YesAdv to Quit: YesDo you vape? NoPassive Smoke Exposure: YesHealthcare HistorySince your last office visit...Have you been admitted to the hospital? NoHave you been to an emergency room (ER) or urgent care clinic? NoHave you seen another healthcare provider? NoHave you seen a dentist? NoIntake performed by: Abdulaziz Burciaga MA, March 12, 2020 1:11 PMRate Your HealthIn general, would you say your health is? PoorDepression Screening - PHQ-2Over the last two weeks, have you... Had little interest or pleasure in doing things? Not at all Been feeling down, depressed, or hopeless? Not at all PHQ-2 Score: 0Anxiety Screening - BAO-2Over the last two weeks, have you been... Feeling nervous, anxious, or on edge? Not at all Unable to stop or control worrying? Not at all BAO-2 Score: 0Infectious Disease / Travel ScreeningRecent travel for you or any close contacts? NoHave you had any close contact with anyone diagnosed with or under investigation for COVID-19 (coronavirus)? NoHave you had any of the following symptoms recently? Fever? NoRespiratory symptoms: cough, cold, congestion, shortness of breath, difficulty breathing? YesPain AssessmentPain ScaleNumeric Rating Scale: 8 / 10Location: lower back and legsScreening, Brief Intervention, & Referral to Treatment (SBIRT)Pre-Screening Questions How many times have you have 5 or more drinks in a day? 0How many times have you used an illegal drug or used a prescription medication for a non-medical reason? 0Performed by: Abdulaziz Burciaga MA, March 12, 2020 1:12 PMPatient History Medical History:COPD Emphysemaheart problemsseizuresdiabeteslow Kchronic pain high cholesterol asthma TOF9 tetrology of fallot cardiac arrythmia sudden / sp pacer defrillatior p laced HypertensionSurgical History:Left testicle removed due to CAPace Maker defib 10/03/07Back Surgery (right lower lumbar disc emoved) 2002Aortic valve replaced 1974Triple and quadraple heart bipassFamily History:Sister-Irregular heart beatHeart disease (Father)Diabetes - Type II (Mother)Social/Personal History:Passive smoke exposure - yesAlcohol Use - yesDrug Use - noHIV/High Risk - noRegular Exercise - noSmoking History:Patient currently smokes every day. Advised to Quit/Tobacco Education: YesChief ComplaintcoughHistory of Present Illness (HPI)pt states he wakes up in the iddle of the night coughing so bad that he looses his breath. pt states he coughs up blood and sometimes the phlem green yellow sometimes its black. pt states he he is congested at times but he drinks pauline butch he coughs up phlegm and then he is fine for a few hours I, Abdulaziz Burciaga MA, am scribing for, and in the presence of, Chago Bautista, DO pt states he feels as though his cough is dry. pt is coughing up yellow black green or clear phlegm. pt states he has had this cough for awhile ot states its been getting worse for the past two months. pt does have COPD. pt's lungs are junky pt does have bronchitis. pt is allergic to PCN. DO will send in pt Z pack for tn days. Pt will need paperwork filled out for insurance company for pt to get electric wheelchair. DO advised pt to take theraflu for relief of symptoms. Problem ReviewProblem List was reviewed and/or updated during this visit.Medication Reconciliation & ReviewMedication List was reviewed and/or updated during this visit, including review of any nwbs-dwc-phybpar medications, herbal therapies, and/or supplements.Allergy ReviewAllergy List was reviewed and/or updated during this visit.Adult Preventive CareScreening Tobacco Screening: Smoking Status: current every day smoker (03/12/2020) Tobacco Use: Currently (03/12/2020) Advised to Quit: Yes (03/12/2020)Labs/Meds/Other Counseling-Nutrition and Physical Activity:BMI Interpretation: Obese (03/12/2020 ) Counseling: Done (03/12/2020) Physical Activity: Done (03/12/2020)Review of Systems General: Denies loss of appetite, chills, dizziness, fatigue, fever, continued fever, headache, feeling ill, sweats, night sweats, sleep disturbances, weight loss. Cardiovascular: Denies chest pain, palpitations, feeling faint, trouble breathing w/exertion, SOB upon lying down, SOB at night, peripheral edema, elevated blood pressure, decreased heart rate. Respiratory: Complains of cough, difficulty breathing. Denies shortness of breath, excessive sputum, coughing up blood, wheezing, chest pain. Physical ExamGeneral Appearance: well nourished, well hydrated, no acute distress, sickRespiratory, Auscultation: bilat rhonchiRespiratory, Effort: no intercostal retractions or use of accessory musclesCardiovascular, Auscultation: S1, S2 audible; no murmur, rub, or gallop; RRRGait & Station: uses wheelchairOrientation: oriented to time, place, and personMood & Affect: no depression, anxiety, or agitationJudgment & Insight: intactRate Your HealthIn general, would you say your health is? PoorAssessment & Plan Problems:Assessed:Chronic back pain (ICD-724.5) (ICD10- M54.9) Assessment: need hoverroundAssessment not SavedCough (HOF78-U86): zithromaxMedications:AZITHROMYCIN 500 MG ORAL TABLETIPRATROPIUM-ALBUTEROL 0.5- 2.5 (3) MG/3ML INHALATION SOLUTIONTESSALON PERLES 100 MG ORAL CAPSULEFLONASE ALLERGY RELIEF 50 MCG/ACT NASAL SUSPENSIONKEPPRA 750 MG ORAL TABLETTRAZODONE HCL 100 MG ORAL TABLETTRULICITY 1.5 MG/0.5ML SUBCUTANEOUS SOLUTION PEN- INJECTORADMELOG SOLOSTAR 100 UNIT/ML SUBCUTANEOUS SOLUTION PEN- INJECTORATORVASTATIN CALCIUM 10 MG ORAL TABLETXARELTO 20 MG ORAL TABLETPOTASSIUM CHLORIDE ADELE ER 10 MEQ ORAL TABLET EXTENDED RELEASELORADAMED 10 MG ORAL TABLETGABAPENTIN 800 MG ORAL TABLETSERTRALINE HCL 50 MG ORAL TABLETFOLIC ACID 1 MG ORAL TABLETNUBULIZER MACHINEHARD SHELL BACK BRACEFREESTYLE LANCETSFREESTYLE LITE TEST IN VITRO STRIPFREESTYLE LITE DEVICESTANDARD TENS DEVICEALCOHOL PREP 70 % PADADJUSTABLE ALUMINUM CANE 7/8"BD INSULIN SYRINGE ULTRAFINE 31G X 15/64" 0.5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 relevant prior studies available.FINDINGS:Vertebrae: Mild levoconvex scoliosis. No acute fracture seen.Discs/Spinal canal/Neural foramina: Moderate degenerative changes at C1- C2.Disc height loss and spondylosis with uncovertebral arthropathy is moderateat C5-C6 and C6-C7, mild at C4-C5. There is moderate multilevel cervicalfacet arthropathy. Disc osteophyte complex and ligamentum flavum bucklingat C5-C6 causing moderate central spinal canal stenosis. Multilevel neuralforaminal stenoses due to uncovertebral and facet arthropathy, for exampleon the right at C4-C5 and C5-C6. Soft tissues: Unremarkable.Mastoid air cells: The mastoids are chronically underpneumatized. Smallright middle ear cavity as well as trace bilateral mastoid effusions,nonspecific, may reflect eustachian tube dysfunction.Lungs: The lung apices demonstrate air trapping.IMPRESSION: No acute fracture or healing fracture seen.Thank you for allowing us to participate in the care of your patient.Dictated and Authenticated by: Alvina Isbell MD 01/20/2020 2:44 PMEastern Time ([place] & Timothy)Aubrey/Clemencia you for referring MERRICK KATZ to our office. Electronically Signed - WILMAN 01/20/20 14:58 Name Value Range Interpretation Code Description Data Maren rce(s) Supporting Document(s) ID Date Data Source [id number] 01/15/2020 09:57:44 AM [facility] In-House Blood TestsDate/Time Colle cted: January 15, 2020 9:58 AMTest Result Reference Range Normal ValueComments: blood draw done in offcie done in right ac tolerated well Daniel Antony ALVES, January 15, 2020 9:58 AMAssessment & Plan Orders:[id number] Vst-Est Level I [CPT-99749] 85668 - Venipuncture [CPT-98871] Name Value Range Interpretation Code Description Data Maren rce(s) Supporting Document(s) ID Date Data Source [id number] 01/15/2020 09:45:00 AM [facility] Name Value Range Interpretation Code Description Data Maren rce(s) Supporting Document(s) BG FASTING 84 mg/dL 70-100 N [facility] TSH 0.039 microintl units/mL 0.358-3.740 L [facility] ID Date Data Source [id number] 01/15/2020 09:45:00 AM [facility] Name Value Range Interpretation Code Description Data Maren rce(s) Supporting Document(s) HCT 40.4 % 42.0-52.0 L [facility] HGB 13.6 g/dL 13.5-17.5 N [facility] MCH 33.7 G/DL pg 32.0-36.5 [facility] 33.0 PG % 27.0-33.0 N [facility] PLATELETS 144 10 10*3/mm3 150-450 L [facility] RBC 4.12 10 10*6/mm3 4.30-6.10 L [facility] RDW 12.9 % 11.5-14.5 N [facility] WBC TOTAL 10.6 4.0-10.0 H [facility] ID Date Data Source [id number] 01/15/2020 09:45:00 AM [facility] Name Value Range Interpretation Code Description Data Maren rce(s) Supporting Document(s) HGBA1C 5.9 % N [facility] ID Date Data Source [id number] 12/22/2019 03:24:51 PM [facility] Measurements & CalculationsHeight: 65 inches (5 ft. 5 in.) 165.10 cm Weight: 191 pounds 86.82 kg Body Mass Index (BMI): 31.90BMI Interpretation: ObeseBody Surface Area (BSA): 1.94Weight Management Education Done (Nutrition/Physical Activity)Vital SignsTemperature: 98.1FPulse Rate: 60 beats/minuteRespiratory Rate: 17 respirations/minuteBlood Pressure: 95/66 O2 Saturation: 97% Vital Signs performed by: Moni Vigil MA, December 22, 2019 3:34 PMInitial Intake Information from: patientRoom #: 14Infectious Disease- Travel Have you or your sexual partner travelled outside of the country recently? NoSmoking, Tobacco or Smoke Exposure StatusSmoke Status: current every day smokerTobacco Use: YesAdv to Quit: YesPassive Smoke Exposure: YesHealthcare HistorySince your last office visit...Have you been admitted to the hospital? NoHave you been to an emergency room (ER) or urgent care clinic? NoHave you seen another healthcare provider? Yes - cardio, respiratoryHave you seen a dentist? NoIntake performed by: Moni Vigil MA, December 22, 2019 3:28 PMRate Your HealthIn general, would you say your health is? FairPain AssessmentAre you currently having any pain which... You would like your provider to address? No Affects your activity level? NoDepression Screening - PHQ-2Over the last two weeks, have you ... Had little interest or pleasure in doing things? Not at all Been feeling down, depressed, or hopeless? Not at all PHQ-2 Score: 0Anxiety Screening - BAO-2Over the last two weeks, have you been... Feeling nervous, anxious, or on edge? Not at all Unable to stop or control worrying? Not at all BAO-2 Score: 0Screening, Brief Intervention, & Referral to Treatment (SBIRT)Pre- Screening Questions How many times have you have 5 or more drinks in a day? 0How many times have you used an illegal drug or used a prescription medication for a non-medical reason? 0Performed by: Moni Vigil MA, December 22, 2019 3:29 PMPatient History Medical History:COPD Emphysemaheart problemsseizuresdiabeteslow Kchronic pain high cholesterol asthma TOF9 tetrology of fallot cardiac arrythmia sudden / sp pacer defrillatior placed Surgical History:Left testicle removed due to CAPace Maker defib 10/03/07Back Surgery (right lower lumbar disc emoved) 2001Aortic valve replaced 1974Triple and quadraple heart bipassFamily History:Sister-Irregular heart beatSocial/Personal History:Passive smoke exposure - yesAlcohol Use - yesDrug Use - noHIV/High Risk - noRegular Exercise - noSmoking History:Patient currently smokes every day. Smoking Status: current every day smokerAdvised to Quit/Tobacco Education: YesChief ComplaintsickHistory of Present Illness (HPI)49 male patient here today for same day visit. Pt states he had his grandkids over and caught a head cold. Pt states his been sick for two days. Pt states he has coughing, sneezing, runny nose. Pt refused colon screening and FIT test.HPI performed by: Berenice Lizarraga [facility], December 22, 2019 3:42 PMTransitions of Care InboundProblem ReviewProblem List was reviewed and/or updated during this visit.Medication Reconciliation & ReviewMedication List was reviewed and/or updated during this visit, including review of any bxim-elh-blnljwb medications, herbal therapies, and/or supplements.Allergy ReviewAllergy List was reviewed and/or updated during this visit.Adult Preventive CareProvider Calculated and Reviewed all Clinical Protocols for patient today. Screening Tobacco Screening: Smoking Status: current every day smoker (12/22/2019) Advised to Quit: Yes (12/22/2019)Labs/Meds/Other Counseling-Nutrition and Physical Activity:BMI Interpretation: Obese (12/22/2019) Counseling: Done (12/22/2019) Physical Activity: Done (12/22/2019)Cancer Screening Colorectal Screening: Patient refused colorectal screeningColonoscopy Previous Comments: requests referral to colonoscopy (07/18/2019)Today's Comments: pt refusedReview of Systems General: Denies loss of appetite, chills, dizziness, fatigue, fever, continued fever, headache, feeling ill, sweats, night sweats, sleep disturbances, weight loss. Eyes: Denies blurring of vision, double vision, irritation, discharge, vision loss, eye pain, eye swelling, droopy eyelid, sensitivity to light, redness, itching. Ears/Nose/Throat: Complains of nasal congestion, runny nose. Denies earache, ear discharge, ringing in ears, decreased hearing, nosebleeds, sore throat, hoarseness, difficulty swallowing, dry mouth, tooth pain, bleeding gums, swollen glands. Cardiovascular: Denies chest pain, palpitations, feeling faint, trouble breathing w/exertion, SOB upon lying down, SOB at night, peripheral edema, elevated blood pressure, decreased heart rate. Respiratory: Complains of cough. Denies difficulty breathing, shortness of breath, excessive sputum, coughing up blood, wheezing, chest pain. Gastrointestinal: Denies nausea, vomiting, bleeding, burning, itching, irritation, cramps, constipation. Genitourinary: Denies urinary incontinence, pain with urination, burning with urination, urinary frequency, urinary hesitancy, urinary urgency, urinary urgency at night, incomplete emptying, blood in urine. Musculoskeletal: Denies back pain, joint pain, leg pain, joint swelling, body aches, muscle aches, muscle cramps, muscle weakness, stiffness, recent injury. Skin: Denies rash, hives, redness, itching, dryness, nail changes, suspicious lesions, athlete's foot, rash on palms, rash on bottom of feet. Neurologic: Denies muscle impairment, weakness, numbness/tingling, seizures, slurred speech, feeling faint, tremors, vertigo, paralysis on one side, paralysis on both sides. Psychiatric: Denies depression, anxiety, memory loss, mental disturbance, suicidal ideation, homicidal ideation, hallucinations, paranoia, feeling stressed, hearing voices. Endocrine: Denies cold intolerance, heat intolerance, excessive thirst, excessive hunger, excessive urination, weight loss, weight gain. Physical ExamGeneral Appearance: well nourished, well hydrated, no acute distressEyes, External: conjunctivae and lids normal, EOMIOtoscopy: canals clear, tympanic membranes intact, no fluid, light reflex intact bilaterallyNasa l: nares congested bilateralRespiratory, Auscultation: coughing, clear to auscultation bilaterally; no rales, rhonchi, or wheezesRespiratory, Effort: no intercostal retractions or use of accessory musclesCardiovascular, Auscultation: S1, S2 audible; no murmur, rub, or gallop; RRRAbdomen: soft, non-tender, no masses, bowel sounds normalGait & Station: In Wheel chairOrientation: oriented to time, place, and personMood & Affect: no depression, anxiety, or agitationJudgment & Insight: intactCare Management Plan Transitions of CareInboundRate Your HealthIn general, would you say your health is? FairAssessment & Plan Problems:Added: Congestion of nasal sinus (ICD-478.19) (MPA76-N83.81) Assessment: Instructions: We have sent a prescription to your pharmacy today. Please take medication as prescribed. Please report any major side effects. Please try to maintain adequate rest, adequate fluid hydration and good nutrition. Please try to maintain good hand hygiene.Cough (ICD-786.2) (VWJ09-J61) Assessment: Instructions: We have sent a prescription to your pharmacy today. Please take medication as prescribed. Please report any major side effects. Please try to maintain adequate rest, adequate fluid hydration and good nutrition. Please try to maintain good hand hygiene.Assessment not Saved Congestion of nasal sinus (KDK52-P90.81): Comment OnlyInstructions: We have sent a prescription to your pharmacy today. Please take medication as prescribed. Please report any major side effects. Please try to maintain adequate rest, adequate fluid hydration and good nutrition. Please try to maintain good hand hygiene.Patient Instructions/Care Plan: Congestion of nasal sinus: We have sent a prescription to your pharmacy today. Please take medication as prescribed. Please report any major side effects. Please try to maintain adequate rest, adequate fluid hydration and good nutrition. Please try to maintain good hand hygiene.Cough: We have sent a prescription to your pharmacy today. Please take medication as prescribed. Please report any major side effects. Please try to maintain adequate rest, adequate fluid hydration and good nutrition. Please try to maintain good hand hygiene. Plan developed in collaboration with patient and/or familyMedications:TESSALON PERLES 100 MG ORAL CAPSULEFLONASE ALLERGY RELIEF 50 MCG/ACT NASAL SUSPENSIONCEFDINIR 300 MG ORAL CAPSULEKEPPRA 750 MG ORAL TABLETTRAZODONE HCL 100 MG ORAL TABLETANORO ELLIPTA 62.5-25 MCG/INH INHALATION AEROSOL POWDER BREATH ACTIVATEDTRULICITY 1.5 MG/0.5ML SUBCUTANEOUS SOLUTION PEN- INJECTORADMELOG SOLOSTAR 100 UNIT/ML SUBCUTANEOUS SOLUTION PEN- INJECTORATORVASTATIN CALCIUM 10 MG ORAL TABLETXARELTO 20 MG ORAL TABLETPOTASSIUM CHLORIDE ADELE ER 10 MEQ ORAL TABLET EXTENDED RELEASELORADAMED 10 MG ORAL TABLETGABAPENTIN 800 MG ORAL TABLETSERTRALINE HCL 50 MG ORAL TABLETFOLIC ACID 1 MG ORAL TABLETNUBULIZER MACHINEAZITHROMYCIN 250 MG ORAL TABLETPREDNISONE 10 MG ORAL TABLETONE DAILY COMPLETE ORAL TABLETHARD SHELL BACK BRACEFREESTYLE LANCETSFREESTYLE LITE TEST IN VITRO STRIPFREESTYLE LITE DEVICESTANDARD TENS DEVICEALCOHOL PREP 70 % PADADJUSTABLE ALUMINUM CANE 7/8"HUMALOG 100 UNIT/ML SUBCUTANEOUS SOLUTIONBD INSULIN SYRINGE ULTRAFINE 31G X 15/64" 0.5 MLHUMULIN R 100 UNIT/ML INJECTION SOLUTIONASPIRIN EC 81 MG ORAL TABLET DELAYED RELEASEAMIODARONE HCL 200 MG ORAL TABLETRANITIDINE HCL 150 MG ORAL TABLETAMLODIPINE BESYLATE 10 MG ORAL TABLETLISINOPRIL 20 MG ORAL TABLETMETFORMIN HCL 1000 MG ORAL TABLETCLOPIDOGREL BISULFATE 75 MG ORAL TABLETIBUPROFEN 600 MG ORAL TABLET (IBUPROFEN)FUROSEMIDE 40 MG ORAL TABLETPHENOBARBITAL 32.4 MG ORAL TABLETMedication Changes:New Prescription:FLONASE ALLERGY RELIEF 50 MCG/ACT NASAL SUSPENSION-one spray to each nostril twice daily as needed x 7 days Qty: 1[Unspecified] Refills: 0 Method: ElectronicTESSALON PERLES 100 MG ORAL CAPSULE-take one tablet by mouth three time daily as needed Qty: 30[Capsule] Refills: 0 Method: ElectronicAllergies:PENICILLIN (Moderate)MUSHROOMS (Mild)* SEASONAL (Mild)Orders:Adult - Ofc Vst, EST, Level III [CPT-06842] Follow-Up Return to clinic: as scheduled and as needed Clinical Visit Summary Completed Name Value Range Interpretation Code Description Data Maren rce(s) Supporting Document(s) Procedure Social History Code Duration Value Status Description Data Source(s ) Smoking 11/12/2020 12:00:00 AM EST Unknown if ever smoked comp leted Unknown if ever smoked [facility] Smoking 11/01/2020 12:00:00 AM EST Unknown if ever smoked comp leted Unknown if ever smoked [facility] Smoking 10/04/2020 12:00:00 AM EST Unknown if ever smoked comp leted Unknown if ever smoked [facility] ([facility]) Smoking 09/24/2020 12:00:00 AM EDT Unknown if ever smoked comp leted Unknown if ever smoked [facility] ([facility]) Smoking 08/27/2020 12:00:00 AM EDT Unknown if ever smoked comp leted Unknown if ever smoked [facility] ([facility]) Smoking 07/30/2020 12:00:00 AM EDT Unknown if ever smoked comp leted Unknown if ever smoked [facility] ([facility]) Smoking 05/25/2020 12:00:00 AM EDT Unknown if ever smoked comp leted Unknown if ever smoked [facility] ([facility]) Smoking 05/19/2020 12:00:00 AM EDT Unknown if ever smoked comp leted Unknown if ever smoked [facility] ([facility]) Smoking 05/14/2020 12:00:00 AM EDT Unknown if ever smoked comp leted Unknown if ever smoked [facility] ([facility]) Smoking 05/05/2020 12:00:00 AM EDT Unknown if ever smoked comp leted Unknown if ever smoked [facility] ([facility]) Smoking 04/14/2020 12:00:00 AM EDT Unknown if ever smoked comp leted Unknown if ever smoked [facility] ([facility]) Smoking 03/29/2020 12:00:00 AM EDT Unknown if ever smoked comp leted Unknown if ever smoked [facility] ([facility]) Smoking 03/10/2020 12:00:00 AM EDT Unknown if ever smoked comp leted Unknown if ever smoked [facility] ([facility]) Vital Signs ID Date Data Source UNK Name Value Range Interpretation Code Description Data Source(s) Body height 65.4 [in_i] 65.4 [in_i] Daniels L jose angel [facility] Result Comment: Result placed secondary from cm, converted to Inches Diastolic blood pressure 0 mm[Hg] Normal (applies to non-numeric results) 0 mm[Hg] [facility] ([facility]) Systolic blood pressure 0 mm[Hg] Normal (applies t o non-numeric results) 0 mm[Hg] [facility] ([facility]) Body mass index (BMI) [Ratio] 0.00 kg/m2 No rmal (applies to non-numeric results) 0.00 [facility]/m2 [facility] Body weight Measured 0.00 lbs Normal (applies to n on-numeric results) 0.00 lbs [facility] ([facility]) Body height 0.00 in Normal (applies to non-numeric resu lts) 0.00 in [facility] ([facility]) Body height 65.4 [in_i] 65.4 [in_i] Daniels L jose angel - [facility] 1Result Comment: Result placed secondary from cm, converted to Inches Systolic blood pressure 130 mm[Hg] 130 mm[Hg] [facility] ([facility] Body weight 199.00 [lb_av] 199.00 [lb_av] MED[facility] T ([facility] Body height 65 [in_i] 65 [in_i] [facility] ([facility] 5'5" Body mass index (BMI) [Ratio] 33.1 kg/m2 33.1 k g/m2 [facility] ([facility] Heart rate 58 /min 58 /min [facility] ([facility] Diastolic blood pressure 88 mm[Hg] 88 mm[Hg] [facility] Body mass index (BMI) [Ratio] 33.1 kg/m2 33.1 k g/m2 [facility] ([facility]) Body weight 193.12 [lb_av] 193.12 [lb_av] [facility] ([facility]) Body height 64 [in_i] 64 [in_i] [facility] ([facility]) 5'4" Body temperature 95.0 [degF] 95.0 [degF] [facility] ([facility]) ID Date Data Source [id number] 11/30/2020 01:45:[address] [facility] Name Value Range Interpretation Code Description Data Source(s) WEIGHT RECORDED 193 lb 193 lb [facility] Body height Measured 63.5 in 63.5 in [facility] WEIGHT RECORDED 193 lb 193 lb [facility] Body height Measured 63.5 in 63.5 in [facility] Patient Treatment Plan of Care Planned Activity Planned Date Details Description Data Source (s) predniSONE 10 mg oral tablet 10/16/2020 05:59:00 PM EST Daniels Gladys - [facility] Ceftin 250 mg oral tablet 10/16/2020 05:59:00 PM EST Daniels Gladys - [facility] 0.5 ML dulaglutide 3 MG/ML Auto-Injector 10/04/2020 08:27:00 PM EST Daniels Gladys - [facility] TopAMAX 09/19/2020 01:41:00 PM EDT [facility]ys - [facility] Xarelto 09/19/2020 01:41:00 PM EDT A [facility] Gladys - [facility] Trulicity Pen 09/19/2020 01:31:00 PM EDT Daniels Gladys - [facility] traZODone 09/19/2020 01:31:00 PM EDT A [facility] Gladys - [facility] tizanidine 2 MG Oral Capsule 09/19/2020 01:31:00 PM EDT Daniels Gladys - [facility] Sertraline 100 MG Oral Tablet 09/19/2020 01:30:00 PM EDT Daniels Gladys - [facility] Phenobarbital 32.4 MG Oral Tablet 09/19/2020 01:29:00 PM EDT Daniels Gladys - [facility] Metoprolol Tartrate 100 mg oral tablet 09/19/2020 01:29:00 PM EDT Daniels Gladys - [facility] metFORMIN 1000 mg oral tablet 09/19/2020 01:29:00 PM EDT Daniels Gladys - [facility] Lisinopril 20 MG Oral Tablet 09/19/2020 01:28:00 PM EDT Daniels Gladys - [facility] Levetiracetam 500 MG Oral Tablet 09/19/2020 01:28:00 PM EDT Daniels Gladys - [facility] HumaLOG 09/19/2020 01:28:00 PM EDT A scension Gladys - [facility] gabapentin 800 mg oral tablet 09/19/2020 01:27:00 PM EDT Daniels Gladys - [facility] Furosemide 20 MG Oral Tablet 09/19/2020 01:27:00 PM EDT Daniels Gladys - [facility] fluticasone 09/19/2020 01:27:00 PM EDT A [facility] Gladys - [facility] cyanocobalamin 09/19/2020 01:27:00 PM EDT Daniels Gladys - [facility] Atrovent HFA 09/19/2020 01:26:00 PM EDT A scension Gladys - [facility] atorvastatin 10 MG Oral Tablet 09/19/2020 01:26:00 PM EDT Daniels Gladys - [facility] Amiodarone hydrochloride 200 MG Oral Tablet 09/19/2020 01:25:00 PM EDT Daniels Gladys - [facility] amiodarone 09/19/2020 01:25:00 PM EDT [facility] - [facility] Amlodipine 10 MG Oral Tablet 09/19/2020 01:25:00 PM EDT Daniels Gladys - [facility] albuterol 2.5 mg/3 mL neb soln 09/19/2020 01:24:00 PM EDT Daniels Gladys - [facility] Folic Acid 1 MG Oral Tablet 04/18/2019 12:00:00 AM EDT [facility]
--- NOTE | 2020-12-09 20:39 | REPVR ---
PROCEDURE INFORMATION: Exam: CT Head Without Contrast Exam date and time: 12/09/2020 8:06 PM Age: 50 years old Clinical indication: Other: Presyncope TECHNIQUE: Imaging protocol: Computed tomography of the head without contrast. Radiation optimization: All CT scans at this facility use at least one of these dose optimization techniques: automated exposure control; mA and/or kV adjustment per patient size (includes targeted exams where dose is matched to clinical indication); or iterative reconstruction. COMPARISON: CT Head without contrast 05/19/2020 3:42 PM FINDINGS: Brain: There is no evidence of infarct, gaytan-white matter differentiation is preserved. There is no hemorrhage or extra-axial collection. There is no mass. Cerebral ventricles: There is no hydrocephalus. Bones/joints: Unremarkable. No acute fracture. Paranasal sinuses: Visualized sinuses are unremarkable. No fluid levels. Mastoid air cells: Visualized mastoid air cells are well aerated. Soft tissues: Unremarkable. IMPRESSION: No intracranial lesion or injury and no change from prior scan. Electronically signed by: Anthony Sullivan On 12/09/2020 20:39:07 PM
--- NOTE | 2020-12-09 20:41 | REPVR ---
PROCEDURE INFORMATION: Exam: XR Chest, 1 View Exam date and time: 12/09/2020 8:02 PM Age: 50 years old Clinical indication: Shortness of breath; Additional info: Syncope/near-syncope TECHNIQUE: Imaging protocol: XR of the chest Views: 1 view. COMPARISON: CR PORTABLE CHEST X-RAY 07/28/2019 2:26 PM FINDINGS: Tubes, catheters and devices: Single lead pacemaker unchanged from prior x-ray. Lungs: Unremarkable. No consolidation. Pleural space: Unremarkable. No pleural effusion. No pneumothorax. Heart/Mediastinum: There is cardiomegaly unchanged from prior x-ray. Bones/joints: Unremarkable. IMPRESSION: Cardiomegaly. No acute findings. Electronically signed by: Anthony Sullivan On 12/09/2020 20:40:33 PM
[2020-12-09 21:28] LABS: BASO # 0.1 10^3/uL (0.0-0.2); BASO % 0.8 % (0.0-1.0); EOS # 0.3 10^3/uL (0.0-0.5); EOS % 3.5 % (0.0-3.0); LYMPH # 2.2 10^3/uL (1.5-5.0); MEAN CORPUSCULAR HGB CONC 31.8 g/dl (32.0-36.5); MEAN CORPUSCULAR VOLUME 97.3 fl (80.0-96.0); MONO # 0.7 10^3/uL (0.0-0.8); MONO % 7.8 % (0.0-5.0); NEUTROPHILS # 5.8 10^3/uL (1.5-8.5); NEUTROPHILS % 63.6 % (36.0-66.0); PLATELET COUNT, AUTOMATED 191 10^3/uL (150-450); RED BLOOD COUNT 4.52 10^6/uL (4.30-6.10); WHITE BLOOD COUNT 9.1 10^3/uL (4.0-10.0)
[2020-12-09 21:30] LABS: VENOUS BASE EXCESS -1.8 (-2.0-2.0); VENOUS HCO3 23.8 MEQ/L (23.0-27.0); VENOUS O2 SATURATION 81.6 % (60.0-80.0); VENOUS PARTIAL PRESSURE CO2 43.6 mmHg (38.0-50.0); VENOUS PARTIAL PRESSURE O2 47.8 mmHg (30.0-50.0); VENOUS PH 7.355 UNITS (7.330-7.430); VENOUS STANDARD HCO3 22.6 MEQ/L; VENOUS TOTAL CO2 25.1 MEQ/L (24.0-28.0)
[2020-12-09 21:31] VITALS: BP 122/58
--- OUTSIDE RECORDS SUMMARY | 2020-12-09 21:31 | CCD ---
Author Author [facility] Address Unknown Phone Unavailable Support Name Relationship Address Phone Hany Renteria MD Next Of Kin [address] [place] [address] Wendy Katz Next Of Kin Unknown Unavailable Stefanie Vazquez Next Of Kin [address] [place] [address] Chago Bautista DO Next Of Kin [address] [place] [address] Berenice Yeung Next Of Kin [address] [place], [place] [id number] Liset Davis MD Next Of Kin [address] [place] [id number] Oneida Koehler DO Next Of Kin [address] [place] [address] Rebekah Moscoso Next Of Kin [address] [place] [phone] WENDY KATZ Next Of Kin [address] [facility] [address] [place] [address] UE Next Of Kin Unknown Unavailable [place] [address] ESTHER BILL Next Of Kin [address] [place] [address] CHARLES RAMOS Next Of Kin [address] [place] [address] NA, NA Next Of Kin Unknown Unavailable RIN BANDA Next Of Kin [address] [place] [address] ESTHER TRAN Next Of Kin [address] [place] [address] AMINATA BOSS Next Of Kin [address] [place] [address] DISABLED Next Of Kin Unknown Unavailable ROHINI, (HCP) DOMENICO Next Of Kin [facility] [address] [place] [address] ALANNAH, (HCP) ESTHER Next Of Kin [address] [place] [address] Care Team Providers Care Candle Molder Hand Name Role Phone TEST, PROVIDER Unavailable Unavailable [...] Unavailable Unavailable Brendan Pratt MD Unavailable Unavailable Brenadn Pratt MD Unavailable Unavailable Brendan Pratt MD [...] Moisés DAVIS MD Unavailable Unavailable Stefanie Burger MARKETING DIRECTOR ASSISTED LIVING MARKETING DIRECTOR ASSISTED LIVING Unavailable Unavailable Marilyn Purvis MD Unavailable Unavailable [...] Marilyn Gómez MD Unavailable Unavailable Bolla, Marilyn FerrellRcio MD Unavailable Unavailable Bolla, Marilyn FerrellRico MD [...] FATUMA PA Unavailable Unavailable Burger, F Stefanie MARKETING DIRECTOR ASSISTED LIVING-BC Unavailable Unavailable Burger, F Stefanie MARKETING DIRECTOR ASSISTED LIVING-BC Unavailable Unavailable Burger, F Stefanie MARKETING DIRECTOR ASSISTED LIVING-BC Unavailable Unavailable Burger, F Stefanie MARKETING DIRECTOR ASSISTED LIVING-BC Unavailable Unavailable Burger, F Stefanie MARKETING DIRECTOR ASSISTED LIVING-BC Unavailable Unavailable Burger, F Stefanie MARKETING DIRECTOR ASSISTED LIVING-BC Unavailable Unavailable Burger, F Stefanie MARKETING DIRECTOR ASSISTED LIVING-BC Unavailable Unavailable Burger, F Stefanie MARKETING DIRECTOR ASSISTED LIVING-BC Unavailable Unavailable Burger, F Stefanie MARKETING DIRECTOR ASSISTED LIVING-BC Unavailable Unavailable Burger, F Stefanie MARKETING DIRECTOR ASSISTED LIVING-BC Unavailable Unavailable Burger, F Stefanie MARKETING DIRECTOR ASSISTED LIVING-BC Unavailable Unavailable Burger, F Stefanie MARKETING DIRECTOR ASSISTED LIVING-BC Unavailable Unavailable Burger, F Stefanie MARKETING DIRECTOR ASSISTED LIVING-BC Unavailable Unavailable Burger, F Stefanie MARKETING DIRECTOR ASSISTED LIVING-BC Unavailable Unavailable Burger, F Stefanie MARKETING DIRECTOR ASSISTED LIVING-BC Unavailable Unavailable Burger, F Stefanie MARKETING DIRECTOR ASSISTED LIVING-BC Unavailable Unavailable Burger, F Stefanie MARKETING DIRECTOR ASSISTED LIVING-BC Unavailable Unavailable Burger, F Stefanie MARKETING DIRECTOR ASSISTED LIVING-BC Unavailable Unavailable Burger, F Stefanie MARKETING DIRECTOR ASSISTED LIVING-BC Unavailable Unavailable Burger, F Stefanie MARKETING DIRECTOR ASSISTED LIVING-BC Unavailable Unavailable Burger, F Stefanie MARKETING DIRECTOR ASSISTED LIVING-BC Unavailable Unavailable Michele Chago DO Unavailable Unavailable [...] Yamileth Renteria MD Unavailable Unavailable Mayra Person PMH-CARDIAC NURSE PRACTITIONER Unavailable Unavailable Mayra Person PMH-CARDIAC NURSE PRACTITIONER Unavailable Unavailable Mayra Person PMH-CARDIAC NURSE PRACTITIONER Unavailable Unavailable Mayra Person PMH-CARDIAC NURSE PRACTITIONER Unavailable Unavailable Naya, Mayra Anay PMH-CARDIAC NURSE PRACTITIONER Unavailable Unavailable Mayra Person PMH-CARDIAC NURSE PRACTITIONER Unavailable Unavailable Moisés DAVIS MD Unavailable Unavailable [...] Unavailable Unavailable Moisés DAVIS MD Unavailable Unavailable Moissé DAVIS MD Unavailable Unavailable Moisés DAVIS MD [...] Unavailable MARCELINO, T LISET MD Unavailable Unavailable [facility] Unavailable [phone] [facility] Unavailable [phone] Re-disclosure Warning The records that you are [...] law may result in a fine or correction sentence or both. A general authorization for the release of medical or other information is NOT sufficient authorization for further disc losure. Allergies and Adverse Reactions Type Description Substance Reaction Status Data Source(s ) Propensity to adverse reactions to substance Penicillins Penicilli ns Hives Active [facility] ([facility]) Drug allergy penicillin Penicillin Weal (disorder) Active [facility] Chemical ADHESIVE TAPE ADHESIVE TAPE [facility] Family History Family Member Name Family Member Gender Family Member Status Date o f Status Description Data Source(s) Unknown Female Problem [facility] ([facility]) Unknown Female Problem [facility] ([facility]) Encounters Encounter Providers Location Date Indications Data Source(s ) Outpatient Attender: KOBY MCLAUGHLIN [facility] Office 10/27 02:15:00 PM EST [facility] ([facility] Extended Individual Psychotherapy - 45 min Attender: Anastasia ling [facility] 11/12/2020 10:00:00 AM EST - 11/12/2020 10:00:00 AM EST [facility] ([facility]) Attender: Kathryn Forman 11/12/2020 12:00:00 A M EST [facility] ([facility]) Attender: Kathryn Forman 11/01/2020 12:00:00 A M EST [facility] ([facility]) [id number]"Psychotherapy Attender: Kathryn Forman [facility] 10/28/2020 12:00:00 PM EST - 10/28/2020 12:00:00 PM EST [facility] ([facility]) Outpatient Attender: LISET DAVIS MDAdmitter: LISET LEWIS-I 10/16/2020 05:18:00 PM EST - 10/16/2020 06:18:00 PM EST [facility] Patient discharged. P Attender: LISET Romanoitter: LISET [facility] 10/16/2020 04:18:00 PM EST [facility] [id number]"Psychotherapy Attender: Kathryn D[facility]az [facility] 10/04/2020 08:00:00 AM EST - 10/04/2020 08:00:00 AM EST [facility] ([facility]) Psychiatric Diagnostic Evaluation with Medical Service s Attender: Anay Person [facility]-CARDIAC NURSE PRACTITIONER [facility] 10/04/2020 02:00:00 AM EST - 10/04/2020 02:00:00 AM EST [facility] ([facility]) Attender: Anay Person [facility]-CARDIAC NURSE PRACTITIONER 10/04/2020 12: 00:00 AM EST [facility] ([facility]) Attender: Kathryn Forman 10/04/2020 12:00:00 A M EST [facility] ([facility]) [id number]"Psychotherapy Attender: Kathryn Díaz [facility] 09/24/2020 02:15:00 AM EDT - 09/24/2020 02:15:00 AM EDT [facility] ([facility]) Attender: Kathryn Forman 09/24/2020 12:00:00 A M EDT [facility] ([facility]) Outpatient Attender: LISET DAVIS MDAdmitter: [facility] 09/19/2020 03:00:00 PM EDT - 09/19/2020 04:00:00 PM EDT [facility] Patient discharged. P Attender: LISET DAVIS MDAttender: PROVI LIBIA TESTAdmitter: L[facility] 09/19/2020 02:00:00 PM EDT [facility] Outpatient Attender: Hany SCHMIDT 09/02/2020 05:04:01 PM EDT [facility] Outpatient Attender: Hany SCHMIDT 09/02/2020 09:52:00 AM EDT [facility] Outpatient Attender: Hany Renteria MD FP 09/02/2020 08:58:01 AM EDT [facility] Outpatient Attender: Hany Renteria MD FP 08/30/2020 10:08:00 AM EDT [facility] Outpatient Attender: Hany Renteria MD FP 08/27/2020 04:55:01 PM EDT [facility] Outpatient Attender: Hany Renteria MD FP 08/27/2020 11:39:00 AM EDT [facility] [id number]"Psychotherapy [facility]: [facility] 01:00:00 AM EDT - 08/27/2020 01:00:00 AM EDT [facility] ([facility]) Attender: Kathryn Forman 08/27/2020 12:00:00 A M EDT [facility] ([facility]) Outpatient Attender: Hany Renteria MD 08/26/2020 11:26:01 AM EDT [facility] Outpatient Attender: Hany Renteria MD 08/26/2020 11:23:01 AM EDT [facility] Outpatient Attender: Hany Renteria MD 08/20/2020 03:12:01 PM EDT [facility] Outpatient Attender: Hany Renteria MD 08/18/2020 10:31:00 AM EDT [facility] Outpatient Attender: KOBY MCLAUGHLIN [facility] 07/27 01:00:00 PM EDT [facility] ([facility] Outpatient Attender: Hany Renteria MD FP 08/12/2020 05:28:00 PM EDT [facility] Outpatient Attender: Hany Renteria MD 08/05/2020 08:34:00 AM EDT [facility] TEMPMHCTelemed 30" Psychotherapy Attender: Kathryn Forman [facility] 07/30/2020 01:00:00 AM EDT - 07/30/2020 01:00:00 AM EDT [facility] ([facility]) Attender: Kathryn Forman 07/30/2020 12:00:00 A M EDT [facility] ([facility]) Outpatient Attender: Hany Renteria MD FP 07/29/2020 09:41:05 AM EDT [facility] Outpatient Attender: aHny Renteria MD FP 07/28/2020 01:08:02 PM EDT [facility] Outpatient Attender: Hany Renteria MD FP 07/27/2020 10:17:01 AM EDT [facility] Outpatient Attender: Hany Renteria MD FP 07/27/2020 10:17:00 AM EDT [facility] Outpatient Attender: Hany Renteria MD FP 07/26/2020 01:10:01 PM EDT [facility] Outpatient Attender: Hany Renteria MD FP 07/26/2020 08:30:01 AM EDT [facility] Outpatient Attender: Hany Renteria MD FP 07/22/2020 08:31:03 AM EDT [facility] Outpatient Attender: Hany Renteria MD FP 07/20/2020 01:35:02 PM EDT [facility] Outpatient Attender: Hany Renteria MD FP 07/06/2020 01:00:01 PM EDT [facility] Outpatient Attender: Hany Renteria MD FP 07/02/2020 04:03:01 PM EDT [facility] Outpatient Attender: Sherman Pratt MDReferrer: FATUMA PINO [id number] 07/02/2020 12:00:00 AM EDT - 07/02/2020 04:01:08 PM EDT Spinal stenosis, lumbar region without neurogenic claudication [facility] Spinal stenosis, lumbar region without n eurogenic claudication Outpatient Attender: Hany Renteria MD FP 07/01/2020 08:35:02 AM EDT [facility] Outpatient Attender: Hany Renteria MD FP 06/25/2020 11:44:02 AM EDT [facility] Outpatient Attender: Hany Renteria MD FP 06/24/2020 04:52:01 PM EDT [facility] Outpatient Attender: Hany Renteria MD FP 06/24/2020 04:50:59 PM EDT [facility] Outpatient Attender: Hany Renteria MD FP 06/24/2020 10:22:00 AM EDT [facility] Outpatient Attender: Hany Renteria MD FP 06/19/2020 03:43:01 PM EDT [facility] Outpatient Attender: Hany Renteria MD FP 06/18/2020 01:05:01 PM EDT [facility] Outpatient Attender: Sherman Pratt MD 06/15/2020 12:00:[address] [facility] Outpatient Attender: Hany SCHMIDT 06/14/2020 10:43:03 AM EDT [facility] Outpatient Attender: Hany SCHMIDT 06/14/2020 10:39:01 AM EDT [facility] Outpatient Attender: Hany SCHMIDT 06/11/2020 02:20:00 PM EDT [facility] Outpatient Attender: Hany SCHMIDT 06/04/2020 09:44:02 AM EDT [facility] Outpatient Attender: Hany Renteria MD FP 05/25/2020 09:38:00 AM EDT [facility] Outpatient Attender: Hany SCHMIDT 05/25/2020 08:46:03 AM EDT [facility] Outpatient Attender: Hany SCHMIDT 05/25/2020 08:33:00 AM EDT [facility] TEMPMHCTelemed 30" Psychotherapy Attender: Kathryn Gilliam [facility] 05/25/2020 02:30:00 AM EDT - 05/25/2020 02:30:00 AM EDT [facility] ([facility]) Attender: Kathryn Forman 05/25/2020 12:00:00 A M EDT [facility] ([facility]) Outpatient Attender: Hany Renteria MD 05/24/2020 09:47:00 AM EDT [facility] Outpatient Attender: Hany Renteria MD 05/21/2020 05:43:00 PM EDT [facility] [id number]"Psychotherapy Attender: Kathryn Díaz [facility] 05/19/2020 01:00:00 AM EDT - 05/19/2020 01:00:00 AM EDT [facility] ([facility]) Attender: Kathryn Forman 05/19/2020 12:00:00 A M EDT [facility] ([facility]) [id number]"Psychotherapy Attender: Kathryn Díaz [facility] 05/14/2020 08:00:00 AM EDT - 05/14/2020 08:00:00 AM EDT [facility] ([facility]) Outpatient Attender: Hany SCHMIDT 05/14/2020 07:34:00 AM EDT [facility] Attender: Kathryn Dickson 05/14/2020 12:00:00 A M EDT [facility] ([facility]) [id number]"Psychotherapy [facility]: [facility] 05/05/2020 02:15:00 AM EDT - 05/05/2020 02:15:00 AM EDT [facility] ([facility]) Attender: Kathryn Forman 05/05/2020 12:00:00 A M EDT [facility] ([facility]) Outpatient Attender: Hany SCHMIDT 04/30/2020 08:57:02 AM EDT [facility] Outpatient Attender: Hany SCHMIDT 04/29/2020 05:55:00 PM EDT [facility] Outpatient Attender: Hany SCHMIDT 04/29/2020 05:34:02 PM EDT [facility] Outpatient Attender: Hany SCHMIDT 04/29/2020 05:34:01 PM EDT [facility] Outpatient Attender: Hany SCHMIDT 04/29/2020 05:25:00 PM EDT [facility] Outpatient Attender: Hany SCHMIDT 04/29/2020 04:41:01 PM EDT [facility] Outpatient Attender: Hany SCHMIDT 04/27/2020 01:52:00 PM EDT [facility] Outpatient Attender: BIPIN SCHMIDT 04/27/2020 09:26:01 AM EDT [facility] Outpatient Attender: BIPIN SCHMIDT 04/21/2020 03:12:00 PM EDT [facility] Outpatient Attender: BIPIN SCHMIDT 04/21/2020 03:09:01 PM EDT [facility] Outpatient Attender: BIPIN SCHMIDT 04/21/2020 11:20:00 AM EDT [facility] Outpatient Attender: BIPIN SCHMIDT 04/21/2020 11:19:00 AM EDT [facility] Outpatient Attender: BIPIN SCHMIDT 04/21/2020 11:05:00 AM EDT [facility] Outpatient Attender: BIPIN VOSS 04/16/2020 11:12:04 AM EDT [facility] Outpatient Attender: Stefanie Burger MARKETING DIRECTOR ASSISTED LIVING-BC 04/16/2020 11: 12:01 AM EDT [facility] Outpatient Attender: MARKETING DIRECTOR ASSISTED [facility]IVING[facility] 04/15/2020 11:38:00 AM EDT [facility] Outpatient Attender: MARKETING DIRECTOR ASSISTED LIVING Burger [facility] 04/14/2020 10:09:00 AM EDT [facility] Telemed Diag Eval no med [facility] 02:15:00 AM EDT - 04/14/2020 02:15:00 AM EDT [facility] ([facility]) Attender: Kathryn Fregosocesario 04/14/2020 12:00:00 A M EDT [facility] ([facility]) Outpatient Attender: DO Bautista 04/09/2020 01:45:01 PM EDT [facility] Outpatient Attender: LISET DAVIS MD 04/09/2020 01:40:03 P M EDT [facility] Outpatient Attender: LISET DAVIS MD 04/09/2020 12:42:02 P M EDT [facility] Outpatient Attender: LISET DAVIS MD 04/09/2020 12:42:00 P M EDT [facility] Outpatient Attender: LISET DAVIS MD 04/09/2020 11:32:00 A M EDT [facility] Outpatient Attender: LISET DAVIS MD 04/09/2020 11:31:01 A M EDT [facility] Outpatient Attender: LISET DAVIS MD 04/06/2020 04:40:01 P M EDT [facility] Outpatient Attender: FATUMA PINO Physical Therapy 04/05/2020 02:00:00 PM EDT [facility] ([facility]) Outpatient Attender: LISET DAVIS MD 04/01/2020 12:14:03 P M EDT [facility] Outpatient Attender: LISET DAVIS MD 04/01/2020 12:14:02 P M EDT [facility] Outpatient Attender: LISET DAVIS MD 04/01/2020 11:14:01 A M EDT [facility] TEMPMHCTelemed--Crisis Brief Attender: Kathryn Forman [facility] 03/29/2020 02:00:00 AM EDT - 03/29/2020 02:00:00 AM EDT [facility] Attender: Kathryn Forman 03/29/2020 12:00:00 A M EDT [facility] Outpatient Attender: LISET DAVIS MD 03/25/2020 02:58:00 P M EDT [facility] Outpatient Attender: LISET DAVIS MD 03/25/2020 12:43:01 P M EDT [facility] Outpatient Attender: LISET DAVIS MD 03/23/2020 04:27:00 P M EDT [facility] Outpatient Attender: LISET DAVIS MD 03/18/2020 11:28:02 A M EDT [facility] Outpatient Attender: LISET DAVIS MD 03/18/2020 11:28:00 A M EDT [facility] Outpatient Attender: LISET DAVIS MD 03/12/2020 01:38:01 P M EDT [facility] TEMP Forensic Telemed DC VT 45" Est Pt Attender: [facility] 03/10/2020 09:00:00 AM EDT - 03/10/2020 09:00:00 AM EDT [facility] ([facility]) Attender: [facility] 12:00:00 AM EDT [facility] ([facility]) Outpatient Attender: LISET DAVIS MD 03/04/2020 12:17:01 P M EDT [facility] Outpatient Attender: LISET DAVIS MD 02/09/2020 12:16:00 P M EDT [facility] Outpatient Attender: LISET DAVIS MD 01/30/2020 04:32:02 P M EST [facility] Outpatient Attender: LISET DAVIS MD 01/30/2020 04:31:02 P [facility] Outpatient Attender: LISET DAVIS MD 01/30/2020 03:23:01 P [facility] Outpatient Attender: LISET DAVIS MD 01/22/2020 10:53:00 A [facility] Outpatient Attender: LISET DAVIS MD 01/22/2020 10:53:00 A [facility] Outpatient Attender: LISET DAVIS MD 01/22/2020 10:52:02 A [facility] Outpatient Attender: LISET DAVIS MD 01/22/2020 10:52:01 A [facility] Outpatient Referrer: FATUMA PINO 01/19/2020 03:14 :00 PM [facility] Outpatient Attender: LISET DAVIS MD 01/15/2020 10:27:03 A [facility] Outpatient Attender: LISET DAVIS MD 01/15/2020 09:41:18 A [facility] Outpatient Attender: LISET DAVIS MD 01/15/2020 09:41:01 A [facility] Outpatient Attender: LISET DAVIS MD 01/15/2020 09:40:34 A [facility] Outpatient Referrer: FATUMA PINO 01/15/2020 09:19 :00 [...] Attender: LISET DAVIS MD 01/07/2020 08:43:02 A [facility] Outpatient Attender: LISET DAVIS MD 01/06/2020 04:15:00 P [facility] OFFICE OUTPATIENT NEW 30 MINUTES Attender: FATUMA PINO Physical Therapy 01/05/2020 01:00:00 PM EST [facility] ([facility]) Outpatient Attender: LISET DAVIS MD 12/22/2019 04:08:02 P [facility] Outpatient Attender: LISET DAVIS MD 12/22/2019 04:06:00 P [facility] Outpatient Attender: LISET DAVIS MD 12/22/2019 04:00:01 P [facility] Outpatient Attender: LISET DAVIS MD 12/22/2019 03:59:00 P [facility] Outpatient Attender: LISET DAVIS MD 12/22/2019 02:28:00 P [facility] Outpatient Attender: LISET DAVIS MD 12/12/2019 01:26:01 P [facility] Outpatient Attender: LISET DAVIS MD 12/12/2019 01:24:00 P [facility] Outpatient Attender: LISET DAVIS MD 11/28/2019 09:32:00 A [facility] Outpatient Attender: LISET DAVIS MD 11/25/2019 09:38:00 A [facility] Outpatient Attender: LISET DAVIS MD 11/03/2019 11:38:00 A [facility] Outpatient Attender: LISET DAVIS MD 10/21/2019 04:56:01 P [facility] Functional Status Medications Medication Brand Name Start [...] GIVE 2 UNITS FOR BG 150-200, 4 WSZNE=[id number], 6 CJIBG=[id number], 8 LYPMI=[id number], 10 FQMTM=[id number]. IF BG GREATER THAN 401/10 UNITS CALL PCP. MAXIMUM DAILY DOSE = 30 UNITS CHECK BG EVERY DAY BEFORE MEALS THEN GIV E 2 UNITS FOR BG 150-200, 4 XFVPO=[id number], 6 GRUTG=[id number], 8 ANNVB=[id number], 10 GXPJV=002- 400. IF BG GREATER THAN 401/10 UNITS [...] MOUTH TWO TIMES A DAY SOLD: 11/08/2020 [facility] 250-50 mcg/dose 11/06/2020 12:00:00 AM EST [...] [facility] Ceftin 250 mg oral tablet [id number] 10/16/2020 05:59:00 PM EST 250.0 mg By Mouth active 250 mg = 1 tab(s), PO (oral), bid, X 10 day(s), # 20 tab(s), Acute, Pharmacy: [facility] #15, 1 tab(s) PO (oral) bid,x10 day(s) [facility] predniSONE 10 mg oral tablet [id number] 10/16/2020 05:59:00 PM EST 30.0 mg By Mouth active 30 mg = 3 tab(s), PO (oral), qDay, # 15 tab(s), 0 Refill(s), Maintenance, Pharmacy: [facility] #15, 3 tab(s) PO (oral) qDay,x5 day(s) [facility] Cefuroxime 250 MG Oral Tablet CEFUROXIME [...] # 4 each, 11 Refill(s), Maintenance, Pharmacy: [facility] #15, 1.5 mg SubCUTANEOUS qWeek,x30 day(s) [facility] Vraylar Vraylar 10/04/2020 12:00:00 AM EST 1.5 mg by mouth completed [id number] Vraylar by mouth [id number] 10/04/2020 once a day 1.5 mg capsule [id number] Anay Person [id number] Psychiatric/Mental Health [facility] ([facility] 17 mcg/actuation 09/25/2020 12:00:00 AM EDT HFA [...] completed PO (oral), bid, 0 Refill(s), Maintenance [facility] TopAMAX [id number] 09/19/2020 01:41:00 PM EDT By Mouth active PO (oral), bid, 0 Refill(s), Maintenance [facility] Xarelto [id number] 09/19/2020 01:41:00 PM EDT By Mouth active PO (oral), 0 Refill(s), Maintenance [facility] Xarelto 09/19/2020 01:41:00 PM EDT By Mouth completed PO (oral), 0 Refill(s), Maintenance [facility] traZODone 09/19/2020 01:31:00 PM EDT By Mouth completed PO (oral), bid, 0 Refill(s), Maintenance [facility] tizanidine 2 MG Oral Capsule tiZANidine 2 mg oral caps ule tiZANidine 2 mg oral capsule 09/19/2020 01:31:00 PM EDT By Mouth acti ve mg = cap(s), PO (oral), q8h, 0 Refill(s), Maintenance [facility] tiZANidine 2 mg oral capsule 09/19/2020 01:31:00 PM EDT By Mouth completed mg = cap(s), PO (oral), q8h, 0 R efill(s), Maintenance [facility] Trulicity Pen 09/19/2020 01:31:00 PM EDT SubCUTANEOUS completed SubCUTANEOUS, 0 Refill(s), Maintenance [facility] traZODone [id number] 09/19/2020 01:31:00 PM EDT By Mouth active PO (oral), bid, 0 Refill(s), Maintenance [place] [facility] Trulicity Pen [id number] 09/19/2020 01:31:00 PM EDT SubCUTANEOUS active SubCUTANEOUS, 0 Refill(s), Maintenance [facility] [facility] Zoloft 100 mg oral tablet 09/19/2020 01:30:00 PM EDT By Mouth completed mg = tab(s), PO (oral), qDay, 0 Refill(s), Maintenance [place] [facility] Sertraline 100 MG Oral Tablet Zoloft 100 mg oral table t Zoloft 100 mg oral tablet 09/19/2020 01:30:00 PM EDT By Mouth acti ve mg = tab(s), PO (oral), qDay, 0 Refill(s), Maintenance [place] [facility] metFORMIN 1000 mg oral tablet [id number] 09/19/2020 01:29:00 PM EDT 1000.0 mg By Mouth active 1,000 mg = 1 tab(s), PO (oral), bid, # 60 tab(s), 0 Re fill(s), Maintenance [place] [facility] metFORMIN 1000 mg oral tablet 09/19/2020 01:29:00 PM EDT 1000.0 By Mouth completed 1,000 mg = 1 tab (s), PO (oral), bid, # 60 tab(s), 0 Refill(s), Maintenance [place] [facility] PHENobarbital 32.4 mg oral tablet 09/19/2020 01:29:00 PM EDT By Mouth completed mg = tab(s), PO (oral), bid, 0 R efill(s), Maintenance [place] [facility] Phenobarbital 32.4 MG Oral Tablet PHENobarbital 32.4 m g oral tablet PHENobarbital 32.4 mg oral tablet 09/19/2020 01:29:00 PM EDT By Mouth active mg = tab(s), PO (oral), bid, 0 Refill(s), Maintenance [facility] Metoprolol Tartrate 100 mg oral tablet 09/19/2020 01:29:00 PM EDT By Mouth completed mg = tab(s), PO (ora l), bid, 0 Refill(s), Maintenance [facility] Metoprolol Tartrate 100 mg oral tablet [id number] 09/19/2020 01:29:00 PM EDT By Mouth active mg = tab(s), PO (oral), bid, 0 Refill(s), Maintenance [facility] HumaLOG [id number] 09/19/2020 01:28:00 PM EDT SubCUTANEOUS active unit(s) =, SubCUTANEOUS, 0 Refill(s), Maintenance [facility] Lisinopril 20 MG Oral Tablet lisinopril 20 mg oral tab let lisinopril 20 mg oral tablet 09/19/2020 01:28:00 PM EDT By Mouth acti ve mg = tab(s), PO (oral), qDay, 0 Refill(s), Maintenance [facility] HumaLOG 09/19/2020 01:28:00 PM EDT SubCUTANEOUS completed unit(s) =, SubCUTANEOUS, 0 Refill(s), Maintenance [place] [facility] Levetiracetam 500 MG Oral Tablet Keppra 500 mg oral ta blet Keppra 500 mg oral tablet 09/19/2020 01:28:00 PM EDT 1000.0 mg By Mouth ac tive 1,000 mg = 2 tab(s), PO (oral), bid, # 360 tab(s), 0 R efill(s), Maintenance [place] [facility] lisinopril 20 mg oral tablet 09/19/2020 01:28:00 PM EDT By Mouth completed mg = tab(s), PO (oral), qDay, 0 Refill(s), Maintenance [place] [facility] Keppra 500 mg oral tablet 09/19/2020 01:28:00 PM EDT 100 0.0 By Mouth completed 1,000 mg = 2 tab(s), PO (oral), bid, # 360 tab(s), 0 Refill(s), Maintenance [place] [facility] Lasix 20 mg oral tablet 09/19/2020 01:27:00 PM EDT B y Mouth completed mg = tab(s), PO (oral), qDay, 0 Refill(s ), Maintenance [place] [facility] gabapentin 800 mg oral tablet 09/19/2020 01:27:00 PM EDT By Mouth completed mg = tab(s), PO (oral), tid, 0 R efill(s), Maintenance [place] [facility] cyanocobalamin [id number] 09/19/2020 01:27:00 PM EDT active 0 Refill(s), Maintenance [place] [facility] Furosemide 20 MG Oral Tablet Lasix 20 mg oral tablet Lasix 2 0 mg oral tablet 09/19/2020 01:27:00 PM EDT By Mouth active mg = tab(s), PO (oral), qDay, 0 Refill(s), Maintenance [place] [facility] fluticasone [id number] 09/19/2020 01:27:00 PM EDT Inhaled active Inhalation, 0 Refill(s), Maintenance [place] [facility], [facility] fluticasone 09/19/2020 01:27:00 PM EDT Inhaled completed Inhalation, 0 Refill(s), Maintenance [place] [facility], [facility] gabapentin 800 mg oral tablet [id number] 09/19/2020 01:27:00 PM EDT By Mouth active mg = tab(s), PO (oral), tid, 0 Refill(s), Maintenance [place] [facility] cyanocobalamin 09/19/2020 01:27:00 PM EDT completed 0 Refill(s), Maintenance [facility] Atrovent HFA 09/19/2020 01:26:00 PM EDT Inhaled completed Inhalation, qid, 0 Refill(s), Maintenance [facility] atorvastatin 10 mg oral tablet 09/19/2020 01:26:00 PM EDT By Mouth completed mg = tab(s), PO (oral), qDay, 0 Refill(s), Maintenance [facility], [facility] Atrovent HFA [id number] 09/19/2020 01:26:00 PM EDT Inhaled active Inhalation, qid, 0 Refill(s), Maintenance [facility], [facility] atorvastatin 10 MG Oral Tablet atorvastatin 10 mg oral tablet atorvastatin 10 mg oral tablet 09/19/2020 01:26:00 PM EDT By Mouth active mg = tab(s), PO (oral), qDay, 0 Refill(s), Maintenance [facility], [facility] amiodarone [id number] 09/19/2020 01:25:00 PM EDT active 0 Refill(s), Maintenance [place] [facility] amLODIPine 10 mg oral tablet 09/19/2020 01:25:00 PM EDT By Mouth completed mg = tab(s), PO (oral), qDay, 0 Refill(s), Maintenance [place] [facility] Amiodarone hydrochloride 200 MG Oral Tablet amiodarone 200 mg oral tablet amiodarone 200 mg oral tablet 09/19/2020 01:25:00 PM EDT By Mouth active mg = tab(s), PO (oral), qDay, 0 Refill(s), Maintenance [place] [facility], [facility] Amlodipine 10 MG Oral Tablet amLODIPine 10 mg oral tab let amLODIPine 10 mg oral tablet 09/19/2020 01:25:00 PM EDT By Mouth acti ve mg = tab(s), PO (oral), qDay, 0 Refill(s), Maintenance [place] [facility], [facility] amiodarone 200 mg oral tablet 09/19/2020 01:25:00 PM EDT By Mouth completed mg = tab(s), PO (oral), qDay, 0 Refill(s), Maintenance [place] [facility], [facility] amiodarone 09/19/2020 01:25:00 PM EDT completed 0 Refill(s), Maintenance [place] [facility] albuterol 2.5 mg/3 mL neb soln [id number] 09/19/2020 01:24:00 PM EDT 3.0 mL Nebulized inhalation active 3 mL, Nebulized, q6hr, PRN for wheezing, # 25 each, 0 Refill(s), Maintenance [place] [facility] albuterol 2.5 mg/3 mL neb soln 09/19/2020 01:24:00 PM EDT 3.0 mL Nebulized inhalation completed 3 mL, Nebulize d, q6hr, PRN for wheezing, # 25 each, 0 Refill(s), Maintenance [place] [facility] 10 mEq 09/18/2020 12:00:00 AM EDT [...] INJECT 2 UNITS FOR FSBS 100-150 THEN BENJI ASHKAN MUÑOZ INSTRUCTIONS ON SLIDING SCALE MAXIMUM [...] MAXIMUM DAILY DOSE = 5 SOLD: 04/27/2020 FON[facility]2 [facility] 32.4 mg 01/13/2020 12:00:00 AM [...] EYE AT BEDTIME DIRECTED SOLD : 11/04/2019 [facility] 0.005 % 10/31/2019 12:00:00 AM [...] active Take 1 tablet by mouth daily [facility] 10 mg 01/08/2019 12:00:00 AM EST tablet [...] to [place] Policy [place] Plan Information ALEX [id number] SP [id number] ALEX I [id number] Self [id number] ALEX CARE [facility] [id number] A 74 [id number] Medicaid S [id number] S [id number] Managed Care Alex P [id number] S [id number] ALEX CARE [facility] [id number] S [id number] ALEX I [id number] Self [id number] EMEDNY [id number] SP [id number] MEDICAID [id number] SP [id number] Medicaid S [id number] S [id number] ALEX I [id number] Self [id number] ALEX I [id number] Medicaid S [id number] S [id number] ALEX CARE MEDICAID [id number] S [id number] ALEX CARE MEDICAID MCD HMO [id number] S [id number] ALEX I [id number] Self [id number] [place] Medigap Part B Self Alex Medicaid/CHP/FHP Commercial Self Alex Care Commercial Self ALEX CARE [place] O [id number] S [id number] MEDICAID M [id number] S [id number] ALEX [id number] SP [id number] [facility] [place] DEP 0000 SP 0000 Problems, Conditions, and Diagnoses Code Display Name Description Problem Type Effective Dates Data Source(s) F10.10 Alcohol abuse, uncomplicated Alcohol Use Disorder, Mil d Condition 11/12/2020 12:00:00 AM EST [facility] ([facility]) F60.2 Antisocial personality disorder Antisocial Personality Disorder Condition 11/12/2020 12:00:00 AM EST [facility] ([facility]) F32.9 Major depressive disorder, single episod e, unspecified Unspecified depressive Disorder Condition 11/12/2020 12:00:00 AM EST [facility] ([facility]) F43.10 Post-traumatic stress disorder, unspecif ied Posttraumatic Stress Disorder (includes Posttraumatic Stress Disorder for Children 6 Years and Younger) Condition 11/12/2020 12:00:00 AM EST [facility] ([facility]) F43.10 Post-traumatic stress disorder, unspecif ied Posttraumatic Stress Disorder (includes Posttraumatic Stress Disorder for Children 6 Years and Younger) Condition 11/01/2020 12:00:00 AM EST [facility] ([facility]) F10.10 Alcohol abuse, uncomplicated Alcohol Use Disorder, Mil d Condition 11/01/2020 12:00:00 AM EST [facility] ([facility]) F32.9 Major depressive disorder, single episod e, unspecified Unspecified depressive Disorder Condition 11/01/2020 12:00:00 AM EST [facility] ([facility]) [id number] Onychomycosis Onychomycosis Problem 08/13/2020 12:00:00 AM EDT [facility] ([facility] [id number] 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 Peripheral neuropathy due to type 1 diabetes mellitus Problem 08/13/2020 12:00: 00 AM EDT [facility] ([facility] 491.21 Acute exacerbation of chronic obstructiv e airways disease Acute exacerbation of chronic obstructive airways disease 05:33:45 PM EDT [facility] 780.79 Malaise and fatigue Malaise and fatigue 020 11:11:12 AM EDT [facility] 034.0 Streptococcal sore throat Streptococcal sore throat 04/09/2020 12:41:29 PM EDT [facility] M48.02 Spinal stenosis, cervical region Spinal stenosis in ce rvical region 04/01/2020 12:13:23 PM EDT [facility] 356.9 Peripheral neuropathy Peripheral neuropathy 05/2020 12:13:23 PM EDT [facility] A63.0 Anogenital (venereal) warts Condyloma acuminatum of the anogenital region 03/18/2020 11:27:56 AM EDT [facility] 724.5 Chronic back pain Chronic back pain 01/30/2020 04:30:51 PM EST [facility] [id number] Epilepsy, unspecified, not intractable, without status epilepticus Epilepsy, unspecified, not intractable, without status epilepticus 01/15/2020 08:16:45 AM EST [facility] [id number] Pure hypercholesterolemia Pure hypercholesterolemia Pr oblem 01/07/2020 12:00:00 AM EST [facility] ([facility]) [id number] Essential hypertension Essential hypertension Problem 01/07/2020 12:00:00 AM EST [facility] ([facility]) 786.2 Cough Cough 12/22/2019 04:06:53 PM ES T [facility] 478.19 Congestion of nasal sinus Congestion of nasal sinus 12/22/2019 04:06:53 PM EST [facility] E119 Type 2 diabetes mellitus without complic ations Type 2 diabetes mellitus without complications Diagnosis 10/16/2020 05:18:00 PM EST [facility] [facility] DR. MARCELINO TEE BE DOING THIS VIRTUAL CARL DR. MARCELINO TEE BE DOING THIS VIRTUAL CARL Diagnosis 10/16/2020 05:18:00 PM EST [place] [facility] [id number] Epilepsy, unsp, not intractable, without status epilepticus Epilepsy, unsp, not intractable, without status epilepticus Diagnosis 09/27 05:18:00 PM EST [place] [facility] I639 Cerebral infarction, unspecified Cerebral infarc tion, unspecified Diagnosis 10/16/2020 05:18:00 PM EST [place] [facility] [id number] Spinal stenosis, lumbar region without n eurogenic robert Spinal stenosis, lumbar region without neurogenic robert Diagnosis 10/16/2020 05:18:00 P M EST [place] [facility] appt w/dr cuenca diabetes appt w/dr cuenca diabetes Diagnosis 09/19/2020 03:00:00 PM EDT [place] [facility] Z72.0 Tobacco use Tobacco use Diagnosis 07/02/2020 01:14:[address] [facility] M50.30 Other cervical disc degeneration, unspec ified cervical region Other cervical disc degeneration, unspecified cervical region Diagnosis 07/02/2020 01:14:[address] [facility] M54.2 Cervicalgia Cervicalgia Diagnosis 07/02/2020 01:14:[address] [facility] M54.16 Radiculopathy, lumbar region Radiculopathy, lumbar reg ion Diagnosis 07/02/2020 01:14:[address] [facility] G89.29 Other chronic pain Other chronic pain Diagnosis 05/2020 01:14:[address] [facility] M54.41 Lumbago with sciatica, right side Lumbago with s ciatica, right side Diagnosis 07/02/2020 01:14:[address] [facility] M54.42 Lumbago with sciatica, left side Lumbago with sc iatica, left side Diagnosis 07/02/2020 01:14:[address] [facility] M51.36 Other intervertebral disc degeneration, lumbar region Other intervertebral disc degeneration, lumbar region Diagnosis 2019 01:14:[address] [facility] M48.061 Spinal stenosis, lumbar region without n eurogenic claudication Spinal stenosis, lumbar region without neurogenic claudication Diagnosis 07/02/2020 01:14:[address] [facility] Surgeries/Procedures Procedure Description Date Indications Data Source(s) Extended Individual Psychotherapy - 45 min 11/12/2020 12:00:00 AM EST - 11/12/2020 12:00:00 AM EST [facility] ([facility]) Extended Individual Psychotherapy - 45 min 0 12:00:00 AM EST [facility] ([facility]) [id number]"Psychotherapy 0 12:00:00 AM EST - 11/01/2020 12:00:00 AM EST [facility] ([facility]) [id number]"Psychotherapy 10/28/2020 12:00:00 AM EST [facility] ([facility]) Psychiatric Diagnostic Evaluation with Medical Services 10/04/2020 12:00:00 AM EST - 10/04/2020 12:00:00 AM EST [facility] ([facility]) Psychiatric Diagnostic Evaluation with Medical Services 10/04/2020 12:00:00 AM EST [facility] ([facility]) [id number]"Psychotherapy 0 12:00:00 AM EST - 10/04/2020 12:00:00 AM EST [facility] ([facility]) NLDDJEHCyrqiip22"Psychotherapy 10/04/2020 12:00:00 AM EST [facility] ([facility]) LCAEOLWYvwwdyf36"Psychotherapy 0 12:00:00 AM EDT - 09/24/2020 12:00:00 AM EDT [facility] ([facility]) BGZICYGYralgwy09"Psychotherapy 09/24/2020 12:00:00 AM EDT [facility] ([facility]) VDSOERHErkymbc16"Psychotherapy 0 12:00:00 AM EDT - 08/27/2020 12:00:00 AM EDT [facility] ([facility]) JAXSBSFTcbbejc67"Psychotherapy 08/27/2020 12:00:00 AM EDT [facility] ([facility]) TEMPMHCTelemed 30" Psychotherapy 020 12:00:00 AM EDT - 07/30/2020 12:00:00 AM EDT [facility] ([facility]) TEMPMHCTelemed 30" Psychotherapy 07/30/2020 12:00:00 A M EDT [facility] ([facility]) TEMPMHCTelemed 30" Psychotherapy 020 12:00:00 AM EDT - 05/25/2020 12:00:00 AM EDT [facility] ([facility]) TEMPMHCTelemed 30" Psychotherapy 05/25/2020 12:00:00 A M EDT [facility] ([facility]) [id number]"Psychotherapy 0 12:00:00 AM EDT - 05/19/2020 12:00:00 AM EDT [facility] ([facility]) JLHDWDHMyvedis11"Psychotherapy 05/19/2020 12:00:00 AM EDT [facility] ([facility]) ONRFLICCvlzlcc62"Psychotherapy 0 12:00:00 AM EDT - 05/14/2020 12:00:00 AM EDT [facility] ([facility]) VCCALVQAvellcj85"Psychotherapy 05/14/2020 12:00:00 AM EDT [facility] ([facility]) IQTKOFUIfhoxnn56"Psychotherapy 0 12:00:00 AM EDT - 05/05/2020 12:00:00 AM EDT [facility] ([facility]) DSEYEAYSsyubna66"Psychotherapy 05/05/2020 12:00:00 AM EDT [facility] ([facility]) MHC Telemed Diag Eval no med 04/14/2020 12:00:00 AM EDT - 04/14/2020 12:00:00 AM EDT [facility] ([facility]) MHC Telemed Diag Eval no med 04/14/2020 12:00:00 AM ED T [facility] ([facility]) TEMPMHCTelemed--Crisis Brief 03/29/2020 12:00:00 AM EDT - 03/29/2020 12:00:00 AM EDT [facility] ([facility]) TEMPMHCTelemed--Crisis Brief 03/29/2020 12:00:00 AM ED T [facility] ([facility]) Nerve Conduction 1-2 Studies 03/25/2020 12:00:00 AM ED T [facility] ([facility]) TEMP Forensic Telemed DC VT 45" Est Pt 0 03/10/2020 12:00:00 AM EDT - 03/10/2020 12:00:00 AM EDT [facility] ([facility]) TEMP Forensic Telemed DC VT 45" Est Pt 03/10/2020 12:0 0:00 AM EDT [facility] ([facility]) Results ID Date Data Source [id number] 10/17/2020 06:27:36 PM EST [place] [facility] MERRICK KATZPATIENT IDENTIFICATION:[facility] Site: [facility] Name: MERRICK KATZPam Record Number: [id number] Of : 1970CHIEF COMPLAINT:DR Bang pt----- Pt [...] advised to get another COVID test in [place] andvoices completeunderstanding. This is a Telemedicine visit [...] UseDrug Use Current. Marijuana, 10/16/2020Drug Use Denies., 09/19/2020Tobacco/Ajliypoi02 or more cigarettes (1/2 pack or more)/day in last 30 days Use:.,09/19/2020ALLERGIES:penicillin (Hives)Home Medications:Home Medications (25) ActivePHENobarbital (PHENobarbital 32.4 mg oral tablet) , PO (oral), bidalbuterol (albuterol 2.5 mg/3 mL neb soln) 3 mL, P RN, Nebulized, q9tobzOSAAQams (amLODIPine 10 mg oral tablet) , PO [...] 2 mg oral capsule) , PO (oral), x9doejkatixal (TopAMAX) , PO (oral), bidtraZODone (traZODone) , [...] X 10 day(s), # 20 tab(s),Acute, Pharmacy: [facility], 1 tab(s) PO (oral) bid,x10 day(s)predniSONE, 30 mg = 3 tab(s), PO (oral), qDay, # 15 tab(s), 0 Refill(s),Maintenance, Pharmacy:[facility], 3 tab(s) PO (oral) qDay,x5 day(s)Ambulatory Ancillary Referral 5. CHF NYHA class IIICounseled on all diagnoses and treatment. Physical therapy consult toevaluate forpossible electric scooter versus wheelchairOrdered:cefuroxime, 250 mg = 1 tab(s), PO (oral), bid, X 10 day(s), # 20 tab(s),Acute, Pharmacy: [facility], 1 tab(s) PO (oral) bid,x10 day(s)predniSONE, 30 mg = 3 tab(s), PO (oral), qDay, # 15 tab(s), 0 Refill(s),Maintenance, Pharmacy:[facility], 3 tab(s) PO (oral) qDay,x5 day(s)Ambulatory Ancillary Referral 6. Bronchitis Counseled on all diagnoses and treatment. Medication issued. Follow-upwith PCP this week asneeded, sooner if worse.Ordered:cefuroxime, 250 mg = 1 tab(s), PO (oral), bid, X 10 day(s), # 20 tab(s),Acute, Pharmacy: [facility], 1 tab(s) PO (oral) bid,x10 day(s)predniSONE, 30 mg = 3 tab(s), PO (oral), qDay, # 15 tab(s), 0 Refill(s),Maintenance, Pharmacy:[facility], 3 tab(s) PO (oral) [...] rce(s) Supporting Document(s) ID Date Data Source [id number] 09/26/2020 07:49:31 AM EST [place] [facility] KURT KATZ IDENTIFICATION:Tuan castanon Site: [facility] Name: James KATZ Record Number: [id number] Of : 1970CHIEF COMPLAINT:V- Pt looking to [...] times per month, 09/19/2020Substance UseDrug Use Denies., 09/19/2020Tobacco/Hxrgwxlf65 or more cigarettes (1/2 pack or more)/day in last 30 days Use:.,09/19/2020ALLERGIES:penicillin (Hives)Home Medications:Home Medications (22) ActivePHENobarbital (PHENobarbital 32.4 mg oral tablet) , PO (oral), bidalbuterol (albuterol 2.5 mg/3 mL neb soln) 3 mL, PRN, Nebulized, v6vajlYONDVboo (amLODIPine 10 mg oral tablet) , PO [...] 2 mg oral capsule) , PO (oral), h8pwhysfojpku (TopAMAX) , PO (oral), bidtraZODone (traZODone) , [...] withcardiology.5. Lumbar stenosis Patient has referral to [facility] but is consideringtransferring specialistopinion to neurosurgery in [place] with Dr. Liset Cash-will help coordinatethis once [...] rce(s) Supporting Document(s) ID Date Data Source [id number] 09/01/2020 04:30:01 PM EDT [facility] Measurements & CalculationsHeight: 65 inches (5 [...] during this visit, including review of any kmuq-ywx-qrjkpkd medications, herbal therapies, and/or supplements.Allergy ReviewAllergy List [...] exacerbation of chronic obstructive airways disease (ICD-491.21) (ROK40-C20.1) Assessment: Instructions: He seems to be doing well from this standpoint. Sees a pumonologist in [place] regardding this. Has been off O2 for the past 2-3 weeks and his oximetry and lung exam are reassuring today. i will leave further decisions about treatment including O2 to his nuclear test technician.Spinal stenosis in cervical region (ICD-723.0) (UJN50-I07.02) Assessment: Instructions: Recheck as scheduled with neurology.Diabetes, Type 2 (ICD-250.00) (CPJ95-N47.9) Assessment: Instructions: Continue current plan.Patient Instructions/Care Plan: Acute exacerbation of chronic obstructive airways disease: He seems to be doing well from this standpoint. Sees a pumonologist in [place] regardding this. Has been off O2 for the past 2-3 weeks and his oximetry and lung exam are reassuring today. i will leave further decisions about treatment including O2 to his nuclear test technician.Spinal stenosis in cervical region: Recheck as scheduled [...] patient and/or familyMedications:BD DISP NEEDLES 25G X 5/8"A6MHVFDIECRGHAHKA HCL 10 MG ORAL TABLETCYANOCOBALAMIN 1000 MCG/ML [...] 0 Method: ElectronicTRULICITY 1.5 MG/0.5ML SUBCUTANEOUS SOLUTION [id number]-[id number]-uhnrey 1.5 mg weekdly SQ Qty: 4[Prefilled Pen Syrnge] Refills: 0 Method: ElectronicADMELOG SOLOSTAR 100 UNIT/ML SUBCUTANEOUS SOLUTION [id number] units for FSBS 100-150- then await MD [...] (Mild)Orders:Adult - Ofc Vst, EST, Level III [CPT-37199] Medications:POTASSIUM CHLORIDE ADELE ER 10 MEQ ORAL TABLET EXTENDED RELEASE (POTASSIUM CHLORIDE ADELE ER) bid #60[Tablet] x 0 Route:ORAL Entered and Authorized by: Hany Renteria MD Method used: Electronically to [facility] (retail) [address] [place] [address] Note to Pharmacy: Route: ORAL; RxID: [id number] 20 MG ORAL TABLET (RIVAROXABAN) take one tablet by mouth daily #30[Tablet] x 3 Route:ORAL Entered and Authorized by: Hany Renteria MD Method used: Electronically to [facility] (retail) [address] [place] [address] Note to Pharmacy: Route: ORAL; Indications: MYOCARDIAL INFARCTION:;CORONARY HEART DISEASE RxID: [id number] CALCIUM 10 MG ORAL TABLET (ATORVASTATIN CALCIUM) qd #30[Tablet] x 0 Route:ORAL Entered and Authorized by: Hany Renteria MD Method used: Electronically to [facility] (retail) [address] [place] [address] Note to Pharmacy: Route: ORAL; RxID: [id number] SOLOSTAR 100 UNIT/ML SUBCUTANEOUS SOLUTION PEN-INJECTOR (INSULIN LISPRO) 2 units for FSBS 100-150- then await instructions on sliding scale #4[Prefilled Pen Syrnge] x 0 Route:SUBCUTANEOUS Entered and Authorized by: Hany Renteria MD Method used: Electronically to [facility] (retail) [address] [place] [address] Note to Pharmacy: Route: SC; RxID: [id number] 1.5 MG/0.5ML SUBCUTANEOUS SOLUTION PEN-INJECTOR (DULAGLUTIDE) inject 1.5 mg weekdly SQ #4[Prefilled Pen Syrnge] x 0 Route:SUBCUTANEOUS Entered and Authorized by: Hany Renteria MD Method used: Electronically to [facility] (retail) [address] [place] [address] Note to Pharmacy: Route: SC; RxID: [id number] HCL 100 MG ORAL TABLET (TRAZODONE HCL) 1 tab po 1 hour prior to sleep #30[Tablet] x 0 Route:ORAL Entered and Authorized by: Hany Renteria MD Method used: Electronically to [facility] (retail) [address] [place] [address] Note to Pharmacy: Route: ORAL; RxID: [id number] TESSALON PERLES 100 MG ORAL CAPSULE (BENZONATATE) take one tablet by mouth three time daily as needed #30[Capsule] x 3 Route:ORAL Entered by: Magaly Leavitt MA Authorized by: Hany Renteria MD Method used: Electronically to [facility] (retail) [address] [place] [address] RxID: [id number] LYRICA 150 MG ORAL CAPSULE (PREGABALIN) one tab po BID, hold gabapentin while on this #60[Capsule] x 0 Route:ORAL Entered by: Magaly Leavitt MA Authorized by: Hany Renteria MD Method used: Electronically to [facility] (retail) [address] [place] [address] RxID: [id number] signed by Hany Renteria MD on 09/02/2020 at 8:57 AM Name Value Range Interpretation Code Description Data Maren rce(s) Supporting Document(s) ID Date Data Source [id number] 07/24/2020 11:27:00 AM EDT [facility] Name Value Range Interpretation Code Description Data Maren rce(s) Supporting Document(s) T3, TOTAL 72.9 ng/dL 60.0-181.0 [facility] T4, TOTAL 12.9 mcg/dL 4.5-12.0 [facility] 0.006 ID Date Data Source [id number] 07/24/2020 11:12:00 AM EDT [facility] Name Value Range Interpretation Code Description Data Maren rce(s) Supporting Document(s) BG FASTING 88 mg/dL 70-100 [facility] 0.007 ID Date Data Source [id number] 2020 10:34:59 PM EDT [facility] Name Value Range Interpretation Code Description Data Maren rce(s) Supporting Document(s) Progress Note [facility] FSXBTg6wGnMTAlNv34/BBZvhCZUck0LvRQhiIFy6ALxxDEFoR9CzSEH0zV7qEOP9HOeYTfZwUsMzDSAz lbm [file] Hmy+MzbBP+qnqX4C4IBJdxjYD/vp software engineering/nFmMAoi4Fyxr0WCNmOLpZHii8yLbdMVUhlUKRa7GradcyoTJAe4 [file] ICAgICAgICAgICAgICAgICAgICAgICAgICAgICAgIC AgICAgICAgICAgICAgICAgICAgICAgICAgICAgICAgICAgICAgICAgICANCiAgICAgICAgICAgICAgIC AgICAgICAgICAgICAgICAgICAgICAgICAgICAgICAgICAgICAgICAgICAgICAgICAgICAgICAgICAgIC AgICAgICAgICAgICAgICAgICAgICAgICANCiAgICAg ICAgICAgICAgICAgICAgICAgICAgICAgICAgICAgICAgICAgICAgICAgICAgICAgICAgICAgICAgICAg ICAgICAgICAgICAgICAgICAgICAgICAgICAgICAgICAgICANCiAgICAgICAgICAgICAgICAgICAgICAg ICAgICAgICAgICAgICAgICAgICAgICAgICAgICAgIC AgICAgICAgICAgICAgICAgICAgICAgICAgICAgICAgICAgICAgICAgICAgICANCiAgICAgICAgICAgIC AgICAgICAgICAgICAgICAgICAgICAgICAgICAgICAgICAgICAgICAgICAgICAgICAgICAgICAgICAgIC AgICAgICAgICAgICAgICAgICAgICAgICAgICANCiAg ICAgICAgICAgICAgICAgICAgICAgICAgICAgICAgICAgICAgICAgICAgICAgICAgICAgICAgICAgICAg ICAgICAgICAgICAgICAgICAgICAgICAgICAgICAgICAgICAgICANCiAgICAgICAgICAgICAgICAgICAg ICAgICAgICAgICAgICAgICAgICAgICAgICAgICAgIC AgICAgICAgICAgICAgICAgICAgICAgICAgICAgICAgICAgICAgICAgICAgICAgICANCiAgICAgICAgIC AgICAgICAgICAgICAgICAgICAgICAgICAgICAgICAgICAgICAgICAgICAgICAgICAgICAgICAgICAgIC AgICAgICAgICAgICAgICAgICAgICAgICAgICAgICAN CiAgICAgICAgICAgICAgICAgICAgICAgICAgICAgICAgICAgICAgICAgICAgICAgICAgICAgICAgICAg ICAgICAgICAgICAgICAgICAgICAgICAgICAgICAgICAgICAgICAgICANCiAgICAgICAgICAgICAgICAg ICAgICAgICAgICAgICAgICAgICAgICAgICAgICAgIC AgICAgICAgICAgICAgICAgICAgICAgICAgICAgICAgICAgICAgICAgICAgICAgICAgICANCjw/eHBhY2 zoyJBdfeG0A2vsNy3JTt2UHG5pn6EiKVPqDQrphkUtNvyGHqAaSWMfGzwGDbo7ZRcwMQ2LhKMoG1DyA1 VeMRjjMB1KIMNfDALtwQOeDNDdZBPcInX5GDOyLCwn WO7AiRVtAHejCKBvSEJpCsDsDDUfKAQeWNJrGNFvZPJTCSRgQWHrYmDmEEBbZHLoPJedCLTMGL8YKeAk K2VmqV90JPxPOl6+AAsuexLaIdhKMvGzYFPrw7MkYGd1UX8NPEMuKefxo5JzQZBsSIIFQNgbLJ0UFZM5 GZXcWREfVm2YLIShD873soOoAH6EBi2DYtQwOR4eqd 3CNDIzXXUaVbiOHxt3AHdcLE4BmIGnZWiVod1pdmVuybVRd3PlwdDgtAZQJDN0rIG5HQ1pYBqyoDiuJv PwYAJaLN32GvVcPhFsQZE0XEFbZG5lHCigGI8LTLE4MPhiLNIgRUWiI2zLDpPeZNYkHyZzzXxbBK7GUh XyT2NjmdXclTS4YvMoUDRJOi9+DQplbmRvYmoNCjQ0 LTTuj9ZaCBa3NE7DZCXyJVmpDQ9HYBHlhY7nPPqoKV4SCwN6GBPtWWWMCyJiQ09kmOUsYFm2F4UsUqGc ZGVkRmlsZXMgPDwvTmFtZXMgWyBdDQogID4+ID4+LKtnTI0JJNboysIbUKGsLu5SQOVyJNAeIZ6hQJBr JHYfU6V0eKayXOFHRnQbM4oucuqcMF4xCJLaK076hX bdjvLsMGNjYZVtVb0CZXGeFFU5QGGwgIBdEECyYZMRANelSS8KhJItHMF5yQ1vHPfzFRCqDHAbM5iQXk JnnOfaWW28lBkfysEivOMbXGv+Nf0WCS7lt6WlHMb3tyWpKAbwYJL0UFsmMREwFTNaTAQoOIV7AER8BR GVBrIjTBFnEFYhARkxJUKuMRHtsb6GQUKhZRV2GMn1 KcZwVHRmWYHwCXpdCBLiDDyyIkN9KDNmFVYoIR3OZkKeIHWdSBBwDUveNCSjVMMhrd0CLTZzNJVgKyv0 TXVrTPDhLLNwPOfeTQRfJLE3LAw3MUUmWNKfOY6KOxAqPOPsPHG6PjJjDGCcYVDpoa2ADIYtIOWxQvty OYXkQLPmXQGaNUkzQRLqJYBnEZv0HRFeINUdQF1VNy FiOQXfWFJrNAmqYDDaHPYhxr7ZFNWvZFTzEJQoIwLmDWGgFHCwOOkcALAfJDT5MdIyZMXwSDNyHI0UHt YpOVMsKUt9IeVcTVPeTNAmsz4YHRQjLOHvRtw1FuAwYIFoAUJhLSsgLYAdEMGqTXm1NLAuNVYfTD2FHk JhFQHvMyKvFTGpZMNdVVYanq0KWJLgUCJnEVV8BgCj PBCoPUFrJAfoIPIqTOE3FMT6SGCyNQApAP5AYqGwPFYxOrF5AFevHLPfGLQgrc3JMFTeIGSzSnKkSHWn THHjJIOtSEdfFMMzFKZ4FEf4QKCiPCPsXP2MUsZrKVYmPahgJKtrAGBgDODyqe9POGUnTMUjFuG8KFFv PNWnBOPeAXpuQFJiINV4SSQ2OJYfLPDlGX4NPjCtHL BjQyZqHvNlFSEzQTDynw8SSUGiKIA7XWljWmLsDNKzENOsLPhiILHlNLIxCPArQKBwDCKhZT5YQuOdVI EhDjVfDpweRQRaYEMqal2IYSSmAKT1FoN9CMGaJLRkXRBpDFffRHLaJGC0LXF1GFGwJDYbLK6YAfVsOD NoUfUzKRssFCTjYEFkju9RDKDhIIY2BIA0FGTnSLGn ILYvLUqfBYXdUQP6ZyNcBODyOIXsPG1JEzZsEAFsIbl7BxHpFDHsBMOvai5TSYDnEQS4XMl6LQJnWTJd GWRlRDpnGPAzKWymSEJ6HKViMFKbUR2JJhCyAGWsIbHoXcFhKCJbFERgqu6AWZGdPAS1ALS4YUXdFZXl HBDlKZxoJQFjWVvqQuW0ETTlVPDuFC9IRqVoCWZlNp O0KjYlJUFtXFQyph7WPZHrTCY6KRThIYEaWPQbMLOhEKcxIGMvDLhyQKYcGXMxOSLdHY9ULrUgHEBrMt Q5VbIjJJCmEBFbep1JPWXsPUN6HgKjZJCaCRWoJLJvFWm8pfHndEIyGTy7QF5SZ8SfepBoTTZNGb4Km8 98BUG3HJPwQt8NQ2oaSx5yHWRxQURHXd1CNRe5AKc1 PNCvNPkeFXHrYCApOBPaH2PwUXLdRMO5SGQeTgQ+GDphPfa1KeBzDII4SORtIOJ7PHFzTpG3TPYjOnpu FaIeOw3kLWAIUk2+LVgasLEmdFbzTKWRNzlnHdD2QDsrTHAXMt4A ID Date Data Source [id number] 06/25/2020 08:21:41 AM EDT [facility] Initial Intake Information From: patient (Home) [...] during this visit, including review of any uqdp-rnl-nqqgnon medications, herbal therapies, and/or supplements.Allergy ReviewAllergy List [...] patient and/or familyMedications:BD DISP NEEDLES 25G X 5/8"L1FCQBLCZEQTYROPQ HCL 10 MG ORAL TABLETCYANOCOBALAMIN 1000 MCG/ML [...] SERTRALINE HCL 50 MG ORAL TABLET Qty: [id number] Refills: 30[Tablet] To: SERTRALINE HCL 100 MG ORAL TABLET-One tablet by mouth every day Qty: 30[Tablet] Refills: 5Allergies:PENICILLIN (Moderate)MUSHROOMS (Mild)* SEASONAL (Mild)Orders:Telephon e E&M 5-10 min Medical Discussion [CPT-93018] Name Value Range Interpretation Code Description Data Maren rce(s) Supporting Document(s) ID Date Data Source [id number] 06/14/2020 09:45:03 AM EDT [facility] Measurements & CalculationsHeight: 65 inches (5 [...] date reported today: 2009Intake performed by: Uzma Herrrea MA, June 14, 2020 9:46 AMRate Your [...] mask (which is minimal.)He has seen a nuclear test technician in the past in [place] but has not seen them for the past few years.Took himself off the Anoro because he was worried about how it might make his lung disease worse. He has not discussed this with his Plant Health Care Technician.Breathing is worse lately with the heat and humidity.HPI performed by: Hany Renteria MD, June 14, 2020 10:30 AMTransitions of Care InboundProblem ReviewProblem List was reviewed and/or updated during this visit.Medication Reconciliation & ReviewMedication List was reviewed and/or updated during this visit, including review of any mbaw-jvp-kmqomrz medications, herbal therapies, and/or supplements.Allergy ReviewAllergy List [...] is? PoorAssessment & Plan Problems:Assessed:Brendan Carson (ICD-496) (NPS63-J23.9) Assessment: Instructions: I am not willing to [...] (Mild)Orders:Adult - Ofc Vst, EST, Level III [CPT-89495] Medications:LORADAMED 10 MG ORAL TABLET (LORATADINE) qd #30[Tablet] x 5 Route:ORAL Entered and Authorized by: Hany Renteria MD Method used: Electronically to [facility] (retail) [address] [place] [address] Note to Pharmacy: Route: ORAL; RxID: [id number] HCL 1000 MG ORAL TABLET (METFORMIN HCL) 1 tab PO twice a day #60[Tablet] x 5 Entered and Authorized by: aHny Renteria MD Method used: Electronically to [facility] (retail) [address] [place] [address] RxID: [id number] HCL 200 MG ORAL TABLET (AMIODARONE HCL) take 1 tab PO twice a day #60[Tablet] x 5 Entered and Authorized by: Hany Renteria MD Method used: Electronically to [facility] (retail) [address] [place] [address] RxID: [id number] 800 MG ORAL TABLET (GABAPENTIN) qid #120[Tablet] x 5 Route:ORAL Entered and Authorized by: Hany Renteria MD Method used: Electronically to [facility] (retail) [address] [place] [address] Note to Pharmacy: Route: ORAL; RxID: [id number] 75 0 MG ORAL TABLET (LEVETIRACETAM) 2 tabs po BID #120[Tablet] x 5 Entered and Authorized by: Hany Renteria MD Method used: Electronically to [facility] (retail) [address] [place] [address] RxID: [id number] 32.4 MG ORAL TABLET (PHENOBARBITAL) 2 tabs po BID #120[Tablet] x 5 Entered and Authorized by: Hany Renteria MD Method used: Electronically to [facility] (retail) [address] [place] [address] RxID: [id number] BISULFATE 75 MG ORAL TABLET (CLOPIDOGREL BISULFATE) 1 tab PO every day #30[Tablet] x 5 Entered and Authorized by: Hany Renteria MD Method used: Electronically to [facility] (retail) [address] [place] [address] RxID: [id number] CHLORIDE ADELE ER 10 MEQ ORAL TABLET EXTENDED RELEASE (POTASSIUM CHLORIDE ADELE ER) bid #60[Tablet] x 5 Route:ORAL Entered and Authorized by: Hany Renteria MD Method used: Electronically to [facility] (retail) [address] [place] [address] Note to Pharmacy: Route: ORAL; RxID: [id number] signed by Hany Renteria MD on 06/14/2020 at 10:38 AM Review of Systems General: Denies chills, fever. Cardiovascular: Denies chest pain. Respiratory: Complains of see HPI, cough, shortness of breath. Denies excessive sputum. Assessment & Plan Name Value Range Interpretation Code Description Data Maren rce(s) Supporting Document(s) ID Date Data Source [id number] 05/02/2020 12:00:00 AM EDT [facility] Name Value Range Interpretation Code Description Data Maren rce(s) Supporting Document(s) SARS CORONAVIRUS 2 RNA [facility] This lab was ordered by [facility] and reported by [facility]. ID Date Data Source [id number] 04/29/2020 04:57:25 PM EDT [facility] Measurements & CalculationsHeight: 65 inches (5 [...] during this visit, including review of any spqc-aep-htjzdse medications, herbal therapies, and/or supplements.Allergy ReviewAllergy List [...] exacerbation of chronic obstructive airways disease (ICD-491.21) (TCI35-B03.1)Assessed:Malaise and fatigue (ICD-780.79) (DRE61-M93.81) Assessment: B12 shotscheck labsAssessment not SavedAcute exacerbation of chronic obstructive airways disease (TLH21-N83.1): zithromAxMedications:AZITHROMYCIN 500 MG ORAL TABLETCYCLOBENZAPRINE HCL 10 [...] (Mild)Orders:Adult - Ofc Vst, EST, Level III [CPT-01654] VITAMIN B-12 [CPT-82278] TSH [CPT-31734] T3 Total [CPT-20455] T4 [CPT-81923] Thyroid Peroxidase Antibody [CPT_86376] Thyroglobulin antibody [CPT-03417] Pine [CPT-09901] Caleb-Pantoja (EB) virus, nuclear antigen (EBNA) Antibody [CPT-88784] Name Value Range Interpretation Code Description Data Maren rce(s) Supporting Document(s) ID Date Data Source [id number] 04/16/2020 10:43:15 AM EDT [facility] Measurements & CalculationsHeight: 65 inches (5 [...] & Plan Problems:Added: Malaise and fatigue (ICD-780.79) (CKQ77-D62.81)Assessment not SavedMalaise and fatigue (OZS18-B57.81): B12 orderedmay need adjustment of BP meds in near futureMedication Changes:New Prescription:B-12 5000 MCG SUBLINGUAL TABLET SUBLINGUAL-one tab SL QD for energy Qty: 1[Bottle] Refills: 5 Method: ElectronicOrders:Adult - Ofc Vst, EST, Level III [CPT-34086] Medications:B-12 5000 MCG SUBLINGUAL TABLET SUBLINGUAL (CYANOCOBALAMIN) one tab SL QD for energy #1[Bottle] x 5 Route:SUBLINGUAL Entered and Authorized by: Chago Bautista DO Method used: Electronically to [facility] (retail) [address] [place] [address] Fax: Note to Pharmacy: Route: SUBLINGUAL; RxID: [id number] signed by Chago Bautista DO on 04/16/2020 at 11:11 AM Name Value Range Interpretation Code Description Data Maren rce(s) Supporting Document(s) ID Date Data Source [id number] 04/09/2020 11:32:28 AM EDT [facility] Measurements & CalculationsHeight: 65 inches (5 [...] during this visit, including review of any fiah-ynr-rkspvtp medications, herbal therapies, and/or supplements.Allergy ReviewAllergy List [...] & Plan Problems:Added: Streptococcal sore throat (ICD-034.0) (VNU30-V90.0)Assessment not SavedStreptococcal sore throat (UAP12-P99.0): cefdinir and cepacolMedications:CEPACOL INSTAMAX 15-20 MG MOUTH/THROAT [...] (Mild)Orders:Adult - Ofc Vst, EST, Level III [CPT-99864] E lectronically signed by Chago Bautista DO on 04/09/2020 at 12:41 PM Name Value Range Interpretation Code Description Data Mraen rce(s) Supporting Document(s) ID Date Data Source [id number] 04/01/2020 11:11:35 AM EDT [facility] Measurements & CalculationsHeight: 65 inches 165.10 [...] during this visit, including review of any ebnj-hky-ilmwyxu medications, herbal therapies, and/or supplements.Allergy ReviewAllergy List [...] cervical region (ICD-723.0) (ICD10- M48.02)Peripheral neuropathy (ICD-356.9) (XIW48-J28.9) Assessment: CT head orderedAssessment not SavedSpinal stenosis in cervical region (JMR78-G76.02): try lyrica again, hold gabapentinMedications:LYRICA 150 MG [...] Method: ElectronicAllergies:PENICILLIN (Moderate)MUSHROOMS (Mild)* SEASONAL (Mild)Orders:Neurology Consult [CPT-29604] Adult - Ofc Vst, EST, Level III [CPT- 86493] CT HEAD/BRAIN W/O CONTRAST MATERIAL [CPT-56617] Name Value Range Interpretation Code Description Data Maren rce(s) Supporting Document(s) ID Date Data Source [id number] 03/18/2020 11:07:20 AM EDT [facility] Vital SignsTemperature: 98.5F oral Pulse Rate: 56 beats/minuteRespiratory Rate: 18 respirations/minuteBlood Pressure: 86/47 left arm sitting automaticO2 Saturation: 99% room airVital Signs performed by: Fidel Davis MA, March 18, 2020 11:23 AMInitial Intake Information from: [facility] #: 14Smoking, Tobacco, Vaping or Smoke Exposure [...] during this visit, including review of any zeyx-ogv-jxyxugq medications, herbal therapies, and/or supplements.Allergy ReviewAllergy List [...] Condyloma acuminatum of the anogenital region (ICD-078.11) (XDU24-O01.0) Assessment: refer to gynAssessed:Cough (ICD-786.2) (DTA62-O06) Assessment: add codeine cough syrupAssessment not Saved Condyloma acuminatum of the anogenital region (JWW97-C43.0): Comment Onlyrefer to gynMedications:BLOOD PRESSURE MONITOR/ARM DEVICECHERATUSSIN [...] (Mild)Orders:Adult - Ofc Vst, EST, Level III [CPT-13021] [employer] Cl[employer] Finisher [CPT-10912] Name Value Range Interpretation Code Description Data Maren rce(s) Supporting Document(s) ID Date Data Source [id number] 03/12/2020 01:08:45 PM EDT [facility] Measurements & CalculationsHeight: 65 inches 165.10 [...] during this visit, including review of any xszj-bub-xyogyfo medications, herbal therapies, and/or supplements.Allergy ReviewAllergy List [...] (ICD10- M54.9) Assessment: need hoverroundAssessment not SavedCough (FSG76-C45): zithromaxMedications:AZITHROMYCIN 500 MG ORAL TABLETIPRATROPIUM-ALBUTEROL 0.5- 2.5 [...] (Mild)Orders:Adult - Ofc Vst, EST, Level III [CPT-51638] Medications:AZITHROMYCIN 500 MG ORAL TABLET (AZITHROMYCIN) one tab po QD X 3d #3[Tablet] x 0 Route:ORAL Entered and Authorized by: Chago Bautista DO Method used: Electronically to [facility] (retail) [address] [place] [address] Note to Pharmacy: Route: ORAL; RxID: [id number] signed by Chago Bautista DO on 03/12/2020 at 1:37 PM Name Value Range Interpretation Code Description Data Maren rce(s) Supporting Document(s) ID Date Data Source [id number] 01/30/2020 03:30:53 PM [facility] Measurements & CalculationsHeight: 65 inches (5 [...] pt would also like a letter to [employer] stating that his Wendy will be his dialysis patient care technician due to his medical issues. all of patients labs came back normal. Do venkata will change pt's medication back to the way it was. pt states his medications were changed without being advised. Transitions of Care InboundProblem ReviewProblem List was reviewed and/or updated during this visit.Medication Reconciliation & ReviewMedication List was reviewed and/or updated during this visit, including review of any kbmu-yno-xbnsqga medications, herbal therapies, and/or supplements.Allergy ReviewAllergy List was reviewed and/or updated during this visit.Adult Preventive CareProvider Calculated and Reviewed all Clinical Protocols for patient today. Screening Tobacco Screening: Smoking Status: current every day smoker (01/30/2020) Tobacco Use: Currently (01/30/2020) Advised to Quit: Yes (01/30/2020)Labs/Meds/Other Counseling-Nutrition and Physical Activity:BMI Interpretation: Obese (01/30/2020) Counseling: Done (01/30/2020) Physical Activity: Done (01/30/2020)Cancer Screening [place] noscopyReviewed:Previous Comments: pt refused (12/22/2019)Today's Comments: PT [...] & Plan Problems:Added: Chronic back pain (ICD-724.5) (VXC68-K19.9)Medications:TESSALON PERLES 100 MG ORAL CAPSULEFLONASE ALLERGY RELIEF [...] 5 Method: ElectronicTRULICITY 1.5 MG/0.5ML SUBCUTANEOUS SOLUTION NCU-UQFBEJHR-raetpa 1.5 mg weekdly SQ Qty: 4[Prefilled Pen Syrnge] Refills: 5 Method: ElectronicADMELOG SOLOSTAR 100 UNIT/ML SUBCUTANEOUS SOLUTION OSA-BANBDQVM-6 units for FSBS 100-150- then await MD [...] Chago Bautista DO Method used: Electronically to [facility] (retail) [address] [place] [address] RxID: [id number] 40 MG ORAL TABLET (FUROSEMIDE) 1 tab PO twice a day #60[Tablet] x 5 Entered and Authorized by: Chago Bautista DO Method used: Electronically to [facility] (retail) [address] [place] [address] RxID: [id number] 600 MG ORAL TABLET (IBUPROFEN) 1 tab PO Q8H for pain PRN #60 x 0 Entered and Authorized by: Chago Bautista DO Method used: Print then Give to Patient RxID: [id number] BISULFATE 75 MG ORAL TABLET (CLOPIDOGREL BISULFATE) 1 tab PO every day #30[Tablet] x 5 Entered and Authorized by: Chago Bautista DO Method used: Electronically to [facility] (retail) [address] [place] [address] RxID: [id number] HCL 1000 MG ORAL TABLET (METFORMIN HCL) 1 tab PO twice a day #60[Tablet] x 5 Entered and Authorized by: Chago Batuista DO Method used: Electronically to [facility] (retail) [address] [place] [address] RxID: [id number] 20 MG ORAL TABLET (LISINOPRIL) 1 tab PO twice a day #30[Tablet] x 2 Entered and Authorized by: Chago Bautista DO Method used: Electronically to [facility] (retail) [address] [place] [address] RxID: [id number] BESYLATE 10 MG ORAL TABLET (AMLODIPINE BESYLATE) 1 tablet PO daily #30[Tablet] x 5 Entered and Authorized by: Chago Bautista DO Method used: Electronically to [facility] (retail) [address] [place] [address] RxID: [id number] HCL 150 MG ORAL TABLET (RANITIDINE HCL) 1 tab PO BID daily #60[Tablet] x 5 Entered and Authorized by: Chago Bautista DO Method used: Electronically to [facility] (retail) [address] [place] [address] RxID: [id number] HCL 200 MG ORAL TABLET (AMIODARONE HCL) take 1 tab PO twice a day #60[Tablet] x 5 Entered and Authorized by: Chago Bautista DO Method used: Electronically to [facility] (retail) [address] [place] [address] RxID: [id number] EC 81 MG ORAL TABLET DELAYED RELEASE (ASPIRIN) 1 tab PO every day #30[Tablet] x 5 Entered and Authorized by: Chago Bautista DO Method used: Electronically to [facility] (retail) [address] [place] [address] RxID: [id number] INSULIN SYRINGE ULTRAFINE 31G X 15/64" 0.5 ML (INSULIN SYRINGE-NEEDLE U-100) use one syringe per subcutaneous injection #120 Syringe x 11 Entered and Authorized by: Chago Bautista DO Method used: Print then Give to Patient RxID: [id number] PREP 70 % PAD (ISOPROPYL ALCOHOL) 1 pad prior to each finger stick #100[Pad] x 11 Entered and Authorized by: Chago Bautista DO Method used: Electronically to [facility] (retail) [address] [place] [address] RxID: [id number] LITE TEST IN VITRO STRIP (GLUCOSE BLOOD) 1 one strip 4 times daily:1 before breakfast, lunch, dinner and bed #120[Strip] x 11 Entered and Authorized by: Chago Bautista DO Method used: Electronically to [facility] (retail) [address] [place] [address] Ph: [phone] RxID: [id number] LANCETS (LANCETS) Use 1 lancet wtih checking blood sugar 4 times daily #120[Unspecified] x 11 Entered and Authorized by: Chago Bautista DO Method used: Electronically to [facility] (retail) [address] [place] [address] RxID: [id number] SHELL BACK BRACE 1 hard shell back brace DX: M54.5, G89.4 Period of need: 99 #1 x 0 Entered and Authorized by: Chago Bautista DO Method used: Print then Give to Patient RxID: [id number] ACID 1 MG ORAL TABLET (FOLIC ACID) take one tablet by mouth daily #30[Tablet] x 2 Entered and Authorized by: Chago Bautista DO Method used: Electronically to [facility] (retail) [address] [place] [address] RxID: [id number] HCL 50 MG ORAL TABLET (SERTRALINE HCL) qd #30[Tablet] x 5 Route:ORAL Entered and Authorized by: Chago Bautista DO Method used: Electronically to [facility] (retail) [address] [place] [address] Note to Ph armacy: Route: ORAL; RxID: [id number] 800 MG ORAL TABLET (GABAPENTIN) qid #120[Tablet] x 5 Route:ORAL Entered and Authorized by: Chago Bautista DO Method used: Electronically to [facility] (retail) [address] [place] [address] Note to Pharmacy: Route: ORAL; RxID: [id number] 10 MG ORAL TABLET (LORATADINE) qd #30[Tablet] x 5 Route:ORAL Entered and Authorized by: Chago Bautista DO Method used: Electronically to [facility] (retail) [address] [place] [address] Note to Pharmacy: Route: ORAL; RxID: [id number] CHLORIDE ADELE ER 10 MEQ ORAL TABLET EXTENDED RELEASE (POTASSIUM CHLORIDE ADELE ER) bid #60[Tablet] x 5 Route:ORAL Entered and Authorized by: Chago Bautista DO Method used: Electronically to [facility] (retail) [address] [place] [address] Note to Pharmacy : Route: ORAL; RxID: [id number] 20 MG ORAL TABLET (RIVAROXABAN) take one tablet by mouth daily #30[Tablet] x 3 Route:ORAL Entered and Authorized by: Chago Bautista DO Method used: Electronically to [facility] (retail) [address] [place] [address] Note to Pharmacy: Route: ORAL; Indications: MYOCARDIAL INFARCTION:;CORONARY HEART DISEASE RxID: [id number] CALCIUM 10 MG ORAL TABLET (ATORVASTATIN CALCIUM) qd #30[Tablet] x 5 Route:ORAL Entered and Authorized by: Chago Bautista DO Method used: Electronically to [facility] (retail) [address] [place] [address] Note to Pharmac y: Route: ORAL; RxID: [id number] SOLOSTAR 100 UNIT/ML SUBCUTANEOUS SOLUTION PEN-INJECTOR (INSULIN LISPRO) 2 units for FSBS 100-150- then await instructions on sliding scale #4[Prefilled Pen Syrnge] x 5 Route:SUBCUTANEOUS Entered and Authorized by: Chago Bautista DO Method used: Electronically to [facility] (retail) [address] [place] [address] Note to Pharmacy: Route: SC; RxID: [id number] 1.5 MG/0.5ML SUBCUTANEOUS SOLUTION PEN-INJECTOR (DULAGLUTIDE) inject 1.5 mg weekdly SQ #4[Prefilled Pen Syrnge] x 5 Route:SUBCUTANEOUS Entered and Authorized by: Chago Bautista DO Method used: Electronically to [facility] (retail) [address] [place] [address] Note to Pharmacy: Route: SC; RxID: [id number] 100 MG ORAL TABLET (TRAZODONE HCL) 1 tab po 1 hour prior to sleep #30[Tablet] x 5 Route:ORAL Entered and Authorized by: Chago Bautista DO Method used: Electronically to [facility] (retail) [address] [place] [address] Note to Pharmacy: Route: ORAL; RxID: [id number] 750 MG ORAL TABLET (LEVETIRACETAM) 2 tabs po BID #120[Tablet] x 5 Entered and Authorized by: Chago Bautista DO Method used: Electronically to [facility] (retail) [address] [place] [address] Note to Pharmacy: Route: ORAL; RxID: [id number] ALLERGY RELIEF 50 MCG/ACT NASAL SUSPENSION (FLUTICASONE PROPIONATE) one spray to each nostril twice daily as needed x 7 days #1[[address]] x 1 Route:NASAL Entered and Authorized by: Chago Bautista DO Method used: Electronically to [facility] (retail) [address] [place] [address] Note to Pharmacy: Route: NASAL; Indications: CONGESTION OF NASAL SINUS RxID: [id number] PERLES 100 MG ORAL CAPSULE (BENZONATATE) take one tablet by mouth three time daily as needed #30[Capsule] x 3 Route:ORAL Entered and Authorized by: Chago Bautista DO Method used: Electronically to [facility] (retail) [address] [place] [address] Note to Pharmacy: Route: ORAL; Indications: CONGESTION OF NASAL SINUS;COUGH RxID: [id number] ONE DAILY COMPLETE ORAL TABLET (MULTIPLE VITAMINS- MINERALS) 1 tablet PO daily #30[Tablet] x 5 Entered by: Fidel Davis MA Authorized by: Liset Davis MD Method used: Electronically to [facility] (retail) [address] [place] [address] RxID: [id number]][Immunization Management] Name Value Range Interpretation Code Description Data Maren rce(s) Supporting Document(s) ID Date Data Source [id number] 01/19/2020 12:00:00 AM EST 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.Discs/Spinal canal/Neural foramina:L3-L4: Mild [...] asbilateral neural foraminal stenoses.COMMENTS: Consistent with the [employer]'s IncidentalFindings Committee white paper [...] rce(s) Supporting Document(s) ID Date Data Source [id number] 01/19/2020 12:00:00 AM EST [facility] Imaging Fatuma PINO Patient Name: MERRICK KATZ [id number] [facility] Date of : 1970[facility] [address] Date of Exam: 01/19/2020[facility][Note 3]EL good [id number]#: Fax: [phone] EXAM: CT CERVICAL SPINE WITHOUT [...] rce(s) Supporting Document(s) ID Date Data Source [id number] 01/15/2020 09:57:44 AM [facility] In-House Blood TestsDate/Time Colle cted: January 15, 2020 9:58 AMTest Result Reference Range Normal ValueComments: blood draw done in offcie done in right ac tolerated well Daniel Antony ALVES, January 15, 2020 9:58 AMAssessment & Plan Orders:[id number] Vst-Est Level I [CPT-27342] [id number] - Venipuncture [CPT-91039] Name Value Range Interpretation Code Description Data Maren rce(s) Supporting Document(s) ID Date Data Source [id number] 01/15/2020 09:45:00 AM [facility] Name Value Range Interpretation Code Description Data Maren rce(s) Supporting Document(s) BG FASTING 84 mg/dL 70-100 N [facility] y Health TSH 0.039 microintl units/mL 0.358-3.740 L [facility] ID Date Data Source [id number] 01/15/2020 09:45:00 AM [facility] Name Value Range Interpretation Code Description Data Maren rce(s) Supporting Document(s) HCT 40.4 % 42.0-52.0 L [facility] HGB 13.6 g/dL 13.5-17.5 N [facility] Family [facility] MCH 33.7 G/DL pg 32.0-36.5 [facility] 33.0 PG % 27.0-33.0 N [facility] PLATELETS 144 10 10*3/mm3 150-450 L [facility] RBC 4.12 10 10*6/mm3 4.30-6.10 L [facility] RDW 12.9 % 11.5-14.5 N [facility] WBC TOTAL 10.6 4.0-10.0 H [facility] ID Date Data Source [id number] 01/15/2020 09:45:00 AM [facility] Name Value Range Interpretation Code Description Data Maren rce(s) Supporting Document(s) HGBA1C 5.9 % N [facility] ID Date Data Source [id number] 12/22/2019 03:24:51 PM [facility] Measurements & CalculationsHeight: 65 inches (5 [...] and FIT test.HPI performed by: Berenice Lizarraga [facility], December 22, 2019 3:42 PMTransitions of Care InboundProblem ReviewProblem List was reviewed and/or updated during this visit.Medication Reconciliation & ReviewMedication List was reviewed and/or updated during this visit, including review of any ihrt-gmb-ksifykj medications, herbal therapies, and/or supplements.Allergy ReviewAllergy List [...] Plan Problems:Added: Congestion of nasal sinus (ICD-478.19) (JCD35-Z53.81) Assessment: Instructions: We have sent a prescription to your pharmacy today. Please take medication as prescribed. Please report any major side effects. Please try to maintain adequate rest, adequate fluid hydration and good nutrition. Please try to maintain good hand hygiene.Cough (ICD-786.2) (IVK95-S20) Assessment: Instructions: We have sent a prescription to your pharmacy today. Please take medication as prescribed. Please report any major side effects. Please try to maintain adequate rest, adequate fluid hydration and good nutrition. Please try to maintain good hand hygiene.Assessment not Saved Congestion of nasal sinus (MMV02-L10.81): Comment OnlyInstructions: We have sent a prescription [...] (Mild)Orders:Adult - Ofc Vst, EST, Level III [CPT-44592] Follow-Up Return to clinic: as scheduled and as needed Clinical Visit Summary Completed Name Value Range Interpretation Code Description Data Maren rce(s) Supporting Document(s) Procedure Social History Code Duration Value Status Description Data Source(s ) Smoking 11/12/2020 12:00:00 AM EST Unknown if ever smoked comp leted Unknown if ever smoked [facility]) Smoking 11/01/2020 12:00:00 AM EST Unknown if ever smoked comp leted Unknown if ever smoked [facility]) Smoking 10/04/2020 12:00:00 AM EST Unknown if ever smoked comp leted Unknown if ever smoked [facility]) Smoking 09/24/2020 12:00:00 AM EDT Unknown if ever smoked comp leted Unknown if ever smoked [facility] ([facility]) Smoking 08/27/2020 12:00:00 AM EDT Unknown if ever smoked comp leted Unknown if ever smoked [facility] ([facility]) Smoking 07/30/2020 12:00:00 AM EDT Unknown if ever smoked comp leted Unknown if ever smoked [facility] ([facility]) Smoking 05/25/2020 12:00:00 AM EDT Unknown if ever smoked comp leted Unknown if ever smoked [facility] ([facility]) Smoking 05/19/2020 12:00:00 AM EDT Unknown if ever smoked comp leted Unknown if ever smoked [facility] ([facility]) Smoking 05/14/2020 12:00:00 AM EDT Unknown if ever smoked comp leted Unknown if ever smoked [facility] ([facility]) Smoking 05/05/2020 12:00:00 AM EDT Unknown if ever smoked comp leted Unknown if ever smoked [facility] ([facility]) Smoking 04/14/2020 12:00:00 AM EDT Unknown if ever smoked comp leted Unknown if ever smoked [facility] ([facility]) Smoking 03/29/2020 12:00:00 AM EDT Unknown if ever smoked comp leted Unknown if ever smoked [facility] ([facility]) Smoking 03/10/2020 12:00:00 AM EDT Unknown if ever smoked comp leted Unknown if ever smoked [facility] ([facility]) Vital Signs ID Date Data Source UNK Name Value Range Interpretation Code Description Data Source(s) Body height 65.4 [in_i] 65.4 [in_i] [place] [facility] Result Comment: Result placed secondary from cm, converted to Inches Diastolic blood pressure 0 mm[Hg] Normal (applies to non-numeric results) 0 mm[Hg] [facility] ([facility]) Systolic blood pressure 0 mm[Hg] Normal (applies t o non-numeric results) 0 mm[Hg] [facility] ([facility]) Body mass index (BMI) [Ratio] 0.00 kg/m2 No rmal (applies to non-numeric results) 0.00 kg/m2 [facility] ([facility]) Body weight Measured 0.00 lbs Normal (applies to n on-numeric results) 0.00 lbs [facility] ([facility]) Body height 0.00 in Normal (applies to non-numeric resu lts) 0.00 in [facility] ([facility]) Body height 65.4 [in_i] 65.4 [in_i] [place] [facility] 1Result Comment: Result placed secondary from [...] pressure 88 mm[Hg] 88 mm[Hg] [facility] ([facility] Body mass index (BMI) [Ratio] 33.1 kg/m2 33.1 k g/m2 [facility] ([facility]) Body weight 193.12 [lb_av] 193.12 [lb_av] [facility] ([facility]) Body height 64 [in_i] 64 [in_i] [facility] ([facility]) 5'4" Body temperature 95.0 [degF] 95.0 [degF] [facility] ([facility]) ID Date Data Source [id number] 11/30/2020 01:45:04 PM [facility] Name Value Range Interpretation Code Description Data Source(s) WEIGHT RECORDED 193 lb 193 lb [facility] Body height Measured 63.5 in 63.5 in [facility] WEIGHT RECORDED 193 lb 193 lb [facility] Body height Measured 63.5 in 63.5 in [facility] Patient Treatment Plan of Care Planned Activity Planned Date Details Description Data Source (s) predniSONE 10 mg oral tablet 10/16/2020 05:59:00 PM EST [facility] [facility] Ceftin 250 mg oral tablet 10/16/2020 05:59:00 PM EST [place] [facility] 0.5 ML dulaglutide 3 MG/ML Auto-Injector 10/04/2020 08:27:00 PM EST [place] [facility] TopAMAX 09/19/2020 01:41:00 PM EDT [facility] Xarelto 09/19/2020 01:41:00 PM EDT [facility] Trulicity Pen 09/19/2020 01:31:00 PM EDT [place] [facility] traZODone 09/19/2020 01:31:00 PM EDT [facility] tizanidine 2 MG Oral Capsule 09/19/2020 01:31:00 PM EDT [place] [facility] Sertraline 100 MG Oral Tablet 09/19/2020 01:30:00 PM EDT [place] [facility] Phenobarbital 32.4 MG Oral Tablet 09/19/2020 01:29:00 PM EDT [place] [facility] Metoprolol Tartrate 100 mg oral tablet 09/19/2020 01:29:00 PM EDT [place] [facility] metFORMIN 1000 mg oral tablet 09/19/2020 01:29:00 PM EDT [place] [facility] Lisinopril 20 MG Oral Tablet 09/19/2020 01:28:00 PM EDT [place] [facility] Levetiracetam 500 MG Oral Tablet 09/19/2020 01:28:00 PM EDT [place] [facility] HumaLOG 09/19/2020 01:28:00 PM EDT [facility] gabapentin 800 mg oral tablet 09/19/2020 01:27:00 PM EDT [place] [facility] Furosemide 20 MG Oral Tablet 09/19/2020 01:27:00 PM EDT [place] [facility] fluticasone 09/19/2020 01:27:00 PM EDT [facility] cyanocobalamin 09/19/2020 01:27:00 PM EDT [place] [facility] Atrovent HFA 09/19/2020 01:26:00 PM EDT [facility] atorvastatin 10 MG Oral Tablet 09/19/2020 01:26:00 PM EDT [place] [facility] Amiodarone hydrochloride 200 MG Oral Tablet 09/19/2020 01:25:00 PM EDT [place] [facility] amiodarone 09/19/2020 01:25:00 PM EDT [facility] Amlodipine 10 MG Oral Tablet 09/19/2020 01:25:00 PM EDT [place] [facility] albuterol 2.5 mg/3 mL neb soln 09/19/2020 01:24:00 PM EDT [place] [facility] Folic Acid 1 MG Oral Tablet 04/18/2019 12:00:00 AM EDT [facility]
[2020-12-09 21:48] LABS: INR 1.36; PROTHROMBIN TIME 17.1 SECONDS (12.5-14.3)
[2020-12-09 21:49] LABS: PARTIAL THROMBOPLASTIN TIME 40.6 SECONDS (24.2-38.5)
[2020-12-09 22:09] LABS: BLOOD UREA NITROGEN 8 MG/DL (7-18); CALCIUM LEVEL 9.1 MG/DL (8.5-10.1); CARBON DIOXIDE LEVEL 31 MEQ/L (21-32); CHLORIDE LEVEL 106 MEQ/L (98-107); CK-MB VALUE MASS < 1.0 NG/ML (<3.6); CPK CREATINE PHOSPHOKINASE 35 U/L (39-308); CREATININE FOR GFR 1.21 MG/DL (0.70-1.30); ETHYL ALCOHOL (ETHANOL) < 0.003 % (0.000-0.010); GLOMERULAR FILTRATION RATE > 60.0 (>56); GLUCOSE, FASTING 97 MG/DL (70-100); MB/CK RELATIVE INDEX 2.86 (< OR =4); NT-PRO BNP 2057 PG/ML (<125); PHENOBARBITAL LEVEL 16.7 UG/ML (15.0-40.0); POTASSIUM SERUM 3.8 MEQ/L (3.5-5.1); SODIUM LEVEL 141 MEQ/L (136-145); THYROID STIMULATING HORMONE < 0.005 uIU/ML (0.358-3.740); TROPONIN I < 0.02 NG/ML (< 0.10)
--- NOTE | 2020-12-10 08:55 | ECGEPIP ---
[facility] - ED Test Date: 2020-12-09 Pat Name: MERRICK WHALEY Department: Room: - Gender: Male Hand Developer: BRONWYN : 1970 Requested By: LISET Hernandez Order Number: [id number] Reading MD: Shashank Chahal Measurements Intervals [place] Rate: 61 P: [place]: 0 QRS: -15 QRSD: 184 T: 3 QT: 496 QTc: 500 Interpretive Statements ATRIAL FIBRILLATION INDETERMINATE AXIS RIGHT BUNDLE BRANCH BLOCK SIMILAR TO 07/28/19 Electronically Signed on 12-10-2020 8:55:10 EST by Shashank Chahal
== END 2020-12-09 22:21 | disposition left against medical advice (07) ==
LOC: M ED 19:14
DX: R55 Syncope and collapse (principal); I48.91 Unspecified atrial fibrillation; I45.19 Other right bundle-branch block; I51.7 Cardiomegaly; I50.9 Heart failure, unspecified; I25.2 Old myocardial infarction; E11.9 Type 2 diabetes mellitus without complications; G40.909 Epilepsy, unspecified, not intractable, without status epilepticus; Z88.0 Allergy status to penicillin; Z88.2 Allergy status to sulfonamides; Z79.51 Long term (current) use of inhaled steroids; Z79.4 Long term (current) use of insulin; Z79.84 Long term (current) use of oral hypoglycemic drugs; Z79.899 Other long term (current) drug therapy

== ENCOUNTER → 2020-12-22 | Outpatient (CLI) | payer OTHER ==
[~2020-12-22] MED LIST changes: +LISI-538 PO; -LISI20TA33 PO
== END ==
LOC: M PT 14:08
PROVIDERS: ATTEND Family Medicine
DX: M48.061 Spinal stenosis, lumbar region without neurogenic claudication (principal); I63.9 Cerebral infarction, unspecified; G40.909 Epilepsy, unspecified, not intractable, without status epilepticus; E11.9 Type 2 diabetes mellitus without complications; I50.9 Heart failure, unspecified; J40 Bronchitis, not specified as acute or chronic

== ENCOUNTER 2021-04-26 21:13 | Emergency (ER) | payer OTHER ==
[~2021-04-26] VITALS: Ht 175.3 cm; Wt 77.3 kg
[~2021-04-26 21:13] MED LIST changes: -LISI-538 PO; +LISI20TA33 PO
[2021-04-26] MEDS ORDERED: MIDAZOLAM 5MG/ML 1ML VIAL (J2250 PER 1MG) As Ordered ONE (23:39)
[2021-04-26] MEDS ORDERED: MIDAZOLAM 5MG/ML 1ML VIAL (J2250 PER 1MG) IM ONE (23:40)
[2021-04-27 00:19] LABS: AMPHETAMINES LEVEL URINE NEGATIVE (NEGATIVE); BARBITURATES URINE POSITIVE (NEGATIVE); BENZODIAZEPINES URINE NEGATIVE (NEGATIVE); CANNABINOIDS URINE NEGATIVE (NEGATIVE); COCAINE METABOLITE URINE NEGATIVE (NEGATIVE); METHADONE URINE NEGATIVE (NEGATIVE); OPIATES URINE NEGATIVE (NEGATIVE); PHENCYCLIDINE URINE NEGATIVE (NEGATIVE)
[2021-04-27 00:32] LABS: HEMATOCRIT 48.3 % (42.0-52.0); HEMOGLOBIN 16.1 g/dl (13.5-17.5); MEAN CORPUSCULAR HEMOGLOBIN 29.7 pg (27.0-33.0); MEAN CORPUSCULAR HGB CONC 33.3 g/dl (32.0-36.5); MEAN CORPUSCULAR VOLUME 89.1 fl (80.0-96.0); PLATELET COUNT, AUTOMATED 157 10^3/uL (150-450); RED BLOOD COUNT 5.42 10^6/uL (4.30-6.10)
[2021-04-27 01:17] LABS: ACETAMINOPHEN LEVEL < 2.0 UG/ML (10.0-30.0); ALBUMIN 3.7 GM/DL (3.2-5.2); ALT/SGPT 24 U/L (12-78); BILIRUBIN,DIRECT < 0.1 MG/DL (0.0-0.2); BILIRUBIN,TOTAL 0.2 MG/DL (0.2-1.0); BLOOD UREA NITROGEN 7 MG/DL (7-18); CARBON DIOXIDE LEVEL 22 MEQ/L (21-32); CHLORIDE LEVEL 109 MEQ/L (98-107); CREATININE FOR GFR 0.68 MG/DL (0.70-1.30); ETHYL ALCOHOL (ETHANOL) 0.308 % (0.000-0.010); GLOMERULAR FILTRATION RATE > 60.0 (>56); GLUCOSE, FASTING 93 MG/DL (70-100); POTASSIUM SERUM 3.9 MEQ/L (3.5-5.1); SALICYLATE LEVEL 4.7 MG/DL (5.0-30.0); SODIUM LEVEL 141 MEQ/L (136-145); THYROID STIMULATING HORMONE < 0.005 uIU/ML (0.358-3.740); TOTAL PROTEIN 7.8 GM/DL (6.4-8.2)
[2021-04-27] MEDS ORDERED: MIDAZOLAM 5MG/ML 1ML VIAL (J2250 PER 1MG) IM ONE (06:55)
[2021-04-27 09:30] VITALS: BP 168/101
== END 2021-04-27 09:35 | disposition home or self-care (01) ==
LOC: M ED 21:13
DX: F10.120 Alcohol abuse with intoxication, uncomplicated (principal); R45.1 Restlessness and agitation; I50.9 Heart failure, unspecified; I25.2 Old myocardial infarction; Z95.0 Presence of cardiac pacemaker; G40.909 Epilepsy, unspecified, not intractable, without status epilepticus; Z78.1 Physical restraint status; Z91.018 Allergy to other foods; Z88.0 Allergy status to penicillin; Z88.2 Allergy status to sulfonamides; Z79.899 Other long term (current) drug therapy; Z79.4 Long term (current) use of insulin; Z79.01 Long term (current) use of anticoagulants
CPT/HCPCS: 36415; 80048; 80076; 80143; 80307; 82077; 84443; 85027; 96372; 99285; J2250

== ENCOUNTER 2021-05-28 00:04 | Emergency (ER) | payer OTHER ==
[~2021-05-28 00:04] MED LIST changes: -DOXY100C37 PO; +DOXY1CAP62 PO
[2021-05-28 00:12] VITALS: BP 126/58
== END 2021-05-28 05:49 | disposition home or self-care (01) ==
LOC: M ED 00:04
DX: F10.129 Alcohol abuse with intoxication, unspecified (principal); I50.9 Heart failure, unspecified; I25.2 Old myocardial infarction; Z95.0 Presence of cardiac pacemaker; G40.909 Epilepsy, unspecified, not intractable, without status epilepticus; E11.9 Type 2 diabetes mellitus without complications; Z91.018 Allergy to other foods; Z88.0 Allergy status to penicillin; Z88.2 Allergy status to sulfonamides; Z79.01 Long term (current) use of anticoagulants; Z79.899 Other long term (current) drug therapy; Z79.82 Long term (current) use of aspirin; Z79.4 Long term (current) use of insulin

== ENCOUNTER 2021-07-11 16:07 | Emergency (ER) | payer OTHER | END 2021-07-11 17:01 | disposition left against medical advice (07) | LOC: EDBD 16:07 → M ED 16:07 | DX: Z53.21 Procedure and treatment not carried out due to patient leaving prior to being seen by health care provider (principal) ==

== ENCOUNTER 2021-07-13 05:16 | Inpatient (IN) | payer OTHER ==
[~2021-07-13] VITALS: Ht 165.1 cm; Wt 82.1 kg
[2021-07-13 06:12] LABS: VENOUS BASE EXCESS -2.2 (-2.0-2.0); VENOUS HCO3 21.5 MEQ/L (23.0-27.0); VENOUS O2 SATURATION 99.3 % (60.0-80.0); VENOUS PARTIAL PRESSURE CO2 33.7 mmHg (38.0-50.0); VENOUS PARTIAL PRESSURE O2 191.9 mmHg (30.0-50.0); VENOUS PH 7.422 UNITS (7.330-7.430); VENOUS STANDARD HCO3 22.6 MEQ/L; VENOUS TOTAL CO2 22.5 MEQ/L (24.0-28.0)
[2021-07-13 06:20] LABS: BASO % 0.4 % (0.0-1.0); EOS # 0.2 10^3/uL (0.0-0.5); EOS % 2.6 % (0.0-3.0); HEMATOCRIT 38.6 % (42.0-52.0); LYMPH # 1.5 10^3/uL (1.5-5.0); MEAN CORPUSCULAR HEMOGLOBIN 28.9 pg (27.0-33.0); MEAN CORPUSCULAR HGB CONC 31.1 g/dl (32.0-36.5); MONO # 0.3 10^3/uL (0.0-0.8); MONO % 3.1 % (2.0-8.0); NEUTROPHILS # 7.3 10^3/uL (1.5-8.5); NEUTROPHILS % 77.5 % (36.0-66.0); PLATELET COUNT, AUTOMATED 170 10^3/uL (150-450); RED BLOOD COUNT 4.15 10^6/uL (4.30-6.10); WHITE BLOOD COUNT 9.4 10^3/uL (4.0-10.0)
[2021-07-13 06:54] LABS: RSV AMPLIFICATION NEGATIVE (NEGATIVE)
[2021-07-13 06:55] LABS: ALBUMIN 3.5 GM/DL (3.2-5.2); ALT/SGPT 25 U/L (12-78); BILIRUBIN,DIRECT 0.6 MG/DL (0.0-0.2); BILIRUBIN,TOTAL 1.8 MG/DL (0.2-1.0); CK-MB VALUE MASS 4.4 NG/ML (<3.6); CPK CREATINE PHOSPHOKINASE 77 U/L (39-308); MB/CK RELATIVE INDEX 5.71 (< OR =4); NT-PRO BNP 10129 PG/ML (<125); THYROID STIMULATING HORMONE < 0.005 uIU/ML (0.358-3.740); THYROXINE (T4) 12.9 UG/DL (4.5-12.0); TOTAL PROTEIN 7.4 GM/DL (6.4-8.2)
--- NOTE | 2021-07-13 07:26 | REPVR ---
PROCEDURE INFORMATION: Exam: XR Chest Exam date and time: 07/13/2021 6:07 AM Age: 51 years old Clinical indication: Cough and dyspnea; Additional info: Dyspnea/cough TECHNIQUE: Imaging protocol: XR of the chest. Views: 1 view. COMPARISON: CR PORTABLE CHEST X-RAY 12/09/2020 7:57 PM FINDINGS: Tubes, catheters and devices: Left chest AICD. Lungs: Appearance of congestive heart failure with bilateral perihilar and bibasilar reticulonodular and ground-glass opacities. Pleural spaces: Small bilateral pleural effusions. Heart/Mediastinum: Cardiomegaly. Bones/joints: Osteopenia. IMPRESSION: Congestive heart failure. Electronically signed by: Carrington Minaya On 07/13/2021 07:25:53 AM
[2021-07-13] MEDS ORDERED: FUROSEMIDE 100MG/10ML VIAL (J1940) IV ONE ×2 (07:35→20:05)
[2021-07-13] MEDS: BUDESONIDE 0.25 MG/2 ML INHALATION SUSPENSION INH SCH ×2 (08:00→19:18)
[2021-07-13 08:12] LABS: BLOOD UREA NITROGEN 8 MG/DL (7-18); CALCIUM LEVEL 9.3 MG/DL (8.5-10.1); CARBON DIOXIDE LEVEL 27 MEQ/L (21-32); CHLORIDE LEVEL 108 MEQ/L (98-107); CREATININE FOR GFR 0.82 MG/DL (0.70-1.30); GLOMERULAR FILTRATION RATE > 60.0 (>56); GLUCOSE, FASTING 114 MG/DL (70-100); POTASSIUM SERUM 3.8 MEQ/L (3.5-5.1); SODIUM LEVEL 140 MEQ/L (136-145)
[2021-07-13] MEDS ORDERED: ZOLO100T PO (08:43)
[2021-07-13] MEDS ORDERED: AMIO200T3 PO (08:43)
[2021-07-13] MEDS ORDERED: GABA800T4 PO (08:43)
[2021-07-13] MEDS ORDERED: ALBU8.5H INH (08:57)
[2021-07-13] MEDS ORDERED: ARNU1INH PO (08:57)
[2021-07-13] MEDS ORDERED: TIZA2TA PO (08:57)
[2021-07-13] MEDS ORDERED: HOME MED LIST COMPLETE! XX SCH (09:00)
[2021-07-13] MEDS ORDERED: MED REC COMMENT (09:00)
[2021-07-13] MEDS: POTASSIUM CHLORIDE 10 MEQ SR TABLET PO SCH ×2 (10:00→20:48)
[2021-07-13] MEDS: ATORVASTATIN 10 MG TAB PO SCH (10:00)
[2021-07-13] MEDS: AMIODARONE 200 MG TAB (PACERONE) PO SCH (10:00)
[2021-07-13] MEDS: GABAPENTIN 400MG CAP PO SCH ×3 (10:00→20:51)
[2021-07-13] MEDS: PHENobarbitaL 30 MG TAB PO SCH ×2 (10:00→20:50)
[2021-07-13] MEDS: ASPIRIN 81MG ENTERIC TABLET PO SCH (10:00)
[2021-07-13] MEDS: METOPROLOL TARTRATE 100 MG TAB PO SCH ×2 (10:00→20:51)
[2021-07-13] MEDS: SERTRALINE 100 MG TAB PO SCH (10:00)
[2021-07-13] MEDS: HumuLIN R (REGULAR) INSULIN (NovoLIN R) **100U/ML** PER UNIT SC SCH ×2 (10:00→20:52)
[2021-07-13] MEDS: levETIRAcetam 250MG TABLET (KEPPRA) PO SCH ×2 (10:00→20:46)
--- NOTE | 2021-07-13 10:11 | ECGEPIP ---
[facility] - ED Test Date: 2021-07-13 Pat Name: MERRICK WHALEY Department: Room: - Gender: Male Residential Life Director: LR : 1970 Requested By: LISET Hernandez Order Number: [id number] Reading MD: Livier Kirk Measurements Intervals [place] Rate: 96 P: [place]: QRS: 119 QRSD: 154 T: 87 QT: 392 QTc: 495 Interpretive Statements Atrial fibrillation with premature ventricular or aberrantly conducted complexes Right bundle branch block Left posterior fascicular block Bifascicular block Electronically Signed on 07-13-2021 10:11:06 EDT by Livier Kirk
[2021-07-13] MEDS ORDERED: ALBUTEROL 90 MCG/ACT 8GM HFA INHALER INH PRN (10:15)
[2021-07-13] MEDS ORDERED: IPRATROPIUM HFA INHALER 12.9 GRAMS (ATROVENT HFA) INH PRN (10:15)
[2021-07-13] MEDS ORDERED: MOM 30ML SUSPENSION UDC PO PRN (10:15)
[2021-07-13] MEDS ORDERED: ACETAMINOPHEN TAB 650MG DOSE (2X325MG) PO PRN (10:15)
[2021-07-13] MEDS ORDERED: MAALOX 30 ML SUSP *UDC PO PRN (10:15)
--- NOTE | 2021-07-13 10:41 | HPEPDOC ---
[facility] Medical History & Physical Date of Admission Jul 13, 2021 Date of Service: Jul 13, 2021 History and Physical CHIEF COMPLAINT: Shortness of breath HISTORY OF PRESENT ILLNESS: This is a 51-year-old male with a past medical history of CVA, atrial fibrillation s/p pacemaker on Xarelto, AICD, HFrEF/ischemic cardiomyopathy, seizure disorder, CAD status post MO and CABG, aortic valve replacement, hypercholesterolemia, COPD, chronic back pain, gastric ulcer. Patient presents to the ER with worsening shortness of breath for the past several days and in fact has been seen numerous times in the past 2 weeks. Patient has left AMA on those occasions refusing IV medication. The time my examination patient is being verbally abusive and threatening physical violence. He refuses to provide pertinent medical information. At this time he appears to be mildly short of breath but is able to speak in full sentences. I was able to review the lab work which indicates a BNP of 10,129, troponin of 0.10. Concerning is patient's TSH which is below 0.005 with a thyroxine level of 12.9. Patient received 100 mg of IV furosemide. Patient be admitted to medical surgical floor with telemetry under hospitalist service for the management of acute congestive heart failure exacerbation. Majority of history was obtained from limited information from chart review. I discussed the case with the nursing sales clerk supervisor who suggested that perhaps patient care should be transferred to another attending. As I have already seen the patient and was able to perform a limited physical examination I will place admission orders and complete the history and physical. If the patient continues to threaten physical violence I may consider switching care to a different provider assuming security deems this to be safe. PAST MEDICAL HISTORY: CVA, atrial fibrillation s/p pacemaker on Xarelto, AICD, HFrEF/ischemic cardiomyopathy, seizure disorder, CAD status post MO and CABG, aortic valve replacement, hypercholesterolemia, COPD, chronic back pain, gastric ulcer. PAST SURGICAL HISTORY: CABG Pacemaker AICD Patient is unwilling to provide additional history SOCIAL HISTORY: Alcohol use disorder Active smoker, 3 packs per day polysubstance abuse FAMILY HISTORY: Patient refuses to provide ALLERGIES: Please see below. REVIEW OF SYSTEMS: Patient states that he is short of breath. He refused to participate in the remainder of the review of systems. HOME MEDICATIONS: Please see below. PHYSICAL EXAMINATION: Patient permitted me to perform a limited physical exam which involved only auscultation of his lungs. There are diffuse crackles in lower lung bases bilaterally LABORATORY DATA: See below. IMAGING: CXR (07/13/21): FINDINGS: Tubes, catheters and devices: Left chest AICD. Lungs: Appearance of congestive heart failure with bilateral perihilar and bibasilar reticulonodular and ground-glass opacities. Pleural spaces: Small bilateral pleural effusions. Heart/Mediastinum: Cardiomegaly. Bones/joints: Osteopenia. IMPRESSION: Congestive heart failure. MICROBIOLOGY: Please see below. ASSESSMENT: This is a 51-year-old male with a past medical history of CVA, atrial fibrillation s/p pacemaker on Xarelto, AICD, HFrEF/ischemic cardiomyopathy, seizure disorder, CAD status post MO and CABG, aortic valve replacement, hypercholesterolemia, COPD, chronic back pain, gastric ulcer. Patient found to be dyspneic, with edema, elevated BNP to 10,000 and pulmonary vascular congestion on . PLAN: Acute exacerbation of systolic CHF: hx of ischemic cardiomyopathy. BNP 10,000. CXR showing pulmonary vascular congestion. S/p 100 mg IV lasix in ER. C/w lasix 40 mg IV q8h. Strict I and O. Daily weight. 2g sodium diet. 2D echo ordered. Resumed home metoprolol tartrate 200 mg BID. Resume lisinopril 20 mg PO BID. Afib s/p pacemaker: CXR showing AICD in place. c/w xarelto. metoprolol 200 mg BID. Amiodarone will be held. I discussed with Dr. Metz who has informed me that the patient has been discharged from their practice. amiodarone induced thyrotoxicosis: I was able to obtain a telephone advice from Dr. Velazquez, which is greatly appreciated. She recommended starting patient on met himazole as this will counteract iodine toxicity of amiodarone, and to stop the prednisone as this simply reduces the release of thyroid hormone. She recommends to continue amiodarone at this stage, which I also agree with in order to prevent life threatening arrhythmias. He will need to repeat his FT4 level in 8 to 10 weeks. Seizure disorder: resume home antiepileptic drugs: phenobarbital. keppra 1500 mg q12h po. will need to see neurology outpatient. ETOH use disorder: high risk for withdrawal. Drinks 30 beers every 2 days. CIWA protocol. Start serax 20 mg q8h PO. CAD: resume ASA/statin COPD: resume home inhalers. Neuropathy: c/w gabapentin 800 mg TID PO. HTN: resume amlodipine, lisinopril, metoprolol. Dispo: pending clinical improvement. Vital Signs Vital Signs Date Time Temp Pulse Resp B/P (MAP) Pulse Ox O2 Delivery O2 Flow Rate FiO2 07/13/21 06:02 Nasal Cannula 2.0 07/13/21 05:27 98.0 101 24 168/98 (121) 99 Laboratory Data Labs 24H Laboratory Tests 2 07/13/21 05:29: Blood Gas Bicarbonate Standard 22.6, Venous Blood pH 7.422, Venous Blood Partial Pressure CO2 33.7L, Venous Blood Partial Pressure O2 191.9H, Venous Blood Total Carbon Dioxide 22.5L, Venous Blood HCO3 21.5L, Venous Blood Oxygen Saturation 99.3H, Venous Blood Base Excess -2.2L 07/13/21 05:46: Anion Gap 5L, Glomerular Filtration Rate > 60.0, Calcium Level 9.3, Magnesium Level 2.0, Coronavirus (COVID-19)(PCR) NEGATIVE, Influenza Type A (RT-PCR) NEGATIVE, Influenza Type B (RT-PCR) NEGATIVE, Respiratory Syncytial Virus (PCR) NEGATIVE 07/13/21 05:59: Immature Granulocyte % (Auto) 0.4, Neutrophils (%) (Auto) 77.5H, Lymphocytes (%) (Auto) 16.0L, Monocytes (%) (Auto) 3.1, Eosinophils (%) (Auto) 2.6, Basophils (%) (Auto) 0.4, Neutrophils # (Auto) 7.3, Lymphocytes # (Auto) 1.5, Monocytes # (Auto) 0.3, Eosinophils # (Auto) 0.2, Basophils # (Auto) 0.0, Nucleated Red Blood Cells % (auto) 0.0, Lactic Acid Level 1.8, Total Bilirubin 1.8H, Direct Bi lirubin 0.6H, Aspartate Amino Transf (AST/SGOT) 20, Alanine Aminotransferase (ALT/SGPT) 25, Alkaline Phosphatase 82, Total Creatine Kinase 77, Creatine Kinase MB 4.4H, Creatine Kinase MB Relative Index 5.71H, Troponin I 0.10, CX-Riw-V-Type Natriuretic Peptide 28097W, Total Protein 7.4, Albumin 3.5, Albumin/Globulin Ratio 0.9, Thyroid Stimulating Hormone (TSH) < 0.005L, Thyroxine (T4) 12.9H CBC/BMP Laboratory Tests 07/13/21 05:46 07/13/21 05:59 Microbiology Microbiology 07/13/21 Blood Culture, Received Pending 07/13/21 Blood Culture, Received Pending Home Medications Scheduled Amiodarone HCl (Amiodarone HCl) 200 Mg Tablet, 200 MG PO DAILY Amlodipine Besylate (Norvasc) 10 Mg Tab, 10 MG PO DAILY Aspirin (Aspirin EC) 81 Mg Tab, 81 MG PO DAILY Atorvastatin Calcium (Atorvastatin Calcium) 10 Mg Tab, 10 MG PO DAILY Fluticasone Furoate (Arnuity Ellipta) 100 Mcg Blst.w.dev, 1 PUFF PO DAILY Furosemide (Furosemide) 40 Mg Tab, 40 MG PO BID Gabapentin (Gabapentin) 800 Mg Tablet, 800 MG PO TID Insulin Human Regular (Humulin R) 1 Units/0.01 Ml Soln, 30 UNITS SC BID Levetiracetam (Levetiracetam) 750 Mg Tab, 1,500 MG PO Q12H Lisinopril (Lisinopril) 20 Mg Tab, 20 MG PO BID Metformin HCl (Metformin HCl) 1,000 Mg Tab, 1,000 MG PO BID Metoprolol Tartrate (Metoprolol Tartrate) 100 Mg Tab, 200 MG PO BID Phenobarbital (Phenobarbital) 32.4 Mg Tab, 64.8 MG PO BID Potassium Chloride (K-Tab ER) 10 Meq Tablet.er, 10 MEQ PO BID Rivaroxaban (Xarelto) 20 Mg Tablet, 20 MG PO QPM Sertraline Hcl (Zoloft) 100 Mg Tablet, 100 MG PO DAILY Scheduled PRN Albuterol Sulf (Albuterol Sulfate) 2.5 Mg/3 Ml Nebu, 2.5 MG INH TID PRN for SHORTNESS OF BREATH Albuterol Sulfate (Albuterol Sulfate Hfa) 8.5 Gm Hfa.aer.ad, 2 PUFFS INH QID PRN for SOB/WHEEZING Ipratropium [place] (Atrovent Hfa) 200 Puff/12.9 Gm Aers, 2 PUFF INH QID PRN for SOB/WHEEZING Tizanidine HCl (Tizanidine HCl) 2 Mg Tablet, 2 MG PO Q6H PRN for SPASMS Miscellaneous Medications [Med Rec Comment] PT STATES HAS NOT TAKEN ANY MEDS SINCE March, OBTAINED LIST FROM PHARMACY Allergies Coded Allergies: Penicillins (Verified Allergy, Severe, anaphylaxis, 07/13/21) Mushroom (Verified Allergy, Intermediate, HIVES, 07/13/21) Sulfa (Sulfonamide Antibiotics) (Verified Allergy, Intermediate, hives, 07/13/21) CONNOR RECIO MD Jul 13, 2021 10:41
[2021-07-13] MEDS ORDERED: predniSONE 20 MG TAB PO SCH (11:30)
[2021-07-13] MEDS: FUROSEMIDE 40MG/4ML VIAL (J1940) IV SCH ×2 (12:00→21:35)
[2021-07-13 14:00] VITALS: BP 130/84
[2021-07-13] MEDS: ALBUTEROL SULFATE 2.5 MG/0.5 ML INH NEB SOLN INH PRN (19:18)
--- NOTE | 2021-07-13 19:48 | IPNPDOC ---
Text Note Date of Service The patient was seen on 07/13/21. NOTE Rapid assessment called at approx 1930. I responded at this time to find patient unresponsive with jerking movements of the arms and legs. Patient was apparently receiving a scheduled breathing treatment and once finished became acutely altered and thus rat was called. Vital signs taken at this time were within normal limits and patient was not desaturating. Blood glucose at this time was elevated. Initially, patient would not answer my voice however after I attempted a physical stimulus and spoke loudly, patient was able to speak. Patient at this time simply asked to sit up and would not give clear answers as to how he was feeling or what happened. Patient quickly became oriented however was still not fully cooperative with history portion of exam. Physical exam performed after patient became alert only notable for scattered wheezing in the lungs. STAT labs and EKG ordered at this time mostly unremarkable save lactic acidosis of 2.4 #Transient AMS - Likely related to withdrawal of alcohol and seizure medications. Patient tells me his last drink was approx 30 hours ago and per chart review, patient had refused all of his medications, including his keppra, phenobarbitol and gabapentin this am d/t him not trusting one of our staff members - I was able to discuss with patient the need for med compliance and he agreed to take his medication - Will give 80mg lasix one time as patient has not had a dose since admission - patient on serax - will monitor patients symptoms of withdrawal #Lactic acidosis - likely secondary to hypoxia - patient obviously fluid overloaded and has increased work of breathing - patient has agreed to keep taking the lasix - will repeat in 4 hours VS,Sean, I+O VS, Sean, I+O Laboratory Tests 07/13/21 05:46 07/13/21 05:59 Vital Signs Date Time Temp Pulse Resp B/P (MAP) Pulse Ox O2 Delivery O2 Flow Rate FiO2 07/13/21 14:50 97.8 88 18 131/78 (95) 95 Room Air 07/13/21 06:02 2.0 HOWARD EDWARDS Jul 13, 2021 19:48
[2021-07-13 20:12] LABS: BASO # 0.1 10^3/uL (0.0-0.2); BASO % 0.6 % (0.0-1.0); EOS # 0.4 10^3/uL (0.0-0.5); EOS % 4.8 % (0.0-3.0); HEMATOCRIT 37.3 % (42.0-52.0); HEMOGLOBIN 11.9 g/dl (13.5-17.5); LYMPH # 1.1 10^3/uL (1.5-5.0); LYMPH % 12.7 % (24.0-44.0); MEAN CORPUSCULAR HEMOGLOBIN 29.5 pg (27.0-33.0); MEAN CORPUSCULAR HGB CONC 31.9 g/dl (32.0-36.5); MEAN CORPUSCULAR VOLUME 92.6 fl (80.0-96.0); MONO # 0.6 10^3/uL (0.0-0.8); MONO % 6.7 % (2.0-8.0); NEUTROPHILS # 6.7 10^3/uL (1.5-8.5); PLATELET COUNT, AUTOMATED 183 10^3/uL (150-450); RED BLOOD COUNT 4.03 10^6/uL (4.30-6.10)
[2021-07-13 20:15] VITALS: BP 157/97
[2021-07-13 20:46] LABS: ALBUMIN 3.2 GM/DL (3.2-5.2); ALT/SGPT 23 U/L (12-78); BILIRUBIN,TOTAL 1.3 MG/DL (0.2-1.0); BLOOD UREA NITROGEN 12 MG/DL (7-18); CALCIUM LEVEL 9.3 MG/DL (8.5-10.1); CARBON DIOXIDE LEVEL 28 MEQ/L (21-32); CHLORIDE LEVEL 105 MEQ/L (98-107); CPK CREATINE PHOSPHOKINASE 57 U/L (39-308); CREATININE FOR GFR 1.05 MG/DL (0.70-1.30); FREE T4 2.03 NG/DL (0.76-1.46); GLOMERULAR FILTRATION RATE > 60.0 (>56); GLUCOSE, FASTING 167 MG/DL (70-100); MB/CK RELATIVE INDEX 7.02 (< OR =4); POTASSIUM SERUM 3.5 MEQ/L (3.5-5.1); SODIUM LEVEL 141 MEQ/L (136-145); THYROID STIMULATING HORMONE < 0.005 uIU/ML (0.358-3.740); TOTAL PROTEIN 6.8 GM/DL (6.4-8.2); TROPONIN I 0.08 NG/ML (< 0.10)
[2021-07-13] MEDS: RIVAROXABAN 20 MG TAB (XARELTO) PO SCH (20:46)
[2021-07-13 20:48] LABS: PROLACTIN 5.5 NG/ML (2.1-17.7)
[2021-07-13 22:00] VITALS: BP 157/97
[2021-07-14] MEDS ORDERED: predniSONE 20 MG TAB PO ONE
[2021-07-14] MEDS ORDERED: AMIODARONE 200 MG TAB (PACERONE) PO ONE
[2021-07-14] MEDS: FUROSEMIDE 40MG/4ML VIAL (J1940) IV SCH ×3 (04:50→21:57)
[2021-07-14 05:46] LABS: BASO % 0.4 % (0.0-1.0); EOS # 0.7 10^3/uL (0.0-0.5); EOS % 6.3 % (0.0-3.0); HEMOGLOBIN 11.7 g/dl (13.5-17.5); LYMPH # 1.5 10^3/uL (1.5-5.0); LYMPH % 14.2 % (24.0-44.0); MEAN CORPUSCULAR HEMOGLOBIN 29.7 pg (27.0-33.0); MEAN CORPUSCULAR HGB CONC 31.6 g/dl (32.0-36.5); MEAN CORPUSCULAR VOLUME 93.9 fl (80.0-96.0); MONO # 0.8 10^3/uL (0.0-0.8); MONO % 7.6 % (2.0-8.0); NEUTROPHILS # 7.7 10^3/uL (1.5-8.5); NEUTROPHILS % 71.2 % (36.0-66.0); PLATELET COUNT, AUTOMATED 195 10^3/uL (150-450); RED BLOOD COUNT 3.94 10^6/uL (4.30-6.10); WHITE BLOOD COUNT 10.8 10^3/uL (4.0-10.0)
[2021-07-14 06:00] VITALS: BP 111/67
[2021-07-14] MEDS ORDERED: OXAZEPAM 10 MG CAP PO SCH (06:00)
[2021-07-14 06:12] LABS: ALT/SGPT 21 U/L (12-78); BILIRUBIN,TOTAL 0.9 MG/DL (0.2-1.0); BLOOD UREA NITROGEN 15 MG/DL (7-18); CALCIUM LEVEL 8.6 MG/DL (8.5-10.1); CARBON DIOXIDE LEVEL 31 MEQ/L (21-32); CHLORIDE LEVEL 106 MEQ/L (98-107); CREATININE FOR GFR 1.01 MG/DL (0.70-1.30); GLOMERULAR FILTRATION RATE > 60.0 (>56); GLUCOSE, FASTING 79 MG/DL (70-100); MAGNESIUM LEVEL 1.9 MG/DL (1.8-2.4); POTASSIUM SERUM 3.6 MEQ/L (3.5-5.1); SODIUM LEVEL 141 MEQ/L (136-145); TOTAL PROTEIN 6.9 GM/DL (6.4-8.2); TROPONIN I 0.09 NG/ML (< 0.10)
[2021-07-14] MEDS: BUDESONIDE 0.25 MG/2 ML INHALATION SUSPENSION INH SCH ×2 (07:22→20:11)
[2021-07-14] MEDS: ALBUTEROL SULFATE 2.5 MG/0.5 ML INH NEB SOLN INH PRN (07:22)
[2021-07-14] MEDS: HumaLOG INSULIN (NovoLOG) PER UNIT SC SCH ×4 (07:30→21:00)
[2021-07-14 08:00] VITALS: BP 111/67
[2021-07-14] MEDS ORDERED: DEXTROSE 50% 50 ML SYRINGE IV PRN (08:00)
[2021-07-14] MEDS ORDERED: GLUCOSE 4GM CHEW TABLET PO PRN (08:00)
[2021-07-14] MEDS ORDERED: GLUCAGON INJ 1MG VIAL SC PRN (08:00)
--- NOTE | 2021-07-14 08:32 | REP ---
INDICATION: elevated bili COMPARISON: Abdominal CT dated 08/21/2005 TECHNIQUE: Real time parra scale ultrasound examination using curved array transducer. FINDINGS: Liver demonstrates mild fatty infiltration without focal hepatic lesion. Pancreas is incompletely evaluated due to interposed bowel gas. The gallbladder is contracted and wall thickening as well as very subtle pericholecystic fluid cannot be excluded. No obvious gallstones or biliary ductal dilatation is appreciated. The common bile duct measures 4.9 mm diameter. Right kidney is normal in reniform shape without hydronephrosis and measures 10.4 x 5.7 x 5.4 cm cm. No ascites in the visualized right upper quadrant. Incidental moderate right pleural effusion noted. IMPRESSION: 1. Hepatosteatosis/hepatocellular disease without focal hepatic lesion identified. 2. Contracted gallbladder is incompletely evaluated as noted above. 3. Moderate right pleural effusion identified. <Electronically signed by Jose Alberto Lowe > 07/14/21 0820
[2021-07-14] MEDS ORDERED: LORazepam 2 MG/ML VIAL IV PRN (08:45)
[2021-07-14] MEDS: ASPIRIN 81MG ENTERIC TABLET PO SCH (09:00)
[2021-07-14] MEDS: HumuLIN R (REGULAR) INSULIN (NovoLIN R) **100U/ML** PER UNIT SC SCH ×2 (09:00→17:30)
[2021-07-14] MEDS: GABAPENTIN 400MG CAP PO SCH ×3 (09:08→21:57)
[2021-07-14] MEDS: AMIODARONE 200 MG TAB (PACERONE) PO SCH (09:09)
[2021-07-14] MEDS: SERTRALINE 100 MG TAB PO SCH (09:09)
[2021-07-14] MEDS: METOPROLOL TARTRATE 100 MG TAB PO SCH ×2 (09:10→21:58)
[2021-07-14] MEDS: ATORVASTATIN 10 MG TAB PO SCH (09:10)
[2021-07-14] MEDS: levETIRAcetam 250MG TABLET (KEPPRA) PO SCH ×2 (09:11→21:58)
[2021-07-14] MEDS: POTASSIUM CHLORIDE 10 MEQ SR TABLET PO SCH ×2 (09:11→21:59)
[2021-07-14] MEDS: PHENobarbitaL 30 MG TAB PO SCH ×2 (09:12→22:09)
--- NOTE | 2021-07-14 09:41 | IPNPDOC ---
Date Seen The patient was seen on 07/14/21. Progress Note I was informed by nursing staff that patient made homicidal statements toward provider. Care of patient transferred to Dr. Gilliland this morning. I will not input billing. VS, I&O, 24H, Sean Vital Signs/I&O Vital Signs Date Time Temp Pulse Resp B/P (MAP) Pulse Ox O2 Delivery O2 Flow Rate FiO2 07/14/21 09:10 81 133/88 07/14/21 06:00 97.1 18 94 Room Air 07/13/21 21:00 2.0 I&O- Last 24 Hours up to 6 AM 07/14/21 06:00 Intake Total 1030 ml Output Total 2000 ml Balance -970 ml Laboratory Data 24H LABS Laboratory Tests 2 07/13/21 10:48: Troponin I 0.08 07/13/21 18:12: Troponin I 0.08 07/13/21 19:37: Bedside Glucose (Misc Panel) 305H 07/13/21 20:00: Troponin I 0.08, Immature Granulocyte % (Auto) 0.2, Neutrophils (%) (Auto) 75.0H, Lymphocytes (%) (Auto) 12.7L, Monocytes (%) (Auto) 6.7, Eosinophils (%) (Auto) 4.8H, Basophils (%) (Auto) 0.6, Neutrophils # (Auto) 6.7, Lymphocytes # (Auto) 1.1L, Monocytes # (Auto) 0.6, Eosinophils # (Auto) 0.4, Basophils # (A uto) 0.1, Nucleated Red Blood Cells % (auto) 0.0, Anion Gap 8, Glomerular Filtration Rate > 60.0, Lactic Acid Level 2.4*H, Calcium Level 9.3, Total Bilirubin 1.3H, Aspartate Amino Transf (AST/SGOT) 15, Alanine Aminotransferase (ALT/SGPT) 23, Alkaline Phosphatase 87, Total Creatine Kinase 57, Creatine Kinase MB 4.0H, Creatine Kinase MB Relative Index 7.02H, Total Protein 6.8, Albumin 3.2, Albumin/Globulin Ratio 0.9, Thyroid Stimulating Hormone (TSH) < 0.005L, Free Thyroxine 2.03H, Prolactin 5.5 07/14/21 00:16: Lactic Acid Level 1.8 07/14/21 05:35: Immature Granulocyte % (Auto) 0.3, Neutrophils (%) (Auto) 71.2H, Lymphocytes (%) (Auto) 14.2L, Monocytes (%) (Auto) 7.6, Eosinophils (%) (Auto) 6.3H, Basophils (%) (Auto) 0.4, Neutrophils # (Auto) 7.7, Lymphocytes # (Auto) 1.5, Monocytes # (Auto) 0.8, Eosinophils # (Auto) 0.7H, Basophils # (Auto) 0.0, Nucleated Red Blood Cells % (auto) 0.0, Anion Gap 4L, Glomerular Filtration Rate > 60.0, Calcium Level 8.6, Magnesium Level 1.9, Total Bilirubin 0.9, Aspartate Amino Transf (AST/SGOT) 19, Alanine Aminotransferase (ALT/SGPT) 21, Alkaline Phosphatase 86, Troponin I 0.09, Total Protein 6.9, Albumin 3.0L, Albumin/Globulin Ratio 0.8 CBC/BMP Laboratory Tests 07/13/21 20:00 07/14/21 05:35 Microbiology Microbiology 07/13/21 Blood Culture - Preliminary, Resulted No growth after 24 hours . All specim... 07/13/21 Blood Culture - Preliminary, Resulted No growth after 24 hours . All specim... CONNOR RECIO MD Jul 14, 2021 09:41
--- NOTE | 2021-07-14 13:18 | IPNPDOC ---
Subjective Date Seen The patient was seen on 07/14/21. Subjective Chief Complaint/HPI Mr. Katz is a 51 year old male with atrial fibrillation s/p pacemaker on Xarelto, HFrEF s/p AICD placement, aortic valve replacement, and ischemic cardiomyopathy s/p CABG who is here with shortness of breath due to acute heart failure with reduced ejection fraction. I had patient transferred care to me this morning. When I spoke with the patient, he was upset that the other provider was asking him personal information and numbers to contact his doctors. Patient firmly trust in [facility] medical system. Patient does not want me to speak with any of his outside doctors unless if he is present to listen in on. When I was in the room, patient's mother was on the phone and wanted his mother to be present when I was speaking with him. This morning, his shortness of breath is better, but not yet back at baseline. He was able to make 2L of urine output overnight. He was upset that he was on a sodium restricted diet. I explained that salt or sodium likes to pull water in. If he does not change his diet, he may be back in the hospital with CHF again. I told him that we want to help him to get better. His mom also agreed and reinforced this. Patient agreed today for the diet restriction. Otherwise, patient demonstrates hyperthyroidism with TSH of <0.005 and Free T4 of 2.03. I explained that I suspect that this is due to his amiodarone. I wanted to speak with his senior drafter about the amiodarone, and if it would be okay to continue or discontinue or switch to another antiarrhythmic. Patient told me that he wanted to be present when I called. He told me to come back in an hour since he was currently on the phone with his mother. I came back an hour later but patient was sound a sleep and I could not wake him up. I reached out to [facility] for endocrinology consultation. I spoke with Dr. Alvina Marquis. She recommends a TSI, thyroid US, repeat TSH, Free T4, and Total T3. She says we can call back tomorrow and discuss the results. Objective Physical Examination General Exam: Positive: Alert Eye Exam: Negative: Sclera icteric Chest Exam: Positive: Other (Crackles in the lower lungs) Heart Exam: Positive: Rate Normal, Irregular Rhythm Abdomen Exam: Positive: Normal bowel sounds, Soft; Negative: Tenderness Neuro Exam: Positive: Normal Speech Psych Exam: Positive: Anxiety Assessment /Plan Assessment Mr. Katz is a 51 year old male with atrial fibrillation s/p pacemaker on Xarelto, HFrEF s/p AICD placement, aortic valve replacement, and ischemic cardiomyopathy s/p CABG who is here with shortness of breath due to acute heart failure with reduced ejection fraction. This is most likely secondary to dietary non-compliance. Patient does not want to be on a diet restriction. He wants to eat osorio and whatever he desires. I explained the importance of being on a salt restricted diet and allowing him to breathing comfortably. He will be on a 2gm sodium diet here. Otherwise, will continue with diuresis. Patient demonstrates hyperthyroidism. TSH <0.005 and Free T4 is 2.03. Suspecting that amiodarone is causing these abnormal labs values. Plan/VTE VTE Prophylaxis Ordered?: Yes Plan 1. Acute heart failure with reduced ejection fraction status post AICD Patient was discharged from our cardiology practice. Patient follows with cardiology at [facility]. Acute heart failure most likely secondary to dietary noncompliance. We will obtain new echocardiogram Continue with IV furosemide, metoprolol tartrate, and lisinopril 2. Amiodarone induced thyrotoxicosis TSH < 0.005 and free T4 2.03 -Reached out to [facility] Endocrinology, Dr. Alvina Marquis -Recommended TSH, Free T4, Total T3, and TSI (thyroid stimulating immunoglobulin) and thyroid US. Will order labs for tomorrow morning. -Next provider will need to follow up with endocrinology about results 3. Atrial fibrillation status post pacemaker Continue metoprolol tartrate and amiodarone Continue rivaroxaban 4. Seizure disorder Continue levetiracetam and phenobarbital 5. Alcohol use disorder CIWA with as needed lorazepam Started Serax Added thiamine, folic acid, and multivitamin 6. Hypertension Continue amlodipine, lisinopril, metoprolol tartrate 7. Hyperlipidemia Continue atorvastatin 8. Diabetes mellitus Continue sliding scale insulin We will decrease patient's regular insulin from 30 twice daily to 10 twice since patient will be eating hospital food 9. COPD Continue rescue inhalers and budesonide 10. DVT prophylaxis Patient is on Xarelto Disposition: Pending improvement in heart failure and thyroid studies VS, I&O, 24H, Fishbone Vital Signs/I&O Vital Signs Date Time Temp Pulse Resp B/P (MAP) Pulse Ox O2 Delivery O2 Flow Rate FiO2 07/14/21 09:10 81 133/88 07/14/21 06:00 97.1 18 94 Room Air 07/13/21 21:00 2.0 I&O- Last 24 Hours up to 6 AM 07/14/21 05:59 Intake Total 1030 ml Output Total 1550 ml Balance -520 ml Laboratory Data 24H LABS Laboratory Tests 2 07/13/21 18:12: Troponin I 0.08 07/13/21 19:37: Bedside Glucose (Misc Panel) 305H 07/13/21 20:00: Troponin I 0.08, Immature Granulocyte % (Auto) 0.2, Neutrophils (%) (Auto) 75.0H, Lymphocytes (%) (Auto) 12.7L, Monocytes (%) (Auto) 6.7, Eosinophils (%) (Auto) 4.8H, Basophils (%) (Auto) 0.6, Neutrophils # (Auto) 6.7, Lymphocytes # (Auto) 1.1L, Monocytes # (Auto) 0.6, Eosinophils # (Auto) 0.4, Basophils # (Auto) 0.1, Nucleated Red Blood Cells % (auto) 0.0, Anion Gap 8, Glomerular Filtration Rate > 60.0, Lactic Acid Level 2.4*H, Calcium Level 9.3, Total Bilirubin 1.3H, Aspartate Amino Transf (AST/SGOT) 15, Alanine Aminotransferase (ALT/SGPT) 23, Alkaline Phosphatase 87, Total Creatine Kinase 57, Creatine Kin ase MB 4.0H, Creatine Kinase MB Relative Index 7.02H, Total Protein 6.8, Albumin 3.2, Albumin/Globulin Ratio 0.9, Thyroid Stimulating Hormone (TSH) < 0.005L, Free Thyroxine 2.03H, Prolactin 5.5 07/14/21 00:16: Lactic Acid Level 1.8 07/14/21 05:35: Immature Granulocyte % (Auto) 0.3, Neutrophils (%) (Auto) 71.2H, Lymphocytes (%) (Auto) 14.2L, Monocytes (%) (Auto) 7.6, Eosinophils (%) (Auto) 6.3H, Basophils (%) (Auto) 0.4, Neutrophils # (Auto) 7.7, Lymphocytes # (Auto) 1.5, Monocytes # (Auto) 0.8, Eosinophils # (Auto) 0.7H, Basophils # (Auto) 0.0, Nucleated Red Blood Cells % (auto) 0.0, Anion Gap 4L, Glomerular Filtration Rate > 60.0, Calcium Level 8.6, Magnesium Level 1.9, Total Bilirubin 0.9, Aspartate Amino Transf (AST/SGOT) 19, Alanine Aminotransferase (ALT/SGPT) 21, Alkaline Phosphatase 86, Troponin I 0.09, Total Protein 6.9, Albumin 3.0L, Album in/Globulin Ratio 0.8 CBC/BMP Laboratory Tests 07/13/21 20:00 07/14/21 05:35 Microbiology Microbiology 07/13/21 Blood Culture - Preliminary, Resulted No growth after 24 hours . All specim... 07/13/21 Blood Culture - Preliminary, Resulted No growth after 24 hours . All specim... JHON NORTON DO Jul 14, 2021 12:13
[2021-07-14 14:00] VITALS: BP 110/60
[2021-07-14] MEDS: OXAZEPAM 10 MG CAP PO SCH ×2 (14:00→21:49)
--- NOTE | 2021-07-14 14:31 | ECGEPIP ---
[facility] Test Date: 2021-07-13 Pat Name: MERRICK WHALEY Department: Room: [place] [address] Gender: Male Network Diagnostic Support Specialist: RESP : [id number] Requested By: HOWARD Carson Order Number: [id number] Reading MD: Dinesh Metz Measurements Intervals [place] Rate: 96 P: [place]: QRS: 107 QRSD: 154 T: 85 QT: 402 QTc: 507 Interpretive Statements Atrial fibrillation with premature ventricular or aberrantly conducted complexes Right bundle branch block Indeterminate QRS axis. Overall no significant change compared with 07/13/2021 at 6:47 AM. Electronically Signed on 07-14-2021 14:30:56 EDT by Dinesh Metz
[2021-07-14] MEDS: THIAMINE 100 MG TAB PO SCH ×2 (15:11→21:59)
[2021-07-14] MEDS: FOLIC ACID 1 MG TAB PO SCH (15:11)
[2021-07-14] MEDS: MULTIVITAMINS/MINERALS THERAP 1 TAB PO SCH (15:12)
--- NOTE | 2021-07-14 20:09 | REP ---
INDICATION: Hyperthyroidism, looking for nodules. COMPARISON: None. TECHNIQUE: Real-time sonographic evaluation of thyroid performed. FINDINGS: Both lobes of the thyroid are normal in size, right lobe measuring 5.0 x 2.2 x 1.5 cm and left lobe 4.6 x 2.6 x 1.5 cm. There is diffuse heterogeneous echotexture bilaterally. No cystic or solid nodule is seen bilaterally. IMPRESSION: No cystic or solid nodule identified bilaterally. <Electronically signed by Fernando Lynch > 07/14/212004
[2021-07-14] MEDS: RIVAROXABAN 20 MG TAB (XARELTO) PO SCH (21:59)
[2021-07-14 22:00] VITALS: BP 111/61
[2021-07-15] MEDS: FUROSEMIDE 40MG/4ML VIAL (J1940) IV SCH ×3 (04:55→21:04)
[2021-07-15 06:00] VITALS: BP 109/69
[2021-07-15] MEDS: OXAZEPAM 10 MG CAP PO SCH ×2 (06:00→13:56)
[2021-07-15 06:11] LABS: BASO # 0.1 10^3/uL (0.0-0.2); BASO % 0.5 % (0.0-1.0); EOS # 0.5 10^3/uL (0.0-0.5); EOS % 4.7 % (0.0-3.0); HEMATOCRIT 36.9 % (42.0-52.0); HEMOGLOBIN 11.5 g/dl (13.5-17.5); LYMPH # 1.8 10^3/uL (1.5-5.0); LYMPH % 16.3 % (24.0-44.0); MEAN CORPUSCULAR HEMOGLOBIN 29.3 pg (27.0-33.0); MEAN CORPUSCULAR HGB CONC 31.2 g/dl (32.0-36.5); MEAN CORPUSCULAR VOLUME 93.9 fl (80.0-96.0); MONO # 0.8 10^3/uL (0.0-0.8); MONO % 7.4 % (2.0-8.0); NEUTROPHILS # 7.9 10^3/uL (1.5-8.5); NEUTROPHILS % 70.7 % (36.0-66.0); PLATELET COUNT, AUTOMATED 199 10^3/uL (150-450); RED BLOOD COUNT 3.93 10^6/uL (4.30-6.10); WHITE BLOOD COUNT 11.2 10^3/uL (4.0-10.0)
[2021-07-15 06:53] LABS: ALBUMIN 2.9 GM/DL (3.2-5.2); ALT/SGPT 21 U/L (12-78); BILIRUBIN,TOTAL 0.6 MG/DL (0.2-1.0); BLOOD UREA NITROGEN 21 MG/DL (7-18); CALCIUM LEVEL 8.8 MG/DL (8.5-10.1); CARBON DIOXIDE LEVEL 29 MEQ/L (21-32); CHLORIDE LEVEL 101 MEQ/L (98-107); FREE T4 1.82 NG/DL (0.76-1.46); GLOMERULAR FILTRATION RATE > 60.0 (>56); GLUCOSE, FASTING 183 MG/DL (70-100); POTASSIUM SERUM 3.6 MEQ/L (3.5-5.1); SODIUM LEVEL 136 MEQ/L (136-145); THYROID STIMULATING HORMONE < 0.005 uIU/ML (0.358-3.740); TOTAL PROTEIN 6.7 GM/DL (6.4-8.2)
[2021-07-15] MEDS: BUDESONIDE 0.25 MG/2 ML INHALATION SUSPENSION INH SCH ×2 (07:24→19:15)
[2021-07-15] MEDS: HumaLOG INSULIN (NovoLOG) PER UNIT SC SCH ×4 (07:30→19:54)
[2021-07-15] MEDS: GABAPENTIN 400MG CAP PO SCH ×3 (08:52→21:03)
[2021-07-15] MEDS: MULTIVITAMINS/MINERALS THERAP 1 TAB PO SCH (08:52)
[2021-07-15] MEDS: FOLIC ACID 1 MG TAB PO SCH (08:53)
[2021-07-15] MEDS: THIAMINE 100 MG TAB PO SCH ×2 (08:53→21:04)
[2021-07-15] MEDS: SERTRALINE 100 MG TAB PO SCH (08:53)
[2021-07-15] MEDS: AMIODARONE 200 MG TAB (PACERONE) PO SCH (08:53)
[2021-07-15] MEDS: levETIRAcetam 250MG TABLET (KEPPRA) PO SCH ×2 (08:53→21:03)
[2021-07-15] MEDS: ASPIRIN 81MG ENTERIC TABLET PO SCH (08:53)
[2021-07-15] MEDS: ATORVASTATIN 10 MG TAB PO SCH (08:53)
[2021-07-15] MEDS: POTASSIUM CHLORIDE 10 MEQ SR TABLET PO SCH ×2 (08:54→21:03)
[2021-07-15] MEDS: PHENobarbitaL 30 MG TAB PO SCH ×2 (08:54→21:03)
[2021-07-15] MEDS: HumuLIN R (REGULAR) INSULIN (NovoLIN R) **100U/ML** PER UNIT SC SCH ×2 (08:56→17:30)
[2021-07-15] MEDS: METOPROLOL TARTRATE 100 MG TAB PO SCH ×2 (09:00→21:00)
[2021-07-15 11:05] LABS: TOTAL T3 107.8 NG/DL (60.0-181.0)
[2021-07-15 16:00] VITALS: BP 104/67
--- NOTE | 2021-07-15 16:51 | ECHO ---
ECHOCARDIOGRAM DATE OF PROCEDURE: 07/14/2021 Age: Gender: Height: 165 cm Weight: 87 kg REFERRING PHYSICIAN: Dr. Ulysses Stevens INDICATION: Heart failure, unspecified 2-D MEASUREMENTS: Ventricular septum 1.17 cm Posterior wall 1.29 cm Left ventricle diastole 5.3 cm Left atrium 4.6 cm Inferior vena cava 2.3 cm Aortic root 3.5 cm DOPPLER MEASURES: No aortic stenosis. No aortic regurgitation. Aortic valve velocity 125 cm/s LVOT velocity 75.7 cm/s Very mild mitral regurgitation. Mitral E velocity 106 cm/s Mitral deceleration time 209 msec Moderate tricuspid regurgitation. Estimated right ventricle systolic pressure at least 55 mmHg Estimated right atrial pressure of at least 20 mmHg based on dilated inferior vena cava with reduced respiratory variation. Very mild pulmonic regurgitation. Pulmonary artery acceleration time 130 msec DESCRIPTION: Rhythm was atrial fibrillation with controlled ventricular response. This was a 2D, M-mode, color flow Doppler, and pulse wave Doppler examination. This was a moderately technically difficult echocardiogram. No pericardial effusion. CONCLUSIONS: 1. Visual appearance of mild right ventricle dilatation. Normal right ventricle systolic function. Partial flattening of the ventricular septum in both diastole and systole, in keeping with both volume and pressure overload of the right ventricle. Suggestive of at least moderate elevation of estimated right ventricular systolic pressure (55 mmHg assuming right atrial pressure of at least 20 mmHg). Moderate tricuspid regurgitation. Structurally normal-appearing tricuspid leaflets. Moderate right atrial dilatation by visual assessment. 2. Borderline concentric left ventricle hypertrophy. Normal regional LV wall motion and wall thickening. Normal LV systolic function, LVEF 60% by visual estimate. 3. Mild aortic valve sclerosis of a 3-cuspid aortic valve. 4. Mild left atrial dilatation. 5. Mild mitral annular calcification with very mild mitral regurgitation. 6. Presence of cardiac rhythm portfolio management marketing (S) seen in the right side of the heart.
--- NOTE | 2021-07-15 18:05 | IPNPDOC ---
Text Note Date of Service The patient was seen on 07/15/21. NOTE Hospitalist Progress Note Subjective: Patient actually had a rapid response called early this afternoon because he could not be aroused even with sternal rub, however within a few minutes of calling the rapid response it was canceled as he had awakened and was completely alert and oriented. Apparently this is also happened one other time during his hospitalization already. Upon review of his medications he is on Serax and Ativan per the [facility] protocol, but he has refused all doses of Serax, and has not required any doses of Ativan, therefore he has not received a single dose of either 1 of these. All of the remainder of his medications are the same as his home medications (he has been on phenobarbital for a long time), or are for the treatment of his CHF and would not cause a change in mental status. He certainly did not have any postictal state. Also, he made mention that he wanted to be a DNR/DNI upon admission, but we did not have the appropriate paperwork. Therefore, a new MOLST form was filled out and signed by him today indicating that he is DNR and DNI with limited medical interventions. He also requests to have a new healthcare proxy form filled out, this form was provided to him, and he may fill it out at his own leisure, and when he is ready he may request the nursing staff to witness his signature. Specifically he requests to have the low-sodium diet restrictions lifted, this request was declined. He then states that he would comply with a low-sodium diet restriction if he were allowed to have osorio for breakfast. He states that he eats approximately half a pound of osorio daily for breakfast. I advised him that this certainly was not a good idea, and may in fact be the reason why he is in an acute decompensation of CHF at this time. Nevertheless, he insists that he will continue doing this when he is at home. He understands this, but adamantly insists that this will be his diet upon returning home, and demands that we at least allow him some osorio for breakfast while inpatient. I will acquiesce and allow him to have 4 slices of osorio at breakfast, and we will adjust his medications (diuretics) accordingly as I hope that this will more accurately simulate his home situation, and prevent readmission. Objective: General: Awake, alert, oriented 3. Not in any acute distress. HEENT: Head normocephalic, atraumatic, sclera are nonicteric. Hearing is grossly intact to conversation. Respiratory: Mild inspiratory and expiratory wheezes throughout, perhaps some minimal rales at the bases rales, no significant rhonchi. Cardiovascular: Regular rate and rhythm, with no rubs, gallops, or murmur. Large midline sternal scar. Abdomen: Soft, nontender, nondistended, no hepatosplenomegaly appreciated. Bowel sounds present. Extremities: 2+ pulses in the radial and dorsalis pedis bilaterally. No evidence of clubbing or cyanosis. He does continue to have 1-2+ pitting edema in the bilateral lower extremities. Assessment: 1. Acute heart failure with reduced ejection fraction status post AICD Patient was discharged from our cardiology practice. Patient follows with cardiology at [facility]. Acute heart failure most likely secondary to dietary noncompliance. We will obtain new echocardiogram Continue with IV furosemide, metoprolol tartrate, and lisinopril 2. Suspicion for thyrotoxicosis, perhaps amiodarone induced -His window dresser is at [facility], Dr. Alvina Marquis -TSH is suppressed, Free T4 mildly elevated, Total T3 within normal limit, and TSI (thyroid stimulating immunoglobulin) are still pending. -Thyroid US was performed and there is no cystic or solid nodule identified in either of the bilateral lobes. 3. Atrial fibrillation status post pacemaker Continue metoprolol tartrate and amiodarone --Although there is suspicion that amiodarone may be the cause of his thyrotoxicosis, discontinuing his amiodarone at this time may put him at risk for life-threatening arrhythmia. Therefore, we will continue with amiodarone until further work-up regarding thyroid is complete. Continue rivaroxaban 4. Seizure disorder Continue levetiracetam and phenobarbital --He did not have any postictal state, therefore seizure is unlikely the cause of his unresponsiveness. 5. Alcohol use disorder --Patient is adamantly refusing Serax, and has not met criteria for lorazepam, therefore we will discontinue CIWA protocol, Serax, and order for lorazepam at this time. Continue thiamine, folic acid, and multivitamin 6. Hypertension Continue amlodipine, lisinopril, metoprolol tartrate --Blood pressures continue to be within acceptable limits. Perhaps he does have some indication of orthostasis upon standing as he does get somewhat lightheaded. We will continue to monitor at this time without changing his antihypertensives. 7. Hyperlipidemia Continue atorvastatin 8. Diabetes mellitus Continue sliding scale insulin We will decrease patient's regular insulin from 30 twice daily to 10 twice since patient will be eating hospital food 9. COPD Continue rescue inhalers and budesonide 10. DVT prophylaxis Patient is on Xarelto Disposition: Pending improvement in heart failure and would certainly recommend that he follow-up with his window dresser outpatient. VS,Fishbone, I+O VS, Fishbone, I+O Laboratory Tests 07/15/21 05:39 Vital Signs Date Time Temp Pulse Resp B/P (MAP) Pulse Ox O2 Delivery O2 Flow Rate FiO2 07/15/21 16:00 96.7 72 17 104/67 (79) 90 Nasal Cannula 2.0 I&O- Last 24 Hours up to 6 AM 07/15/21 06:00 Intake Total 2340 ml Output Total 2850 ml Balance -510 ml KAPIL RIVERO DO Jul 15, 2021 18:05
[2021-07-15] MEDS: RIVAROXABAN 20 MG TAB (XARELTO) PO SCH (21:04)
[2021-07-15 21:30] VITALS: BP 96/56
[2021-07-15] MEDS ORDERED: METOPROLOL TARTRATE 100 MG TAB PO ONE (21:30)
[2021-07-15 22:00] VITALS: BP 111/67
[2021-07-15] MEDS: ALBUTEROL SULFATE 2.5 MG/0.5 ML INH NEB SOLN INH PRN (22:09)
[2021-07-16] MEDS: FUROSEMIDE 40MG/4ML VIAL (J1940) IV SCH (03:42)
[2021-07-16 06:00] VITALS: BP 99/63
[2021-07-16 07:07] LABS: BASO # 0.1 10^3/uL (0.0-0.2); BASO % 0.6 % (0.0-1.0); EOS # 0.5 10^3/uL (0.0-0.5); HEMATOCRIT 37.3 % (42.0-52.0); HEMOGLOBIN 11.9 g/dl (13.5-17.5); LYMPH # 1.7 10^3/uL (1.5-5.0); LYMPH % 16.5 % (24.0-44.0); MEAN CORPUSCULAR HEMOGLOBIN 29.5 pg (27.0-33.0); MEAN CORPUSCULAR HGB CONC 31.9 g/dl (32.0-36.5); MEAN CORPUSCULAR VOLUME 92.6 fl (80.0-96.0); NEUTROPHILS % 67.5 % (36.0-66.0); PLATELET COUNT, AUTOMATED 201 10^3/uL (150-450); RED BLOOD COUNT 4.03 10^6/uL (4.30-6.10); WHITE BLOOD COUNT 10.4 10^3/uL (4.0-10.0)
[2021-07-16] MEDS: BUDESONIDE 0.25 MG/2 ML INHALATION SUSPENSION INH SCH ×2 (07:20→19:33)
[2021-07-16 07:26] LABS: ALBUMIN 3.2 GM/DL (3.2-5.2); ALT/SGPT 20 U/L (12-78); BILIRUBIN,TOTAL 0.6 MG/DL (0.2-1.0); BLOOD UREA NITROGEN 24 MG/DL (7-18); CALCIUM LEVEL 9.5 MG/DL (8.5-10.1); CARBON DIOXIDE LEVEL 31 MEQ/L (21-32); CHLORIDE LEVEL 103 MEQ/L (98-107); CREATININE FOR GFR 1.06 MG/DL (0.70-1.30); GLOMERULAR FILTRATION RATE > 60.0 (>56); GLUCOSE, FASTING 114 MG/DL (70-100); MAGNESIUM LEVEL 2.2 MG/DL (1.8-2.4); POTASSIUM SERUM 3.7 MEQ/L (3.5-5.1); SODIUM LEVEL 140 MEQ/L (136-145); TOTAL PROTEIN 6.9 GM/DL (6.4-8.2)
[2021-07-16] MEDS: HumaLOG INSULIN (NovoLOG) PER UNIT SC SCH ×4 (07:30→21:00)
[2021-07-16] MEDS: HumuLIN R (REGULAR) INSULIN (NovoLIN R) **100U/ML** PER UNIT SC SCH ×2 (07:30→17:30)
[2021-07-16] MEDS: METOPROLOL TARTRATE 100 MG TAB PO SCH ×2 (09:00→21:50)
[2021-07-16] MEDS: MULTIVITAMINS/MINERALS THERAP 1 TAB PO SCH (10:50)
[2021-07-16] MEDS: guaiFENesin ER 600 MG TAB PO SCH ×2 (10:58→21:49)
[2021-07-16] MEDS: ASPIRIN 81MG ENTERIC TABLET PO SCH (10:58)
[2021-07-16] MEDS: FOLIC ACID 1 MG TAB PO SCH (10:58)
[2021-07-16] MEDS: levETIRAcetam 250MG TABLET (KEPPRA) PO SCH ×2 (10:58→21:48)
[2021-07-16] MEDS: ATORVASTATIN 10 MG TAB PO SCH (10:59)
[2021-07-16] MEDS: THIAMINE 100 MG TAB PO SCH ×2 (10:59→21:50)
[2021-07-16] MEDS: GABAPENTIN 400MG CAP PO SCH ×3 (10:59→21:49)
[2021-07-16] MEDS: SERTRALINE 100 MG TAB PO SCH (11:00)
[2021-07-16] MEDS: POTASSIUM CHLORIDE 10 MEQ SR TABLET PO SCH ×2 (11:00→21:49)
[2021-07-16] MEDS: PHENobarbitaL 30 MG TAB PO SCH ×2 (11:22→21:48)
[2021-07-16] MEDS: AMIODARONE 200 MG TAB (PACERONE) PO SCH (11:22)
[2021-07-16] MEDS: FUROSEMIDE 100MG/10ML VIAL (J1940) IV SCH ×2 (11:23→17:54)
[2021-07-16] MEDS ORDERED: METOPROLOL TARTRATE 100 MG TAB PO ONE (11:45)
[2021-07-16 14:00] VITALS: BP 108/60
[2021-07-16] MEDS: ALBUTEROL SULFATE 2.5 MG/0.5 ML INH NEB SOLN INH PRN ×3 (14:59→19:33)
[2021-07-16] MEDS ORDERED: FUROSEMIDE 40 MG TAB PO SCH (17:00)
--- NOTE | 2021-07-16 17:20 | IPNPDOC ---
Text Note Date of Service The patient was seen on 07/16/21. NOTE SignsHospitalist Progress Note Subjective: Patient reports that he still has some shortness of breath, and he does have some rhonchi with deep inspiration. He certainly does not feel ready to go home at this time. He seems more pleasant today than he was yesterday. Besides his breathing issues, he does not have any other acute complaints at this time. Objective: General: Awake, alert, oriented 3. Not in any acute distress. HEENT: Head normocephalic, atraumatic, sclera are nonicteric. Hearing is grossly intact to conversation. Respiratory: He does have some rhonchi noted at the left base, and some minimal crackles at the right base. He has some mild inspiratory and expiratory wheezing throughout the remainder of his lung kennedy. Cardiovascular: Regular rate and rhythm, with no rubs, gallops, or murmur. Large midline sternal scar. Abdomen: Soft, nontender, nondistended, no hepatosplenomegaly appreciated. Bowel sounds present. Extremities: 2+ pulses in the radial and dorsalis pedis bilaterally. No evidence of clubbing or cyanosis. He only has trace pitting edema in the bilateral feet, his legs have significantly improved. Assessment: 1. Acute heart failure with reduced ejection fraction status post AICD Patient was discharged from our cardiology practice. Patient follows with cardiology at [facility]. Acute heart failure most likely secondary to dietary noncompliance. We will obtain new echocardiogram Continue with IV furosemide, metoprolol tartrate, and lisinopril with parameters -Will reduce the dose of his IV furosemide to 60 mg twice daily at this time 2. Suspicion for thyrotoxicosis, perhaps amiodarone induced -His gear changer is at [facility], Dr. Alvina Marquis -TSH is suppressed, Free T4 mildly elevated, Total T3 within normal limit, and TSI (thyroid stimulating immunoglobulin) are still pending. -Thyroid US was performed and there is no cystic or solid nodule identified in either of the bilateral lobes. 3. Atrial fibrillation status post pacemaker Continue metoprolol tartrate and amiodarone --Although there is suspicion that amiodarone may be the cause of his thyrotoxicosis, discontinuing his amiodarone at this time may put him at risk for life-threatening arrhythmia. Therefore, we will continue with amiodarone until further work-up regarding thyroid is complete. Continue rivaroxaban 4. Seizure disorder Continue levetiracetam and phenobarbital 5. Alcohol use disorder -CIWA protocol has been discontinued -No signs of alcohol withdrawal. Continue thiamine, folic acid, and multivitamin 6. Hypertension Continue amlodipine, lisinopril, metoprolol tartrate -He was given a half dose of metoprolol tartrate last night and this morning due to low blood pressures -Hold parameters have been put on his lisinopril 7. Hyperlipidemia Continue atorvastatin 8. Diabetes mellitus Continue sliding scale insulin Continue with long-acting insulin 10 units twice daily (typically on 30 units twice daily) since he is adhering to his diet while in the hospital 9. COPD Continue rescue inhalers and budesonide 10. DVT prophylaxis Patient is on Xarelto Disposition: Pending improvement in heart failure. Recommend that he follow-up with his gear changer outpatient. VS,Fishbone, I+O VS, Fishbone, I+O Laboratory Tests 07/16/21 05:54 Vital Signs Date Time Temp Pulse Resp B/P (MAP) Pulse Ox O2 Delivery O2 Flow Rate FiO2 07/16/21 11:47 64 98/60 07/16/21 10:50 2.0 07/16/21 06:00 97.0 18 92 Nasal Cannula I&O- Last 24 Hours up to 6 AM 07/16/21 06:00 Intake Total 1500 ml Output Total 1525 ml Balance -25 ml KAPIL RIVERO DO Jul 16, 2021 17:20
[2021-07-16] MEDS: RIVAROXABAN 20 MG TAB (XARELTO) PO SCH (21:49)
[2021-07-16 22:00] VITALS: BP 121/70
[2021-07-17 00:52] VITALS: BP 122/68
[2021-07-17 06:00] VITALS: BP 112/62
[2021-07-17 06:50] LABS: BASO # 0.1 10^3/uL (0.0-0.2); BASO % 0.7 % (0.0-1.0); EOS # 0.5 10^3/uL (0.0-0.5); EOS % 4.5 % (0.0-3.0); HEMATOCRIT 35.2 % (42.0-52.0); HEMOGLOBIN 11.1 g/dl (13.5-17.5); LYMPH # 1.7 10^3/uL (1.5-5.0); LYMPH % 14.8 % (24.0-44.0); MEAN CORPUSCULAR HEMOGLOBIN 29.3 pg (27.0-33.0); MEAN CORPUSCULAR HGB CONC 31.5 g/dl (32.0-36.5); MEAN CORPUSCULAR VOLUME 92.9 fl (80.0-96.0); MONO # 1.2 10^3/uL (0.0-0.8); MONO % 10.5 % (2.0-8.0); NEUTROPHILS # 7.7 10^3/uL (1.5-8.5); NEUTROPHILS % 68.9 % (36.0-66.0); PLATELET COUNT, AUTOMATED 199 10^3/uL (150-450); RED BLOOD COUNT 3.79 10^6/uL (4.30-6.10); WHITE BLOOD COUNT 11.1 10^3/uL (4.0-10.0)
[2021-07-17] MEDS: ALBUTEROL SULFATE 2.5 MG/0.5 ML INH NEB SOLN INH PRN ×3 (07:10→14:48)
[2021-07-17] MEDS: BUDESONIDE 0.25 MG/2 ML INHALATION SUSPENSION INH SCH ×2 (07:10→19:55)
[2021-07-17 07:12] LABS: ALBUMIN 2.8 GM/DL (3.2-5.2); ALT/SGPT 18 U/L (12-78); BILIRUBIN,TOTAL 0.5 MG/DL (0.2-1.0); BLOOD UREA NITROGEN 21 MG/DL (7-18); CARBON DIOXIDE LEVEL 29 MEQ/L (21-32); CHLORIDE LEVEL 104 MEQ/L (98-107); CREATININE FOR GFR 1.28 MG/DL (0.70-1.30); GLOMERULAR FILTRATION RATE > 60.0 (>56); GLUCOSE, FASTING 184 MG/DL (70-100); MAGNESIUM LEVEL 2.3 MG/DL (1.8-2.4); POTASSIUM SERUM 3.3 MEQ/L (3.5-5.1); SODIUM LEVEL 138 MEQ/L (136-145); TOTAL PROTEIN 6.6 GM/DL (6.4-8.2)
[2021-07-17 07:24] LABS: CK-MB VALUE MASS < 1.0 NG/ML (<3.6); CPK CREATINE PHOSPHOKINASE 21 U/L (39-308); MB/CK RELATIVE INDEX 4.76 (< OR =4); TROPONIN I 0.04 NG/ML (< 0.10)
[2021-07-17] MEDS: HumaLOG INSULIN (NovoLOG) PER UNIT SC SCH ×4 (07:30→21:00)
[2021-07-17] MEDS: FUROSEMIDE 100MG/10ML VIAL (J1940) IV SCH ×2 (09:33→16:30)
[2021-07-17] MEDS: ATORVASTATIN 10 MG TAB PO SCH (09:34)
[2021-07-17] MEDS: MULTIVITAMINS/MINERALS THERAP 1 TAB PO SCH (09:34)
[2021-07-17] MEDS: ASPIRIN 81MG ENTERIC TABLET PO SCH (09:34)
[2021-07-17] MEDS: POTASSIUM CHLORIDE 10 MEQ SR TABLET PO SCH ×2 (09:34→20:37)
[2021-07-17] MEDS: SERTRALINE 100 MG TAB PO SCH (09:35)
[2021-07-17] MEDS: levETIRAcetam 250MG TABLET (KEPPRA) PO SCH ×2 (09:35→20:36)
[2021-07-17] MEDS: guaiFENesin ER 600 MG TAB PO SCH ×2 (09:35→20:37)
[2021-07-17] MEDS: GABAPENTIN 400MG CAP PO SCH ×3 (09:35→20:36)
[2021-07-17] MEDS: AMIODARONE 200 MG TAB (PACERONE) PO SCH (09:36)
[2021-07-17] MEDS: METOPROLOL TARTRATE 100 MG TAB PO SCH ×2 (09:36→20:40)
[2021-07-17] MEDS: FOLIC ACID 1 MG TAB PO SCH (09:36)
[2021-07-17] MEDS: PHENobarbitaL 30 MG TAB PO SCH ×2 (09:39→20:36)
[2021-07-17] MEDS ORDERED: POTASSIUM CHLORIDE 10 MEQ SR TABLET PO ONE (10:00)
[2021-07-17] MEDS: HumuLIN R (REGULAR) INSULIN (NovoLIN R) **100U/ML** PER UNIT SC SCH ×2 (10:30→17:30)
[2021-07-17 14:00] VITALS: BP 94/52
--- NOTE | 2021-07-17 20:33 | IPNPDOC ---
Text Note Date of Service The patient was seen on 07/17/21. NOTE Hospitalist Progress Note Subjective: Patient did have an episode of chest pain overnight, EKG and cardiac marker panel were both negative for acute event. When asked about his chest pain this morning he replies that he always has chest pain. Once again he does continue to suffer from shortness of breath, but it does not appear that he is suffering from orthopnea at this time as he is laying flat in the bed while speaking to me. He still does have some crackles noted at the bases, the edema in the bilateral lower extremities essentially resolved. Objective: General: Awake, alert, oriented 3. Not in any acute distress. HEENT: Head normocephalic, atraumatic, sclera are nonicteric. Hearing is grossly intact to conversation. Respiratory: Crackles noted at the bilateral bases Cardiovascular: Regular rate and rhythm, with no rubs, gallops, or murmur. Large midline sternal scar. Abdomen: Soft, nontender, nondistended, no hepatosplenomegaly appreciated. Bowel sounds present. Extremities: 2+ pulses in the radial and dorsalis pedis bilaterally. No evidence of clubbing or cyanosis. Edema in the bilateral lower extremities has essentially resolved. Assessment: 1. Acute heart failure with reduced ejection fraction status post AICD Patient was discharged from our cardiology practice. Patient follows with cardiology at [facility]. Acute heart failure most likely secondary to dietary noncompliance. Continue with IV furosemide, metoprolol tartrate, and lisinopril with parameters Echocardiogram read is now complete: CONCLUSIONS: 1. Visual appearance of mild right ventricle dilatation. Normal right ventricle systolic function. Partial flattening of the ventricular septum in both diastole and systole, in keeping with both volume and pressure overload of the right ventricle. Suggestive of at least moderate elevation of estimated right ventricular systolic pressure (55 mmHg assuming right atrial pressure of at least 20 mmHg). Moderate tricuspid regurgitation. Structurally normal-appearing tricuspid leaflets. Moderate right atrial dilatation by visual assessment. 2. Borderline concentric left ventricle hypertrophy. Normal regional LV wall motion and wall thickening. Normal LV systolic function, LVEF 60% by visual estimate. 3. Mild aortic valve sclerosis of a 3-cuspid aortic valve. 4. Mild left atrial dilatation. 5. Mild mitral annular calcification with very mild mitral regurgitation. 6. Presence of cardiac rhythm change management specialist (S) seen in the right side of the heart. Please see report for full details 2. Suspicion for thyrotoxicosis, perhaps amiodarone induced -His paper final inspector is at [facility], Dr. Alvina Marquis -TSH is suppressed, Free T4 mildly elevated, Total T3 within normal limit, and TSI (thyroid stimulating immunoglobulin) are still pending. -Thyroid US was performed and there is no cystic or solid nodule identified in either of the bilateral lobes. 3. Atrial fibrillation status post pacemaker Continue metoprolol tartrate and amiodarone --Although there is suspicion that amiodarone may be the cause of his thyrotoxicosis, discontinuing his amiodarone at this time may put him at risk for life-threatening arrhythmia. Therefore, we will continue with amiodarone until further work-up regarding thyroid is complete. Continue rivaroxaban 4. Seizure disorder Continue levetiracetam and phenobarbital 5. Alcohol use disorder -CIWA protocol has been discontinued -No signs of alcohol withdrawal. Continue thiamine, folic acid, and multivitamin 6. Hypertension Continue amlodipine, lisinopril, metoprolol tartrate -He was given a half dose of metoprolol tartrate last night and this morning due to low blood pressures -Hold parameters have been put on his lisinopril 7. Hyperlipidemia Continue atorvastatin 8. Diabetes mellitus Continue sliding scale insulin Continue with long-acting insulin 10 units twice daily (typically on 30 units twice daily) since he is adhering to his diet while in the hospital 9. COPD Continue rescue inhalers and budesonide 10. DVT prophylaxis Patient is on Xarelto Disposition: Pending improvement in heart failure. Continue diuresis with IV furosemide and fluid restriction to 2000 mL/day Recommend that he follow-up with his paper final inspector outpatient. VS,Fishbone, I+O VS, Fishbone, I+O Laboratory Tests 07/17/21 05:55 Vital Signs Date Time Temp Pulse Resp B/P (MAP) Pulse Ox O2 Delivery O2 Flow Rate FiO2 07/17/21 14:00 97.1 62 18 94/52 (66) 91 Room Air 07/16/21 22:00 2.0 I&O- Last 24 Hours up to 6 AM 07/17/21 06:00 Intake Total 2240 ml Output Total 2975 ml Balance -735 ml KAPIL RIVERO DO Jul 17, 2021 20:33
[2021-07-17] MEDS: RIVAROXABAN 20 MG TAB (XARELTO) PO SCH (20:37)
[2021-07-17 20:56] VITALS: BP 98/56
[2021-07-17 22:00] VITALS: BP 106/55
[2021-07-18 06:00] VITALS: BP 98/62
[2021-07-18 06:32] LABS: BASO # 0.1 10^3/uL (0.0-0.2); BASO % 0.6 % (0.0-1.0); EOS # 0.4 10^3/uL (0.0-0.5); EOS % 4.3 % (0.0-3.0); HEMATOCRIT 34.6 % (42.0-52.0); HEMOGLOBIN 10.9 g/dl (13.5-17.5); LYMPH # 1.9 10^3/uL (1.5-5.0); LYMPH % 18.8 % (24.0-44.0); MEAN CORPUSCULAR HEMOGLOBIN 29.3 pg (27.0-33.0); MEAN CORPUSCULAR HGB CONC 31.5 g/dl (32.0-36.5); MONO # 1.2 10^3/uL (0.0-0.8); MONO % 11.5 % (2.0-8.0); NEUTROPHILS # 6.4 10^3/uL (1.5-8.5); NEUTROPHILS % 64.2 % (36.0-66.0); PLATELET COUNT, AUTOMATED 209 10^3/uL (150-450); RED BLOOD COUNT 3.72 10^6/uL (4.30-6.10)
[2021-07-18 07:07] LABS: ALBUMIN 2.7 GM/DL (3.2-5.2); ALT/SGPT 18 U/L (12-78); BILIRUBIN,TOTAL 0.4 MG/DL (0.2-1.0); BLOOD UREA NITROGEN 23 MG/DL (7-18); CALCIUM LEVEL 8.6 MG/DL (8.5-10.1); CARBON DIOXIDE LEVEL 27 MEQ/L (21-32); CHLORIDE LEVEL 107 MEQ/L (98-107); CREATININE FOR GFR 1.24 MG/DL (0.70-1.30); GLOMERULAR FILTRATION RATE > 60.0 (>56); GLUCOSE, FASTING 168 MG/DL (70-100); MAGNESIUM LEVEL 2.2 MG/DL (1.8-2.4); POTASSIUM SERUM 3.5 MEQ/L (3.5-5.1); SODIUM LEVEL 140 MEQ/L (136-145); TOTAL PROTEIN 6.3 GM/DL (6.4-8.2)
--- NOTE | 2021-07-18 08:08 | ECGEPIP ---
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 Isolated PVC. Indeterminate frontal axis with right bundle branch block. Slower rate but otherwise unchanged from 07/13/21 Electronically Signed on 07-18-2021 8:08:21 EDT by Dav Manning
[2021-07-18] MEDS: BUDESONIDE 0.25 MG/2 ML INHALATION SUSPENSION INH SCH (08:56)
[2021-07-18] MEDS ORDERED: FUROSEMIDE 40 MG TAB PO SCH (09:00)
--- NOTE | 2021-07-18 09:15 | IPNPDOC ---
Text Note Date of Service The patient was seen on 07/18/21. Subjective: VS,Fishbone, I+O VS, Fishbone, I+O Laboratory Tests 07/18/21 05:59 Vital Signs Date Time Temp Pulse Resp B/P (MAP) Pulse Ox O2 Delivery O2 Flow Rate FiO2 07/18/21 06:00 97.8 63 18 98/62 (74) 97 Room Air 07/16/21 22:00 2.0 I&O- Last 24 Hours up to 6 AM 07/18/21 05:59 Intake Total 1620 ml Output Total 1400 ml Balance 220 ml CRESCENCIO THIBODEAUX OMS-3 Jul 18, 2021 09:15
[2021-07-18] MEDS: MULTIVITAMINS/MINERALS THERAP 1 TAB PO SCH (09:39)
[2021-07-18] MEDS: levETIRAcetam 250MG TABLET (KEPPRA) PO SCH (09:40)
[2021-07-18 09:41] VITALS: BP 112/70
[2021-07-18] MEDS: FOLIC ACID 1 MG TAB PO SCH (09:41)
[2021-07-18] MEDS: METOPROLOL TARTRATE 100 MG TAB PO SCH (09:41)
[2021-07-18] MEDS: AMIODARONE 200 MG TAB (PACERONE) PO SCH (09:41)
[2021-07-18] MEDS: SERTRALINE 100 MG TAB PO SCH (09:42)
[2021-07-18] MEDS: ATORVASTATIN 10 MG TAB PO SCH (09:42)
[2021-07-18] MEDS: guaiFENesin ER 600 MG TAB PO SCH (09:42)
[2021-07-18] MEDS: GABAPENTIN 400MG CAP PO SCH (09:42)
[2021-07-18] MEDS: POTASSIUM CHLORIDE 10 MEQ SR TABLET PO SCH (09:42)
[2021-07-18] MEDS: ASPIRIN 81MG ENTERIC TABLET PO SCH (09:42)
[2021-07-18] MEDS: HumaLOG INSULIN (NovoLOG) PER UNIT SC SCH ×2 (09:43→11:44)
[2021-07-18] MEDS: HumuLIN R (REGULAR) INSULIN (NovoLIN R) **100U/ML** PER UNIT SC SCH (09:43)
[2021-07-18] MEDS: PHENobarbitaL 30 MG TAB PO SCH (10:12)
--- NOTE | 2021-07-18 10:44 | DS.PDOC ---
Discharge Summary General Date of Admission Jul 13, 2021 at 10:14 Date of Discharge 07/18/21 Attending Physician: KAPIL RIVERO DO Discharge Summary PROCEDURES PERFORMED DURING STAY: [None]. ADMITTING DIAGNOSES: 1. COPD exacerbation 2. HFrEF from previous AR 3. CVA 4. Afib 5. seizure disorder 6. CAD - AR and CHF 7. Aortic valve replacement 8. hypercholesteremia 9. chronic back pain 10. gastric ulcer 11. Diabetes Mellitus DISCHARGE DIAGNOSES: 1. COPD 2. HFrEF from previous AR 3. CVA 4. Afib 5. seizure disorder 6. CAD - AR and CHF 7. Aortic valve replacement 8. hypercholesteremia 9. chronic back pain 10. gastric ulcer 11. Diabetes Mellitus COMPLICATIONS/CHIEF COMPLAINT: CHF exacerbation causing difficulty breathing from fluid overload. HISTORY OF PRESENT ILLNESS: Patient presented with difficulty breathing to the ER attributed to an exacerbation of his CHF. BNP was over 10,000 at admission. TSH was <.005 and thyroxine level of 12.9. HOSPITAL COURSE: Patient was put on Lasix to treat fluid overload with slow progression to euvolemic status. Patient received an ECHO during admission and EF was determined to be 60%. Echo found evidence of heart remodeling consistent with previous diagnoses of CHF. No worsening of CHF since last exam was found on ECHO. 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 We obtained neck U/S and lab work, some of which is still pending. It was thought this was due to the amiodarone, how ever we elected not to discontinue due to patient's significant heart history. Thyroid US was ordered and no nodules were found. It was recommended that patient follow up with zoning technician to determine cause of low TSH (to get an Iodine uptake study). By hospital stay day 6, patient was normovolemic and eager for discharge home, he was deemed stable for discharge with outpatient follow up instructions. DISCHARGE MEDICATIONS: Please see below. ALLERGIES: Please see below. Review of systems: Pt denies headache, nuchal rigidity, pain or tenderness over thyroid, chest pain, palpitations, SOB, dyspnea, ABD pain, urinary pain, numbness, or tingling. PHYSICAL EXAMINATION ON DISCHARGE: VITAL SIGNS: Please see below. GENERAL: Patient has no fever or chills. HEENT: No visible enlargement of thyroid or lymph nodes. CARDIOVASCULAR EXAMINATION: Normal S1 and S2 on auscultation. No murmur or extra heart sounds. RESPIRATORY EXAMINATION: Fine crackles are present on expiration, but they are markedly decreased from yesterday. ABDOMINAL EXAMINATION: Normal sounds on auscultation and Generalized tenderness and pain on palpation. EXTREMITIES: No pitting edema is present on physical exam. BL 2/4 pedal and posterior tibial pulses are present. NEUROLOGICAL EXAMINATION: No Weakness or loss of sensation. PSYCHIATRIC EXAMINATION: Alert and oriented*3. LABORATORY DATA: Please see below. New IMAGING: None. PROGNOSIS: fair. ACTIVITY: As tolerated. DIET: low salt diet. DISCHARGE PLAN: 1. Continue on other medications as previously prescribed. 2. Follow dietary modifications and salt restriction. DISPOSITION: Home with services. DISCHARGE INSTRUCTIONS: 1. Continue on other medications as previously prescribed. 2. Follow dietary modifications and salt restriction. ITEMS TO FOLLOWUP ON ON OUTPATIENT: 1. Follow up with PCP within 7 days of discharge. 2. Schedule an appointment with Tax Services Manager for thyroid workup. DISCHARGE CONDITION: Stable. TIME SPENT ON DISCHARGE: 45 minutes. Vital Signs/I&Os Vital Signs Date Time Temp Pulse Resp B/P (MAP) Pulse Ox O2 Delivery O2 Flow Rate FiO2 07/18/21 09:41 70 112/70 07/18/21 06:00 97.8 18 97 Room Air 07/16/21 22:00 2.0 I&O- Last 24 Hours up to 6 AM 07/18/21 06:00 Intake Total 1620 ml Output Total 1400 ml Balance 220 ml Laboratory Data Labs 24H Laboratory Tests 2 07/17/21 11:32: Bedside Glucose (Misc Panel) 183H 07/17/21 16:20: Bedside Glucose (Misc Panel) 169H 07/18/21 05:59: Immature Granulocyte % (Auto) 0.6, Neutrophils (%) (Auto) 64.2, Lymphocytes (%) (Auto) 18.8L, Monocytes (%) (Auto) 11.5H, Eosinophils (%) (Auto) 4.3H, Basophils (%) (Auto) 0.6, Neutrophils # (Auto) 6.4, Lymphocytes # (Auto) 1.9, Monocytes # (Auto) 1.2H, Eosinophils # (Auto) 0.4, Basophils # (Auto) 0.1, Nucleated Red Blood Cells % (auto) 0.0, Anion Gap 6L, Glomerular Filtration Rate > 60.0, Calcium Level 8.6, Magnesium Level 2.2, Total Bilirubin 0.4, Aspartate Amino Transf (AST/SGOT) 13, Alanine Aminotransferase (ALT/SGPT) 18, Alkaline Phosphatase 81, Total Protein 6.3L, Albumin 2.7L, Albumin/Globulin Ratio 0.8 CBC/BMP Laboratory Tests 07/18/21 05:59 FSBS Laboratory Tests Test 07/17/21 11:32 07/17/21 16:20 Range/Units Bedside Glucose (Misc Panel) 183 169 70-105 MG/DL Microbiology Microbiology 07/13/21 Blood Culture - Final, Complete NO GROWTH AFTER 5 DAYS 07/13/21 Blood Culture - Final, Complete NO GROWTH AFTER 5 DAYS Discharge Medications Scheduled Amiodarone HCl (Amiodarone HCl) 200 Mg Tablet, 200 MG PO DAILY, (Reported) Amlodipine Besylate (Norvasc) 10 Mg Tab, 10 MG PO DAILY, (Reported) Aspirin (Aspirin EC) 81 Mg Tab, 81 MG PO DAILY, (Reported) Atorvastatin Calcium (Atorvastatin Calcium) 10 Mg Tab, 10 MG PO DAILY, (Reported) Fluticasone Furoate (Arnuity Ellipta) 100 Mcg Blst.w.dev, 1 PUFF PO DAILY, (Repo rted) Furosemide (Furosemide) 40 Mg Tab, 40 MG PO BID, (Reported) Gabapentin (Gabapentin) 800 Mg Tablet, 800 MG PO TID, (Reported) Insulin Human Regular (Humulin R) 1 Units/0.01 Ml Soln, 30 UNITS SC BID, (Reported) Levetiracetam (Levetiracetam) 750 Mg Tab, 1,500 MG PO Q12H, (Reported) Lisinopril (Lisinopril) 20 Mg Tab, 20 MG PO BID, (Reported) Metformin HCl (Metformin HCl) 1,000 Mg Tab, 1,000 MG PO BID, (Reported) Metoprolol Tartrate (Metoprolol Tartrate) 100 Mg Tab, 200 MG PO BID, (Reported) Phenobarbital (Phenobarbital) 32.4 Mg Tab, 64.8 MG PO BID, (Reported) Potassium Chloride (K-Tab ER) 10 Meq Tablet.er, 10 MEQ PO BID, (Reported) Rivaroxaban (Xarelto) 20 Mg Tablet, 20 MG PO QPM, (Reported) Sertraline Hcl (Zoloft) 100 Mg Tablet, 100 MG PO DAILY, (Reported) Scheduled PRN Albuterol Sulf (Albuterol Sulfate) 2.5 Mg/3 Ml Nebu, 2.5 MG INH TID PRN for SHORTNESS OF BREATH, (Reported) Albuterol Sulfate (Albuterol Sulfate Hfa) 8.5 Gm Hfa.aer.ad, 2 PUFFS INH QID PRN for SOB/WHEEZING, (Reported) Ipratropium [place] (Atrovent Hfa) 200 Puff/12.9 Gm Aers, 2 PUFF INH QID PRN for SOB/WHEEZING, (Reported) Tizanidine HCl (Tizanidine HCl) 2 Mg Tablet, 2 MG PO Q6H PRN for SPASMS, (Reported) Miscellaneous Medications [Med Rec Comment] , (Reported) PT STATES HAS NOT TAKEN ANY MEDS SINCE March, OBTAINED LIST FROM PHARMACY Allergies Coded Allergies: Penicillins (Verified Allergy, Severe, anaphylaxis, 07/13/21) Mushroom (Verified Allergy, Intermediate, HIVES, 07/13/21) Sulfa (Sulfonamide Antibiotics) (Verified Allergy, Intermediate, hives, 07/13/21) GME ATTESTATION GME ATTESTATION My faculty preceptor for this patient encounter was physically present during the encounter and was fully available. All aspects of the patient interview, examination, medical decision making process, and medical care plan development were reviewed and approved by the faculty preceptor. The faculty preceptor is aware and concurs with the plan as stated in the body of this note and will attest to such by his/her cosignature. CRESCENCIO THIBODEAUX OMS-3 Jul 18, 2021 10:44
== END 2021-07-18 15:08 | disposition home health service (06) | DRG 140 ==
LOC: M ED 05:16 → M ED INP 10:14 → ENRESERV 13:27 → M MSPAV 15:06
PROVIDERS: ADMIT Family Medicine; ATTEND Neuromusculoskeletal Medicine & OMM
DX: J44.1 Chronic obstructive pulmonary disease with (acute) exacerbation (principal); I50.21 Acute systolic (congestive) heart failure; E11.40 Type 2 diabetes mellitus with diabetic neuropathy, unspecified; E87.2 Acidosis; I48.91 Unspecified atrial fibrillation; G40.909 Epilepsy, unspecified, not intractable, without status epilepticus; E05.80 Other thyrotoxicosis without thyrotoxic crisis or storm; E04.1 Nontoxic single thyroid nodule; I11.0 Hypertensive heart disease with heart failure; I25.2 Old myocardial infarction; I25.10 Atherosclerotic heart disease of native coronary artery without angina pectoris; Z95.2 Presence of prosthetic heart valve; E78.00 Pure hypercholesterolemia, unspecified; Z79.82 Long term (current) use of aspirin; Z79.899 Other long term (current) drug therapy; Z88.0 Allergy status to penicillin; Z88.2 Allergy status to sulfonamides; Z91.018 Allergy to other foods; Z86.73 Personal history of transient ischemic attack (TIA), and cerebral infarction without residual deficits; Z66 Do not resuscitate

== ENCOUNTER 2021-07-21 01:26 | Emergency (ER) | payer OTHER ==
[~2021-07-21 01:26] MED LIST changes: +ALBU8.5H INH; +AMIO200T3 PO; +ARNU1INH PO; +MED REC COMMENT; +TIZA2TA PO; +ZOLO100T PO
[2021-07-21 02:34] LABS: HEMATOCRIT 32.8 % (42.0-52.0); HEMOGLOBIN 10.5 g/dl (13.5-17.5); MEAN CORPUSCULAR HEMOGLOBIN 29.5 pg (27.0-33.0); MEAN CORPUSCULAR VOLUME 92.1 fl (80.0-96.0); PLATELET COUNT, AUTOMATED 187 10^3/uL (150-450); RED BLOOD COUNT 3.56 10^6/uL (4.30-6.10); WHITE BLOOD COUNT 7.3 10^3/uL (4.0-10.0)
--- NOTE | 2021-07-21 02:51 | REPVR ---
PROCEDURE INFORMATION: Exam: CT Cervical Spine Without Contrast Exam date and time: 07/21/2021 1:51 AM Age: 51 years old Clinical indication: Injury or trauma; Fall; Blunt trauma; Additional info: Fall, loc, xarelto TECHNIQUE: Imaging protocol: Computed tomography images of the cervical spine without contrast. Radiation optimization: All CT scans at this facility use at least one of these dose optimization techniques: automated exposure control; mA and/or kV adjustment per patient size (includes targeted exams where dose is matched to clinical indication); or iterative reconstruction. COMPARISON: 1. CT Spine,cervical w/o contrast 2019-07-28 14:[address] Head without contrast 2020-12-09 20:06 FINDINGS: Bones/joints: Minimal levoconvex cervical curvature. Normal vertebral body heights and alignments. Discs/Spinal canal/Neural foramina: Diffuse degenerative disc space loss with degenerative disc osteophyte complexes, facet arthropathy, and ligamentum flavum thickening causes up to moderate spinal and foraminal stenosis greatest at C4-C6. Lymph nodes: Nonspecific lower neck and supraclavicular adenopathy. Lungs: Lung apices are normal. Soft tissues: Unremarkable. IMPRESSION: 1. No acute fracture/subluxation. 2. Nonspecific lower neck and supraclavicular adenopathy. Electronically signed by: Dinesh Murdock On 07/21/2021 02:50:44 AM
--- NOTE | 2021-07-21 02:51 | REPVR ---
PROCEDURE INFORMATION: Exam: CT Head Without Contrast Exam date and time: 07/21/2021 1:51 AM Age: 51 years old Clinical indication: Injury or trauma; Fall; Blunt trauma (contusions or hematomas); Additional info: Fall, loc, xarelto TECHNIQUE: Imaging protocol: Computed tomography of the head without contrast. Radiation optimization: All CT scans at this facility use at least one of these dose optimization techniques: automated exposure control; mA and/or kV adjustment per patient size (includes targeted exams where dose is matched to clinical indication); or iterative reconstruction. COMPARISON: 1. CT Head without contrast 2020-12-09 20:[address] Head without contrast 2020-05-19 15:42 FINDINGS: Brain: Normal. No hemorrhage. Unremarkable white matter. No mass effect. Cerebral ventricles: No ventriculomegaly. Paranasal sinuses: Visualized sinuses are unremarkable. No fluid levels. Mastoid air cells: Visualized mastoid air cells are well aerated. Bones/joints: Unremarkable. No acute fracture. Soft tissues: Unremarkable. IMPRESSION: No acute intracranial abnormality. Electronically signed by: Dinesh Murdock On 07/21/2021 02:51:26 AM
[2021-07-21 03:01] LABS: EOSINOPHILS 6 % (0-3); LYMPHOCYTES 12 % (16-44); MONOCYTES 4 % (0-5); NEUTROPHILS 74 % (28-66); PLATELET ESTIMATE NORMAL (NORMAL)
[2021-07-21 03:06] LABS: ALBUMIN 2.8 GM/DL (3.2-5.2); ALT/SGPT 21 U/L (12-78); BILIRUBIN,TOTAL 0.4 MG/DL (0.2-1.0); BLOOD UREA NITROGEN 10 MG/DL (7-18); CALCIUM LEVEL 8.7 MG/DL (8.5-10.1); CARBON DIOXIDE LEVEL 27 MEQ/L (21-32); CHLORIDE LEVEL 110 MEQ/L (98-107); CREATININE FOR GFR 0.75 MG/DL (0.70-1.30); GLOMERULAR FILTRATION RATE > 60.0 (>56); GLUCOSE, FASTING 85 MG/DL (70-100); POTASSIUM SERUM 3.7 MEQ/L (3.5-5.1); SODIUM LEVEL 142 MEQ/L (136-145); TOTAL PROTEIN 6.7 GM/DL (6.4-8.2)
== END 2021-07-21 03:05 | disposition home or self-care (01) ==
LOC: M ED 01:26
DX: S09.90XA Unspecified injury of head, initial encounter (principal); W19.XXXA Unspecified fall, initial encounter; F10.120 Alcohol abuse with intoxication, uncomplicated; J44.9 Chronic obstructive pulmonary disease, unspecified; I48.91 Unspecified atrial fibrillation; Y92.9 Unspecified place or not applicable; Y99.9 Unspecified external cause status; Y93.9 Activity, unspecified; Z79.4 Long term (current) use of insulin; Z79.51 Long term (current) use of inhaled steroids; Z79.899 Other long term (current) drug therapy; Z88.0 Allergy status to penicillin; Z88.1 Allergy status to other antibiotic agents; Z88.2 Allergy status to sulfonamides; Z91.018 Allergy to other foods

== ENCOUNTER 2021-08-12 01:14 | Inpatient (IN) | payer OTHER ==
[~2021-08-12] VITALS: Ht 165.1 cm; Wt 86.0 kg
[2021-08-12] VITALS (20 sets, daily range): BP systolic 117–165; BP diastolic 63–105
[~2021-08-12 01:14] MED LIST changes: -AMIO200T3 PO; +AMIO200T49 PO; +DOXY-443 PO; -DOXY1CAP62 PO
[2021-08-12] MEDS ORDERED: AMIODARONE HCL 150 MG in IV 1 EA IV STA (01:23)
[2021-08-12] MEDS ORDERED: LORazepam 2 MG/ML VIAL IV STA (01:41)
[2021-08-12 01:46] LABS: BASO # 0.1 10^3/uL (0.0-0.2); BASO % 0.6 % (0.0-1.0); EOS # 0.2 10^3/uL (0.0-0.5); EOS % 1.9 % (0.0-3.0); HEMATOCRIT 39.4 % (42.0-52.0); HEMOGLOBIN 12.2 g/dl (13.5-17.5); LYMPH # 1.2 10^3/uL (1.5-5.0); MEAN CORPUSCULAR HEMOGLOBIN 28.8 pg (27.0-33.0); MEAN CORPUSCULAR VOLUME 92.9 fl (80.0-96.0); MONO # 0.7 10^3/uL (0.0-0.8); MONO % 7.7 % (2.0-8.0); NEUTROPHILS # 7.5 10^3/uL (1.5-8.5); NEUTROPHILS % 77.4 % (36.0-66.0); PLATELET COUNT, AUTOMATED 128 10^3/uL (150-450); RED BLOOD COUNT 4.24 10^6/uL (4.30-6.10); WHITE BLOOD COUNT 9.6 10^3/uL (4.0-10.0)
[2021-08-12] MEDS ORDERED: MAG SULF 1GM/100ML (MAG RUN) 1 GM in IV 1 EA IV ONE (01:50)
[2021-08-12] MEDS ORDERED: ETOMIDATE INJ 20MG/10ML VIAL As Ordered ONE (01:55)
[2021-08-12] MEDS ORDERED: ETOMIDATE INJ 20MG/10ML VIAL IV STA (02:06)
[2021-08-12] MEDS ORDERED: FUROSEMIDE 40MG/4ML VIAL (J1940) IV ONE (02:20)
[2021-08-12 02:35] LABS: ALBUMIN 3.3 GM/DL (3.2-5.2); ALT/SGPT 43 U/L (12-78); BILIRUBIN,DIRECT 0.4 MG/DL (0.0-0.2); BILIRUBIN,TOTAL 1.5 MG/DL (0.2-1.0); BLOOD UREA NITROGEN 13 MG/DL (7-18); CALCIUM LEVEL 9.6 MG/DL (8.5-10.1); CARBON DIOXIDE LEVEL 19 MEQ/L (21-32); CHLORIDE LEVEL 108 MEQ/L (98-107); CK-MB VALUE MASS 4.7 NG/ML (<3.6); CPK CREATINE PHOSPHOKINASE 78 U/L (39-308); CREATININE FOR GFR 1.14 MG/DL (0.70-1.30); FREE T4 1.76 NG/DL (0.76-1.46); GLOMERULAR FILTRATION RATE > 60.0 (>56); GLUCOSE, FASTING 160 MG/DL (70-100); LIPASE 83 U/L (73-393); MB/CK RELATIVE INDEX 6.03 (< OR =4); NT-PRO BNP 8831 PG/ML (<125); PHOSPHORUS LEVEL 3.3 MG/DL (2.5-4.9); POTASSIUM SERUM 3.9 MEQ/L (3.5-5.1); SODIUM LEVEL 142 MEQ/L (136-145); THYROID STIMULATING HORMONE < 0.005 uIU/ML (0.358-3.740); TOTAL PROTEIN 7.5 GM/DL (6.4-8.2); TROPONIN I 0.12 NG/ML (< 0.10)
[2021-08-12] MEDS ORDERED: AMIODARONE 200 MG TAB (PACERONE) PO ONE (02:45)
[2021-08-12 02:57] LABS: PARTIAL THROMBOPLASTIN TIME 33.5 SECONDS (25.9-37.0)
[2021-08-12 03:00] LABS: INR 1.41; PROTHROMBIN TIME 17.7 SECONDS (12.7-14.5)
[2021-08-12 03:20] LABS: RSV AMPLIFICATION NEGATIVE (NEGATIVE)
[2021-08-12] MEDS ORDERED: ACETAMINOPHEN TAB 650MG DOSE (2X325MG) PO PRN (03:20)
[2021-08-12] MEDS ORDERED: MOM 30ML SUSPENSION UDC PO PRN (03:20)
[2021-08-12] MEDS ORDERED: MAALOX 30 ML SUSP *UDC PO PRN (03:20)
[2021-08-12] MEDS ORDERED: LORazepam 2 MG/ML VIAL IV PRN (03:20)
[2021-08-12] MEDS ORDERED: AMIODARONE 150MG/3ML INJ (J0282) IVP STA ×2 (03:57→04:03)
[2021-08-12] MEDS ORDERED: methylPREDNISolone 125MG 2ML VIAL IV STA (03:59)
[2021-08-12] MEDS ORDERED: LEVALBUTEROL 1.25 MG/0.5 ML CONCENTRATE NEB INH SCH (04:00)
[2021-08-12] MEDS ORDERED: IPRATROPIUM 0.02% SOLN 0.5MG 2.5ML NEB NEB SCH (04:00)
[2021-08-12] MEDS ORDERED: LEVALBUTEROL 1.25 MG/0.5 ML CONCENTRATE NEB INH PRN (04:00)
[2021-08-12 05:08] LABS: ETHYL ALCOHOL (ETHANOL) < 0.003 % (0.000-0.010); MAGNESIUM LEVEL 2.1 MG/DL (1.8-2.4)
[2021-08-12] MEDS ORDERED: FLON1SPR (06:31)
[2021-08-12] MEDS ORDERED: NITR4TASL SL (06:31)
[2021-08-12] MEDS ORDERED: HOME MED LIST COMPLETE! XX SCH (06:35)
[2021-08-12] MEDS ORDERED: HYDROCORTISONE 100 MG/2 ML VIAL (J1720 PER 1) IV ONE (06:40)
[2021-08-12] MEDS ORDERED: PROPRANOLOL 1 MG/ML IV STA (07:55)
[2021-08-12] MEDS ORDERED: FUROSEMIDE 40MG/4ML VIAL (J1940) IV SCH (08:00)
[2021-08-12] MEDS: LEVALBUTEROL 1.25 MG/0.5 ML CONCENTRATE NEB INH SCH ×3 (08:02→19:52)
[2021-08-12] MEDS: IPRATROPIUM 0.02% SOLN 0.5MG 2.5ML NEB NEB SCH ×3 (08:02→19:52)
[2021-08-12 08:20] LABS: VENOUS BASE EXCESS -1.3 (-2.0-2.0); VENOUS HCO3 22.8 MEQ/L (23.0-27.0); VENOUS PARTIAL PRESSURE CO2 36.1 mmHg (38.0-50.0); VENOUS PARTIAL PRESSURE O2 158.6 mmHg (30.0-50.0); VENOUS PH 7.418 UNITS (7.330-7.430); VENOUS STANDARD HCO3 23.5 MEQ/L; VENOUS TOTAL CO2 23.9 MEQ/L (24.0-28.0)
[2021-08-12 08:36] LABS: INR 1.41; PROTHROMBIN TIME 17.7 SECONDS (12.7-14.5)
[2021-08-12 08:37] LABS: PARTIAL THROMBOPLASTIN TIME 22.9 SECONDS (25.9-37.0)
[2021-08-12 08:48] LABS: HEMATOCRIT 38.5 % (42.0-52.0); HEMOGLOBIN 12.1 g/dl (13.5-17.5); MEAN CORPUSCULAR HEMOGLOBIN 28.3 pg (27.0-33.0); MEAN CORPUSCULAR HGB CONC 31.4 g/dl (32.0-36.5); MEAN CORPUSCULAR VOLUME 90.2 fl (80.0-96.0); PLATELET COUNT, AUTOMATED 108 10^3/uL (150-450); RED BLOOD COUNT 4.27 10^6/uL (4.30-6.10); WHITE BLOOD COUNT 9.3 10^3/uL (4.0-10.0)
[2021-08-12 08:59] LABS: ALBUMIN 3.2 GM/DL (3.2-5.2); ALT/SGPT 111 U/L (12-78); BILIRUBIN,TOTAL 1.2 MG/DL (0.2-1.0); BLOOD UREA NITROGEN 13 MG/DL (7-18); CALCIUM LEVEL 9.6 MG/DL (8.5-10.1); CARBON DIOXIDE LEVEL 26 MEQ/L (21-32); CHLORIDE LEVEL 109 MEQ/L (98-107); CREATININE FOR GFR 0.98 MG/DL (0.70-1.30); GLOMERULAR FILTRATION RATE > 60.0 (>56); GLUCOSE, FASTING 157 MG/DL (70-100); POTASSIUM SERUM 3.5 MEQ/L (3.5-5.1); SODIUM LEVEL 138 MEQ/L (136-145); TOTAL PROTEIN 7.8 GM/DL (6.4-8.2); TROPONIN I 0.21 NG/ML (< 0.10)
[2021-08-12] MEDS ORDERED: ASPIRIN 81MG ENTERIC TABLET PO SCH (09:00)
[2021-08-12] MEDS ORDERED: PANTOPRAZOLE 40MG TAB (PROTONIX) PO SCH (09:00)
[2021-08-12] MEDS ORDERED: LEVEMIR (INSULIN DETEMIR) 1 UNITS/0.01ML SC SCH (09:00)
[2021-08-12] MEDS ORDERED: FOLIC ACID 1 MG TAB PO SCH (09:00)
[2021-08-12] MEDS ORDERED: levETIRAcetam 250MG TABLET (KEPPRA) PO SCH (09:00)
[2021-08-12] MEDS ORDERED: SERTRALINE 100 MG TAB PO SCH (09:00)
[2021-08-12] MEDS ORDERED: predniSONE 20 MG TAB PO SCH (09:00)
[2021-08-12] MEDS ORDERED: lisinopriL 40 MG TAB PO SCH (09:00)
[2021-08-12] MEDS ORDERED: METOPROLOL TARTRATE 100MG TAB PO SCH (09:00)
[2021-08-12] MEDS ORDERED: THIAMINE 100 MG TAB PO SCH (09:00)
[2021-08-12] MEDS ORDERED: PHENobarbitaL 30 MG TAB PO SCH ×2 (09:00→21:00)
[2021-08-12 09:02] LABS: BLOOD UREA NITROGEN 13 MG/DL (7-18); CALCIUM LEVEL 9.6 MG/DL (8.5-10.1); CARBON DIOXIDE LEVEL 25 MEQ/L (21-32); CHLORIDE LEVEL 108 MEQ/L (98-107); CREATININE FOR GFR 0.92 MG/DL (0.70-1.30); FREE T3 3.6 PG/ML (2.2-4.0); GLOMERULAR FILTRATION RATE > 60.0 (>56); GLUCOSE, FASTING 157 MG/DL (70-100); NT-PRO BNP 9972 PG/ML (<125); POTASSIUM SERUM 3.6 MEQ/L (3.5-5.1); SODIUM LEVEL 140 MEQ/L (136-145)
[2021-08-12] MEDS ORDERED: DEXTROSE 50% 50 ML SYRINGE IV PRN (09:20)
[2021-08-12] MEDS ORDERED: GLUCOSE 4GM CHEW TABLET PO PRN (09:20)
[2021-08-12] MEDS ORDERED: GLUCAGON INJ 1MG VIAL SC PRN (09:20)
[2021-08-12] MEDS: THIAMINE 200MG 2ML VIAL IV SCH (10:24)
[2021-08-12] MEDS: METOPROLOL 5 MG/5 ML VIAL IV SCH ×3 (10:24→21:55)
[2021-08-12] MEDS: HumaLOG INSULIN (NovoLOG) PER UNIT SC SCH ×2 (12:00→18:00)
[2021-08-12 12:01] LABS: HEMOGLOBIN A1c 5.4 %
[2021-08-12] MEDS: levETIRAcetam INJection 1,500 MG in D5W 100 ML IV SCH (12:50)
[2021-08-12] MEDS: FUROSEMIDE 40MG/4ML VIAL (J1940) IV SCH ×2 (12:50→18:00)
[2021-08-12] MEDS ORDERED: FOLIC ACID 1 MG in NS 50 ML IV SCH (13:00)
[2021-08-12] MEDS ORDERED: KCL 10MEQ/100ML SWI (KRUN) 10 MEQ in IV 1 EA IV SCH (17:00)
[2021-08-12] MEDS ORDERED: HEPARIN SOD (PORCINE) 5000UNITS/ML 1ML VIAL/SYRINGE IV PRN (17:20)
[2021-08-12] MEDS ORDERED: HEPARIN DRIP 25,000 UNITS in IV 1 EA IV SCH (17:20)
[2021-08-12] MEDS ORDERED: HEPARIN SOD (PORCINE) 5000UNITS/ML 1ML VIAL/SYRINGE IV ONE (17:20)
[2021-08-12] MEDS ORDERED: RIVAROXABAN 20 MG TAB (XARELTO) PO SCH (18:00)
[2021-08-12] MEDS: RIVAROXABAN 20 MG TAB (XARELTO) PO SCH (18:21)
[2021-08-12] MEDS ORDERED: ATORVASTATIN 10 MG TAB PO SCH ×2 (21:00)
[2021-08-12 22:11] LABS: ALBUMIN 2.9 GM/DL (3.2-5.2); ALT/SGPT 122 U/L (12-78); BILIRUBIN,TOTAL 1.2 MG/DL (0.2-1.0); BLOOD UREA NITROGEN 13 MG/DL (7-18); CALCIUM LEVEL 9.2 MG/DL (8.5-10.1); CARBON DIOXIDE LEVEL 28 MEQ/L (21-32); CHLORIDE LEVEL 105 MEQ/L (98-107); GLOMERULAR FILTRATION RATE > 60.0 (>56); GLUCOSE, FASTING 128 MG/DL (70-100); POTASSIUM SERUM 3.7 MEQ/L (3.5-5.1); SODIUM LEVEL 143 MEQ/L (136-145); TOTAL PROTEIN 6.8 GM/DL (6.4-8.2)
[2021-08-13] VITALS (10 sets, daily range): BP systolic 102–128; BP diastolic 55–79
[2021-08-13] MEDS: FUROSEMIDE 40MG/4ML VIAL (J1940) IV SCH ×4 (00:03→18:00)
[2021-08-13] MEDS: levETIRAcetam INJection 1,500 MG in D5W 100 ML IV SCH (00:03)
[2021-08-13] MEDS: LEVALBUTEROL 1.25 MG/0.5 ML CONCENTRATE NEB INH SCH ×3 (00:07→13:59)
[2021-08-13] MEDS: IPRATROPIUM 0.02% SOLN 0.5MG 2.5ML NEB NEB SCH ×3 (00:07→13:59)
[2021-08-13] MEDS: METOPROLOL 5 MG/5 ML VIAL IV SCH (04:00)
[2021-08-13] MEDS: HumaLOG INSULIN (NovoLOG) PER UNIT SC SCH ×4 (06:00→16:44)
[2021-08-13 06:14] LABS: HEMOGLOBIN 11.5 g/dl (13.5-17.5); MEAN CORPUSCULAR HEMOGLOBIN 27.8 pg (27.0-33.0); MEAN CORPUSCULAR HGB CONC 31.1 g/dl (32.0-36.5); MEAN CORPUSCULAR VOLUME 89.6 fl (80.0-96.0); PLATELET COUNT, AUTOMATED 148 10^3/uL (150-450); RED BLOOD COUNT 4.13 10^6/uL (4.30-6.10); WHITE BLOOD COUNT 13.8 10^3/uL (4.0-10.0)
[2021-08-13 06:41] LABS: MAGNESIUM LEVEL 1.9 MG/DL (1.8-2.4); PHOSPHORUS LEVEL 2.8 MG/DL (2.5-4.9); TROPONIN I 0.09 NG/ML (< 0.10)
[2021-08-13] MEDS ORDERED: ASPIRIN 81MG ENTERIC TABLET PO SCH (09:00)
[2021-08-13] MEDS ORDERED: SERTRALINE 100 MG TAB PO SCH (09:00)
[2021-08-13] MEDS ORDERED: levETIRAcetam **XR** 750MG TABLET (KEPPRA XR) PO SCH (09:00)
[2021-08-13] MEDS ORDERED: PHENobarbitaL 30 MG TAB PO SCH (09:00)
[2021-08-13] MEDS ORDERED: HumuLIN R (REGULAR) INSULIN (NovoLIN R) **100U/ML** PER UNIT SC SCH (09:00)
[2021-08-13] MEDS ORDERED: levETIRAcetam 250MG TABLET (KEPPRA) PO SCH (09:00)
[2021-08-13] MEDS ORDERED: FOLIC ACID 1 MG TAB PO SCH (09:00)
[2021-08-13] MEDS ORDERED: POTASSIUM CHLORIDE 10MEQ SR TABLET PO ONE (10:30)
[2021-08-13] MEDS ORDERED: MAGNESIUM OXIDE 400MG TAB (MAG-OX) PO ONE (10:30)
[2021-08-13] MEDS: THIAMINE 200MG 2ML VIAL IV SCH (10:35)
[2021-08-13] MEDS ORDERED: K-PHOS ORIGINAL (POT.ACID PHOSPHATE) 500MG TAB PO ONE (12:00)
[2021-08-13] MEDS ORDERED: METOPROLOL TART 25 MG TABLET PO SCH (12:00)
[2021-08-13] MEDS: RIVAROXABAN 20 MG TAB (XARELTO) PO SCH (18:00)
[2021-08-13] MEDS ORDERED: METOPROLOL 5 MG/5 ML VIAL IV SCH (18:00)
[2021-08-13] MEDS ORDERED: HumaLOG INSULIN (NovoLOG) PER UNIT SC SCH (21:00)
[2021-08-21 09:11] LABS: AMIODARONE (CORDARONE) 133 ng/mL (1000-2500); LEVETIRACETAM (KEPPRA) 35.8 ug/mL (10.0-40.0)
== END 2021-08-13 19:14 | disposition left against medical advice (07) | DRG 201 ==
LOC: M ED 01:14 → M ED INP 01:15 → ENRESERV 03:41 → M ICU 04:03
PROVIDERS: ADMIT Internal Medicine; ATTEND Internal Medicine
DX: I47.2 Ventricular tachycardia (principal); I50.33 Acute on chronic diastolic (congestive) heart failure; E11.40 Type 2 diabetes mellitus with diabetic neuropathy, unspecified; I48.11 Longstanding persistent atrial fibrillation; J44.1 Chronic obstructive pulmonary disease with (acute) exacerbation; Z95.2 Presence of prosthetic heart valve; G40.909 Epilepsy, unspecified, not intractable, without status epilepticus; E66.9 Obesity, unspecified; Z68.31 Body mass index [BMI] 31.0-31.9, adult; E05.80 Other thyrotoxicosis without thyrotoxic crisis or storm; D64.9 Anemia, unspecified; Z79.4 Long term (current) use of insulin; I25.10 Atherosclerotic heart disease of native coronary artery without angina pectoris; E78.5 Hyperlipidemia, unspecified; F32.9 Major depressive disorder, single episode, unspecified; Z95.0 Presence of cardiac pacemaker; Z79.82 Long term (current) use of aspirin; Z79.899 Other long term (current) drug therapy; Z88.0 Allergy status to penicillin; Z88.2 Allergy status to sulfonamides; Z91.018 Allergy to other foods; Z87.891 Personal history of nicotine dependence; F10.10 Alcohol abuse, uncomplicated

== ENCOUNTER 2021-08-22 04:38 | Emergency (ER) | payer OTHER ==
[~2021-08-22] VITALS: Ht 165.1 cm; Wt 77.3 kg
[~2021-08-22 04:38] MED LIST changes: +AMIO200T3 PO; -AMIO200T49 PO; -DOXY-443 PO; +DOXY1CAP62 PO; +FLON1SPR
[2021-08-22] MEDS ORDERED: NS 1,000 ML IV ONE (04:45)
[2021-08-22] MEDS ORDERED: ASPIRIN 81 MG CHEW TABLET PO ONE (05:05)
[2021-08-22] MEDS ORDERED: NITROGLYCERIN 0.4 MG SUBL TABLET SL PRN (05:05)
[2021-08-22 05:16] VITALS: BP 160/82
--- NOTE | 2021-08-22 05:23 | REPVR ---
PROCEDURE INFORMATION: Exam: XR Chest Exam date and time: 08/22/2021 5:05 AM Age: 51 years old Clinical indication: Pain; Angina pectoris; Additional info: Chest pain TECHNIQUE: Imaging protocol: XR of the chest. Views: 1 view. COMPARISON: CR PORTABLE CHEST X-RAY 08/12/2021 7:46 AM FINDINGS: Tubes, catheters and devices: Cardiac device projects over the left chest with single intracardiac lead. Lungs: Diminished interstitial vascular prominence and diminished right-sided effusion. Minor atelectasis lower lungs. Pleural spaces: No pneumothorax. Heart/Mediastinum: Cardiomegaly. Bones/joints: Unremarkable. IMPRESSION: 1. Diminishing changes of pulmonary venous congestion/pulmonary edema with mild residual. 2. Diminishing right effusion . Electronically signed by: Paula Candelario On 08/22/2021 05:22:35 AM
--- NOTE | 2021-08-22 06:02 | ECGEPIP ---
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
[2021-08-22 06:19] LABS: BASO # 0.1 10^3/uL (0.0-0.2); BASO % 0.8 % (0.0-1.0); EOS # 0.4 10^3/uL (0.0-0.5); EOS % 4.6 % (0.0-3.0); HEMOGLOBIN 11.5 g/dl (13.5-17.5); LYMPH % 11.1 % (24.0-44.0); MEAN CORPUSCULAR HEMOGLOBIN 27.3 pg (27.0-33.0); MEAN CORPUSCULAR HGB CONC 31.1 g/dl (32.0-36.5); MEAN CORPUSCULAR VOLUME 87.9 fl (80.0-96.0); MONO # 0.9 10^3/uL (0.0-0.8); MONO % 9.4 % (2.0-8.0); NEUTROPHILS # 6.8 10^3/uL (1.5-8.5); NEUTROPHILS % 73.8 % (36.0-66.0); PLATELET COUNT, AUTOMATED 154 10^3/uL (150-450); RED BLOOD COUNT 4.21 10^6/uL (4.30-6.10); WHITE BLOOD COUNT 9.2 10^3/uL (4.0-10.0)
[2021-08-22 06:29] LABS: INR 1.28; PROTHROMBIN TIME 16.4 SECONDS (12.7-14.5)
[2021-08-22 06:30] LABS: PARTIAL THROMBOPLASTIN TIME 30.8 SECONDS (25.9-37.0)
[2021-08-22 06:48] LABS: RSV AMPLIFICATION NEGATIVE (NEGATIVE)
[2021-08-22 06:52] LABS: FREE T4 1.78 NG/DL (0.76-1.46); MAGNESIUM LEVEL 1.9 MG/DL (1.8-2.4); THYROID STIMULATING HORMONE < 0.005 uIU/ML (0.358-3.740)
[2021-08-22 07:06] LABS: BLOOD UREA NITROGEN 10 MG/DL (7-18); CALCIUM LEVEL 9.6 MG/DL (8.5-10.1); CARBON DIOXIDE LEVEL 27 MEQ/L (21-32); CHLORIDE LEVEL 107 MEQ/L (98-107); CK-MB VALUE MASS 2.8 NG/ML (<3.6); CPK CREATINE PHOSPHOKINASE 70 U/L (39-308); CREATININE FOR GFR 1.03 MG/DL (0.70-1.30); ETHYL ALCOHOL (ETHANOL) < 0.003 % (0.000-0.010); GLOMERULAR FILTRATION RATE > 60.0 (>56); GLUCOSE, FASTING 105 MG/DL (70-100); NT-PRO BNP 7517 PG/ML (<125); POTASSIUM SERUM 3.2 MEQ/L (3.5-5.1); SODIUM LEVEL 142 MEQ/L (136-145); TROPONIN I 0.08 NG/ML (< 0.10)
[2021-08-22] MEDS ORDERED: AMIO400T7 PO (15:53)
[2021-08-22] MEDS ORDERED: AMIODARONE 200 MG TAB (PACERONE) PO ONE (15:55)
[2021-08-22 16:00] VITALS: BP 176/95
== END 2021-08-22 16:39 | disposition home or self-care (01) ==
LOC: M ED 04:38
DX: I47.2 Ventricular tachycardia (principal); Z95.0 Presence of cardiac pacemaker; R94.31 Abnormal electrocardiogram [ECG] [EKG]; E11.9 Type 2 diabetes mellitus without complications; I48.91 Unspecified atrial fibrillation; I25.10 Atherosclerotic heart disease of native coronary artery without angina pectoris; R56.9 Unspecified convulsions; F25.9 Schizoaffective disorder, unspecified; Z91.19 Patient's noncompliance with other medical treatment and regimen; Z88.0 Allergy status to penicillin; Z88.2 Allergy status to sulfonamides; Z79.899 Other long term (current) drug therapy; F17.200 Nicotine dependence, unspecified, uncomplicated

== ENCOUNTER 2021-09-14 16:49 | Emergency (ER) | payer OTHER ==
[~2021-09-14 16:49] MED LIST changes: +AMIO400T7 PO; +DOXY-443 PO; -DOXY1CAP62 PO
[2021-09-14 19:00] VITALS: BP 130/76
== END 2021-09-14 19:45 | disposition left against medical advice (07) ==
LOC: M ED 16:49
DX: Z53.21 Procedure and treatment not carried out due to patient leaving prior to being seen by health care provider (principal)

== ENCOUNTER 2021-09-21 02:36 | Inpatient (IN) | payer OTHER ==
[~2021-09-21] VITALS: Ht 165.1 cm; Wt 70.5 kg
[2021-09-21] MEDS ORDERED: MAGNESIUM SULFATE IN WATER 2 GM in IV 1 EA IV STA ×2 (03:00)
[2021-09-21] MEDS ORDERED: AMIODARONE HCL 150 MG in IV 1 EA IV ONE ×2 (03:00→11:15)
[2021-09-21] MEDS ORDERED: ACETAMINOPHEN TAB 650MG DOSE (2X325MG) PO ONE (03:45)
[2021-09-21 04:19] LABS: BASO # 0.1 10^3/uL (0.0-0.2); BASO % 0.3 % (0.0-1.0); EOS # 0.3 10^3/uL (0.0-0.5); EOS % 1.9 % (0.0-3.0); HEMATOCRIT 31.8 % (42.0-52.0); HEMOGLOBIN 9.5 g/dl (13.5-17.5); LYMPH # 1.1 10^3/uL (1.5-5.0); MEAN CORPUSCULAR HEMOGLOBIN 25.1 pg (27.0-33.0); MEAN CORPUSCULAR HGB CONC 29.9 g/dl (32.0-36.5); MEAN CORPUSCULAR VOLUME 84.1 fl (80.0-96.0); MONO # 1.4 10^3/uL (0.0-0.8); MONO % 9.4 % (2.0-8.0); NEUTROPHILS # 12.1 10^3/uL (1.5-8.5); NEUTROPHILS % 80.9 % (36.0-66.0); PLATELET COUNT, AUTOMATED 169 10^3/uL (150-450); RED BLOOD COUNT 3.78 10^6/uL (4.30-6.10); WHITE BLOOD COUNT 14.9 10^3/uL (4.0-10.0)
[2021-09-21 04:45] LABS: BLOOD UREA NITROGEN 12 MG/DL (7-18); CALCIUM LEVEL 8.4 MG/DL (8.5-10.1); CARBON DIOXIDE LEVEL 25 MEQ/L (21-32); CHLORIDE LEVEL 107 MEQ/L (98-107); CREATININE FOR GFR 0.88 MG/DL (0.70-1.30); ETHYL ALCOHOL (ETHANOL) < 0.003 % (0.000-0.010); GLOMERULAR FILTRATION RATE > 60.0 (>56); GLUCOSE, FASTING 142 MG/DL (70-100); MAGNESIUM LEVEL 4.1 MG/DL (1.8-2.4); POTASSIUM SERUM 3.8 MEQ/L (3.5-5.1); SODIUM LEVEL 139 MEQ/L (136-145)
--- NOTE | 2021-09-21 05:08 | REPVR ---
PROCEDURE INFORMATION: Exam: XR Chest Exam date and time: 09/21/2021 3:21 AM Age: 51 years old Clinical indication: Pain; Other: Not specified; Additional info: Chest pain TECHNIQUE: Imaging protocol: XR of the chest. Views: 1 view. COMPARISON: CR PORTABLE CHEST X-RAY 08/22/2021 4:56 AM FINDINGS: Lungs: Increasing pulmonary vascular congestion and perihilar interstitial prominence consistent with mild perihilar edema. Low lung volumes with bibasilar atelectasis. Pleural spaces: Small right pleural effusion has increased in size. Trace left effusion. No pneumothorax. Heart/Mediastinum: Stable cardiomegaly with postoperative changes present. Internal pacemaker/AICD. Bones/joints: Bones are stable. IMPRESSION: 1. Cardiomegaly with increasing pulmonary vascular congestion and mild perihilar edema consistent with CHF or fluid overload. 2. Increasing small right and trace left pleural effusions with bibasilar atelectasis. Electronically signed by: Jose Alberto Muller On 09/21/2021 05:07:22 AM
[2021-09-21] MEDS ORDERED: cefTRIAXone SOD 1 GM in D5W MINI-BAG PLUS 50 ML IV ONE ×2 (06:05→10:00)
[2021-09-21] MEDS ORDERED: DOXYCYCLINE HYCLATE 100MG TABLET PO ONE (06:10)
[2021-09-21] MEDS ORDERED: NITROGLYCERIN 0.4 MG SUBL TABLET SL STA ×2 (06:25→10:48)
[2021-09-21] MEDS ORDERED: AMIO400T7 PO (06:59)
[2021-09-21] MEDS ORDERED: PROAAER10 INH (06:59)
[2021-09-21] MEDS ORDERED: ALBU83IN INH (06:59)
[2021-09-21] MEDS ORDERED: ATOR1TAB19 PO (07:00)
[2021-09-21] MEDS ORDERED: POTA595T16 PO (07:00)
[2021-09-21] MEDS ORDERED: POTA10TA17 PO (07:00)
[2021-09-21] MEDS ORDERED: METO100T5 PO (07:00)
[2021-09-21] MEDS ORDERED: TRAZ-257 PO (07:00)
[2021-09-21] MEDS ORDERED: XARE20TA PO (07:00)
[2021-09-21] MEDS ORDERED: KEPP1TAB2 PO (07:00)
[2021-09-21] MEDS ORDERED: ZOLO100T PO (07:00)
[2021-09-21] MEDS ORDERED: LISI20TA33 PO (07:00)
[2021-09-21] MEDS ORDERED: ADV250INH INH (07:00)
[2021-09-21] MEDS ORDERED: ADME100I SC (07:00)
[2021-09-21] MEDS ORDERED: PHEN32.44 PO (07:00)
[2021-09-21] MEDS ORDERED: TIZA1TAB12 PO (07:00)
[2021-09-21] MEDS ORDERED: FLON1SPR (07:00)
[2021-09-21] MEDS ORDERED: AMLO10TA PO (07:00)
[2021-09-21] MEDS ORDERED: GABA800T4 PO ×2 (07:00)
[2021-09-21] MEDS ORDERED: NITR4TASL SL (07:00)
[2021-09-21] MEDS ORDERED: FURO40TA2 PO (07:00)
[2021-09-21] MEDS ORDERED: IPRAINH INH (07:00)
[2021-09-21] MEDS ORDERED: HOME MED LIST COMPLETE! XX SCH (07:00)
[2021-09-21] MEDS ORDERED: INSURSD SC (07:00)
[2021-09-21] MEDS ORDERED: IPRATROPIUM 0.5MG/ALBUTEROL 2.5MG INH SOL UD 3ML (DUONEB) NEB SCH (08:00)
[2021-09-21] MEDS ORDERED: IPRATROPIUM 0.5MG/ALBUTEROL 2.5MG INH SOL UD 3ML (DUONEB) NEB PRN (08:30)
[2021-09-21] MEDS ORDERED: FLUTICASONE PROP 0.05% NASAL SPRAY 16 GM (FLONASE) SCH (09:00)
[2021-09-21] MEDS ORDERED: ATORVASTATIN 10 MG TAB PO SCH (09:00)
[2021-09-21 09:31] LABS: CK-MB VALUE MASS 1.8 NG/ML (<3.6); MB/CK RELATIVE INDEX 4.86 (< OR =4); TROPONIN I 0.06 NG/ML (< 0.10)
[2021-09-21] MEDS ORDERED: FUROSEMIDE injection 250 MG in D5W 225 ML IV SCH (10:00)
[2021-09-21] MEDS ORDERED: ALBUTEROL SULFATE 2.5 MG/0.5 ML INH NEB SOLN INH PRN (10:40)
[2021-09-21 10:48] VITALS: BP 115/74
[2021-09-21] MEDS ORDERED: LEVALBUTEROL 1.25 MG/0.5 ML CONCENTRATE NEB INH PRN (10:50)
[2021-09-21] MEDS ORDERED: NITROGLYCERIN 0.4 MG SUBL TABLET SL PRN (10:50)
[2021-09-21 11:14] LABS: FREE THYROXINE INDEX 3.2 % (1.4-3.8); THYROID STIMULATING HORMONE 0.102 uIU/ML (0.358-3.740); THYROXINE (T4) 8.3 UG/DL (4.5-12.0)
[2021-09-21] MEDS ORDERED: AMIODARONE HCL 360 MG in IV 1 EA IV SCH (11:30)
[2021-09-21] MEDS ORDERED: [UNRECOGNIZED DRUG - CODE] IV (11:39)
[2021-09-21] MEDS ORDERED: CEFTINJ2 IV (11:39)
[2021-09-21] MEDS ORDERED: DOXY-350 PO (11:39)
[2021-09-21] MEDS ORDERED: IPRATROPIUM HFA INHALER 12.9 GRAMS (ATROVENT HFA) INH PRN (12:00)
--- NOTE | 2021-09-21 12:06 | CR.PDOC ---
General Date of Consultation: Sep 21, 2021 Referring Provider: Livier Kirk MD Consultation REASON FOR CONSULTATION/CHIEF COMPLAINT: [facility] CHIEF COMPLAINT: " I cannot breathe. "x 2 weeks. "That thing fired 5 times at home. Then, again here now." HISTORY OF PRESENT ILLNESS: Healthcare proxy mother Maria Teresa Katz phone #[phone] 51-year-old DO NOT RESUSCITATE DO NOT INTUBATE male with history of medical noncompliance and leaving AGAINST MEDICAL ADVICE, congestive heart failure ejection fraction 45% AICD in 2010, V. tach, amiodarone induced thyrotoxicosis, CAD, CABG, COPD, history of tetralogy of Fallot status post repair with moderate tricuspid regurg , presents emergency room with 2-week history of worsening shortness of breath 30 pound weight gain feeling feverish without documented fevers, cough productive of white-yellow sputum, without chest pain pressure tightness dizziness or lightheadedness nausea vomiting diarrhea or abdominal pain. Patient said that his defibrillator fired 5 times at home despite taking his medications. In the emergency room patient's AICD fired 5 times, and was given IV magnesium, with nonsustained V. tach resolving, and with him returning to atrial fibrillation with rate of 106. He was afebrile. Chest x-ray shows bilateral infiltrates CHF pattern, and patient was given IV ceftriaxone and azithromycin as well as intravenous Lasix. Patient refused cardiology consultation with all 4 cardiologists in [place]. A call was made to [facility] at [phone] at 10:45 AM. Due to recurrent V. tach despite amiodarone and metoprolol, patient is being transferred to [facility]. Accepting physician is Dr. GREGORY who recommended IV amiodarone 150 mg bolus and 17 mL/hr. PAST MEDICAL HISTORY: Chronic A. fib cardiomyopathy status post AICD 2010 Systolic congestive heart failure ejection fraction of 45% History of V. 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 Testicular cancer status post left orchiectomy Dyslipidemia CAD status post CABG Seizure disorder COPD not oxygen or steroid-dependent Depression with suicide attempt in the past Schizoaffective disorder/borderline personality disorder History of tetralogy of Fallot with repair Moderate tricuspid regurg Mild aortic valve sclerosis PAST SURGICAL HISTORY: Tetralogy of Fallot repair AICD insertion Testicular cancer with left orchiectomy Back surgery Right knee surgery SOCIAL HISTORY: Healthcare proxy mother Maria Teresa Katz phone #[phone] Alcohol abuse previously drank 6 pack daily active smoking previously smoked 3 packs/day Cocaine use THC use On disability FAMILY HISTORY: Unknown ALLERGIES: Please see below. REVIEW OF SYSTEMS: Per HPI 12 point system otherwise negative HOME MEDICATIONS: Please see below. PHYSICAL EXAMINATION: VITAL SIGNS: See below GENERAL APPEARANCE: Disheveled, irritable, mild respiratory distress, no cyanosis/pallor/icterus/jaundice HEENT: Positive JVD, no cervical lymphadenopathy, dry mucous membranes, no stridor, no carotid bruit CARDIOVASCULAR: Positive S3 S1-S2 irregularly irregular A. fib LUNGS:b/l rales diminished b/l wheezing ABDOMEN: obese soft nt nd +bs x 4quadrants EXTREMITIES: positive pitting edema bilateral lower extremities right dorsal mcp open lesion, purulent LABORATORY DATA: See below. IMAGING: see below MICROBIOLOGY: Please see below. ASSESSMENT: 51-year-old DO NOT RESUSCITATE DO NOT INTUBATE male with history of medical noncompliance and leaving AGAINST MEDICAL ADVICE, congestive heart failure ejection fraction 45% AICD in 2011, V. tach, amiodarone induced thyrotoxicosis, CAD, CABG, COPD, history of tetralogy of Fallot status post repair with moderate tricuspid regurg , presents emergency room with 2-week history of worsening shortness of breath 30 pound weight gain feeling feverish without documented fevers, cough productive of white-yellow sputum, without chest pain pressure tightness dizziness or lightheadedness nausea vomiting diarrhea or abdominal pain. Patient said that his defibrillator fired 5 times at home despite taking his medications. In the emergency room patient's AICD fired 5 times, and was given IV magnesium, with nonsustained V. tach resolving, and with him returning to atrial fibrillation with rate of 106. He was afebrile. Chest x-ray shows bilateral infiltrates CHF pattern, and patient was given IV ceftriaxone and azithromycin as well as intravenous Lasix. Patient refused cardiology consultation with all 4 cardiologists in [place]. A call was made to [facility] at [phone] at 10:45 AM. Due to recurrent V. tach despite amiodarone and metoprolol, patient is being transferred to [facility]. Accepting physician is Dr. GREGORY who recommended IV amiodarone 150 mg bolus and 17 mL/hr. Recurrent V. tach/AICD fired 5 times x2 episodes -History of amiodarone induced thyrotoxicosis. 2 episodes of V. tach treated with IV magnesium and IV amiodarone 150 mg bolus and kept on amiodarone drip. Patient is being transferred to [facility]. Continue on telemetry monitoring. Acute on chronic congestive heart failure exacerbation systolic dysfunction ejection fraction of 45% -While in the emergency room patient was kept on strict I's and O's, weight on admission, 2 L fluid restriction, and given intravenous Lasix. Supplemental oxygen to keep saturations above 90%. Cardiac markers showed negative troponin. EKG showed atrial fibrillation. Community-acquired pneumonia -Patient has been given ceftriaxone 2 g IV and doxycycline 100 mg IV. Patient also received a azithromycin from the emergency room physician this morning at 3 AM. Right dorsal hand cellulitis with open lesion -Patient had traumatic injury to the dorsum of the right hand around the MCP joint of the second digit. Currently on IV ceftriaxone. Topical Bactroban twice daily for 10 days. Send wound culture and sensitivity. Chronic A. fib -Currently rate controlled. Patient is on chronic metoprolol 200 twice daily, as well as Eliquis. 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 Seizure disorder -Continue antiepileptic drugs COPD not oxygen or steroid-dependent -Not in acute exacerbation History of depression with suicide attempt in the past Schizoaffective disorder/borderline personality disorder -May benefit from psychiatric evaluation due to chronic medical noncompliance most likely due to chronic depression from chronic medical problems History of tetralogy of Fallot with repair/Moderate tricuspid regurg/Mild aortic valve sclerosis -Chronic CODE STATUS DO NOT RESUSCITATE DO NOT INTUBATE Healthcare proxy Maria Teresa Katz phone #[phone] Vital Signs/I&O Vital Signs Date Time Temp Pulse Resp B/P (MAP) Pulse Ox O2 Delivery O2 Flow Rate FiO2 09/21/21 10:48 115/74 09/21/21 08:53 98.2 94 20 99 Room Air 09/21/21 05:32 2.0 I&O- Last 24 Hours up to 6 AM 09/21/21 06:00 Intake Total 150 ml Balance 150 ml Laboratory Data Labs 24H Laboratory Tests 2 09/21/21 03:04: Immature Granulocyte % (Auto) 0.5, Neutrophils (%) (Auto) 80.9H, Lymphocytes (%) (Auto) 7.0L, Monocytes (%) (Auto) 9.4H, Eosinophils (%) (Auto) 1.9, Basophils (%) (Auto) 0.3, Neutrophils # (Auto) 12.1H, Lymphocytes # (Auto) 1.1L, Monocytes # (Auto) 1.4H, Eosinophils # (Auto) 0.3, Basophils # (Auto) 0.1, Nucleated Red Blood Cells % (auto) 0.0, Anion Gap 7L, Glomerular Filtration Rate > 60.0, Calcium Level 8.4L, Magnesium Level 4.1H, Ethyl Alcohol Level < 0.003 09/21/21 03:31: POC Troponin I (Misc) 0.06 09/21/21 08:51: Lactic Acid Level 1.7, Total Creatine Kinase 37L, Creatine Kinase MB 1.8, Creatine Kinase MB Relative Index 4.86H, Troponin I 0.06, TQ-Jyc-M-Type Natriuretic Peptide 3343H, Procalcitonin 0.08, Thyroid Stimulating Hormone (TSH) 0.102L, Free Thyroxine Index 3.2, Thyroxine (T4) 8.3, Triiodothyronine (T3) Uptake 39 CBC/BMP Laboratory Tests 09/21/21 03:04 Microbiology Microbiology 09/21/21 Blood Culture, Received Pending 09/21/21 Respiratory Virus Panel (PCR) (MYAH) - Final, Complete Allergies Coded Allergies: Penicillins (Verified Allergy, Severe, anaphylaxis, 07/13/21) Mushroom (Verified Allergy, Intermediate, HIVES, 07/13/21) Sulfa (Sulfonamide Antibiotics) (Verified Allergy, Intermediate, hives, 07/13/21) Home Medications Scheduled Amiodarone HCl/D5w (Amiodarone 150 mg/100 ml-D5w) 150 Mg/100 Ml Plast..bag, 1 REYES IV 17ml/hr for 1 Days, #150 Amlodipine Besylate (Norvasc) 10 Mg Tablet, 10 MG PO DAILY, (Reported) Atorvastatin Calcium (Atorvastatin Calcium) 10 Mg Tablet, 10 MG PO DAILY, (Reported) Ceftriaxone in Is-Osm Dextrose (Ceftriaxone 2 gm Piggyback) 2 Gm/50 Ml Froz.piggy, 1 INJ IV 24h for 7 Days, #14 Doxycycline Monohydrate (Doxycycline) 100 Mg Capsule, 100 MG PO BID for 7 Days, #14 Fluticasone Propionate (Flonase Allergy Relief) 9.9 Ml Golden.susp, 1 SPRAY NA BID, (Reported) Insulin Human Regular (Humulin R) 100 Unit/1 Ml Vial, 30 UNITS SC BID, (Reported) Insulin Lispro (Admelog) 100 Unit/1 Ml Vial, 1 DOSE SC AC, (Reported) PER SLIDING SCALE Levetiracetam (Keppra) 750 Mg Tablet, 1,500 MG PO BID, (Reported) Metoprolol Tartrate (Metoprolol Tartrate) 100 Mg Tablet, 200 MG PO BID, (Reported) Phenobarbital (Phenobarbital) 32.4 Mg Tablet, 64.8 MG PO BID, (Reported) Potassium Chloride (Potassium Chloride) 10 Meq Tab.er.prt, 10 MEQ PO BID, (Reported) Potassium Gluconate (Potassium) 600 Mg Tablet, 600 MG PO BID, (Reported) Rivaroxaban (Xarelto) 20 Mg Tablet, 20 MG PO QHS, (Reported) Salmeterol/Fluticasone (Advair 250-50 Diskus) 1 Each Blst.w.dev, 1 PUFF INH BID, (Reported) Sertraline Hcl (Zoloft) 100 Mg Tablet, 100 MG PO DAILY, (Reported) Scheduled PRN Albuterol Sulf (Albuterol Sulfate) 2.5 Mg/3 Ml Vial.neb, 2.5 MG INH Q6H PRN for SHORTNESS OF BREATH, (Reported) Albuterol Sulfate (Proair Hfa) 8.5 Gm Hfa.aer.ad, 2 PUFF INH Q4H PRN for SHORTNESS OF BREATH, (Reported) Ipratropium [place] (Atrovent Hfa) 12.9 Gm Hfa.aer.ad, 2 PUFF INH QID PRN for SOB/WHEEZING, (Reported) OSMEL VAZQUEZ MD Sep 21, 2021 11:35
[2021-09-21 12:53] VITALS: BP 118/66
[2021-09-21] MEDS ORDERED: LEVALBUTEROL 1.25 MG/0.5 ML CONCENTRATE NEB NEB ONE (14:00)
[2021-09-21] MEDS ORDERED: DOXYCYCLINE HYCLATE 100 MG in D5W MINI-BAG PLUS 100 ML IV SCH (18:00)
[2021-09-21] MEDS ORDERED: LEVALBUTEROL 1.25 MG/0.5 ML CONCENTRATE NEB INH SCH (20:00)
[2021-09-21] MEDS ORDERED: PHENobarbitaL 30 MG TAB PO SCH (21:00)
[2021-09-21] MEDS ORDERED: GABAPENTIN 400MG CAP PO SCH (21:00)
[2021-09-21] MEDS ORDERED: HumuLIN R (REGULAR) INSULIN (NovoLIN R) **100U/ML** PER UNIT SC SCH (21:00)
[2021-09-21] MEDS ORDERED: RIVAROXABAN 20 MG TAB (XARELTO) PO SCH (21:00)
[2021-09-21] MEDS ORDERED: levETIRAcetam 250MG TABLET (KEPPRA) PO SCH (21:00)
[2021-09-21] MEDS ORDERED: METOPROLOL TARTRATE 100 MG TAB PO SCH (21:00)
[2021-09-21] MEDS ORDERED: AMIODARONE 200 MG TAB (PACERONE) PO SCH (21:00)
[2021-09-21] MEDS ORDERED: POTASSIUM CHLORIDE 10MEQ SR TABLET PO SCH (21:00)
[2021-09-22] MEDS ORDERED: cefTRIAXone SOD 2 GM in D5W MINI-BAG PLUS 50 ML IV SCH (09:00)
[2021-09-22] MEDS ORDERED: SERTRALINE 100 MG TAB PO SCH (09:00)
--- NOTE | 2021-09-22 20:02 | ECGEPIP ---
[facility] - ED Test Date: 2021-09-21 Pat Name: MERRICK WHALEY Department: Room: - Gender: Male Installation Drafter: ED : 1970 Requested By: KAVEH Carson Order Number: [id number] Reading MD: Livier Kirk Measurements Intervals [place] Rate: 127 P: WI: QRS: 136 QRSD: 94 T: 20 QT: 346 QTc: 502 Interpretive Statements Atrial fibrillation with rapid ventricular response with premature ventricular or aberrantly conducted complexes Right axis deviation Incomplete right bundle branch block Right ventricular hypertrophy with repolarization abnormality increased rate 08/22/21 Electronically Signed on 09-22-2021 20:01:45 EDT by Livier Kirk
== END 2021-09-21 12:54 | disposition short-term general hospital (02) | DRG 201 ==
LOC: M ED 02:36 → M ED INP 08:23
PROVIDERS: ADMIT General Practice; ATTEND General Practice
DX: I47.2 Ventricular tachycardia (principal); I50.23 Acute on chronic systolic (congestive) heart failure; J18.9 Pneumonia, unspecified organism; E11.40 Type 2 diabetes mellitus with diabetic neuropathy, unspecified; I36.0 Nonrheumatic tricuspid (valve) stenosis; Z95.1 Presence of aortocoronary bypass graft; Z66 Do not resuscitate; Z91.19 Patient's noncompliance with other medical treatment and regimen; J44.9 Chronic obstructive pulmonary disease, unspecified; I25.10 Atherosclerotic heart disease of native coronary artery without angina pectoris; E78.5 Hyperlipidemia, unspecified; Z85.47 Personal history of malignant neoplasm of testis; G40.909 Epilepsy, unspecified, not intractable, without status epilepticus; F60.3 Borderline personality disorder; F32.9 Major depressive disorder, single episode, unspecified; F17.200 Nicotine dependence, unspecified, uncomplicated; F14.90 Cocaine use, unspecified, uncomplicated; E03.9 Hypothyroidism, unspecified; Z95.810 Presence of automatic (implantable) cardiac defibrillator; L03.113 Cellulitis of right upper limb; I48.20 Chronic atrial fibrillation, unspecified